=== PATIENT | male | born 1965 | race Caucasian/White ===

== ENCOUNTER 2022-10-02 09:14 | Emergency (ER) | payer OTHER, SELFPAY ==
--- NOTE | ~2022-10-02 | XR_ITS ---
EXAMINATION: XR CHEST CLINICAL INFORMATION: Cough. Covid positive COMPARISON: None TECHNIQUE: Frontal view of the chest was obtained. FINDINGS: Lungs grossly clear. Heart and pulmonary vessels normal. XR/XR chest 1V IMPRESSION: No active disease.
[2022-10-02 09:32] VITALS: BP 144/78; PULSE 69; RESP 18; TEMP 36.6; O2SAT 97; BMI 27.3
--- NOTE | 2022-10-02 10:01 | ED_ITS ---
HPI - General Adult General Chief complaint: General Medical Stated complaint: COVID + Time Seen by Provider: 10/02/22 09:37 Source: patient Mode of arrival: ambulatory Limitations: no limitations History of Present Illness HPI narrative: Patient with a history of diabetes and asthma. Former smoker. Complains of loss of voice and URI symptoms for approximately 2 weeks. Starting yesterday, however, he got significantly worse with fevers chills and a sore throat. He was initially tested for COVID and influenza approximately week and a half ago which was negative. Yesterday, however, he got tested at work with a home COVID test as well as [place] follow-up PCR at the [place] where he is [facility]. Both tests were positive. Positive sputum which is light yellow and white. No nausea vomiting diarrhea or constipation. Eating without difficulty Blood sugars have been approximately 140 in the morning. No shortness of breath Related Data Previous Rx's Medication Instructions Recorded albuterol sulfate 90 mcg/actuation 2 puff inhalation Q6H PRN 10/02/22 aerosol inhaler shortness of breath or wheezing #8.5 grams nirmatrelvir 300 mg (150 mg See Rx Instructions PO .COMPLEX 10/02/22 x2)-ritonavir 100 mg tablet,dose #30 ea pack(EUA) (Paxlovid) Allergies Allergy/AdvReac Type Severity Reaction Status Date / Time Penicillins Allergy Unknown Verified 10/02/22 09:34 Review of Systems Constitutional: Comments: Fevers and chills as described ENT: Comments: Sore throat, mostly with coughing. Able to drink and swallow without difficulty. No difficulty breathing. Cardiovascular: Comments: No chest pain Respiratory: Comments: Cough but no shortness of breath. Gastrointestinal: Comments: No nausea vomiting or abdominal pain Musculoskeletal: Comments: No extremity pain Integumentary/Breasts: Comments: No rash Neurologic: Comments: No weakness Endocrine: Comments: History of diabetes. Blood sugars as described [facility] Social History Social History Advance Directives: Yes Advance Directives Information Provided: Yes Advance Directives on File: No Physical Exam ED Vital Signs: Vital Signs - 24 hr 10/02/22 09:32 Temperature 97.8 F Pulse Rate 69 Respiratory Rate 18 Blood Pressure 144/78 H Pulse Oximetry 97 Oxygen Delivery Method Room Air BMI result Body Mass Index 27.3 Const Other: Awake and alert in no acute distress HENMT Other: Oropharynx normal without erythema or exudate Neck Other: No lymphadenopathy Resp Other: Mildly diminished bilaterally without obvious wheezes rales or rhonchi Cardio Other: Regular rate and rhythm without murmurs rubs or gallops GI Other: Soft nontender nondistended Skin Other: Warm pink and dry without rash Neuro Other: Ambulatory without difficulty. Nonfocal neuro exam Extrem Other: No pedal edema or calf tenderness Course Course Course Narrative: Patient with 2 week URI history. Recent worsening yesterday with positive COVID test yesterday. Likely viral URI now with secondary infection. Probably COVID-19 secondary infection. Will obtain chest x-ray to rule out bronchitis or pneumonia. He has risk factors for to severe disease including diabetes, former smoking, asthma. Will treat with Paxilovid. Will hold off on steroid secondary to diabetes. 10:56. Chest x-ray shows no evidence of infiltrate. Discharge Plan Discharge Clinical Impression: COVID-19 Patient Disposition: Home, Self-Care Instructions: COVID-19 (Coronavirus Disease 2019) (ED) Prescriptions: New Paxlovid (EUA) 300 mg (150 mg x 2)-100 mg tablets,dose pack See Rx Instructions .ROUTE .COMPLEX Qty: 30 0RF Rx Instructions: take TWO 150 mg tablets of nirmatrelvir with ONE 100 mg tablet of ritonavir twice daily for 5 days albuterol sulfate 90 mcg/actuation HFA aerosol inhaler 2 puff inhalation Q6H PRN (Reason: shortness of breath or wheezing) Qty: 8.5 0RF
--- OUTSIDE RECORDS SUMMARY | 2022-10-02 10:13 | XMS_ITS | Continuity of Care Document ---
:1965 Author Organization [facility] Care Team Providers Name Role Phone [facility] Unavailable Unavailable Problems Combined list of problems from Department of Defense and Veterans Affairs facilities. It does not include entries that were removed or entered in error. Problem Status Onset Problem Date of Comments Source Date Type Resolution Chronic kidney Active Condition [facility] disease stage 2 022 [facility] [place] [facility] Asthma Active Condition [facility] [place] Major depression Active Condition [facility] [place] [facility] Obesity Active Condition [facility] [place] [facility] Diabetic retinopathy Active Condition [facility] [place] [facility] Hypospadias Active Condition [facility] [place] [facility] Migraine Active Condition [facility] [place] [facility] Fatty liver Active Condition [facility] [place] [facility] NIDDM Inactive Condition 08/12/2019 Aug 19, ALYSSA- A NEW 000 2000 [facility] By: NORMA ACOSTA Comment: Onset age 34. Asthma sometimes Active Condition Nov 22, EA ST restricts [facility] By: [facility] S [id number]) ARBEN BLOCK Comment: H/O documented from private facility Chronic kidney Active Condition [facility]AST disease stage 2 SHERI [facility] Contusion of knee Active Condition [place] (ICD-9-CM 924.11) [facility] Contusion of wrist Active Condition [place] (ICD-9-CM 923.21) [facility] Diabetic retinopathy Active Condition Oct 29 , [facility] associated with type 2017 Ente [facility] 2 diabetes mellitus By: Mariah VÁZQUEZ Comment: +neuropathy feet Fatty Liver Active Condition Aug 19, [facility] 2000 Entered [facility] By: NORMA ACOSTA Comment: By history. HYPOSPADIES Active Condition Nov [id number] Entered [facility] By: [facility] AR[place] BLOCK Comment: H/O Surgery documented from private facility Migraine, Active Condition Nov 22 unspecified, without 2009 Ente red [facility] mention of By: [facility] S Intractable Migraine BLOCK,CH RIS without mention mell CARPIO Comment: documented from private facility Moderate major Active Condition EAST depression [facility] Obesity Active Condition [facility] Active Condition [facility] HEARING LOSS, [facility] Sprain of Active Condition [place] unspecified site of [facility] knee and leg (ICD-9-CM 844.9) SUBJECTIVE TINNITUS Active Condition [facility] Allergic rhinitis In[facility] Asthma Inactive Condition 08/12/2019 [facility] Chest Pain Inactive Condition 07/31/2017 Nov [id number] Entered [facility] By: 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/31/2017 EAS T intervertebral disc [facility] (ICD-9-CM 722.6) JOHN VILLATORO [facility] Disorders of bursae Inactive Condition 07/31/2017 EAST and tendons in [facility] shoulder region JERS EY [facility] (ICD-9-CM 726.10) Dysthymia (SNOMED CT Inactive Condition 08/12/2019 [facility] [id number]) [facility] Epistaxis Inactive Condition 08/12/2019 [facility] Hypertensive Inactive Condition 08/12/2019 Nov 222008 Entered [facility] By: [facility] AR[place]EN BLOCK Comment: H/O documented from private facility Impacted cerumen, Inactive Condition 08/12/2019 E AST bilateral [facility] Knee pain Inactive Condition 08/12/2019 [facility] MDD, Recur, Moderate Inactive Condition 07/31/2017 [facility] Neck Pain (ICD-9-CM Inactive Condition 07/31/2017 [facility] 723.1) [facility] Other and Inactive Condition 07/31/2017 [facility]AST unspecified [facility]-V A NEW hyperlipidemia [facility] Overweight Inactive Condition 08/12/2019 Sep , [facility] [id number] Entered [facility] By: NORMA ACOSTA Comment: BMI = 31.5 Pain in joint Inactive Condition 07/31/2017 EAST involving shoulder O RANGE-[facility] region (ICD-9-CM JOHN VILLATORO [facility] 719.41) Seen by Inactive Condition 03/16/2021 [facility] occupational therapist Seen by Inactive Condition 01/11/2020 [facility] occupational therapy service Type 2 diabetes Inactive Condition 10/29/2017 LYO NS- [facility] NEW mellitus without JOHN SHAUNA [facility] complication Diagnosis: ICD-10-CM Active Diagnosis [facility]- [place] NEW E11.9 Type 2 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 diabetes mellitus without complicationswith Provider Comments: Type 2 Diabetes Mellitus without Complications Diagnosis: ICD-10-CM Active Diagnosis [facility]- [facility] F33.1 Major [place] [facility] depressive disorder, recurrent, moderatewith Provider Comments: Moderate major depression ([facility] [id number]) Diagnosis: ICD-10-CM Active Diagnosis EAST K29.50 Unspecified O RANGE-VA NEW chronic gastritis JE RSEY [facility] without bleedingwith Provider Comments: Unspecified Chronic Gastritis without Bleeding Diagnosis: ICD-10-CM Active Diagnosis EAST Z12.11 Encounter for [facility] NEW screening for [facility] malignant neoplasm of colonwith Provider Comments: Encounter for Screening for Malignant Neoplasm of Colon Diagnosis: ICD-10-CM Active Diagnosis EAST Z86.010 Personal ORA NGE-VA NEW history of colonic J ARA [facility] polypswith Provider Comments: Personal History of Colonic Polyps Diagnosis: ICD-10-CM Active Diagnosis [facility]- [facility] NEW E11.3391 Type 2 diab [facility] with mod nonp rtnop without macular edema, r eyewith Provider Comments: DM Type 2 w/ Mod NPDR w/o Macula Edema,Right Eye Diagnosis: ICD-10-CM Active Diagnosis [facility]- [facility] NEW R12 Heartburnwith CARL PENDLETON [facility] Provider Comments: Heartburn Diagnosis: ICD-10-CM Active Diagnosis [facility]- [facility] NEW D18.01 Hemangioma of [facility] skin and subcutaneous tissuewith Provider Comments: Angioma Diagnosis: ICD-10-CM Active Diagnosis [facility]- [facility] NEW I10 Essential [facility] (primary) hypertensionwith Provider Comments: Essential (Primary) Hypertension Diagnosis: ICD-10-CM Active Diagnosis [facility]- [facility] NEW E11.8 Type 2 [facility] diabetes mellitus with unspecified complicationswith Provider Comments: Type 2 Diabetes Mellitus with unspecified Complications Diagnosis: ICD-10-CM Active Diagnosis [facility]- [facility] NEW E11.3293 Type 2 diab 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 screening for other viral diseaseswith Provider Comments: Encounter for screening for other viral diseases Diagnosis: ICD-10-CM Active Diagnosis [facility]- [facility] NEW E66.09 Other obesity [facility] due to excess calorieswith Provider Comments: Obesity ([facility] [id number]) Diagnosis: ICD-10-CM Active Diagnosis [facility]- [facility] NEW Z23 Encounter for CARL GARCIA immunizationwith Provider Comments: Encounter for immunization Diagnosis: ICD-10-CM Active Diagnosis EAST Z71.9 Counseling, OR PATRICK-VA NEW unspecifiedwith J[facility] EY HCS Provider Comments: Counseling, unspecified Diagnosis: ICD-10-CM Active Diagnosis [facility]- [facility] E78.5 [facility] Hyperlipidemia, unspecifiedwith Provider Comments: Hyperlipidemia, unspecified Medications Combined list of outpatient medications from Department of Defense and Veterans Affairs facilities. Medications provided include 1) outpatient medications from the last 15 months, and 2) patient-reported medications. Medication Details Route Status Patient Prescription Prescription Last Ordering Order Source Instructions Expires Number Dispense Provider Date Date ALBUTEROL INHALE 2 INHALA ACTIVE 08/06/2023 [id number] AHMED, MOH 08/15/ SC 90MCG/ACTUA PUFFS BY TION 2 AMMED 2021 CNTRL T (CF-F) MOUTH ORAL JAWED WSTRN INHL,ORAL,8 EVERY 6 [place] U .5GM DOSE HOURS SETS COUNTER NEEDED HCS ALBUTEROL INHALE 2 INHALA 03/17/2022 [id number] Dena ARREOLA 03/16/ SHAH- 90MCG/ACTUA PUFFS BY TION 1 AROL M 2020 VA N EW T (CFC-F) MOUTH ORAL [place] INHL,ORAL,8 EVERY 6 HCS .5GM DOSE HOURS COUNTER NEEDED FOR BREATHIN G ALOGLIPTIN TAKE ONE BY ACTIVE 08/17/2023 [id number] Veena GANDARA 09/05/ SHAH- 12.5MG TAB TABLET MOUTH 2 ARO2021 [facility] BY MOUTH [place] DAILY [facility] FOR DIABETES ALOGLIPTIN TAKE ONE BY DISCONT 04/13/2023 [id number] Veena TIM [facility] 12.5MG TAB TABLET MOUTH INUED 2 AROL 2021 [place]- BY MOUTH [facility] FOR [facility] DIABETES ALOGLIPTIN TAKE ONE BY DISCONT 12/22/2022 [id number] ANUP, EAST 12.5MG TAB TABLET MOUTH INUED 2 JUSTIN2021 [place]- BY MOUTH [facility] FOR [facility] DIABETES ALOGLIPTIN TAKE ONE BY DISCONT 2022 [id number] MITCH LINCOL[place], 10/15/ SHAH- 12.5MG TAB TABLET MOUTH INUE 1 2020 [facility] NEW BY MOUTH [place] DAILY HCS FOR DIABETES ALOGLIPTIN TAKE ONE BY DISCONT 09/22/2022 [id number] ANUP, 09/21/ SHAH- 12.5MG TAB TABLET MOUTH INUED 1 2020 [place] NEW BY MOUTH (EDIT) [place] DAILY HCS FOR DIABETES ALOGLIPTIN TAKE ONE BY DISCONT 07/03/2022 [id number] STUART 07/21/ SHAH- 12.5MG TAB TABLET MOUTH INUE 1 YOAN 2020 [place] NEW BY MOUTH [place] DAILY HCS FOR DIABETES ASCORBIC TAKE BY BY ACTIVE ADAROS 06/29/ LYO NS- ACID TAB MOUTH MOUTH BETTYE 2020 [facility] HCS ATORVASTATI TAKE BY ACTIVE 12/08/2022 [id number] JOSH QUIÑONES 12/07/ SHAH- N CA 40MG ONE-HALF MOUTH 2 LOLIS2021 SC NEW TAB TABLET [place] BY MOUTH HCS AT BEDTIME FOR LOWERING CHOLESTE ROL ATORVASTATI TAKE BY DISCONT 12/02/2021 [id number] ISHMAELJOSH 02/06/ SHAH- N CA 40MG ONE-HALF MOUTH INUE 1 LOLIS2020 [place] NEW TAB TABLET [place] BY MOUTH HCS AT BEDTIME FOR LOWERING CHOLESTE ROL BISACODYL TAKE BY 06/19/2022 [id number] Dena RUSSO HR 05/20/ EAST 5MG TAB,EC FOUR MOUTH 2 ISTOPHER 2021 [place] - TABLETS [facility] BY MOUTH [place]ED[place] ONE TIME HCS DIRECTED TAKE THESE TABLETS BY MOUTH ONE TIME DIRECTED FOR BOWEL CLEANSIN G....ANGELITO E ALL PILLS AT ONCE. TAKE THESE TABLETS BY MOUTH ONE TIME DIRECTED FOR BOWEL CLEANSIN G....ANGELITO E ALL PILLS AT ONCE. BISACODYL TAKE BY 03/21/2022 [id number] ANA CASTILLO RI 02/20/ SHAH- 5MG TAB,EC FOUR MOUTH 2 STOPHER 2021 [place] NEW TABLETS [place] BY MOUTH [facility] ONE TIME DIRECTED - TAKE THESE TABLETS BY MOUTH ONE TIME DIRECTED FOR BOWEL CLEANSIN G....ANGELITO E ALL PILLS AT ONCE. - TAKE THESE TABLETS BY MOUTH ONE TIME DIRECTED FOR BOWEL CLEANSIN G....ANGELITO E ALL PILLS AT ONCE. BUPROPION TAKE ONE ORAL ACTIVE 02/02/2023 [id number] FRINO ,MAR 04/24/ EAST HCL 150MG TABLET 2 IE M 2021 [place]- 24HR TAB,SA BY MOUTH [facility] NE W DAILY [place] FOR MOOD HCS BUPROPION TAKE ONE ORAL ACTIVE 08/06/2023 [id number] AHMED,M [place] 08/15/ VA HCL 150MG TABLET 2 AMMED 2021 CNTRL 24HR TAB,SA BY MOUTH JAWED WSTRN ONCE [place] DAILY SETS HCS BUPROPION TAKE ONE ORAL DISCONT 09/29/2022 [id number] F YULIET,MAR 10/19/ EAST HCL 150MG TABLET INUED 2 IE M 2020 [place]- 24HR TAB,SA BY MOUTH [facility] NE W DAILY [facility] FOR MOOD HCS BUPROPION TAKE ONE ORAL DISCONT 01/20/2022 [id number] F YULIET,MAR 01/19/ EAST HCL 150MG TABLET INUE 1 IE M 2020 [place]- 24HR TAB,SA BY MOUTH [facility] NE W DAILY [facility] FOR MOOD HCS CETIRIZINE TAKE ONE BY ACTIVE 05/17/2023 [id number] DUN GO,ROS 05/16/ SHAH- HCL 10MG TABLET MOUTH 2 BETTYE 2021 [place] NEW TAB BY MOUTH [place] DAILY HCS FOR ALLERGY CETIRIZINE TAKE ONE BY DISCONT 02/20/2023 [id number] POSTALLIA 02/19/ SHAH- HCL 10MG TABLET MOUTH INUED 2 N,NEISHA 2021 [place] NEW TAB BY MOUTH A [place] DAILY HCS FOR ALLERGY CETIRIZINE TAKE ONE BY DISCONT 12/26/2022 [id number] POSTALLIA 12/25/ SHAH- HCL 10MG TABLET MOUTH INUED 2 N,NEISHA 2021 [facility] NEW TAB BY MOUTH A [place] DAILY HCS FOR ALLERGY CETIRIZINE TAKE ONE BY DISCONT 10/24/2022 [id number] POSTALLIA 10/23/ SHAH- HCL 10MG TABLET MOUTH INUE 2 N,NEISHA 2020 [facility] NEW TAB BY MOUTH A [place] DAILY HCS FOR ALLERGY CETIRIZINE TAKE ONE BY DISCONT 08/16/2022 [id number] POSTALLIA 08/15/ SHAH- HCL 10MG TABLET MOUTH INUE 1 N,NEISHA 2020 [place] NEW TAB BY MOUTH A [place] DAILY HCS FOR ALLERGY CETIRIZINE TAKE ONE BY DISCONT 06/19/2022 [id number] POSTALLIA 06/18/ SH[facility]- HCL 10MG TABLET MOUTH INUE 1 N,NEISHA 2020 [facility] NEW TAB BY MOUTH A [place] DAILY HCS FOR ALLERGY EMPAGLIFLOZ TAKE ONE BY DISCONT 2022 [id number] HEBERT, 10/04/ SHAH- IN 10MG TAB TABLET MOUTH INUED 2 JUSTIN 2020 [place] NEW BY MOUTH (EDIT) [place] DAILY HCS EMPAGLIFLOZ TAKE ONE BY DISCONT 09/11/2022 [id number] ZIMERING, EAST IN 10MG TAB TABLET MOUTH INUED 1 YOAN 2020 [place]- BY MOUTH (EDIT) [facility] DAILY [place] [facility]CS EMPAGLIFLOZ TAKE ONE BY DISCONT 04/28/2022 [id number] 08/03/20 2 JOSH QUIÑONES 04/27/ SHAH- IN 10MG TAB TABLET MOUTH INUE 1 LOLIS 2020 [place] NEW BY MOUTH [place] DAILY HCS EMPAGLIFLOZ TAKE ONE BY ACTIVE 07/13/2023 [id number] Veena TIM 09/05/ SHAH- IN 25MG TAB TABLET MOUTH 2 AROL 2021 [place] NEW BY MOUTH [place] DAILY HCS EMPAGLIFLOZ TAKE ONE BY DISCONT 04/13/2023 [id number] 06/17/20 2 Veena TIM 06/17/ EAST IN 25MG TAB TABLET MOUTH INUED 2 AROL 2021 [place]- BY MOUTH [facility] DAILY [place] [facility] EMPAGLIFLOZ TAKE ONE BY DISCONT 12/22/2022 [id number] HEBERT, EAST IN 25MG TAB TABLET MOUTH INUED 2 JUSTIN 2021 [place] - BY MOUTH [place] NEW DAILY [place] NEW DOSE HCS ENALAPRIL TAKE ONE ORAL ACTIVE 10/17/2022 [id number] Rodolfo CHARLES 09/17/ VA MALEATE TABLET 2 FAUSTO 2021 CNTRL 2.5MG TAB BY MOUTH WSTRN ONCE [place] DAILY [facility]S FOR HCS BLOOD PRESSURE /HEART ENALAPRIL TAKE ONE BY SUSPEND 03/12/2023 [id number] RICHARD E,JEANNA 03/11/ EAST MALEATE TABLET MOUTH ED 2 TA P 2021 [place]- 2.5MG TAB BY MOUTH [place] NEW DAILY [place] FOR HCS BLOOD PRESSURE /KIDNEY PROTECTI ON ENALAPRIL TAKE ONE BY DISCONT 03/17/2022 [id number] NITA ,JEANNA 04/11/ EAST MALEATE TABLET MOUTH INUED 2 TA P 2020 [place]- 2.5MG TAB BY MOUTH [place] NEW DAILY [place] FOR HCS BLOOD PRESSURE /KIDNEY PROTECTI ON GLIMEPIRIDE TAKE ONE BY ACTIVE 08/17/2023 [id number] Veena FRIEND 09/05/ SHAH- 4MG TAB TABLET MOUTH 2 AROL 2021 [place] NEW BY MOUTH [place] TWICE A [facility] DAY FOR DIABETES GLIMEPIRIDE TAKE ONE BY DISCONT 04/13/2023 [id number] 06/19/20 2 Veena TIM 07/01/ [facility] 4MG TAB TABLET MOUTH INUED 2 AROL 2021 [place]- BY MOUTH [place] NEW TWICE A [place] DAY FOR HCS DIABETES GLIMEPIRIDE TAKE ONE BY DISCONT 12/22/2022 [id number] 04/08/20 2 HEBERT, 01/22/ [facility] 4MG TAB TABLET MOUTH INUED 2 JUSTIN2021 [place]- BY MOUTH [place] NEW TWICE A [place] DAY FOR HCS DIABETES GLIMEPIRIDE TAKE ONE BY DISCONT 09/22/2022 [id number] 11/08/20 2 HEBERT, 11/08/ SHAH- 4MG TAB TABLET MOUTH INUE 1 JUSTIN2020 [place] NEW BY MOUTH [place] TWICE A [facility] DAY FOR DIABETES GLIMEPIRIDE TAKE ONE BY DISCONT 03/17/2022 [id number] 08/31/20 2 STUART 03/31/ SHAH- 4MG TAB TABLET MOUTH INUE 1 YOAN 2020 [place] NEW BY MOUTH [place] TWICE A [facility] DAY FOR DIABETES GLUCOSE 4GM CHEW BY DISCONT 12/22/2022 [id number] ENRIQ UEZ, 12/21/ EAST TAB,CHEW THREE MOUTH INUED 2 JUSTIN2021 [place]- TABLETS [place] NEW BY MOUTH [place] HCS NEEDED FOR LOW BLOOD SUGAR IBUPROFEN TAKE BY BY ACTIVE ANA BLOCK 02/01/ LY ONS- TAB MOUTH MOUTH RISTALA 2008 [facility] DAILY [place] PRN HCS MELATONIN TAKE TWO BY DISCYADIEL 02/02/2023 [id number] FRI NO,MAR 02/01/ EAST 3MG CAP/TAB CAP/TABS MOUTH INUED 2 IE M 2021 ORANG E- BY MOUTH [facility] BEDTIME HCS FOR INSOMNIA METFORMIN TAKE TWO ORAL ACTIVE 10/16/2022 [id number] Rodolfo CHARLES [place] HCL 500MG TABLETS 2 FAUSTO 2021 CNTRL 24HR TAB,SA BY MOUTH [facility] METFORMIN TAKE TWO BY ACTIVE 07/13/2023 [id number] Veena GANDARA 07/12/ SHAH- HCL 500MG TABLETS MOUTH 2 AROL 2021 VA NEW 24HR TAB,SA BY MOUTH [place] Y TWICE A [facility] DAY FOR DIABETES METFORMIN TAKE TWO BY DISCONT 12/22/2022 [id number] ENR IQUEZ, 12/30/ EAST HCL 500MG TABLETS MOUTH INUED 2 JUSTIN2021 [place]- 24HR TAB,SA BY MOUTH [place] NE W TWICE A [place] DAY FOR HCS DIABETES METFORMIN TAKE TWO BY DISCONT 09/22/2022 [id number] ENR IQUEZ, 09/23/ SHAH- HCL 500MG TABLETS MOUTH INUE 2 JUSTIN2020 [facility] NEW 24HR TAB,SA BY MOUTH [place]ER[place] Y TWICE A [facility] DAY FOR DIABETES METFORMIN TAKE TWO BY DISCONT 03/17/2022 [id number] IZABELLA ERING, 03/26/ SHAH- HCL 500MG TABLETS MOUTH INUE 1 YOAN 2020 VA NEW 24HR TAB,SA BY MOUTH [place] Y TWICE A [facility] DAY FOR DIABETES MULTIVITAMI TAKE BY BY ACTIVE ANA BLOCK 02/01/ SHAH- NS TAB MOUTH MOUTH RISTALA 2008 [facility] DAILY [place] [facility]CS OMEPRAZOLE TAKE TWO ORAL ACTIVE 10/16/2022 [id number] Rodolfo ANDRADE 07/18/ [facility] 20MG CAP,EC CAPSULES 2 FAUSTO 2021 CNTRL BY MOUTH WSTRN EVERY [place] MORNING SETS 30 HCS MINUTES BEFORE BREAKFAS T NOTE CAPSULE STRENGTH AND DIRECTIO NS OMEPRAZOLE TAKE ONE BY ACTIVE 05/02/2023 [id number] JONATHON A,CHR 40MG CAP,EC CAPSULE MOUTH 2 ISTOPHER 2021 ORA NGE- BY MOUTH [facility] EVERY [place] DAY HCS BEFORE BREAKFAS T PEG-3350/EL TAKE BY 06/19/2022 [id number] LENZA ,CHR 05/20/ EAST ECTROLYTES 4-LITER MOUTH 2 ISTOPHER 2021 SHERI GE- PWDR BY LENORA PINK [facility] ONE TIME [place] [facility] DIRECTED (DO NOT FOLLOW INSTRUCT IONS ON THE BOTTLE.F OLLOW INSTRUCT IONS ON THE HANDOUT. CALL YOUR PROVIDER OR PHARMACY IF YOU LOSE THE HANDOUT) SERVE CHILLED. MAY TAKE WITH MUCH CLEAR LIQUID (SUCH CAROLYN EMILY) DESIRED. (DO NOT FOLLOW INSTRUCT IONS ON THE BOTTLE.F OLLOW INSTRUCT IONS ON THE HANDOUT. CALL YOUR PROVIDER OR PHARMACY IF YOU LOSE THE HANDOUT) SERVE CHILLED. MAY TAKE WITH MUCH CLEAR LIQUID (SUCH CAROLYN EMILY) DESIRED. PEG-3350/EL TAKE BY 03/21/2022 [id number] ANNA, CHRI 02/20/ SHAH- ECTROLYTES 4-LITER MOUTH 2 STOPHER 2021 [facility] PWDR BY MOUTH [place] ONE TIME [facility] DIRECTED (DO NOT FOLLOW INSTRUCT IONS ON THE BOTTLE.F OLLOW INSTRUCT IONS ON THE HANDOUT. CALL YOUR PROVIDER IF YOU LOSE THE HANDOUT) SERVE CHILLED. MAY TAKE WITH MUCH CLEAR LIQUID (SUCH CAROLYN EMILY) DESIRED. (DO NOT FOLLOW INSTRUCT IONS ON THE BOTTLE.F OLLOW INSTRUCT IONS ON THE HANDOUT. CALL YOUR PROVIDER IF YOU LOSE THE HANDOUT) SERVE CHILLED. MAY TAKE WITH MUCH CLEAR LIQUID (SUCH CAROLYN EMILY) DESIRED. PSYLLIUM TAKE 1 BY 07/06/2022 [id number] POSTAL MARY 07/16/ ALYSSA- SUGAR FREE TEASPOON MOUTH 1 N,NEISHA 2020 [facility],ORAL FUL BY [place] [facility] DAILY (MIX IN A GLASS OF JUICE OR WATER) VITAMIN B TAKE ACTIVE ROXANNE CABALLERO 06/29/ NOEL S- COMPLEX TAB BETTYE 2020 [facility] VITAMIN D TAKE BY BY ACTIVE ROXANNE CABALLERO 06/29/ LY ONS- CAP,ORAL MOUTH MOUTH BETTYE 2020 [facility] WEEK HCS VITAMIN E TAKE BY BY ACTIVE ROXANNE CABALLERO 06/29/ LY ONS- CAP,ORAL MOUTH MOUTH BETTYE 2020 [facility] Allergies, Adverse Reactions, Alerts Combined list of allergies from Department of Defense and Veterans Affairs facilities. It does not include entries that were removed or entered in error. Substance Category Reaction Severity Reaction Status Date Comments S ource type Reported PENICILLIN Propensity Propensity active HOLLY-B to adverse to adverse 2 AR RE reactions reactions [facility] to drug to drug (finding) (finding) PENICILLIN Propensity Urticaria Propensity active [facility] CNTRL to adverse to adverse 2 WS TRN reactions reactions [place] to drug to drug ETS [facility] (finding) (finding) Immunizations Combined list of available immunizations from the Department of Defense and Veterans Affairs facilities. Immunization Series Date Administered Site Reaction Lot CVX Drug St atus Comments Source Given By Number Code Surgeon'S Assistant INFLUENZA, complet VA INJECTABLE, 2021 ed CN TRL QUADRIVALENT, WSTRN PRESERVATIVE M ASSCHU FREE SETS HCS COVID-19 4 complet VA (MODERNA), 2021 ed CNT RL MRNA, LNP-S, W STRN PF, 100 [place] MCG/0.5ML SETS DOSE OR 50 HCS MCG/0.25ML DOSE ZOSTER 2 complet JLV VA RECOMBINANT 2020 ed CN TRL WSTRN [place] SETS HCS COVID-19 3 complet VA (MODERNA), 2020 ed CNT RL MRNA, LNP-S, W STRN PF, 100 [place] MCG/0.5ML SETS DOSE OR 50 HCS MCG/0.25ML DOSE INFLUENZA, complet VA UNSPECIFIED 2020 ed CN TRL FORMULATION WS TRN [place] SETS HCS INFLUENZA, complet SH[facility]- INJECTABLE, 2020 ed VA NEW QUADRIVALENT J ERSEY HCS ZOSTER 1 complet JLV VA RECOMBINANT 2020 ed CN TRL WSTRN [place] SETS HCS COVID-19 2 complet VA (MODERNA), 2020 ed CNT RL MRNA, LNP-S, W STRN PF, 100 [place] MCG/0.5ML SETS DOSE OR 50 HCS MCG/0.25ML DOSE COVID-19 1 complet VA (MODERNA), 2020 ed CNT RL MRNA, LNP-S, W STRN PF, 100 [place] MCG/0.5ML SETS DOSE OR 50 HCS MCG/0.25ML DOSE ZOSTER 2 complet COHEN S- RECOMBINANT 2018 ed [facility] INFLUENZA, complet SH[facility]- [facility], 2019 ed VA N EW INJECTABLE [facility] ZOSTER 1 complet COHEN S- RECOMBINANT 2019 ed [facility] INFLUENZA, complet SHAH- [facility], 2018 ed VA N EW INJECTABLE JOHN VILLATORO [facility] IN[facility], complet EAST SEASONAL, 2017 ed SHERI GE- INJECTABLE [facility], complet EAST SEASONAL, 2016 ed SHERI GE- INJECTABLE [facility], complet EAST SEASONAL, 2015 ed SHERI GE- INJECTABLE [facility], complet SHAH- UNSPECIFIED 2013 ed [facility] NEW FORMULATION JE RSEY [facility], complet EAST UNSPECIFIED 2012 ed OR PATRICK- FORMULATION [facility] TD(ADULT) complet JLV V A UNSPECIFIED 2011 ed CN TRL FORMULATION WS [facility] TETANUS complet EAS T TOXOID, 2011 ed ORANGE - UNSPECIFIED [facility] NEW FORMULATION JE RSEY [facility] INFLUENZA, complet SHAH- UNSPECIFIED 2008 ed [facility] NEW FORMULATION JE RSEY [facility] PNEUMOCOCCAL, complet SHAH- UNSPECIFIED 2008 ed [facility] NEW FORMULATION JE RSEY [facility] INFLUENZA, complet EAST UNSPECIFIED 2007 ed OR PATRICK- FORMULATION [facility] INFLU[facility], complet ZZ UNSPECIFIED 2000 ed LY ONS FORMULATION [facility] PNEUMOCOCCAL, complet ZZ UNSPECIFIED 2000 ed LY ONS FORMULATION [facility] Results Combined list of recent chemistry, hematology and other laboratory results from Department of Defense and Veterans Affairs, ranging from 15 months to all on record, depending upon the facility. Order Results Value Reference Date Interpretation Specimen Commen ts Source Name Range COVID-19 SARS-COV-2 P 10/01 Specimen Typ e: NASOPHARYNX [facility] FLU/RSV (COVID-19) /2021 Comment: Keshia t performed on Cepheid Genexpert at [facility]. NOTIFIED FAUSTO MARTINA 10/01/22 AT 1031 BY [place] EMAILED INFECTION CONTROL 10/01/22 BY [place] FAXED TO [facility] 10/01/22 BY [place] WSTRN DIAGNOST RNA Ordering Provi abhijit: MARTINAFAUSTO D [place] PANEL [PRESENCE] Report Rele ased Date/Time: Oct 01, 2022 09:30 AM [facility] IN Reporting [facility] RESPIRATOR [address] [place] [phone] Y SPECIMEN Performing L ab: [facility] BY SILVIA [address] [place] [phone] WITH PROBE DETECTION COVID-19 FLU A PCR N 10/01 Specimen Type : NASOPHARYNX [facility] CN[facility] FLU/RSV (FLUVID) /2021 Comment: Test performed on Cepheid Genexpert at [facility]. NOTIFIED FAUSTO MARTINA 10/01/22 AT 1031 BY [place] EMAILED INFECTION CONTROL 10/01/22 BY [place] FAXED TO [facility] 10/01/22 BY [place] WSTRN DIAGNOST Ordering Provi abhijit: FAUSTO MACK [place] PANEL Report Release d Date/Time: Oct 01, 2022 09:30 AM [facility] [address] [address] Performing Lab: [address] [address] COVID-19 FLU B PCR N 10/01 Specimen Type : NASOPHARYNX [facility] CNTRL FLU/RSV (FLUVID) /2021 Comment: Test performed on Cepheid Genexpert at [facility]. NOTIFIED FAUSTO MACK 10/01/22 AT 1031 BY TJ EMAILED INFECTION CONTROL 10/01/22 BY TJ FAXED TO [facility] 10/01/22 BY WSTRN DIAGNOST Ordering Provi abhijit: MARTINAFAUSTO D [place] IC PANEL Report Release d Date/Time: Oct 01, 2022 09:30 AM [facility] Reporting Lab: [facility] [address] [facility] [address] Performing Lab: [address] [address] COVID-19 RSV PCR N 10/01 Specimen Type: NASOPHARYNX [facility] FLU/RSV (FLUVID) /2021 Comment: Test performed on Rootless Genexpert at [facility]. NOTIFIED FAUSTO MACK 10/01/22 AT 1031 BY TJ EMAILED INFECTION CONTROL 10/01/22 BY [place] FAXED TO [facility] 10/01/22 BY [place] WSN DIAGNOST Ordering Provi abhijit: FAUSTO MACK [place] PANEL Report Release d Date/Time: Oct 01, 2022 09:30 AM [facility] Reporting Lab: [address] [address] Performing Lab: [address] [address] HEMOGLOB HEMOGLOBIN 7.2 4.8 - 5.6 07/05 H Specimen T ype: BLOOD [facility] IN A1C A1C/HEMOGL /2021 No comment en tered. [facility] OBIN.TOTAL Ordering Pro vider: ZULEMA TIM IN BLOOD Report Release d Date/Time: April 12, 2022 09:59 AM [place] BY HPLC Reporting Lab: [facility] [address] [place] [id number] Performing Lab: [address] [address] CHEM, CREATININE 1.3 .7 - 1.3 07/05 Specimen Typ e: SERUM [facility] Basic [MASS/VOLU /2021 Comment: eGF R calculated using the 2020 CKD-EPI Creatinine equation: eGFR and Chronic Kidney Disease (CKD) Stages: >90 ml/min Stage 1 - None or Slight CKD 60-89 ml/min Stage 2 - Mild CKD 45-59 m [facility] Metaboli ME] IN l/min Stage 3a - Moderate CKD 30-44 ml/min Stage 3B - Moderate CKD 15-29 ml/min Stage 4 - Severe CKD <15 ml/min Stage 5 - End Stage CKD Reference: [email or web address].com/ NEW c Panel SERUM OR Ordering Provi abhijit: ZULEMA TIM PLASMA Report Released Date/Time: April 12, 2022 09:59 AM [facility] Reporting Lab: [facility] [address] [place] [address] Performing Lab: [facility] [address] [place] [address] CHEM, UREA 21 7 - 25 08/12 Specimen Type: S JUAN [facility] Basic NITROGEN /2021 Comment: eGFR calculated using the 2020 CKD-EPI Creatinine equation: eGFR and Chronic Kidney Disease (CKD) Stages: >90 ml/min Stage 1 - None or Slight CKD 60-89 ml/min Stage 2 - Mild CKD 45-59 m [facility] Metaboli [MASS/VOLU l/min Stage 3a - Moderate CKD 30-44 ml/min Stage 3B - Moderate CKD 15-29 ml/min Stage 4 - Severe CKD <15 ml/min Stage 5 - End Stage CKD Reference: https://Industrious Kid.[employer]/ NEW c Panel ME] IN Ordering Provid er: GLENROYZULEMA [place] SERUM OR Report Release d Date/Time: April 12, 2022 09:59 AM [facility] PLASMA Reporting Lab: [facility] [address] [place] [address] Performing Lab: [facility] [address] [place] [address] CHEM, GLUCOSE 138 65 - 99 08/12 H Specimen Type: S JUAN [facility] Basic [MASS/VOLU /2021 Comment: eGF R calculated using the 2020 CKD-EPI Creatinine equation: eGFR and Chronic Kidney Disease (CKD) Stages: >90 ml/min Stage 1 - None or Slight CKD 60-89 ml/min Stage 2 - Mild CKD 45-59 m [facility] Metaboli ME] IN l/min Stage 3a - Moderate CKD 30-44 ml/min Stage 3B - Moderate CKD 15-29 ml/min Stage 4 - Severe CKD <15 ml/min Stage 5 - End Stage CKD Reference: [email or web address]://kidneyInfotop.Applied Predictive Technologies/ NEW c Panel SERUM OR Ordering Provi abhijit: ZULEMA TIM PLASMA Report Released Date/Time: April 12, 2022 09:59 AM [facility] Reporting Lab: [facility] [address] [place] [address] Performing Lab: [facility] [address] [place] [address] CHEM, SODIUM 140 136 - 145 07/05 Specimen Type: SERUM [facility] Basic [MOLES/VOL /2021 Comment: eGF R calculated using the 2020 CKD-EPI Creatinine equation: eGFR and Chronic Kidney Disease (CKD) Stages: >90 ml/min Stage 1 - None or Slight CKD 60-89 ml/min Stage 2 - Mild CKD 45-59 m [facility] Metaboli UME] IN l/min Stage 3a - Moderate CKD 30-44 ml/min Stage 3B - Moderate CKD 15-29 ml/min Stage 4 - Severe CKD <15 ml/min Stage 5 - End Stage CKD Reference: https://kidneyInfotop.Applied Predictive Technologies/ NEW c Panel SERUM OR Ordering Provi abhijit: [facility] PLASMA Report Released Date/Time: April 12, 2022 09:59 AM HCS Reporting Lab: [facility] [address] [place] [address] Performing Lab: [facility] [address] [place] [address] CHEM, POTASSIUM 4.3 3.5 - 5.1 07/05 Specimen Typ e: SERUM [facility]AST Basic [MOLES/VOL /2021 Comment: eGF R calculated using the 2020 CKD-EPI Creatinine equation: eGFR and Chronic Kidney Disease (CKD) Stages: >90 ml/min Stage 1 - None or Slight CKD 60-89 ml/min Stage 2 - Mild CKD 45-59 m [facility] Metaboli UME] IN l/min Stage 3a - Moderate CKD 30-44 ml/min Stage 3B - Moderate CKD 15-29 ml/min Stage 4 - Severe CKD <15 ml/min Stage 5 - End Stage CKD Reference: https://kidneyInfotop.Applied Predictive Technologies/ NEW c Panel SERUM OR Ordering Provi abhijit: [facility]. [facility] PLASMA Report Released Date/Time: April 12, 2022 09:59 AM HCS Reporting Lab: [facility] [address] [place] [address] Performing Lab: [facility] [address] [place] [address] CHEM, CHLORIDE 105 98 - 107 07/05 Specimen Type: SERUM [facility]AST Basic [MOLES/VOL /2021 Comment: eGF R calculated using the 2020 CKD-EPI Creatinine equation: eGFR and Chronic Kidney Disease (CKD) Stages: >90 ml/min Stage 1 - None or Slight CKD 60-89 ml/min Stage 2 - Mild CKD 45-59 m [facility] Metaboli UME] IN l/min Stage 3a - Moderate CKD 30-44 ml/min Stage 3B - Moderate CKD 15-29 ml/min Stage 4 - Severe CKD <15 ml/min Stage 5 - End Stage CKD Reference: [email or web address] Energy Group.Applied Predictive Technologies/ NEW c Panel SERUM OR Ordering Provi abhijit: ZULEMA TIM PLASMA Report Released Date/Time: April 12, 2022 09:59 AM HCS Reporting Lab: [facility] [address] [facility] [facility] [address] Performing Lab: [facility] [address] [place] [address] CHEM, CARBON 25 21 - 31 07/05 Specimen Type: S JUAN [facility] DIOXIDE, /2021 Comment: eGFR calculated using the 2020 CKD-EPI Creatinine equation: eGFR and Chronic Kidney Disease (CKD) Stages: >90 ml/min Stage 1 - None or Slight CKD 60-89 ml/min Stage 2 - Mild CKD 45-59 m [facility] Met[place]oli TOTAL l/min Stage 3a - Moderate CKD 30-44 ml/min Stage 3B - Moderate CKD 15-29 ml/min Stage 4 - Severe CKD <15 ml/min Stage 5 - End Stage CKD Reference: https://kidneyInfotop.Applied Predictive Technologies/ NEW c Panel [MOLES/VOL Ordering Pro vider: ZULEMA TIM UME] IN Report Released Date/Time: April 12, 2022 09:59 AM [facility] SERUM OR Reporting Lab: [facility] PLASMA [address] [facility] [address] Performing Lab: [facility] [address] [facility] [address] [facility] [address] CHEM, CALCIUM 9.8 8.6 - 10.3 07/05 Specimen Type : SERUM [facility] [MASS/VOLU /2021 Comment: eGF R calculated using the 2020 CKD-EPI Creatinine equation: eGFR and Chronic Kidney Disease (CKD) Stages: >90 ml/min Stage 1 - None or Slight CKD 60-89 ml/min Stage 2 - Mild CKD 45-59 m [facility] Metaboli ME] IN l/min Stage 3a - Moderate CKD 30-44 ml/min Stage 3B - Moderate CKD 15-29 ml/min Stage 4 - Severe CKD <15 ml/min Stage 5 - End Stage CKD Reference: https://Nerd Attack/ NEW c Panel SERUM OR Ordering Provi abhijit: ZULEMA TIM PLASMA Report Released Date/Time: April 12, 2022 09:59 AM HCS Reporting Lab: [facility] [address] [place] [address] Performing Lab: [facility] [address] [place] [address] CHEM, ANION GAP 10 5 - 13 07/05 Specimen Type: SERUM [facility] IN SERUM /2021 Comment: eGFR calculated using the 2020 CKD-EPI Creatinine equation: eGFR and Chronic Kidney Disease (CKD) Stages: >90 ml/min Stage 1 - None or Slight CKD 60-89 ml/min Stage 2 - Mild CKD 45-59 m [facility] Metaboli OR PLASMA l/min Stage 3 a - Moderate CKD 30-44 ml/min Stage 3B - Moderate CKD 15-29 ml/min Stage 4 - Severe CKD <15 ml/min Stage 5 - End Stage CKD Reference: https://Nerd Attack/ NEW c Panel Ordering Provid er: ZULEMA TIM Report Released Date/Time: April 12, 2022 09:59 AM [facility]CS Reporting Lab: [facility] [address] [place] [address] Performing Lab: [facility] [address] [facility] [address] CHEM, GLOMERULAR 65 90 07/05 L Specimen Type : SERUM [facility] FILTRATION /2021 Comment: eGF R calculated using the 2020 CKD-EPI Creatinine equation: eGFR and Chronic Kidney Disease (CKD) Stages: >90 ml/min Stage 1 - None or Slight CKD 60-89 ml/min Stage 2 - Mild CKD 45-59 m [facility] Metaboli RATE/1.73 l/min Stage 3 a - Moderate CKD 30-44 ml/min Stage 3B - Moderate CKD 15-29 ml/min Stage 4 - Severe CKD <15 ml/min Stage 5 - End Stage CKD Reference: https://Nerd Attack/ NEW c Panel SQ Ordering Provid er: ZULEMA TIM Report Relea sed Date/Time: April 12, 2022 09:59 AM HCS D [VOLUME Reporting Lab : [facility] HCS RATE/AREA] [address] [facility] [address] IN SERUM Performing Lab : [facility] OR PLASMA [address] [facility] [address] BY CREATININE -BASED FORMULA (MDRD) COVID-19 SARS-COV-2 Not 06/26 Specimen Typ e: OROPHARYNX SHAH- VA MONITOR (COVID-19) Detected /2021 No comment e ntered. JUSTIN PANEL(AL RNA Ordering Provi abhijit: ASHWINI SARMIENTO [facility]) [PRESENCE] Report Relea sed Date/Time: Mar 21, 2022 08:55 AM [facility] IN Reporting Lab: [facility] RESPIRATOR [address] [facility] [address] Y SPECIMEN Performing L ab: [facility] BY SILVIA [address] [facility] [address] WITH PROBE DETECTION COVID-19 SARS-COV-2 Not 06/12 Specimen Typ e: OROPHARYNX SHAH- [place] MONITOR (COVID-19) Detected /2021 No comment e ntered. JUSTIN PANEL(AL RNA Ordering Provi abhijit: ASHWINI SARMIENTO [facility]) [PRESENCE] Report Relea sed Date/Time: Mar 21, 2022 08:55 AM [facility] IN Reporting Lab: [facility]CS RESPIRATOR [address] [facility] [address] Y SPECIMEN Performing L ab: [facility] BY SILVIA [address] [facility] [address] WITH PROBE DETECTION COVID-19 SARS-COV-2 Not 06/04 Specimen Typ e: OROPHARYNX SHAH- [place] MONITOR (COVID-19) Detected /2021 Comment: Te st Performed by NAHUM MEAD(AL RNA Ordering Provi abhijit: ASHWINI SARMIENTO [facility]) [PRESENCE] Report Relea sed Date/Time: Mar 21, 2022 08:55 AM [facility]CS IN Reporting Lab: [facility] HCS RESPIRATOR [address] [facility] [address] Y SPECIMEN Performing L ab: [facility] BY SILVIA [address] [facility] [address] WITH PROBE DETECTION COVID-19 SARS-COV-2 Not 05/14 Specimen Typ e: OROPHARYNX SHAH- [facility] MONITOR (COVID-19) Detected /2021 Comment: Te st Performed by NAHUM MEAD(AL RNA Ordering Provi abhijit: ASHWINI SARMIENTO [facility]) [PRESENCE] Report Relea sed Date/Time: Mar 21, 2022 08:55 AM [facility] IN Reporting Lab: [facility] HCS RESPIRATOR [address] [facility] [address] Y SPECIMEN Performing L ab: [facility] BY SILVIA [address] [facility] [address] WITH PROBE DETECTION COVID-19 SARS-COV-2 Not 05/07 Specimen Typ e: OROPHARYNX SHAH- SC MONITOR (COVID-19) Detected /2021 Comment: Te st Performed by NAHUM MEAD(AL RNA Ordering Provi abhijit: ASHWINI SARMIENTO [facility]) [PRESENCE] Report Relea sed Date/Time: Mar 21, 2022 08:55 AM HCS IN Reporting Lab: [facility] HCS RESPIRATOR [address] [facility] [address] Y SPECIMEN Performing L ab: [facility] H[facility] BY SILVIA [address] [facility] [address] WITH PROBE DETECTION POC GLUCOSE 102 70 - 115 05/01 Specimen Type: BLOOD EAST GLUCOSE [MASS/VOLU /2021 No comment en tered. [facility] ME] IN Ordering Provid er: TODD RUSSO MD NEW BLOOD BY Report Release d Date/Time: May 01, 2022 12:00 PM [place] [facility] Reporting Lab : [facility] HCS TEST STRIP [address] [facility] [address] Performing Lab: [facility] [address] [facility] [address] POC GLUCOSE 137 70 - 115 0608 Specimen Type: BLOOD EAST GLUCOSE [MASS/VOLU /2021 No comment en tered. [facility] ME] IN Ordering Provid er: JC CABALLERO BLOOD BY Report Release d Date/Time: May 01, 2022 09:28 AM [place] [employer] Reporting Lab : [facility] HCS TEST STRIP [address] [facility] [address] Performing Lab: [facility] [address] [place] [address] Vital Signs Combined list of inpatient and outpatient Vital Signs from Department of Defense and Veterans Affairs, ranging from 12 months to all on record, depending upon the facility. Vital Sign Value Date Comments Source SYSTOLIC BLOOD PRESSURE 144 09/17/2022 [facility] 13:38:12 [facility] DIASTOLIC BLOOD PRESSURE 74 09/17/2022 [facility] 13:38:[facility] PULSE OXIMETRY 96% 09/17/2022 [facility] 13:38:12 [facility] WEIGHT 197.7 09/17/2022 [facility] 13:38:[facility] BMI 30kg/m2 09/17/2022 [facility] 13:38:[facility] PAIN 0 09/17/2022 [facility] 13:38:[facility] TEMPERATURE 97.6 09/17/2022 [facility] 13:38:12 [facility] PULSE 74 09/17/2022 [facility] 13:38:12 [facility] RESPIRATION 20 09/17/2022 [facility] 13:38:[facility] SYSTOLIC BLOOD PRESSURE 138 09/03/2022 [facility] C [facility] 11:40:33 [facility] DIASTOLIC BLOOD PRESSURE 71 09/03/2022 [facility] 11:40:33 [facility] PULSE OXIMETRY 98% 09/03/2022 [facility] 11:40:33 [facility] WEIGHT 195.7 09/03/2022 [facility] 11[facility]40:[facility] BMI 30kg/m2 09/03/2022 [facility] 11:40:33 [facility] PAIN 0 09/03/2022 [facility] 11:40:33 [facility] TEMPERATURE 97.2 09/03/2022 [facility] 11:40:33 [facility] PULSE 55 09/03/2022 [facility] 11:40:33 [facility] RESPIRATION 16 09/03/2022 [facility] 11:40:33 [facility] SYSTOLIC BLOOD PRESSURE 142 08/05/2022 [facility] C [facility] 13:58:55 [facility] DIASTOLIC BLOOD PRESSURE 76 08/05/2022 [facility] 13:58:55 [facility] PULSE OXIMETRY 97% 08/05/2022 [facility] 13:58:55 [facility] WEIGHT 195.7 08/05/2022 [facility] 13[facility]58:55 [facility] BMI 30kg/m2 08/05/2022 [facility] 13:58:55 [facility] PAIN 2 08/05/2022 [facility] 13:58:55 [facility] TEMPERATURE 97.6 08/05/2022 [facility] 13:58:55 [facility] PULSE 67 08/05/2022 [facility] 13:58:55 [facility] RESPIRATION 16 08/05/2022 [facility] 13:58:55 [facility] SYSTOLIC BLOOD PRESSURE 155 07/18/2022 [facility] C [facility] 10:35:46 [facility] DIASTOLIC BLOOD PRESSURE 75 07/18/2022 [facility] 10:35:46 [facility] PULSE OXIMETRY 96% 07/18/2022 [facility] 10:35:46 [facility] WEIGHT 191.4 07/18/2022 [facility] 10:35:46 [facility] BMI 29kg/m2 07/18/2022 [facility] 10:35:46 [facility] PAIN 0 07/18/2022 [facility] 10:35:46 [facility] HEIGHT 68 07/18/2022 [facility] 10:35:46 [facility] TEMPERATURE 97.4 07/18/2022 [facility] 10:35:46 [facility] PULSE 53 07/18/2022 [facility] 10:35:46 [facility] RESPIRATION 20 07/18/2022 [facility] 10:35:46 [facility] SYSTOLIC BLOOD PRESSURE 116 05/01/2022 [facility] NEW 09:30:00 [facility] DIASTOLIC BLOOD PRESSURE 70 05/01/2022 EAS T [facility] NEW 09:30:00 [facility] PULSE OXIMETRY 99% 05/01/2022 [facility] NEW 09:30:00 [facility] WEIGHT 192 05/01/2022 [facility] NEW 09:30:00 [facility] BMI 29kg/m2 05/01/2022 [facility] NEW 09:30:00 [facility] PAIN 0 05/01/2022 [facility] NEW 09:30:00 [facility] HEIGHT 68 05/01/2022 [facility] NEW 09:30:00 [facility] TEMPERATURE 98 05/01/2022 [facility] NEW 09:30:00 [facility] PULSE 59 05/01/2022 [facility] NEW 09[facility]30:00 [facility] RESPIRATION 20 05/01/2022 [facility] NEW 09:30:00 [facility] Encounters Combined list of: 1) Encounters from Department of Veterans Affairs facilities going back up to the last 18 months. 2) Encounters from the Department of Defense facilities going back up to 280 months. Location Location Encounter Encounter Reason Attending ADM DC Stat us Disposition Source Details Type Number For Provider Date Date Visit Outpatient [id number] 04/30 [facility] Encounter [id number] [facility] Outpatient [id number] ANSELMO MOYA 05/14 [id number] [facility] [id number] TD JEFFREY 05[facility]30 [id number] [id number] 06/20 NOEL S- Encounter [id number] [facility] [place] [facility] [address] [facility] OFFICE O/P [id number] CHANA Grace 06/29 SHAH- EST MOD [id number] is: ONEIL /2020 [place] NEW 30-39 MIN 59 ICD-10- [place] [facility] E78.5 Hyperli pidemia , unspeci fied
with Provide r Comment s: Hyperli pidemia , unspeci fied Outpatient [id number] 07/02 [facility] Encounter [id number] [facility] [id number] Diagnos BITZER,CAR 07/16 SHAH- IVNTJ [id number] is: OLYNN A [place] NEW INDIV 1ST ICD-10- [place] 30 CM HCS E66.09 Other obesity due to excess calorie s
w ith Provide r Comment s: Obesity ([facility] [id number] ) HC PRO 01155-0.56 Diagnos WALKER,MAY 33 E AST PHONE CALL [id number] is: NEGAR D SHERI GE- 5-10 MIN [facility] Z71.9 HCS [employer] ing, unspeci fied
with Provide r Comment s: Furniture Sales Associate ing, unspeci fied [place] 27271-7.56 Diagnos VIGNESH,EU 07/21 E AST PHONE CALL [phone] is: LALEE H OR PATRICK- 5-10 MIN ICD-10- [facility] Z71.9 HCS [employer] ing, unspeci fied
with Provide r Comment s: Furniture Sales Associate ing, unspeci fied [facility] 47827-7.56 Diagnos BITZER,CAR 07/27 SHAH- IVNTJ [id number] is: OLYNN [place] NEW INDIV EA 54 ICD-10- [place] ADDL CM HCS E66.09 Other obesity due to excess calorie s
w ith Provide r Comment s: Obesity ([facility] [id number] ) [facility] 41719-5.56 Diagnos BITZER,CAR 08/10 SHAH- IVNTJ [id number] is: OLYNN A SC NEW INDIV EA 56 ICD-10- [place] ADDL CM HCS E66.09 Other obesity due to excess calorie s
w ith Provide r Comment s: Obesity ([facility] [id number] ) Outpatient 56728-7.63 08/12 [place] En[place] [id number] /2021 [facility] [facility] O/P 29847-9.56 Diagnos GONZALEZ 08/16 SHAH- EST [id number] is: ,MARCO ANTONIO R [place] NEW MINIMAL 31 ICD-10- [place] PROB CM Z23 HCS Encount er for immuniz ation<b r/>with Provide r Comment s: Encount er for Immuniz ation IIV4 VACC 40887-7.56 Diagnos TERESITA NAIR 08/21 SHAH- NO PRSV [id number] is: S /2020 [facility] NEW 0.5 ML IM 13 ICD-10- [place] CM Z23 HCS Encount er for immuniz ation<b r/>with Provide r Comment s: Encount er for immuniz ation Outpatient 01036-9.63 08/24 [place] En[place] [id number] /2021 [facility] 66003-4.56 Diagnos BITZER,CAR 08/24 SHAH- IVNTJ [id number] is: OLYNN [place] NEW INDIV EA 54 ICD-10- [place] ADDL CM HCS E66.09 Other obesity due to excess calorie s
w ith Provide r Comment s: Obesity ([facility] [id number]) HC PRO 93353-0.56 Diagnos NITIN,FLORDE 08/30 L YONS- PHONE CALL [id number] is: TED [place] NEW 5-10 MIN 84 ICD-10- [place] CM [facility] [facility] Z71.89 Other specifi ed crisis counselor ing<br/ >with Provide r Comment s: Other specifi ed Furniture Sales Associate ing OFFICE O/P 93500-4.56 Diagnos CHANDAN HOWARD 09/20 SHAH- EST [id number] is: EEN [place] NEW MINIMAL 72 ICD-10- [place] PROB CM HCS Z11.59 Encount er for screeni ng for other viral disease s
w ith Provide r Comment s: Encount er for screeni ng for other viral disease s OFFICE O/P 72485-7.56 Diagnos Lourdes HEBERT 09/21 SHAH- EST LOW [id number] is: OANNA [facility] NEW 20-29 MIN 13 ICD-10- [facility]3] E11.8 Type 2 diabete s mellitu s with unspeci fied complic ations< br/>wit h Provide r Comment s: Type 2 Diabete s Mellitu s with unspeci fied Complic ations Outpatient 65487-2.56 09/28 [facility] Encounter [id number] [facility]ANG [facility] Outpatient 04726-1.63 09/28 [facility] Encounter [id number] /2021 [facility] Kwanji [facility] OFFICE O/P 56 Diagnos FRI09/28 SHAH- EST LOW [id number] is: E SC NEW - MIN 07 ICD-10- [facility]3] F33.9 Major depress joey disorde r, recurre nt, unspeci fied
with Provide r Comment s: Major Depress joey Disorde r, Recurre nt, unspeci fied Outpatient [id number] 10/10 COHEN S- Encounter [id number] [facility] NE W 48 [facility] Outpatient 42614-3.63 10/14 [id number] [facility] Kwanji [facility] OFFICE O/P Diagnos FRINO,11/30 SHAH- EST LOW [id number] is: E SC NEW 20- MIN 44 ICD-10- [facility]3] F33.1 Major depress joey disorde r, recurre nt, moderat e
w ith Provide r Comment s: Moderat e major depress ion (SCT [id number]) DETERMINE 56 Diagnos TARDANICO, 12/11 SHAH- REFRACTIVE [id number] is: [facility] 66 ICD-10- [facility]3] E11.329 3 Type 2 diab with mild nonp rtnop without macular edema, bi
with Provide r Comment s: Type 2 diabete s mellitu s with mild nonprol iferati ve diabeti c retinop athy without macular edema, bilater al Outpatient 35577-4.56 Diagnos HEBERT,J 12/21 SHAH- Encounter [id number] is: OANNA [facility] NE W 59 ICD-10- [place] CM HCS E11.8 Type 2 diabete s mellitu s with unspeci fied complic ations< br/>wit h Provide r Comment s: Type 2 Diabete s Mellitu s with unspeci fied Complic ations OFFICE O/P 99045-7.56 Diagnos CHANA CABALLERO 01/18 SHAH- EST MOD [id number] is: ONEIL VA NEW 30-39 MIN 89 ICD-10- [place] CM I10 HCS Essenti al (primar y) hyperte nsion<b r/>with Provide r Comment s: Gordon al (Primar y) Hyperte nsion Outpatient 01001-9.56 01/22 [facility] Encounter [id number] /2022 [facility] OFF[facility] 20570-456 Diagnos LEANN SCHULTZ 01/23 L YONS- CONSULTATI [id number] is: EEP VA N EW ON 75 ICD-10- [place] CM HCS D18.01 Hemangi eliza of skin and subcuta neous tissue< br/>wit h Provide r Comment s: Angioma NUBHVL XM 69918-0.56 Diagnos EISENSTEIN 01/24 SHAH- PHYS/QHP [id number] is: ,ADEEL VA N EW 1ST HR 08 ICD-10- [place] CM HCS F33.1 Major depress joey disorde r, recurre nt, moderat e
w ith Provide r Comment s: Moderat e major depress ion (SCT [id number]) PSYCH 94674-3.56 Diagnos GULSHANSCOT 02/01 LY ONS- DIAGNOSTIC [id number] is: T SARAH V A NEW EVALUATION 14 ICD-10- [place] CM HCS F33.1 Major depress joey disorde r, recurre nt, moderat e
w ith Provide r Comment s: Moderat e major depress ion (SCT [id number]) OFFICE O/P 92247-8.56 Diagnos HAILEY CARRILLO 02/01 SHAH- EST LOW [id number] is: E M VA NEW 20-29 MIN 19 ICD-10- [place] CM HCS F33.1 Major depress joey disorde r, recurre nt, moderat e
w ith Provide r Comment s: Moderat e major depress ion (SCT [id number]) Outpatient 19887-3.56 Diagnos VOARMANIOUGH-T 02/19 SHAH- Encounter [id number] is: ABBEY CHAUDHRYA /2021 SC NEW 53 ICD-10- [place] CM R12 HCS Heartbu rn
with Provide r Comment s: Heartbu rn Outpatient 32150-3.63 02/27 [facility] Encounter 1. CNTRL WSN [place] SET[place] [facility] [place] [address]-7.56 Diagnos GAFFNEY,SCOT 03/01 SHAH- 45 MINUTES [id number] is: T V A NEW 94 ICD-10- [place] CM HCS F33.1 Major depress joey disorde r, recurre nt, moderat e
w ith Provide r Comment s: Moderat e major depress ion (SCT [id number]) Outpatient 05112-2.63 03/10 [facility] Encounter [id number] CNTRL WSTRN [place] [facility] OFFICE O/P 27325-5.56 Diagnos FRIARCHANAHAILEY 04/05 SHAH- EST LOW [id number] is: E M SC NEW 20-29 MIN 77 ICD-10- [place] CM HCS F33.1 Major depress joey disorde r, recurre nt, moderat e
w ith Provide r Comment s: Moderat e major depress ion (SCT [id number]) [place] [address]-0.56 Diagnos GAFFNEY,SCOT 04/10 SHAH- 45 MINUTES [id number] is: T V A NEW 47 ICD-10- [place] CM HCS F33.1 Major depress joey disorde r, recurre nt, moderat e
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, r eye<br/ >with Provide r Comment s: DM Type 2 w/ Mod NPDR w/o Macula Edema,R ight Eye Outpatient 12138-6 Diagnos GLENROY,KA 04/12 SHAH- Encounter [id number] is: ROL VA NE W 74 ICD-[address] [place] [address] E11.9 Type 2 diabete s mellitu s without complic ations< br/>wit h Provide r Comment s: Diabeti c retinop athy associa mike with type 2 diabete s mellitu s (SCT [id number] 02) Outpatient 79170-456 04/19 [facility] Encounter [id number] [facility] PSYTX W PT Diagnos GAFFNEY,SCOT 04/24 SHAH- 45 MINUTES [id number] is: T SARAH /2021 V [place] [address] F33.1 Major depress joey disorde r, recurre nt, moderat e
w ith Provide r Comment s: Moderat e major depress ion (SCT [id number]) Outpatient 05209-056 04/29 [facility] Encounter [id number] /2022 [facility] EGD BIOPSY Diagnos ROSITA RUSSO 05/01 [facility] SINGLE/MUL [id number] is: KINZA PINK /2021 [facility]- TIPLE [facility]-10[facility] Z12.11 [facility] Encount er for screeni ng for maligna nt neoplas m of colon<b r/>with Provide r Comment s: Encount er for Screeni ng for Maligna nt Neoplas m of Colon OFFICE O/P 58386-856 Diagnos JAYLYN CALABRESE 05/01 [facility] EST [id number] is: ORANGE- MINIMAL ICD-[address] [place] [address] Z86.010 [facility] Persona l history of colonic polyps< br/>wit h Provide r Comment s: Persona l History of Colonic Polyps Outpatient 22372-2.56 05/01 [facility] Encounter [id number] [facility] Outpatient 37868-5.56 05/01 [facility] Encounter [id number] [facility] Out[facility] 36657-4.56 05/01 [id number] [facility] 92290-4.56 05/01 [facility] En[facility] [id number] [facility] 17273-2.56 05/01 [id number] [facility] 81257-4.56 Diagnos JAYLYN CALABRESE 05/[address] [facility] GI [id number] is: /2021 ORANGE- NDSC PX ICD-10- [facility] K29.50 [facility] Unspeci fied chronic gastrit is without bleedin g
w [facility] Provide r Comment s: Unspeci fied Chronic Gastrit is without Bleedin g Outpatient 09942-0.56 GAINDH,JAGDEEP 05/06 [facility] Encounter [id number] [facility] KAMAL /2021 O [facility] Outpatient 37701-0.63 05/08 [facility] Encounter [id number] [facility] [facility] [place] [address]-4.56 Diagnos MARICHUY GAFFNEY 05/08 SHAH- 45 MINUTES [id number] is: T SARAH V A NEW 42 ICD-[address] [place] [address] F33.1 Major depress joey disorde r, recurre nt, moderat e
w [facility] Provide r Comment s: Moderat e major depress ion (SCT [id number]) Outpatient 62639-6.56 FIDAN-OZBI 05/10 [facility] Encounter [id number] LGIN[facility]ELIN /[facility] 46296-3.56 05/20 [id number] [facility]patient 14402-5.56 AMAYA OLEA 06/28 SHAH- Encounter [id number] [facility] NE W [address] [place] [address] [place] [address]-8.56 Diagnos MARICHUY GAFFNEY 07/12 SHAH- 45 MINUTES [id number] is: T SARAH V A NEW 19 ICD-10- [place] CM HCS F33.1 Major depress joey disorde r, recurre nt, moderat e
w ith Provide r Comment s: Moderat e major depress ion (SCT [id number]) OFFICE O/P 27343-8.56 Diagnos GLENROY,STANISLAW 07/12 SHAH- EST SF [id number] is: ROL VA NEW 10-19 MIN 33 ICD-10- [place] CM HCS E11.9 Type 2 diabete s mellitu s without complic ations< br/>wit h Provide r Comment s: Type 2 Diabete s Mellitu s without Complic ations Outpatient 54755-2.63 07/17 [facility] Encounter [id number] /2022 [facility] [place] [facility] OFF[facility] O/P Diagnos CHIMARIO,TI 07/18 VA EST [id number] is: MOTHY E /2021 CNTRL MINIMAL ICD-10- WSTRN PROB CM [place] Z71.89 SETS Other HCS specifi ed crisis counselor ing<br/ >with Provide r Comment s: 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
with Provide r Comment s: Type 2 Diabete s Mellitu s with Diabeti c Nephrop athy IMMUNIZATI 28545-3.63 Diagnos CHRISTINE,BRISA 09/03 VA ON ADMIN [id number] is: IENNE I CNTR L ICD-10- WSTRN CM Z23 [place] Encount SETS er for HCS immuniz ation<b r/>with Provide r Comment s: Encount er for Immuniz ation OFFICE O/P 44890-7.63 Diagnos DON,TI 09/17 VA EST [id number] is: MOTHY E CNTRL MINIMAL ICD-10- [facility] PROB CM [place] Z71.9 SETS Furniture Sales Associate HCS ing, unspeci fied
with Provide r Comment s: Furniture Sales Associate ing,Uns pec OFFICE O/P 74721-9.56 Diagnos IZABELLAFRANCOISM 09/27 SHAH- EST LOW [id number] is: ARK SC NEW 20-29 MIN 32 ICD-10- [place] CM HCS E11.9 Type 2 diabete s mellitu s without complic ations< br/>wit h Provide r Comment s: Diabeti c retinop athy associa mike with type 2 diabete s mellitu s (SCT [id number] 02) Outpatient 14177-1.77 LYN WHITMORE 10/02 [facility] Encounter [id number] [facility] [place] [facility] Social History Combined list of available smoking, tobacco, and other social history from Department of Defense andVeterans Affairs facilities. Social History Response Date Comment Source Type Tobacco smoking VA-TOBACCO FORMER 07/18/2022 [facility] status NHIS USER [place] [facility] History of VA-TOBACCO QUIT 15 07/18/2022 [facility] tobacco use YRS OR MORE [place] [facility] History of VA-TOBACCO FORMER 06/28/[address] [facility] tobacco use USER HCS History of VA-TOBACCO QUIT 15 06/29/2021 [facility] tobacco use YRS OR MORE HCS History of VA-TOBACCO NEVER 07/20/2020 [facility] tobacco use USED [facility] History of VA-TOBACCO QUIT 15 08/12/[facility] OR MORE [facility] History of [facility]-TOBACCO FORMER 08/20[facility] use USER [facility] History of LIFETIME NON-USER 10/28/2017 [facility] tobacco use OF TOBACCO [facility] History of LIFETIME NON-USER 11/19/2016 [facility] tobacco use OF TOBACCO [facility] History of QUIT TOBACCO >7 12/13/2015 [facility] tobacco use YEARS AGO HCS History of QUIT TOBACCO >7 12/09/2014 [facility] tobacco use YEARS AGO HCS History of LIFETIME NON-USER 01/29/2014 [facility] tobacco use OF TOBACCO [facility] History of QUIT TOBACCO >7 06/11/2012 [facility] tobacco use YEARS AGO HCS History of LIFETIME NON-USER 02/01/2009 quit 1998 [facility] tobacco use OF TOBACCO [facility] History of HISTORY OF SMOKING 08/19/2001 Quit 2 yrs ago, [facility] tobacco use 18 pack-yr Hx. [facility] Plan of Care List of future care activities from Department of Veterans Affairs facilities. Additional future care activities may be listed in the Assessment and Plan section. Date/Time Care Activity Care Activity Detail Facility 11/15/2022 AMBULATORY - NONE AMBULATORY - NONE [facility]
--- OUTSIDE RECORDS SUMMARY | 2022-10-02 10:17 | XMS_ITS | Encounter Summary ---
:1965 [address] Organization Department [facility] Address [address] [place] [address] Support Name Relationship Address Phone DENISSE LEON Unavailable [address] [place] [place] [address] NONE, GIVEN Unavailable Unavailable Unavailable Insurance Providers: All historical and current Section Date Range: From patient's date of to the date document was created.This section includes the names of all active insurance providers for the patient. Insurance Type of Plan Start of End of Group Member Insurance Policy P atient's Provider Coverage Name Policy Policy Number ID Provider's Chen's Relationship Coverage Coverage Telephone Name to Policy Number Chen AETNA [place] [facility] Feb [id number] [phone] [place]WARD RI PATIENT SERVICE INTER 2011 [id number] [place] AETNA PRESCRIPT [facility] Feb [id number] [phone] EDWARDRI PATIENT PHARMACY ION INTER 2011 [id number] VERO MANAGEMENT NATIO 1 [place] BCBS [place] PREFERRED BASIC Nov 30 [id number] [phone] COBY LEON PATIENT FEP PROVIDER FAMIL 2017 [id number] VERO ORGANIZAT Y ION (PPO) [place]BS [place] DENTAL [place]ENT[place] Nov 30 [id number] [phone] COBY LEON PATIENT FEP INSURANCE L [id number] 2017 62 5 VERO (DENTAL) [place] PREFERRED BASIC Nov 30 [id number] [phone] COBY METZ PATIENT FEP PROVIDER FAMIL 2017 62 5 VERO ORGANIZAT Y ION (PPO) BCBS OF [place] PREFERRED STAND March 26 [id number] [phone] COBY METZ PATIENT (FEDERAL) 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 2014 62 7 VERO ORGANIZAT IND ION (PPO) 104 CAREYOAN PRESCRIPT FEP March 26, [id number] [phone] ROBERTR NADYA,COBY PATIENT ([id number]) ION 2015 0 62 7 VERO CAREMARK-F PRESCRIPT FEP Nov 30, [id number] [phone] CO NROY,SC PATIENT EP BCBS ION CAREM 2018 0 62 1 VERO ARK CAREMARK-F PRESCRIPT FEP Nov 30, [id number] [phone] NROY,RI PATIENT EP BCBS ION 2018 0 [id number] VERO CAREMARK-F PRESCRIPT SHERI Nov 30, [id number] [phone] CO NROY,RI PATIENT EP BCBS ION AL 2018 0 62 1 VERO RX CAREMARK-F PRESCRIPT SHERI Nov 30, [id number] [phone] CO NROY,RI PATIENT EP BCBS ION AL 2018 0 [id number] 1 VERO RX HORIZON PREFERRED BASIC Nov 30 [id number] [phone] EDWARDRI PATIENT BCBS FEP* PROVIDER FAMIL 2017 62 8 VERO ORGANIZAT Y ION (PPO) HORIZON PREFERRED BASIC Nov 30 [id number] [phone] EDWARDRI PATIENT FEDERAL PROVIDER FAMIL 2018 62 8 VERO ORGANIZAT Y ION (PPO) DEPART WORKERS' OWCP Jul 01, NONE [id number] [phone] COBY REYNOLDS PATIENT OF LABOR COMPENSAT MEDIC [id number] VERO MED DFEC ION [place] INSURANCE DFEC DEPT OF WORKERS' WORKE Jul 01, WORKERS [id number] [phone] ROBERT SAABRI PATIENT LABOR COMPENSAT RS 2019 COMP [id number] VERO ION COMP INSURANCE Selected Encounter This section includes the information on record at [place] for the Encounter. Date/Time Encounter Type Encounter Reason Provider Source Description Oct 02, 2022 09:06 Outpatient TELEPHONE TRIAGE LYN WHITMORE AM Encounter IHE Encounter Template Text not used by VA Plan of Treatment: Future Appointments (+ 6 months) and Future Tests (+/- 45 days) The Plan of Treatment section includes future care activities for the patient from all VA treatmentfacilities. This section includes future appointments and future orders which are active, pending orscheduled.Future Appointments This section includes appointments that were scheduled to occur 6 months from the date of the Encounter, up to a maximum of 20 appointments. The data comes from all [place] treatment facilities. Appointment Date/Time Appointment Type Appointment Facili ty Name Nov 15, 2022 08:00 AM AMBULATORY - NONE [facility] Dec 13, 2022 08:00 AM AMBULATORY - MEDICINE [facility] March 28, 2023 08:30 AM AMBULATORY - MEDICINE [facility] Lab Results: +/- 30 days of the encounter This section includes the Chemistry and Hematology Lab Results on record with [place] for the patient. Radiology Reports and Pathology Reports are provided separately, in subsequent sections.Lab Results This section contains the Chemistry/Hematology Results that were resulted 30 days before or 30 daysafter the date of the Encounter. Date/Time Source Result Type Result - Unit Interpretation Reference Range Comment Oct 01, 2022 [facility] COVID-19 FLU/RSV Specimen Type: NASOPHARYNX 09:47 AM [facility] DIAGNOSTIC PANEL Comment: Test performed on [employer] Genexpert at [facility]. NOTIFIED FAUSTO MACK 10/01/22 AT 1031 BY GARDEN[place] EMAILED INFECTION CONTROL 10/01/22 BY [facility] FAXED TO [facility] 10/01/22 BY [facility]EN[facility] Ordering Provid er: FAUSTO MACK Report Released Date/Time: Oct 01, 2022 09:30 AM Reporting Lab: [facility] [address] [facility] [id number] Performing Lab: [address] [id number] COVID-19 PCR (FLUVID) P HH NEGATIVE FLU A PCR (FLUVID) N FLU B PCR (FLUVID) N RSV PCR (FLUVID) N Social History: Smoking Status (Most current) and Tobacco Use (All prior to encounter date) This section includes the most current, and the historical, smoking and tobacco-related health factors from the [place] facility where the Encounter took place.Current Smoking Status This section includes the most current smoking, or tobacco-related health factor, from the [place] facility where the Encounter took place. Date/Time Current Smoking Status Comment Facility Jul 18, 2022 10:30 AM VA-TOBACCO [facility] Tobacco Use History This section includes a history of the smoking, or tobacco- related health factors, that were collected on or before the date of the Encounter. The data comes from the [place] facility where the Encounter took place. Date/Time Smoking Status/Tobacco Use Comment Nova dodson Jul 18, 2022 10:30 AM [place]-TOBACCO QUIT 15 YRS [place] [facility]TR [place] [facility] Encounter Notes: All associated encounter notes This section contains the clinical notes associated to the Encounter. Date/Time Encounter Note(s) Provider Source Oct 02, 2022 09:06 AM RN PROGRESS NOTE: [facility] LOC[facility] TITLE: CCC: CLINICAL TRIAGE [facility] STANDARD TITLE: RN PROGRESS NOTE DATE OF NOTE: OCT 02, 2022@09:06:36 ENTRY DATE: OCT 02, 2022@09:06:36 AUTHOR: LYN WHITMORE EXP COSIGNER: URGENCY: STATUS: COMPLETED Patient Demographics Patient Name: ANGIE LEON Patient Primary Address: [address] [place] [address]
[place] [address] Patient : 1965 SSN: [id number] Patient Age: 57 Caller/Recipient Relation to Patient: Self Call Back Number: [phone] Emergency Contactx: GIVEN NONE Triage Summary Nurse Summary: [place] with cough x 2 weeks. 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 States had + covid test at [facility] yesterday. Triaged to go to ED now. Unclear if will go. Argued he preferred to be seen at walk in [place]. Understands that with CP and covid needs ED. Chief Complaint: Cough System WHEN: Self-care Nurse's Recommendation / WHEN: Now System WHERE: Home Nurse's Recommendation / WHERE: ED Other Summary of Actions Referred patient to emergency services Other course(s) of action Instructed to go to Emergency Department Generated msg to PACT/Provider Clinical Contact Center Codes Clinic/Location: V1 CWM PHONE CCC RN TXCC Triage Complete Triage Note: Phone Triage 02 Oct 2022 13:59:26 +0000 [place] Demographics 57 y/o Male Results CC: Cough Software suggested: Self-care Software suggested follow-up location: Home, co nsider virtual care Values and Measures Duration of CC: 2 Weeks Alerts 1) Higher risk for COVID-19. Document vaccinati on status. Quarantine and isolation guidance at: https://www.cdc.gov/coronavi olga/2019-ncov/your-health/quarantine-isolation.html Positive Responses HPI: chest pain, pleuritic HPI: cough, worsening for more than 1 week HPI: fever, subjective HPI: nasal congestion, duration longer than 2 d ays HPI: weakness, fatigue, more than usual PMH: diabetes VS: pulse not taken VS: respiratory rate not taken VS: temperature not taken Negative Responses Denies: HPI: breathing more rapidly than usual Denies: HPI: chest pain, moderate to severe Denies: HPI: confusion, new or worsening Denies: HPI: cough, duration longer than 2 week s Denies: HPI: cough, purulent sputum Denies: HPI: cough, severe, onset within past 3 hours Denies: HPI: dyspnea, new or worsening Denies: HPI: epigastric abdominal discomfort, p ostprandial Denies: HPI: headache Denies: HPI: myalgias Denies: HPI: pain, maxillary or frontal sinuses Denies: HPI: rhinorrhea, yellow or brown Denies: HPI: sore throat Denies: HPI: vomiting Denies: HPI: wheezing, new or worsening Denies: MEDS: antibiotic Denies: MEDS: chemotherapy Denies: MEDS: home oxygen Denies: MEDS: insulin Denies: MEDS: taking new medication Denies: PMH: CHF Denies: PMH: heart disease Denies: PMH: HIV positive Denies: PMH: sickle cell anemia Denies: PSH: organ transplant Denies: PSH: spleen removed /es/ LYN WHITMORE RN, BSN CALL CENTER REGISTERED NURSE Signed: 10/02/2022 09:06 Receipt Acknowledged By: * AWAITING SIGNATURE * BENNY PATINO
--- OUTSIDE RECORDS SUMMARY | 2022-10-02 10:18 | XMS_ITS | Encounter Summary ---
:1965 Author Organization [facility] Address [address] [place] [address] Support Name Relationship Address Phone DENISSE LEON Unavailable [address] [facility] [place] [address] NONE, GIVEN Unavailable Unavailable Unavailable Insurance Providers: [...] to Policy Number Chen AETNA POINT OF [facility] Feb [id number] [phone] EDWARD OR PATIENT SERVICE INTER 2011 381 2 [place] AET[place] PRESCRIPT [facility] Feb [id number] [phone] COBY LEON PATIENT PHARMACY ION INTER 2011 [id number] VERO MANAGEMENT NATIO 1 [place] BCBS [place] PREFERRED BASIC Nov 30 [id number] [phone] COBY LEON PATIENT FEP PROVIDER FAMIL 2017 62 123 VERO ORGANIZAT Y ION (PPO) [place]BS [place] Nov 30 [id number] [phone] COBY LEON PATIENT FEP INSURANCE L 112 2017 62 5 VERO (DENTAL) [place] PREFERRED BASIC Nov 30 [id number] [phone] COBY METZ PATIENT FEP PROVIDER FAMIL 2017 62 5 VERO ORGANIZAT Y ION (PPO) BCBS OF [place] PREFERRED STAND March 26 [id number] [phone] COBY METZ PATIENT (FEDERAL) 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 2015 62 7 VERO ORGANIZAT IND ION (PPO) 104 CAREMARK PRESCRIPT FEP March 26, [id number] [phone] CONR NADYA,OR PATIENT ([id number]) ION 2015 0 62 7 VERO CAREMARK-F PRESCRIPT FEP Nov 30, [id number] [phone] [place] N[place] PATIENT EP BCBS ION CAREM 2018 0 62 1 VERO ARK CAREMARK-F PRESCRIPT FEP Nov 30, [id number] [phone] NROY,[place] PATIENT EP BCBS ION 2018 0 62 331 VERO CAREMARK-F PRESCRIPT SHERI Nov 30, [id number] [phone] [place] NROY,[place] PATIENT EP BCBS ION AL 2018 0 62 1 VERO RX CAREMARK-F PRESCRIPT SHERI Nov 30, [id number] [phone] CO NROY,OR PATIENT EP BCBS ION AL 2018 0 [id number] 1 VERO RX HORIZON PREFERRED BASIC Nov 30 [id number] [phone] EDWARDOR PATIENT BCBS FEP* PROVIDER FAMIL 2017 62 8 VERO ORGANIZAT Y ION (PPO) HORIZON PREFERRED BASIC Nov 30 [id number] [phone] EDWARDOR PATIENT FEDERAL PROVIDER FAMIL 2018 62 8 VERO ORGANIZAT Y ION (PPO) DEPART WORKERS' OWCP Jul 01, NONE [id number] [phone] INDIGO CruzOR PATIENT OF LABOR COMPENSAT MEDIC 2018 [id number] VERO MED DFEC ION AL INSURANCE DFEC DEPT OF WORKERS' WORKE Jul 01, WORKERS [id number] [phone] ROBERT SAABOR PATIENT LABOR COMPENSAT RS 2019 COMP [id number] 319 VERO ION COMP INSURANCE Selected Encounter This section includes the information on record at [place] for the Encounter. Date/Time Encounter Type Encounter Reason Provider Source Description Sep 03, 2022 IMMUNIZATION PRIMARY ICD-10-CM Z23 AURORA CHRISTINE 11:45 AM ADMIN CARE/MEDICINE Encounter for NE I immunization with Provider Comments: Encounter for Immunization IHE Encounter Template Text not used by [facility] Assessments - Encounter Diagnoses This section includes the primary and secondary diagnoses documented for the Encounter. Date/Time Primary/Secondary Diagnosis Name Provider Source Diagnosis Sep 03, 2022 PRIMARY Encounter for AURORA CHRISTINE [facility] N 11:40 AM immunization NE I [facility] Plan of Treatment: Future Appointments (+ 6 months) and Future Tests (+/- 45 days) The Plan of Treatment section includes future care activities for the patient from all [place] treatmentfacilities. This section includes future appointments and future orders which are active, pending orscheduled.Future Appointments This section includes appointments that were scheduled to occur 6 months from the date of the Encounter, up to a maximum of 20 appointments. The data comes from all [place] treatment facilities. Appointment Date/Time Appointment Type Appointment Facili ty Name Sep 17, 2022 01:30 PM [facility] Sep 27, 2022 10:40 AM AMBULATORY - MEDICINE [facility] Nov 15, 2022 08:00 AM AMBULATORY - [facility] Dec 13, 2022 08:00 AM AMBULATORY - MEDICINE [facility] Active, Pending, and Scheduled Orders This section includes a listing of several types of active, pending, and scheduled orders, including clinic medications orders, diagnostic test orders, procedure orders and consult orders; where the start date of the order is 45 days before the date of the Encounter or 45 days after the date of the Encounter. The data comes from all [facility]. Test Date/Time Test Type Test Details Facility Name Jul 25, 2022 12:00 AM Laboratory - Chemistry CHEM, Basic Metabol ic [facility] Order Panel BLOOD SERUM SP [facility] ONCE Lab Results: +/- 30 days of the encounter This section includes the Chemistry and Hematology Lab Results on record with [place] for the patient. Radiology Reports and Pathology Reports are provided separately, in subsequent sections.Lab Results This section contains the Chemistry/Hematology Results that were resulted 30 days before or 30 daysafter the date of the Encounter. Date/Time Source Result Type Result - Unit Interpretation Reference Range Comment Oct 01, 2022 [facility]/RSV Specimen Type: NASOPHARYNX 09:47 AM [facility] DIAGNOSTIC PANEL Comment: Test performed on [employer] Genexpert at [facility]. NOTIFIED FAUSTO MACK 10/01/22 AT 1031 BY GARDENIA EMAILED INFECTION CONTROL 10/01/22 BY G[facility]ENIA FAXED TO [facility] 10/01/22 BY GARDENIA Ordering Provid er: FAUSTO MACK Report Released Date/Time: Oct 01, 2022 09:30 AM Reporting [facility] [address] [facility] [address] Performing Lab: [facility] [address] [facility] [address] COVID-19 PCR (FLUVID) P HH NEGATIVE FLU A PCR (FLUVID) N FLU B PCR (FLUVID) N RSV PCR (FLUVID) N Vital Signs: All taken on the encounter date This section contains inpatient and outpatient Vital Signs collected on the date of the Encounter. Date/Time Temperature Pulse Blood Respiratory SP02 Pain Height Weight Dong dy Source Pressure Rate Mass Index Sep 03.2 F 55 138/71 16 /min 98 % 0 195.7 30 [place] 2021 11:40 /min mm[Hg] lb CNTRL AM [place]STRN [place] [facility] Immunizations: All administered on the encounter date This section contains immunizations associated to the Encounter. Immunization Series Date Issued Reaction Comments INFLUENZA, INJECTABLE, QUADRIVALENT, Sep 03, 2022 PRESERVATIVE FREE Social History: Smoking Status (Most current) and Tobacco Use (All prior to encounter date) This section includes the most current, and the historical, smoking and tobacco-related health factors from the [place] facility where the Encounter took place.Current Smoking Status This section includes the most current smoking, or tobacco-related health factor, from the [place] facility where the Encounter took place. Date/Time Current Smoking Status Comment Facility Jul 18, 2022 10:30 AM VA-TOBACCO FORMER USER [facility] WSN [facility] Tobacco Use History This section includes a history of the smoking, or tobacco- related health factors, that were collected on or before the date of the Encounter. The data comes from the [place] facility where the Encounter took place. Date/Time Smoking Status/Tobacco Use Comment [facility] Jul 18, 2022 10:30 AM PR-TOBACCO QUIT 15 YRS OR [place] CNTRL [place] [facility] Encounter Notes: All associated encounter notes This section contains the clinical notes associated to the Encounter. Date/Time Encounter Note(s) Provider Source Sep 03, 2022 11:38 PRIMARY CARE NOTE: LING CHRISTINE I PR CNTRL WSTRN AM LOCAL TITLE: WALK-IN NOTE PRIMARY CARE (T) [facility] STANDARD TITLE: PRIMARY CARE NOTE DATE OF NOTE: SEP 03, 2022@11:38 ENTRY DATE: SEP 03, 2022@11:38:12 AUTHOR: LING CHRISTINE I EXP COSIGNER: URGENCY: STATUS: COMPLETED <====Click to Start Nurse Data: 56year old MALE Rupert reports to Primary Care clinic for Walk-In visit. 's PCP is , last visit with PCP was 08/05, next visit scheduled for n/a. Today Vet walks in to clinic with complaint of n eeds flu shot Last recorded Vital Signs are: Temperature:97.6 F [36.4 C] (08/05/2022 13:58) Pulse:67 (08/05/2022 13:58) Blood Pressure:126/66 (08/05/2022 14:50) Respiration:16 (08/05/2022 13:58) Pain:2 (08/05/2022 13:58) Vet reports current allergies are:Remote Allergy Data FACILITY ALLERGY/ADR -------- 561^[facility]^ [address] 693^[facility]^[address] Current Medications from Active Med list include : Active Outpatient Medications (including Supplie s): Active Outpatient Medications Status 1) ALBUTEROL 90MCG (CFC-F) 200D ORAL INHL INHALE 2 PUFFS ACTIVE BY MOUTH EVERY 6 HOURS NEEDED 2) BUPROPION 150MG 24HR XL TAB (ONCE DAILY) TAKE ONE ACTIVE TABLET BY MOUTH ONCE DAILY 3) METFORMIN HCL 500MG 24HR SA TAB TAKE TWO TABL ETS BY ACTIVE MOUTH TWICE DAILY 4) OMEPRAZOLE 20MG CAP,EC TAKE TWO CAPSULES BY M OUTH ACTIVE EVERY MORNING 30 MINUTES BEFORE BREAKFAST N OTE CAPSULE STRENGTH AND DIRECTIONS Action: flu shot given. Reminders BMI>30/>24.99 High Risk DUE NOW Statin Use CVD/DM DUE NOW DM/PVD/ESRD Foot Exam DUE NOW Hemoglobin A1C DUE NOW Hepatitis B Serology/Immunization DUE NOW Hepatitis C Testing DUE NOW HIV Screening DUE NOW Lipid Screening DUE NOW Pneumococcal Conjugate Vaccine (PCV15/PCDUE NOW Influenza Immunization DUE NOW Medication Reconciliation DUE NOW Tdap Immunization DUE NOW COVID-19 Immunization Booster DUE NOW Sexual Orientation DUE NOW Response: tolerated well. Influenza Immunization: The patient was given the influenza VIS which l ists the benefits and side effects of the vaccine and which reviews the ri sks of not receiving the flu vaccine. The VIS was reviewed with the patient and they were given an opportunity to ask questions. The patient was p rovided education on how to decrease the risk of influenza infection inc luding social distancing and use of good hand hygiene. The patient denied an y prior severe reaction to the flu vaccine or its components. The patient gave verbal consent to receive the vaccine. The seasonal influenza vaccine VIS given to the patient: VIS version date Jun. The patient received seasonal influenza vaccine today - Influenza, Quadrivalent preservative free (Afluria) 0.5 ml IM today in Left Deltoid. Chimney Supervisor Brick: Seqirus Lot # and Expiration Date: Lot #: [id number], Expi res: 05/23/2023 Administered by protocol/policy Complications: None /jacki/ LING CHRISTINE RN REGISTERED NURSE Signed: 09/03/2022 11:40
--- OUTSIDE RECORDS SUMMARY | 2022-10-02 10:18 | XMS_ITS | Encounter Summary ---
:1965 Author Organization [facility] Address [address] [place] [address] Support Name Relationship Address Phone DENISSE LEON Unavailable [address] [place] [address] NONE, GIVEN Unavailable Unavailable Unavailable Insurance Providers: [...] to Policy Number Chen AETNA POINT OF [facility] Feb [id number] [phone] [place] PATIENT SERVICE INTER 2011 381 2 V[place] AETNA PRESCRIPT [facility] Feb [id number] [phone] EDWARDSD PATIENT PHARMACY ION INTER 2011 [id number] VERO MANAGEMENT NATIO 1 [place] BCBS [place] PREFERRED BASIC Nov 30 [id number] [phone] COBY LEON PATIENT FEP PROVIDER FAMIL 2017 62 123 VERO ORGANIZAT Y ION (PPO) [place] Nov 30 [id number] [phone] COBY LEON PATIENT FEP INSURANCE L 112 2017 62 5 VERO (DENTAL) [place] PREFERRED BASIC Nov 30 [id number] [phone] COBY METZ PATIENT FEP PROVIDER FAMIL 2017 62 5 VERO ORGANIZAT Y ION (PPO) [place]BS [place] PREFERRED STAND March 26 [id number] [phone] COBY METZ PATIENT (FEDERAL) 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 2014 62 7 VERO ORGANIZAT IND ION (PPO) 104 CAREMARK PRESCRIPT FEP March 26, [id number] LAQUITA COVINGTONCOBY PATIENT ([id number]) ION 2015 0 62 7 VERO CAREMARK-F PRESCRIPT FEP Nov 30, [id number] [phone] CO NR,[place] PATIENT EP BCBS ION CAREM 2018 0 62 1 VERO ARK CAREMARK-F PRESCRIPT FEP Nov 30, [id number] [phone] CO NR,SD PATIENT EP BCBS ION 2018 0 62 331 VERO CAREMARK-F PRESCRIPT SHERI Nov 30, [id number] [phone] [place] NROY,[place] PATIENT EP BCBS ION AL 2018 0 62 1 VERO RX CAREMARK-F PRESCRIPT SHERI Nov 30, [id number] [phone] CO NR,SD PATIENT EP BCBS ION AL 2018 0 [id number] 1 VERO RX HORIZON PREFERRED BASIC Nov 30 [id number] [phone] EDWARDSD PATIENT BCBS FEP* PROVIDER FAMIL 2017 62 8 VERO ORGANIZAT Y ION (PPO) HORIZON PREFERRED BASIC Nov 30 [id number] [phone] EDWARDSD PATIENT FEDERAL PROVIDER FAMIL 2018 62 8 VERO ORGANIZAT Y ION (PPO) DEPART WORKERS' OWCP Jul 01, NONE [id number] [phone] COBY REYNOLDS PATIENT OF LABOR COMPENSAT MEDIC 2019 [id number] VERO MED DFEC ION [place] INSURANCE DFEC US DEPT OF WORKERS' WORKE Jul 01, WORKERS [id number] [phone] COBY METZ PATIENT LABOR COMPENSAT RS 2019 COMP 86 319 VERO ION COMP INSURANCE Selected Encounter This section includes the information on record at [place] for the Encounter. Date/Time Encounter Type Encounter Reason Provider Source Description Sep 17, 2022 OFFICE O/P EST PRIMARY ICD-10-CM Z71.9 ALEXI OCHOA 01:30 PM MINIMAL PROB CARE/MEDICINE Counseling, Y E unspecified with Provider Comments: Counseling,Unspec IHE Encounter Template Text not used by VA Assessments - Encounter Diagnoses This section includes the primary and secondary diagnoses documented for the Encounter. Date/Time Primary/Secondary Diagnosis Name Provider Source Diagnosis Oct 01, 2022 PRIMARY Counseling, [facility] 11:30 AM unspecified P [facility] Plan of Treatment: Future Appointments (+ 6 months) and Future Tests (+/- 45 days) The Plan of Treatment section includes future care activities for the patient from all [place] treatmentfacilities. This section includes future appointments and future orders which are active, pending orscheduled.Future Appointments This section includes appointments that were scheduled to occur 6 months from the date of the Encounter, up to a maximum of 20 appointments. The data comes from all [place] treatment facilities. Appointment Date/Time Appointment Type Appointment Facili ty Name Sep 27, 2022 10:40 AM AMBULATORY - MEDICINE [facility] Nov 15, 2022 08:00 AM AMBULATORY - [facility] Dec 13, 2022 08:00 AM AMBULATORY - MEDICINE [facility] Lab Results: +/- 30 days of the encounter This section includes the Chemistry and Hematology Lab Results on record with [place] for the patient. Radiology Reports and Pathology Reports are provided separately, in subsequent sections.Lab Results This section contains the Chemistry/Hematology Results that were resulted 30 days before or 30 daysafter the date of the Encounter. Date/Time Source Result Type Result - Unit Interpretation Reference Range Comment Oct 01, 2022 [facility] COVID-19 FLU/RSV Specimen Type: NASOPHARYNX 09:47 AM [facility] DIAGNOSTIC PANEL Comment: Test performed on [employer] Genexpert at [facility]. NOTIFIED FAUSTO MACK 10/01/22 AT 1031 BY G[facility]ENIA EMAILED INFECTION CONTROL 10/01/22 BY [facility]ENIA FAXED TO [facility] 10/01/22 BY G[place]ENIA Ordering Provid er: FAUSTO MACK Report Released Date/Time: Oct 01, 2022 09:30 AM Reporting Lab: [facility] [address] [facility] [address] Performing Lab: [facility] [address] [facility] [address] COVID-19 PCR (FLUVID) P HH NEGATIVE FLU A PCR (FLUVID) N FLU B PCR (FLUVID) N RSV PCR (FLUVID) N Vital Signs: All taken on the encounter date This section contains inpatient and outpatient Vital Signs collected on the date of the Encounter. Date/Time Temperature Pulse Blood Respiratory SP02 Pain Height Weight Dong dy Source Pressure Rate Mass Index Sep 17, 97.6 F 74 144/74 20 /min 96 % 0 197.7 30 [place] 2021 01:38 /min mm[Hg] lb CNTRL PM [place]N [place] [facility] Social History: Smoking Status (Most current) and Tobacco Use (All prior to encounter date) This section includes the most current, and the historical, smoking and tobacco-related health factors from the [place] facility where the Encounter took place.Current Smoking Status This section includes the most current smoking, or tobacco-related health factor, from the [place] facility where the Encounter took place. Date/Time Current Smoking Status Comment Facility Jul 18, 2022 10:30 AM [place]-TOBACCO FORMER USER [facility] Tobacco Use History This section includes a history of the smoking, or tobacco- related health factors, that were collected on or before the date of the Encounter. The data comes from the [place] facility where the Encounter took place. Date/Time Smoking Status/Tobacco Use Comment [facility] Jul 18, 2022 10:30 AM [place]-TOBACCO QUIT 15 YRS OR [place] CNTRL [place] [facility] Encounter Notes: All associated encounter notes This section contains the clinical notes associated to the Encounter. Date/Time Encounter Note(s) Provider Source Sep 17, 2022 01:45 PRIMARY CARE OUTPATIENT NOTE: REBEKAH OCHOA [place] CNTR WSTRN LOCAL TITLE: AMBULATORY/OUTPATIENT CARE NOTE [facility] STANDARD TITLE: PRIMARY CARE OUTPATIENT NOTE DATE OF NOTE: SEP 17, 2022@13:45 ENTRY DATE: SEP 17, 2022@13:45:41 AUTHOR: REBEKAH OCHOA EXP COSIGNER: URGENCY: STATUS: COMPLETED F: Medication requested D: Vet requested that the following med be order ed: ENALAPRIL TAB 2.5MG TAKE ONE TABLET BY MOUTH DAILY FOR BLOOD PRESSUR E/KIDNEY PROTECTION Quantity: 90 Refills: 2 Activity: 03/11/2022 09:06 New Order (Renewal) entered by USER,AUDIOCARE PHONE (SERVICE ACCT-AU) Order Text: ENALAPRIL TAB 2.5MG TAKE ONE TABLET BY MOUTH DAILY FOR BLOOD PRESSU RE/KIDNEY PROTECTION Quantity: 90 Refills: 2 Nature of Order: ELECTRONICALLY ENTERED Elec Signature: JC CABALLERO (NURSE PRACTITIO ) on 03/11/2022 11:09 /jacki/ REBEKAH OCHOA MSN Ed., BSN COST CONTROLLER NURSE Signed: 09/17/2022 13:57
--- OUTSIDE RECORDS SUMMARY | 2022-10-02 10:18 | XMS_ITS ---
:1965 Author Organization [facility] rs Address [address] [place] [address] Support Name Relationship Address Phone DENISSE LEON Unavailable [address] [facility] [place] [address] NONE, GIVEN Unavailable Unavailable Unavailable Insurance Providers: [...] to Policy Number Chen AETNA [place] [facility] Feb [id number] [phone] [place] PATIENT SERVICE INTER 2011 [id number] [place] AETNA PRESCRIPT [facility] Feb [id number] [phone] [place] PATIENT PHARMACY ION INTER 2011 [id number] VERO MANAGEMENT NATIO 1 [place] BCBS [place] PREFERRED BASIC Nov 30 [id number] [phone] COBY LEON PATIENT FEP PROVIDER FAMIL 2017 [id number] VERO ORGANIZAT Y ION (PPO) [place] DENTAL [place] Nov 30 [id number] [phone] COBY LEON PATIENT FEP INSURANCE L [id number] 2017 62 5 VERO (DENTAL) [place] PREFERRED BASIC Nov 30 [id number] [phone] COBY METZ PATIENT FEP PROVIDER FAMIL 2017 62 5 VERO ORGANIZAT Y ION (PPO) [place] PREFERRED STAND March 26 [id number] [phone] COBY METZ PATIENT (FEDERAL) 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 2014 62 7 VERO ORGANIZAT IND ION (PPO) 104 CAREMARK PRESCRIPT FEP March 26, [id number] [phone] CONR NADYAKS PATIENT ([id number]) ION 2015 0 62 7 VERO CAREMARK-F PRESCRIPT FEP Nov 30, [id number] [phone] [place] PATIENT EP BCBS ION CAREM 2018 0 62 1 VERO ARK CAREMARK-F PRESCRIPT FEP Nov 30, [id number] [phone] PATIENT EP BCBS ION 2018 0 [id number] VERO CAREMARK-F PRESCRIPT SHERI Nov 30, [id number] [phone] [place] PATIENT EP BCBS ION AL 2018 0 62 1 VERO RX CAREMARK-F PRESCRIPT SHERI Nov 30, [id number] [phone] [place] PATIENT EP BCBS ION AL 2018 [id number] VERO RX H[place]IZ[place] PREFERRED BASIC Nov 30 [id number] [phone] [place] ,[place] PATIENT BCBS FEP* PROVIDER FAMIL 2017 62 8 VERO ORGANIZAT Y ION (PPO) HORIZON PREFERRED BASIC Nov 30 [id number] [phone] EDWARDKS PATIENT FEDERAL PROVIDER FAMIL 2018 62 8 VERO ORGANIZAT Y ION (PPO) DEPART WORKERS' OWCP Jul 01, NONE [id number] [phone] INDIGO CruzKS PATIENT OF LABOR COMPENSAT MEDIC [id number] VERO MED DFEC ION [place] INSURANCE DFEC US DEPT OF WORKERS' WORKE Jul 01, WORKERS [id number] [phone] ROBERT SAABKS PATIENT LABOR COMPENSAT RS 2019 [id number] VREO ION COMP INSURANCE Selected Encounter This section includes the information on record at [place] for the Encounter. Date/Time Encounter Type Encounter Reason Provider Source Description Aug 05, 2022 OFFICE O/P NEW PRIMARY ICD-10-CM F32.9 KAREN ELIZONDO 02:00 PM MOD 45-59 MIN CARE/MEDICINE Major depressive JAWED disorder, single episode, unspecified with Provider Comments: Major depression ([facility] [id number]) E Encounter Template Text not used by [facility] Assessments - Encounter Diagnoses This section includes the primary and secondary diagnoses documented for the Encounter. Date/Time Primary/Secondary Diagnosis Name Provider Source Diagnosis Aug 05, 2022 PRIMARY Major depressive MARIA TERESA ELIZONDO CNTRL W STRN 03:56 PM disorder, single D [facility] episode, unspecified Aug 05, 2022 SECONDARY Chronic kidney MARIA TERESA ELIZONDO CNTRL WST RN 03:56 PM disease, stage 2 D [facility] (mild) Aug 05, 2022 SECONDARY Fatty (change of) MARIA TERESA ELIZONDO [place] CN[facility]L WSTRN 03:56 PM liver, not D [facility] elsewhere classified Aug 05, 2022 SECONDARY Hypospadias, MARIA TERESA ELIZONDO [place] [facility] WSTR[facility] 03:56 PM unspecified [facility] Aug 05, 2022 SECONDARY Migraine, unsp, MARIA TERESA ELIZONDO [place] [facility] WS TRN 03:56 PM not intractable, [facility] without status migrainosus Aug 05, 2022 SECONDARY Obesity, MARIA TERESA ELIZONDO [place] [facility] WSTR[facility] 03:56 PM unspecified [facility] Aug 05, 2022 SECONDARY Type 2 diabetes w MARIA TERESA ELIZONDO [place] [facility] 03:56 PM unsp diabetic [facility] [place] [facility] 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 This section includes future appointments and future orders which are active, pending orscheduled.Future Appointments This section includes appointments that were scheduled to occur 6 months from the date of the Encounter, up to a maximum of 20 appointments. The data comes from all [place] treatment facilities. Appointment Date/Time Appointment Type Appointment Facili ty Name Aug 16, 2022 10:20 AM AMBULATORY - MEDICINE [facility] JUSTIN CARL AMOREY [facility] Sep 03, 2022 11:45 AM AMBULATORY - MEDICINE [place] [facility] [place] [facility] Sep 17, 2022 01:30 PM AMBULATORY - MEDICINE [place] [facility] Mariah ARTISTS [facility] Sep 27, 2022 10:40 AM AMBULATORY - MEDICINE [facility] HELDER [facility] Nov 15, 2022 08:00 AM AMBULATORY - NONE [facility] Dec 13, 2022 08:00 AM AMBULATORY - MEDICINE [facility] Active, Pending, and Scheduled Orders This section includes a listing of several types of active, pending, and scheduled orders, including clinic medications orders, diagnostic test orders, procedure orders and consult orders; where the start date of the order is 45 days before the date of the Encounter or 45 days after the date of the Encounter. The data comes from all [place] treatment facilities. Test Date/Time Test Type Test Details Facility Name Jul 12, 2022 12:00 AM Laboratory - Chemistry HEMOGLOBIN A1C BLOO D [facility] Order SP ONCE [facility] Jul 25, 2022 12:00 AM Laboratory - Chemistry CHEM, Basic Metabol ic [facility] Order Panel BLOOD SERUM SP [facility] ONCE Vital Signs: All taken on the encounter date This section contains inpatient and outpatient Vital Signs collected on the date of the Encounter. Date/Time Temperature Pulse Blood Respiratory SP02 Pain Height Weight Dong dy Source Pressure Rate Mass Index Aug 05, 126/66 [place] 2021 02:50 mm[Hg] CNTRL PM [place] [facility] Aug 05 145/75 [place] 2021 02:01 mm[Hg] CNTRL PM [place] [facility] Aug 05, 97.6 F 67 142/76 16 /min 97 % 2 195.7 30 [place] 2021 01:58 /min mm[Hg] lb CNTRL PM [place] [facility] Social History: Smoking Status (Most current) and Tobacco Use (All prior to encounter date) This section includes the most current, and the historical, smoking and tobacco-related health factors from the [place] facility where the Encounter took place.Current Smoking Status This section includes the most current smoking, or tobacco-related health factor, from the [place] facility where the Encounter took place. Date/Time Current Smoking Status Comment Facility Jul 18, 2022 10:30 AM [place]-TOBACCO FORMER USER [place] CNTRL [facility] [facility] Tobacco Use History This section includes a history of the smoking, or tobacco- related health factors, that were collected on or before the date of the Encounter. The data comes from the [place] facility where the Encounter took place. Date/Time Smoking Status/Tobacco Use Comment Facil ity Jul 18, 2022 10:30 AM [place]-TOBACCO QUIT 15 YRS OR [place] NUPURRL WSTRN W[place] [facility] Encounter Notes: All associated encounter notes This section contains the clinical notes associated to the Encounter. Date/Time Encounter Note(s) Provider Source Aug 05, 2022 03:50 PHYSICIAN NOTE: KAREN ELIZONDO [place] CN[facility] WSTR N PM LOCAL TITLE: MD ALLYSON Anders [facility] STANDARD TITLE: PHYSICIAN NOTE DATE OF NOTE: AUG 05, 2022@15:50 ENTRY DATE: AUG 05, 2022@15:51:02 AUTHOR: KAREN ELIZONDO EXP COSIGNER: URGENCY: STATUS: COMPLETED Patient Name: ANGIE LEON VITALS: Patient temperature: 97.6 F [36.4 C] (08/05/2022 13:58) Blood pressure: 126/66 (08/05/2022 14:50) Patient height: 68 in [172.7 cm] (07/18/2022 10: 35) Patient weight: 195.7 lb [88.77 kg] (08/05/2022 13:58) Patient BMI: BMI: 29.8 Patient pulse: 67 (08/05/2022 13:58) Patient respiration: 16 (08/05/2022 13:58) Pain Ratin (08/05/2022 13:58) Active [facility] Medications: Active Outpatient Medicat ions (including Supplies): Active Outpatient Medications Status 1) METFORMIN HCL 500MG 24HR SA TAB TAKE TWO TABL ETS BY ACTIVE MOUTH TWICE DAILY 2) OMEPRAZOLE 20MG CAP,EC TAKE TWO CAPSULES BY M OUTH ACTIVE EVERY MORNING 30 MINUTES BEFORE BREAKFAST N OTE CAPSULE STRENGTH AND DIRECTIONS Pending Outpatient Medications Status 1) ALBUTEROL 90MCG (CFC-F) 200D ORAL INHL INHALE 2 PUFFS PENDING BY MOUTH EVERY 6 HOURS NEEDED 2) BUPROPION 150MG 24HR XL TAB (ONCE DAILY) TAKE ONE PENDING TABLET BY MOUTH ONCE DAILY 4 Total Medications Remote Medications: Active Medications from [facility] [employer] ENALAPRIL MALEATE 2.5MG TAB Sig: TAKE ONE TABLET BY MOUTH DAILY FOR BLOOD IA ESSURE/KIDNEY PROTECTION Quantity: 90 Days Supply: 90 Original # of Refills: 2 Rx Expiration: 03/12/23 Last filled 05/30/22 at [facility] (Active) ATORVASTATIN CA 40MG TAB Sig: TAKE ONE-HALF TABLET BY MOUTH AT BEDTIME FO R LOWERING CHOLESTEROL Quantity: 45 Days Supply: 90 Original # of Refills: 3 Rx Expiration: 12/08/22 Last filled 05/30/22 at [facility] (Active) EMPAGLIFLOZIN 25MG TAB Sig: TAKE ONE TABLET BY MOUTH DAILY Quantity: 90 Days Supply: 90 Original # of Refills: 3 Rx Expiration: 07/13/23 Last filled 09/05/22 at [facility] (Active/Suspended) CETIRIZINE HCL 10MG TAB Sig: TAKE ONE TABLET BY MOUTH DAILY FOR ALLERGY Quantity: 30 Days Supply: 30 Original # of Refills: 1 Rx Expiration: 05/17/23 Last filled 05/16/22 at [facility] (Active) BUPROPION HCL 150MG 24HR TAB,SA Sig: TAKE ONE TABLET BY MOUTH DAILY FOR MOOD Quantity: 90 Days Supply: 90 Original # of Refills: 3 Rx Expiration: 02/02/23 Last filled 07/17/22 at [facility] (Active) METFORMIN HCL 500MG 24HR TAB,SA Sig: TAKE TWO TABLETS BY MOUTH TWICE A DAY FOR D IABETES Quantity: 120 Days Supply: 30 Original # of Refills: 5 Rx Expiration: 07/13/23 Last filled 07/12/22 at [facility] (Active) OMEPRAZOLE 40MG CAP,EC Sig: TAKE ONE CAPSULE BY MOUTH EVERY DAY BEFORE BREAKFAST Quantity: 90 Days Supply: 90 Original # of Refills: 1 Rx Expiration: 05/02/23 Last filled 05/01/22 at [facility] (Active) HPI: 56-year-old patient who is on deputation fo r his work moved from [place]. He is planning to go back in October. 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 Patient has left shoulder torn labrum patient sa id he used to have pain but orthopedic send him for phys ical therapy and his pain improved but since last 1 week he again started getting the pain he would like to try physical therapy 1. Type 2 diabetes reviewed notes from [facility] patient used to be on four diabetes but he took himself off alogliptin and glimepiride but even with exercise and diet his sugar was going up so he is back on glimepiride but still not taking alogliptin. 2. Diabetes retinopathy patient is being followe d by ophthalmology in [place] 3. Essential hypertension hi s blood pressure initially was elevated I rechecked his blood pressure and it wa s 126/66 he is going to continue monitoring patient also was educated on low-salt diet 4. Mild kidney disease patient said he was not a reina that he has some kidney disease EGFR was 66 patient has been low -dose enalapril patient was reassured. 5. Hearing loss and tinnitus patient said he has mild hearing loss from the left ear 6. Obesity and fatty liver patient has b een actively trying to exercise he has been doing more than normal patient said his rolando ght has 188 pound 7. Bronchial asthma patient said is more of seas onal diet and uses albuterol inhaler 8. Depression patient has be en on bupropion extended release 24 hours on 150 mg once a day and his symptoms have been un abhijit good control patient would like to get a refill of that medication to the [facility]. 9. History of GERD/Handley's esophagus patient has since colonoscopy and EGD in [place] in April 2022 he would continue follow -up Past medical history: As above Past surgical history: Fatty tumor from the left side was surgically removed Social history: Patient is he brody s 2 boys patient is non-smoker he quit smoking 1999 drink alcohol occasional no substan ce use. Family history: Mother and grandmother abram hutchinson have diabetes his home has history of pancreatic cancer in his father and esophagea l cancer Review of system. CVS-Denies any chest pain or discomfort. Respiratory-denies any sob- no changes in his apolinar uriarte respiratory status. GI-no Gi complains-like nausea and vomiting, abd ominal pain or acid reflux, blood in stool, diarrhea. -denies any frequency, urgency, dysuria On examination: patient is a lert and oriented X3 vitals are stable, He is in no apparent distress. CVS: regular rate and rhythm Lungs: clear to auscultation ABD: Benign EXT: no edema. Assessment/plan:1. Type 2 diabetes has been unde r good control patient is on Jardiance, Metformin, and glimepiride 4 mg twice a day his last hemoglobin A1c was 7.2 2. Diabetes retinopathy patient is being followe d by ophthalmology in [place] 3. Essential hypertension hi s blood pressure initially was elevated I rechecked his blood pressure and it wa s 126/66 he is going to continue monitoring patient also was educated on low-salt diet 4. Mild kidney EGFR was 66 patient has been low- dose enalapril patient was reassured. 5. Hearing loss and tinnitus patient said he has mild hearing loss from the left ear 6. Obesity and fatty liver patient has b een actively trying to exercise he has been doing more than normal patient said his rolando ght has 188 pound 7. Bronchial asthma patient said is more of seas onal diet and uses albuterol inhaler 8. Depression patient has be en on bupropion extended release 24 hours on 150 mg once a day and his symptoms have been un abhijit good control patient would like to get a refill of that medication to the [facility]. 9. History of GERD/Handley's esophagus last EGD was April 2022 going to repeat EGD and also colonoscopy. Patient does not want to follow-up he would be b ack October in [place]. Primary Care Provider Search: Ongoing care at this [facility] not anticipated; refe rral not indicated. Avg Risk Colorectal Cancer Screen: AVERAGE RISK colorectal cancer screening is due based on information available to this clinical reminder Prior/outside colonoscopy results: was done in [facility] patient will have fol low-up Date: May 08, 2022 Average risk screening reminder set 1 year from AUG 05, 2022. Medication Reconciliation: Outpatient: Has the patient been taking medications as docu mented in the EMLR? YES: The patient has been taking medications as documented in the EMLR. Essential Medication List for Review used to co mplete this medication reconciliation. INCLUDED IN THIS LIST: Alphabetical list of act joey outpatient prescriptions dispensed from this [facility] (local) an d dispensed from another [place] or [facility] facility (remote) as well as inpatien t orders (local, pending and active), local clinic medications, locally documented non-VA medications, and local prescriptions that have or been discontinued in the past 90 days. - All changes in medications, including all non -VA/Herbal/OTC medications were entered into CPRS. - If there were any medications the patient elyse uld no longer take, they were discontinued. - The patient/caregiver was instructed to updat e this list, discard old lists, and take this list to the next appointme nt, whether with a VA or non-VA provider. /jacki/ KAREN ELIZONDO MD STAFF PHYSICIAN Signed: 08/05/2022 15:56 Aug 05, 2022 02:02 PREVENTIVE MEDICINE NURSING NOTE: GIOVANNA SANCHEZ [place] [facility] WSTRN LOCAL TITLE: CLINICAL REMINDERS/NURSING [place] [facility] STANDARD TITLE: PREVENTIVE MEDICINE NURSING NOTE DATE OF NOTE: AUG 05, 2022@14:02 ENTRY DATE: AUG 05, 2022@14:02:13 AUTHOR: KATHY SANCHEZ EXP COSIGNER: URGENCY: STATUS: COMPLETED Advance Directive Screen: Patient does not have a completed advance direc tive on file at any facility, [facility] or outside. S/he is not interested in completing one at this time. The patient received education about Advance Di rectives and written notification of his/her rights. Diabetic Eye Exam: The patient has had a dilated funduscopic exam of the retina, or has been screened by digital retinal imaging within the past 24 months by an wildland fire operations specialist or financial aid advisor. Results: The results of a recent DM digital retinal or D M dilated funduscopic eye exam indicated that retinopathy was present . Follow-up care is indicated and the exam should be repeated at [facility] annually. Date: February 27, 2022 Location: Outside Healthcare Provider /es/ KATHY SANCHEZ LPN LICENSED PRACTICAL NURSE Signed: 08/05/2022 14:15
--- OUTSIDE RECORDS SUMMARY | 2022-10-02 10:19 | XMS_ITS | Encounter Summary ---
:1965 Author Organization [facility] Address [address] [place] [id number] Support Name Relationship Address Phone DENISSE LEON Unavailable [address] [facility] [place] [address] NONE, GIVEN Unavailable Unavailable Unavailable Insurance Providers: [...] to Policy Number Chen AETNA POINT OF [facility] Feb [id number] [phone] EDWARD PA PATIENT SERVICE INTER 2011 381 2 [place] AET[place] PRESCRIPT [facility] Feb [id number] [phone] COBY LEON PATIENT PHARMACY ION INTER 2011 [id number] VERO MANAGEMENT NATIO 1 [place] BCBS [place] PREFERRED BASIC Nov 30 [id number] [phone] COBY LEON PATIENT FEP PROVIDER FAMIL 2017 [id number] VERO ORGANIZAT Y ION (PPO) [place] DENTAL [place] Nov 30 [id number] [phone] COBY LEON PATIENT FEP INSURANCE L [id number] 2017 62 5 VERO (DENTAL) [place] PREFERRED BAS[place] Nov 30 [id number] [phone] COBY METZ PATIENT FEP PROVIDER FAMIL 2017 62 5 VERO ORGANIZAT Y ION (PPO) [place] OF [place] PREFERRED STAND March 26 [id number] [phone] COBY METZ PATIENT (FEDERAL) 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 2015 62 7 VERO ORGANIZAT IND ION (PPO) 104 CAREMARK PRESCRIPT FEP March 26, [id number] ROBERTR NADYAPA PATIENT ([id number]) ION 2015 0 62 7 VERO CAREMARK-F PRESCRIPT FEP Nov 30, [id number] [phone] CO NR,PA PATIENT EP BCBS ION CAREM 2018 0 62 1 VERO ARK CAREMARK-F PRESCRIPT SHERI Nov 30, [id number] [phone] CO NROY,PA PATIENT EP BCBS ION AL 2018 0 62 1 VERO RX CAREMARK-F PRESCRIPT SHERI Nov 30, [id number] [phone] [place] NROY,[place] PATIENT EP BCBS ION AL 2018 0 [id number] VERO RX CAREMARK-F PRESCRIPT FEP Nov 30, [id number] [phone] NRNADYA,PA PATIENT EP BCBS ION 2018 0 [id number] 331 VERO HORIZON PREFERRED BASIC Nov 30 [id number] [phone] EDWARDPA PATIENT BCBS FEP* PROVIDER FAMIL 2017 62 8 VERO ORGANIZAT Y ION (PPO) HORIZON PREFERRED BASIC Nov 30 [id number] [phone] EDWARDPA PATIENT FEDERAL PROVIDER FAMIL 2018 62 8 VERO ORGANIZAT Y ION (PPO) DEPART WORKERS' OWCP Jul 01, NONE [id number] [phone] COBY REYNOLDS PATIENT OF LABOR COMPENSAT MEDIC [id number] VERO MED DFEC ION AL INSURANCE DFEC US DEPT OF WORKERS' WORKE Jul 01, WORKERS [id number] [phone] ROBERT SAABPA PATIENT LABOR COMPENSAT RS 2019 COMP [id number] VERO ION COMP INSURANCE Selected Encounter This section includes the information on record at [place] for the Encounter. Date/Time Encounter Type Encounter Description Reason Provider Source Jul 17, 2022 04:22 Outpatient Encounter PRIMARY CARE/MEDICINE PM I[facility] Encounter Template Text not used by MI Plan of Treatment: Future Appointments (+ 6 [...] 20 appointments. The data comes from all [place] treatment [facility]. Appointment Date/Time Appointment Type Appointment Facili ty Name Jul 18, 2022 10:30 AM AMBULATORY - MEDICINE [facility] Aug 05, 2022 02:00 [facility] Aug 16, 2022 10:20 AM [facility] - [facility]ICINE [facility] Sep 03, 2022 11:45 [facility] Sep 17, 2022 01:30 [facility] Sep 27, 2022 10:40 AM AMBULATORY - MEDICINE [facility] Nov 15, 2022 08:00 AM AMBULATORY - NONE [facility] Dec 13, 2022 08:00 AM AMBULATORY - MEDICINE [facility] Active, Pending, and Scheduled Orders This section includes a listing of several types of active, pending, and scheduled orders, including clinic medications orders, diagnostic test orders, procedure orders and consult orders; where the start date of the order is 45 days before the date of the Encounter or 45 days after the date of the Encounter. The data comes from all [facility]. Test Date/Time Test Type Test Details Facility Name Jul 12, 2022 12:00 AM Laboratory - Chemistry HEMOGLOBIN A1C BLOO D [facility] Order SP [facility] Jul 25, 2022 12:00 AM Laboratory - Chemistry CHEM, Basic Metabol ic [facility] Order Panel BLOOD SERUM SP [facility] Lab Results: +/- 30 days of the encounter This section includes the Chemistry and Hematology Lab Results on record with MI for the patient. Radiology Reports and Pathology Reports are provided separately, in subsequent sections.Lab Results This section contains the Chemistry/Hematology Results that were resulted 30 days before or 30 daysafter the date of the Encounter. Date/Time Source Result Type Result - Unit Interpretation Reference Range Comment Jul 05, 2022 08:22 [facility] HEMOGLOBIN A1C Specimen Type: BLOOD [facility] No comment enter ed. Ordering Provid er: ZULEMA TIM Report Released Date/Time: April 12, 2022 09:59 AM Reporting Lab: [facility] [address] [facility] [id number] Performing Lab: [facility] [address] [facility] [id number] HEMOGLOBIN A1C 7.2 H 4.8-5.6 Jul 05, 2022 [facility] CHEM, Basic Specimen Type: SERUM 08:22 AM [facility] Metabolic Panel Comment: eGFR c alculated using the 2020 CKD-EPI Creatinine equation: eGFR and Chronic Kidney Disease (CKD) Stages: >90 ml/min Stage 1 - None or Slight CKD 60-89 ml/min Stage 2 - Mild CKD 45-59 ml/mi n Stage 3a - Mod erate CKD 30-44 ml/min Stage 3B - Moderate CKD 15-29 ml/min Stage 4 - Severe CKD <15 ml/min Stage 5 - End Stage CKD Reference: [email or web address] Ordering Provid er: ZULEMA TIM Report Released Date/Time: April 12, 2022 09:59 AM Reporting Lab: [address] [id number] Performing Lab: [facility] [address] [facility] [id number] CREATININE 1.3 .7-1.3 UREA NITROGEN 21 7-25 GLUCOSE 138 H 65-99 SODIUM 140 136-145 POTASSIUM 4.3 3.5-5.1 CHLORIDE 105 98-107 CO2 25 21-31 CALCIUM 9.8 8.6-10.3 ANION GAP 10 5-13 eGFR 65 L >90 Jun 26, 2022 12:00 [facility] COVID-19 MONITOR Specimen Ty pe: OROPHARYNX [facility] PANEL([facility]) No comment enter ed. Ordering Provid er: ASHWINI SARMIENTO Report Released Date/Time: Mar 21, 2022 08:55 AM Reporting Lab: [facility] [address] [facility] [id number] Performing Lab: [facility] [address] [facility] [id number] COVID-19 ([id number]) Not Detected Not De tected Encounter Notes: All associated encounter notes This section contains the clinical notes associated to the Encounter. Date/Time Encounter Note(s) Provider Source Jul 17, 2022 04:22 PM PRIMARY CARE NOTE: KANDIS AL [facility] LOCAL TITLE: WALK-IN NOTE PRIMARY CARE (T) [facility] STANDARD TITLE: PRIMARY CARE NOTE DATE OF NOTE: JUL 17, 2022@16:22 ENTRY DATE: JUL 17, 2022@16:22:29 AUTHOR: KANDIS AL EXP COSIGNER: URGENCY: STATUS: COMPLETED WALK-IN NOTE PRIMARY CARE (T) Has ADDENDA * <====Click to Start Advanced Medical Support presents to the Primary Care clinic with the following request: [ X ]Medication Renewal/Refill Remote METFORMIN HCL 500MG 24HR TAB,SA TAKE TWO TABLETS BY MOUTH TWICE A DAY FOR DIABE SHAAN Last Filled: 07/12/22 (Active at [facility]) Rx Expiration Date: 07/13/23 Days Supply: 30 Remote OMEPRAZOLE 40MG CAP,EC TAKE ONE CAPSULE BY MOUTH EVERY DAY BEFORE LETTY KFAST Last Filled: 05/01/22 (Active at [facility]) Rx Expiration Date: 05/02/23 Days Supply: 90 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 Asked to come back tomorrow for Sick Call. [ ]Consultation with Team RN [ ]Symptoms [ ]Other The [place] states they are: [ ]Waiting [ X ]Not Waiting No Walk in visit scheduled with PACT Nurse [ X ] At this encounter the [place]'s demographi cs were verified. [ X ] At this encounter the [place]'s Insurance information was verified. [ X ] At this encounter the below scheduled visi ts for the were discussed and appointment reminder card wa s offered. Future appointments: No data available /jacki/ KANDIS AL [employer] Signed: 07/17/2022 16:24 Receipt Acknowledged By: * AWAITING SIGNATURE * REBEKAH OCHOA 07/18/2022 08:32 /kirstie RESENDIZ NURSE PRACTITIONER 07/18/2022 ADDENDUM STATUS: COMPLETED I will order the medications, but he will need t o establish with a PCP here since he is going to be here 6 months. /kirstie RESENDIZ NURSE PRACTITIONER Signed: 07/18/2022 08:31 Receipt Acknowledged By: * AWAITING SIGNATURE * REBEKAH OCHOA 07/18/2022 ADDENDUM STATUS: COMPLETED Mr. Leon presented to sick call. See alert basim ed from 07/17/22 /jacki/ EMORY JENNINGS [employer] Signed: 07/18/2022 10:29
--- OUTSIDE RECORDS SUMMARY | 2022-10-02 10:19 | XMS_ITS | Encounter Summary ---
:1965 Author Organization [facility] Address [address] [place] [id number] Support Name Relationship Address Phone DENISSE LEON Unavailable [address] [facility] [place] [address] NONE, GIVEN Unavailable Unavailable Unavailable Insurance Providers: [...] to Policy Number Chen AETNA PO[place] OF [facility] Feb [id number] [phone] PATIENT SERVICE INTER 2011 381 [id number] [place] AETNA PRESCRIPT [facility] Feb [id number] [phone] COBY LEON PATIENT PHARMACY ION INTER 2011 [id number] VERO MANAGEMENT NATIO 1 [place] BCBS [place] PREFERRED BASIC Nov 30 [id number] [phone] COBY LEON PATIENT FEP PROVIDER FAMIL 2017 [id number] VERO ORGANIZAT Y ION (PPO) [place]BS [place] DENTAL DENT[place] Nov 30 [id number] [phone] COBY LEON PATIENT FEP INSURANCE L [id number] 2017 62 5 VERO (DENTAL) [place] PREFERRED BASIC Nov 30 [id number] [phone] COBY METZ PATIENT FEP PROVIDER FAMIL 2017 62 5 VERO ORGANIZAT Y ION (PPO) [place]BS OF [place] PREFERRED STAND March 26 [id number] [phone] COBY METZ PATIENT (FEDERAL) 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 2015 62 7 VERO ORGANIZAT IND ION (PPO) 104 CAREMARK PRESCRIPT FEP March 26, [id number] ROBERTR NADYA,CT PATIENT ([id number]) ION 2015 0 62 7 VERO CAREMARK-F PRESCRIPT FEP Nov 30, [id number] [phone] CO NROY,CT PATIENT EP BCBS ION CAREM 2018 0 62 1 VERO ARK CAREMARK-F PRESCRIPT SHERI Nov 30, [id number] [phone] CO NROY,CT PATIENT EP BCBS ION AL 2018 0 62 1 VERO RX CAREMARK-F PRESCRIPT SHERI Nov 30, [id number] [phone] CO NROY,CT PATIENT EP BCBS ION AL [id number] VERO RX CAREMARK-F PRESCRIPT FEP Nov 30, [id number] [phone] NRNADYA,CT PATIENT EP BCBS ION 2018 0 [id number] VERO HORIZON PREFERRED BASIC Nov 30 [id number] [phone] EDWARDCT PATIENT BCBS FEP* PROVIDER FAMIL 2017 62 8 VERO ORGANIZAT Y ION (PPO) HORIZON PREFERRED BASIC Nov 30 [id number] [phone] EDWARDCT PATIENT FEDERAL PROVIDER FAMIL 2018 62 8 VERO ORGANIZAT Y ION (PPO) DEPART WORKERS' OWCP Jul 01, NONE [id number] [phone] INDIGO CruzCT PATIENT OF LABOR COMPENSAT MEDIC [id number] VERO MED DFEC ION AL INSURANCE DFEC DEPT OF WORKERS' WORKE Jul 01, WORKERS [id number] [phone] ROBERT SAABCT PATIENT LABOR COMPENSAT RS 2019 COMP [id number] VERO ION COMP INSURANCE Selected Encounter This section includes the information on record at [place] for the Encounter. Date/Time Encounter Type Encounter Description Reason Provider Source May 08, 2022 12:00 Outpatient Encounter EVENT (HISTORICAL) AM IHE Encounter Template Text not used by [...] 20 appointments. The data comes from all [place] treatment facilities. Appointment Date/Time Appointment Type Appointment Facili ty Name Jun 27, 2022 09:30 AM AMBULATORY - MEDICINE [facility] Jun 28, 2022 09:00 AM AMBULATORY - PSYCHIATRY [facility] Jul 12, 2022 08:00 AM AMBULATORY - PSYCHIATRY [facility] Jul 12, 2022 09:20 AM AMBULATORY MEDICINE [facility] Jul 18, 2022 10:30 [facility] Aug 05, 2022 02:00 [facility] Aug 16, 2022 10:20 AM AMBUL[facility]ORY [facility] Sep 03, 2022 11:45 AM [facility] Sep 17, 2022 01:30 PM [facility] Sep 27, 2022 10:40 AM AMBULATORY - MEDICINE [facility] Lab Results: +/- 30 days of the encounter This section includes the Chemistry and Hematology Lab Results on record with [place] for the patient. Radiology Reports and Pathology Reports are provided separately, in subsequent sections.Lab Results This section contains the Chemistry/Hematology Results that were resulted 30 days before or 30 daysafter the date of the Encounter. Date/Time Source Result Type Result - Unit Interpretation Reference Range Comment Jun 04, 2022 03:39 [facility] COVID-19 MONITOR Specimen Ty pe: OROPHARYNX [facility] PANEL([facility]) Comment: Test P erformed by NAHUM Lemus Ordering Provid er: ASHWNII SARMIENTO Report Released Date/Time: Mar 21, 2022 08:55 AM Reporting Lab: [facility] [address] [facility] [address] Performing Lab: [facility] [address] [facility] [address] COVID-19 ([id number]) Not Detected Not De tected May 14, 2022 06:04 [facility] COVID-19 MONITOR Specimen Ty pe: OROPHARYNX PM [facility] PANEL([facility]) Comment: Test P erformed by NAHUM Lemus Ordering Provid er: ASHWINI SARMIENTO Report Released Date/Time: Mar 21, 2022 08:55 AM Reporting Lab: [facility] [address] [facility] [address] Performing Lab: [facility] [address] [facility] [address] COVID-19 ([id number]) Not Detected Not De tected May 07, 2022 12:40 [facility] COVID-19 MONITOR Specimen Ty pe: OROPHARYNX PM [facility] PANEL([facility]) Comment: Test P erformed by NAHUM Lemus Ordering Provid er: ASHWINI SARMIENTO Report Released Date/Time: Mar 21, 2022 08:55 AM Reporting Lab: [facility] [address] [facility] [address] Performing Lab: [facility] [address] [facility] [address] COVID-19 ([id number]) Not Detected Not De tected May 01, 2022 11:58 [facility] POC GLUCOSE Specimen Type: BLOOD AM [facility] No comment enter ed. Ordering Provid er: TODD RUSSO MD Report Released Date/Time: May 01, 2022 12:00 PM Reporting Lab: [facility] [address] [facility] [address] Performing Lab: [facility] [address] [facility] [address] POC GLUCOSE 102 70-115 May 01, 2022 09:26 [facility] POC GLUCOSE Specimen Type: BLOOD AM [facility] No comment enter ed. Ordering Provid er: JC CABALLERO Report Released Date/Time: May 01, 2022 09:28 AM Reporting Lab: [facility] [address] [facility] [address] Performing Lab: [facility] [address] [facility] [address] POC GLUCOSE 137 70-115 May 01, 2022 [facility] COVID-19, FLU/RSV Specimen T ype: NASOPHARYNX 08:22 AM [facility] SCREEN. PANEL(FLUVID) Comment: *COVID-19 SCREENING PANEL([facility]) Not Performed: May 01, 2022@08:23 b *EMPLOYEE PLACEMENT SPECIALIST Reason: ORDER CORRECTED, STAT FOR PROCEDURE Added by [id number] on May 01, 2022@08:22 Ordering Provid er: TODD RUSSO MD Report Released Date/Time: May 01, 2022 08:11 AM Reporting Lab: [facility] [address] [facility] [address] Performing Lab: [facility] [address] [facility] [address] COVID-19 PCR (FLUVID) Not Detected Not D etected FLU A PCR (FLUVID) Not Detected Not Dete cted FLU B PCR (FLUVID) Not Detected Not Dete cted RSV PCR (FLUVID) Not Detected Not Detect ed April 23, 2022 12:00 [facility] COVID-19 MONITOR Specimen Ty pe: OROPHARYNX [facility] PANEL([facility]) Comment: Test P erformed by NAHUM Lemus Ordering Provid er: ASHWINI SARMIENTO Report Released Date/Time: Mar 21, 2022 08:55 AM Reporting Lab: [facility] [address] [facility] [address] Performing Lab: [facility] [address] [facility] [address] COVID-19 ([id number]) Not Detected Not De tected April 17, 2022 12:30 [facility] COVID-19 MONITOR Specimen Ty pe: OROPHARYNX [facility] PANEL([facility]) Comment: Test P erformed by NAHUM Lemus Ordering Provid er: ASHWINI SARMIENTO Report Released Date/Time: Mar 21, 2022 08:55 AM Reporting Lab: [facility] [address] [facility] [address] Performing Lab: [facility] [address] [facility] [address] COVID-19 ([id number]) Not Detected Not De tected April 12, 2022 08:02 [facility] HEMOGLOBIN A1C Specimen Type: BLOOD AM [facility] No comment enter ed. Ordering Provid er: JUSTIN HEBERT Report Released Date/Time: Dec 21, 2021 09:49 AM Reporting Lab: [facility] [address] [facility] [address] Performing Lab: [facility] [address] [facility] [address] HEMOGLOBIN A1C 7.0 H 4.8-5.6 April 12, 2022 [facility] CHEM, Comprehensive Specimen Ty pe: SERUM 08:02 AM [facility] Metabolic Panel Comment: eGFR c [...] Stage 5 - End Stage CKD Reference: [email or web address] Ordering Provid er: JUSTIN HEBERT Report Released Date/Time: Dec 21, 2021 09:49 AM Reporting Lab: [facility] [address] [facility] [address] Performing Lab: [facility] [address] [facility] [address] CREATININE 1.3 .7-1.3 UREA NITROGEN 22 7-25 GLUCOSE 264 H 65-99 SODIUM 137 136-145 POTASSIUM 4.2 3.5-5.1 CHLORIDE 100 98-107 CO2 27 21-31 CALCIUM 9.7 8.6-10.3 PROTEIN,TOTAL 7.0 6.4-8.9 ALBUMIN 4.6 3.5-5.7 TOTAL BILIRUBIN 0.6 0.3-1.0 ALKALINE PHOSPHATASE 71 34-104 AST 22 13-39 ALT 23 7-52 ANION GAP 10 5-13 eGFR 65 L >90 April 09, 2022 03:21 [facility] COVID-19 MONITOR Specimen Ty pe: OROPHARYNX [facility] PANEL([facility]) Comment: Test P erformed by NAHUM Lemus Ordering Provid er: ASHWINI SARMIENTO Report Released Date/Time: Mar 21, 2022 08:55 AM Reporting Lab: [facility] [address] [facility] [address] Performing Lab: [facility] [address] [address] COVID-19 ([id number]) Not Detected Not De tected Pathology Reports: +/- 30 days of the encounter Pathology Reports For cases when an order for pathology services may have been completed prior to the date of the Encounter, the report list includes the Pathology Reports that were completed up to 30 days before date of the Encounter. For cases when an order for pathology services may have been completed after the date of the Encounter, the report list also includes the Pathology Reports that were completed up to 30days after date of the Encounter. The data comes from all [place] treatment facilities. Date/Time Pathology Report Provider Source May 10, 2022 11:37 LR SURGICAL PATHOLOGY REPORT: KIRK PAGAN [facility] TITLE: LR SURGICAL PATHOLOGY REPORT [facility] STANDARD TITLE: LABORATORY NOTE DATE OF NOTE: MAY 10, 2022@11:37:05 ENTRY DATE: MAY 10, 2022@11:37:05 AUTHOR: KIRK PAGAN EXP COSIGNER: URGENCY: STATUS: COMPLETED $APHDR - - - - - - - - - - - - - - - - - - - - - - - - - - - - - - - - - - - - - - - - MEDICAL RECORD SURGICAL PATHOLOGY - - - - - - - - - - - - - - - - - - - - - - - - - - - - - - - - - - - - - - - - PATHOLOGY REPORT Accession No. SP [id number] - - - - - - - - - - - - - - - - - - - - - - - - - - - - - - - - - - - - - - - - $TEXT Submitted by: TODD RUSSO Date obtained: [place] 2021 13:23 - - - - - - - - - - - - - - - - - - - - - - - - - - - - - - - - - - - - - - - - Specimen (Received May 01, 2022 13:25): A]BIOPSY ANTRUM BODY B]IRREGULAR Z LINE C]BIOPSY CECAL POLYP D]COLD SNARE DESCENDING POLYP E]BIOPSY RECTAL POLYP *+* SUPPLEMENTARY REPORT HAS BEEN ADDED *+* *+* REFER TO BOTTOM OF REPORT *+* - - - - - - - - - - - - - - - - - - - - - - - - - - - - - - - - - - - - - - - - BRIEF CLINICAL HISTORY: LOPEZ'S ESOPHAGUS SURVELLANCE, COLON POLY LUIS VELLANCE. - - - - - - - - - - - - - - - - - - - - - - - - - - - - - - - - - - - - - - - - PREOPERATIVE DIAGNOSIS: LOPEZ'S ESOPHAGUS SURVELLANCE, COLON POLYP COVARRUBIAS RVELLANCE. - - - - - - - - - - - - - - - - - - - - - - - - - - - - - - - - - - - - - - - - OPERATIVE FINDINGS: IRREGULAR Z-LINE, COLON POLYPS - - - - - - - - - - - - - - - - - - - - - - - - - - - - - - - - - - - - - - - - POSTOPERATIVE DIAGNOSIS: IRREGULAR Z-LINE, COLON POLYPS, GASTRITIS. Surgeon/physician: TODD RUSSO MD, MD =-=-=-=-=-=-=-=-=-=-=-=-=-=- =-=-=-=-=-=-=-=-=-=-=-=-=-=-=-=-=-=-=-=-=-=-=-=-=-= - - - - - - - - - - - - - - - - - - - - - - - - - - - - - - - - - - - - - - - - PATHOLOGY REPORT Accession No. SP [id number] - - - - - - - - - - - - - - - - - - - - - - - - - - - - - - - - - - - - - - - - GROSS DESCRIPTION: A) Received in formalin and consists of 4 contreras s oft tissue fragments ranging in size from 0.2-0.9 cm. Specimen is en tirely submitted in one cassette. B) Received in formalin and consists of 3 contreras s oft tissue fragments ranging in size from 0.3-0.7 cm. Specimen is en tirely submitted in one cassette. C) Received in formalin and consists of 4 contreras s oft tissue fragments ranging in size from 0.2-0.8 cm. Specimen is en tirely submitted in one cassette. D) Received in formalin and consists of 1 contreras s oft tissue fragment measuring 0.8 cm. Specimen is entirely submitte d in one cassette. E) Received in formalin and consists of 1 contreras s oft tissue fragment measuring 0.4 cm. Specimen is entirely submitte d in one cassette. Gross & dictated by PGY-1 Ranjith Fried MICROSCOPIC EXAMINATION and DIAGNOSIS: A: BIOPSY GASTRIC ANTRUM AND BODY: MILD CHRONIC ACTIVE GASTRITIS. Immunohistochemical stain H.pylori: PENDING, AD DENDUM REPORT TO FOLLOW. 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 UNREMARKABLE SQUAMOUS MUCOSA. NEGATIVE FOR DYSPLASIA. C: BIOPSY CECUM: UNREMARKABLE COLON MUCOSA. D: BIOPSY DESCENDING COLON: TUBULAR ADENOMA. E: BIOPSY RECTUM: UNREMARKABLE COLON MUCOSA. SUBMUCOSAL SMOOTH MUSCLE FIBERS PROLIFERATION, BENIGN. Multiple levels examined. IHC DISCLAIMER: Some of these tests were develo ped and their performance characteristics determined by the immunoperoxid ase Laboratory of [facility]. They have not been cl eared or approved by U.S. Food and Drug Administration. The FDA has deter mined that such clearance or approval is not necessary. This test is used for clinical purposes. It should not be regarded as investigational or fo r research. This laboratory is certified under the Clinical Labo ratory Improvement Amendments of 1988 (CLIA-88) as qualified to pe rform high complexity clinical laboratory testing. The appropriate po sitive and negative controls were run and reviewed. CPT:13041u7; 99129 SUPPLEMENTARY REPORT(S): Supplementary Report Date: MAY 10, 2022 *+* SUPPLEMENTARY REPORT HAS BEEN ADDED/MODIFIE D *+* (Added/Last released: May 10, 2022 11:37 Signed by ELIN PAGAN) IMMUNOSTAIN IS PERFORMED ON SPECIMEN A WHICH IS NEGATIVE FOR H.PYLORI ORGANISMS. CPT: 62234 IHC DISCLAIMER Some of these tests were developed and their pe rformance characteristics determined by the immunoperoxidase Laboratory o [facility]. They have not been cleared or approved by U.S. Food and Drug Administration. The FDA has determined that suc h clearance or approval is not necessary. This test is used for clinica l purposes. It should not be regarded as investigational or for research. This laboratory is certified under the Clinical Laboratory Improve ment Amendments of 1988 (CLIA-88) as qualified to perform high complexi ty clinical laboratory testing. The appropriate positive and negative controls were run and reviewed. /kirstie PAGAN FOR JUDY BURNETT STAFF PATHOLOGIST Signed May 10, 2022@11:37 Performing Laboratory: Surgical Pathology Report Performed By: [facility] [CLI A# [id number]] [address] [place] [phone] $FTR - - - - - - - - - - - - - - - - - - - - - - - - - - - - - - - - - - - - - - - - (End of report) JUDY THOMASON ofo Date May 06, 2022 - - - - - - - - - - - - - - - - - - - - - - - - - - - - - - - - - - - - - - - - ANGIE LEON STANDARD FORM 515 ID:[id number] SEX:M :1965 AGE: 56 LOC: [facility] PCP: Jc Caballero, EMPLOYEE PLACEMENT SPECIALIST /kirstie PAGAN STAFF PATHOLOGIST Signed: 05/10/2022 11:37 May 06, 2022 08:23 LR SURGICAL PATHOLOGY REPORT: JUDY THOMASON [facility] TITLE: LR SURGICAL PATHOLOGY REPORT [facility] STANDARD TITLE: LABORATORY NOTE DATE OF NOTE: MAY 06, 2022@08:23:04 ENTRY DATE: MAY 06, 2022@08:23:04 AUTHOR: JUDY THOMASON EXP COSIGNER: URGENCY: STATUS: COMPLETED $APHDR - - - - - - - - - - - - - - - - - - - - - - - - - - - - - - - - - - - - - - - - MEDICAL RECORD SURGICAL PATHOLOGY - - - - - - - - - - - - - - - - - - - - - - - - - - - - - - - - - - - - - - - - PATHOLOGY REPORT Accession No. SP [id number] - - - - - - - - - - - - - - - - - - - - - - - - - - - - - - - - - - - - - - - - $TEXT Submitted by: TODD RUSSO Date obtained: [place] 2021 13:23 - - - - - - - - - - - - - - - - - - - - - - - - - - - - - - - - - - - - - - - - Specimen (Received May 01, 2022 13:25): A]BIOPSY ANTRUM BODY B]IRREGULAR Z LINE C]BIOPSY CECAL POLYP D]COLD SNARE DESCENDING POLYP E]BIOPSY RECTAL POLYP - - - - - - - - - - - - - - - - - - - - - - - - - - - - - - - - - - - - - - - - BRIEF CLINICAL HISTORY: LOPEZ'S ESOPHAGUS SURVELLANCE, COLON POLY LUIS VELLANCE. - - - - - - - - - - - - - - - - - - - - - - - - - - - - - - - - - - - - - - - - PREOPERATIVE DIAGNOSIS: LOPEZ'S ESOPHAGUS SURVELLANCE, COLON POLYP COVARRUBIAS RVELLANCE. - - - - - - - - - - - - - - - - - - - - - - - - - - - - - - - - - - - - - - - - OPERATIVE FINDINGS: IRREGULAR Z-LINE, COLON POLYPS - - - - - - - - - - - - - - - - - - - - - - - - - - - - - - - - - - - - - - - - POSTOPERATIVE DIAGNOSIS: IRREGULAR Z-LINE, COLON POLYPS, GASTRITIS. Surgeon/physician: TODD RUSSO MD, MD =-=-=-=-=-=-=-=-=-=-=-=-=-=- =-=-=-=-=-=-=-=-=-=-=-=-=-=-=-=-=-=-=-=-=-=-=-=-=-= - - - - - - - - - - - - - - - - - - - - - - - - - - - - - - - - - - - - - - - - PATHOLOGY REPORT Accession No. SP [id number] - - - - - - - - - - - - - - - - - - - - - - - - - - - - - - - - - - - - - - - - GROSS DESCRIPTION: A) Received in formalin and consists of 4 contreras s oft tissue fragments ranging in size from 0.2-0.9 cm. Specimen is en tirely submitted in one cassette. B) Received in formalin and consists of 3 contreras s oft tissue fragments ranging in size from 0.3-0.7 cm. Specimen is en tirely submitted in one cassette. C) Received in formalin and consists of 4 contreras s oft tissue fragments ranging in size from 0.2-0.8 cm. Specimen is en tirely submitted in one cassette. D) Received in formalin and consists of 1 contreras s oft tissue fragment measuring 0.8 cm. Specimen is entirely submitte d in one cassette. E) Received in formalin and consists of 1 contreras s oft tissue fragment measuring 0.4 cm. Specimen is entirely submitte d in one cassette. Gross & dictated by PGY-1 Ranjith Fried MICROSCOPIC EXAMINATION and DIAGNOSIS: A: BIOPSY GASTRIC ANTRUM AND BODY: MILD CHRONIC ACTIVE GASTRITIS. Immunohistochemical stain H.pylori: PENDING, AD DENDUM REPORT TO FOLLOW. 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 UNREMARKABLE SQUAMOUS MUCOSA. NEGATIVE FOR DYSPLASIA. C: BIOPSY CECUM: UNREMARKABLE COLON MUCOSA. D: BIOPSY DESCENDING COLON: TUBULAR ADENOMA. E: BIOPSY RECTUM: UNREMARKABLE COLON MUCOSA. SUBMUCOSAL SMOOTH MUSCLE FIBERS PROLIFERATION, BENIGN. Multiple levels examined. IHC DISCLAIMER: Some of these tests were develo ped and their performance characteristics determined by the immunoperoxid ase Laboratory of [facility]. They have not been cl eared or approved by U.S. Food and Drug Administration. The FDA has deter mined that such clearance or approval is not necessary. This test is used for clinical purposes. It should not be regarded as investigational or fo r research. This laboratory is certified under the Clinical Labo ratory Improvement Amendments of 1988 (CLIA-88) as qualified to community hospital high complexity clinical laboratory testing. The appropriate po sitive and negative controls were run and reviewed. CPT:93159c3; 92921 /es/ JUDY LAURA STAFF PATHOLOGIST Signed May 06, 2022@08:23 Performing Laboratory: Surgical Pathology Report Performed By: [facility] [CLI A# [id number]] [address] [place] [phone] $FTR - - - - - - - - - - - - - - - - - - - - - - - - - - - - - - - - - - - - - - - - (End of report) JUDY THOMASON rkg Date May 06, 2022 - - - - - - - - - - - - - - - - - - - - - - - - - - - - - - - - - - - - - - - - ANGIE LEON STANDARD FORM 515 ID:[id number] SEX:M :1965 AGE: 56 LOC: [facility] PCP: Jc Caballero NP /jacki/ JUDY THOMASON STAFF PATHOLOGIST Signed: 05/06/2022 08:23
--- OUTSIDE RECORDS SUMMARY | 2022-10-02 10:19 | XMS_ITS ---
:1965 Author Organization [facility] Address [address] [place] [address] Support Name Relationship Address Phone DENISSE LEON Unavailable [address] [facility] [place] [address] NONE, GIVEN Unavailable Unavailable Unavailable Insurance Providers: [...] to Policy Number Chen AETNA [place] [facility] Feb [id number] [phone] [place] PATIENT SERVICE INTER 2011 381 2 [place] AETNA PRESCRIPT [facility] Feb [id number] [phone] COBY LEON PATIENT PHARMACY ION INTER 2011 [id number] VERO MANAGEMENT NATIO 1 [place] BCBS [place] PREFERRED BASIC Nov 30 [id number] [phone] COBY LEON PATIENT FEP PROVIDER FAMIL 2017 62 123 VERO ORGANIZAT Y ION (PPO) BCBS [place] DENT[place] Nov 30 [id number] [phone] COBY LEON PATIENT FEP INSURANCE L 112 2017 62 5 VERO (DENTAL) [place]BS [place] PREFERRED BASIC Nov 30 [id number] [phone] COBY METZ PATIENT FEP PROVIDER FAMIL 2017 62 5 VERO ORGANIZAT Y ION (PPO) BCBS OF [place] PREFERRED STAND March 26 [id number] [phone] COBY METZ PATIENT (FEDERAL) 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 2015 62 7 VERO ORGANIZAT IND ION (PPO) 104 CAREMARK PRESCRIPT FEP March 26, [id number] ROBERTR [place] PATIENT ([id number]) ION 2015 0 62 7 VERO CAREMARK-F PRESCRIPT FEP Nov 30, [id number] [phone] [place] PATIENT [place] BCBS ION CAREM 2018 0 62 1 VERO ARK CAREMARK-F PRESCRIPT SHERI Nov 30, [id number] [phone] [place] PATIENT EP BC[place] ION AL 2018 0 62 1 VERO RX CAREMARK-F PRESCRIPT SHERI Nov 30, [id number] [phone] [place] PATIENT EP BC[place] ION AL 2018 0 [id number] 1 VERO RX CAREMARK-F PRESCRIPT FEP Nov 30, [id number] [phone] [place] PATIENT EP BCBS ION 2018 0 [id number] 331 VERO HORIZON PREFERRED BASIC Nov 30 [id number] [phone] EDWARDNY PATIENT BCBS FEP* PROVIDER FAMIL 2017 62 8 VERO ORGANIZAT Y ION (PPO) HORIZON PREFERRED BASIC Nov 30 [id number] [phone] EDWARDNY PATIENT FEDERAL PROVIDER FAMIL 2018 62 8 VERO ORGANIZAT Y ION (PPO) DEPART WORKERS' OWCP Jul 01, NONE [id number] [phone] INDIGO CruzNY PATIENT OF LABOR COMPENSAT MEDIC 2018 [id number] VERO MED DFEC ION AL INSURANCE DFEC DEPT OF WORKERS' WORKE Jul 01, WORKERS [id number] [phone] ROBERT SAABNY PATIENT LABOR COMPENSAT RS 2019 COMP [id number] 319 VERO ION COMP INSURANCE Selected Encounter This section includes the information on record at [place] for the Encounter. Date/Time Encounter Type Encounter Description Reason Provider Source Aug 05, 2022 12:00 Outpatient Encounter EVENT (HISTORICAL) AM [...] 20 appointments. The data comes from all [facility]. Appointment Date/Time Appointment Type Appointment Facili ty Name Aug 16, 2022 10:20 AM AMBULATORY - MEDICINE [facility] HELDER [facility] Sep 03, 2022 11:45 AM [facility] Mariah KYLED[facility]EL [facility] Sep 17, 2022 01:30 PM [facility] Sep 27, 2022 10:40 AM AMBULATORY - MEDICINE [facility] Nov 15, 2022 08:00 AM AMBULATORY - NONE [facility] Dec 13, 2022 08:00 AM AMBULATORY - MEDICINE [facility] Active, Pending, and Scheduled Orders This section includes a listing of several types of active, pending, and scheduled orders, including clinic medications orders, diagnostic test orders, procedure orders and consult orders; where the start date of the order is 45 days before the date of the Encounter or 45 days after the date of the Encounter. The data comes from all [facility]. Test Date/Time Test Type Test Details Facility Name Jul 12, 2022 12:00 AM Laboratory - Chemistry HEMOGLOBIN A1C BLOO D [facility] Order SP ONCE [facility] Jul 25, 2022 12:00 AM Laboratory - Chemistry CHEM, Basic Metabol ic [facility] Order Panel BLOOD SERUM SP [facility] ONCE Vital Signs: All taken on the encounter date This section contains inpatient and outpatient Vital Signs collected on the date of the Encounter. Date/Time Temperature Pulse Blood Respiratory SP02 Pain Height Weight Dong dy Source Pressure Rate Mass Index Aug 05 126/66 [place] 2021 02:50 mm[Hg] [facility] PM [place] [facility] Aug 05, 145/75 [place] 2021 02:01 mm[Hg] CNTRL PM [place] [facility] Aug 05, 97.6 F 67 142/76 16 /min 97 % 2 195.7 30 [place] 2021 01:58 /min mm[Hg] lb [facility]TR[facility] PM [place] [facility] Social History: Smoking Status (Most current) and Tobacco Use (All prior to encounter date) This section includes the most current, and the historical, smoking and tobacco-related health factors from the [place] facility where the Encounter took place.Current Smoking Status This section includes the most current smoking, or tobacco-related health factor, from the [place] facility where the Encounter took place. Date/Time Current Smoking Status Comment Facility Jul 18, 2022 10:30 AM [place]-TOBACCO FORMER USER [facility] Tobacco Use History This section includes a history of the smoking, or tobacco- related health factors, that were collected on or before the date of the Encounter. The data comes from the [place] facility where the Encounter took place. Date/Time Smoking Status/Tobacco Use Comment [facility] it Jul 18, 2022 10:30 AM [facility]
--- OUTSIDE RECORDS SUMMARY | 2022-10-02 10:19 | XMS_ITS | Encounter Summary ---
:1965 Author Organization [facility] Address [address] [place] [address] Support Name Relationship Address Phone DENISSE LEON Unavailable [address] [facility] [place] [address] NONE, GIVEN Unavailable Unavailable Unavailable Insurance Providers: [...] to Policy Number Chen AETNA [place] Feb [id number] [phone] [place] PATIENT SERVICE INTER 2011 381 2 [place] AETNA PRESCRIPT [facility] Feb [id number] [phone] COBY LEON PATIENT PHARMACY ION INTER 2011 [id number] VERO MANAGEMENT NATIO 1 [place] BCBS [place] PREFERRED BASIC Nov 30 [id number] [phone] COBY LEON PATIENT FEP PROVIDER FAMIL 2017 62 123 VERO ORGANIZAT Y ION (PPO) BCBS [place] Nov 30 [id number] [phone] COBY LEON PATIENT FEP INSURANCE L 112 2017 62 5 VERO (DENTAL) BCBS [place] PREFERRED BASIC Nov 30 [id number] [phone] COBY METZ PATIENT FEP PROVIDER FAMIL 2017 62 5 VERO ORGANIZAT Y ION (PPO) [place]BS [place] PREFERRED STAND March 26 [id number] [phone] COBY METZ PATIENT (FEDERAL) 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 2015 62 7 VERO ORGANIZAT IND ION (PPO) 104 CAREMARK PRESCRIPT FEP March 26, [id number] ROBERTR [place] PATIENT ([id number]) ION 2015 0 62 7 VERO CAREMARK-F PRESCRIPT FEP Nov 30, [id number] [phone] [place] PATIENT EP BCBS ION CAREM 2018 0 62 1 VERO ARK CAREMARK-F PRESCRIPT SHERI Nov 30, [id number] [phone] [place] PATIENT EP BCBS ION AL 2018 0 62 1 VERO RX CAREMARK-F PRESCRIPT SHERI Nov 30, [id number] [phone] [place] PATIENT EP BCBS ION AL 2018 0 [id number] 1 VERO RX CAREMARK-F PRESCRIPT FEP Nov 30, [id number] [phone] [place] PATIENT EP BCBS ION 2018 0 62 331 VERO HORIZON PREFERRED BASIC Nov 30 [id number] [phone] [place] PATIENT BCBS FEP* PROVIDER FAMIL 2017 62 8 VERO ORGANIZAT Y ION (PPO) HORIZON PREFERRED BASIC Nov 30 [id number] [phone] EDWARD[place] PATIENT FEDERAL PROVIDER FAMIL 2018 62 8 VERO ORGANIZAT Y ION (PPO) DEPART WORKERS' OWCP Jul 01, NONE [id number] [phone] INDIGO Cruz[place] PATIENT OF LABOR COMPENSAT MEDIC 2018 [id number] VERO MED DFEC ION [place] INSURANCE DFEC DEPT OF WORKERS' WORKE Jul 01, WORKERS [id number] [phone] ROBERT SAABOK PATIENT LABOR COMPENSAT RS 2019 COMP 86 319 VERO ION COMP INSURANCE Selected Encounter This section includes the information on record at [place] for the Encounter. Date/Time Encounter Type Encounter Description Reason Provider Source Feb 27, 2022 12:00 Outpatient Encounter EVENT (HISTORICAL) AM [...] Date/Time Appointment Type Appointment Facili ty Name Mar 01, 2022 08:00 AM AMBULATORY - PSYCHIATRY [facility] April 05, 2022 09:00 AM AMBULATORY - PSYCHIATRY [facility] April 10, 2022 10:00 AM AMBULATORY - PSYCHIATRY [facility] April 12, 2022 09:00 AM AMBULATORY - NONE [facility] April 12, 2022 10:00 AM AMBULATORY - MEDICINE [facility] Apr 24, 2022 10:00 AM AMBULATORY - PSYCHIATRY [facility] May 01, 2022 08:00 AM AMBULATORY - MEDICINE [facility] May 08, 2022 10:00 AM AMBULATORY - PSYCHIATRY [facility] Jun 27, 2022 09:30 AM AMBULATORY - MEDICINE [facility] Jun 28, 2022 09:00 AM AMBULATORY - PSYCHIATRY [facility] Jul 12, 2022 08:00 AM AMBULATORY - PSYCHIATRY [facility] Jul 12, 2022 09:20 AM AMBULATORY - MEDICINE [facility] Jul 18, 2022 10:30 AM [facility] Aug 05, 2022 02:00 PM [facility] Aug 16, 2022 10:20 AM AMBULATORY - MEDICINE [facility] Lab Results: +/- 30 days of the [...] Result - Unit Interpretation Reference Range Comment March 28, 2022 11:36 [facility] COVID-19 MONITOR Specimen Ty pe: OROPHARYNX [facility] PANEL([facility]) Comment: Test P erformed by NAHUM Lemus Ordering Provid er: ASHWINI SARMIENTO Report Released Date/Time: Mar 21, 2022 08:55 AM Reporting Lab: [facility] [address] [facility] [address] Performing Lab: [facility] [address] [facility] [address] COVID-19 ([id number]) Not Detected Not De tected Mar 19, 2022 12:00 [facility]-19 MONITOR Specimen Ty pe: OROPHARYNX AM [facility] PANEL([facility]) Comment: Test P erformed by NAHUM Lemus Ordering Provid er: ASHWINI SARMIENTO Report Released Date/Time: Jan 16, 2022 12:20 PM Reporting Lab: [facility] [address] [facility] [address] Performing Lab: [facility] [address] [place] [id number] COVID-19 ([id number]) Not Detected Not De tected Mar 12, 2022 [facility] COVID-19 SCREENING Specimen Typ e: NASOPHARYNX 12:39 PM [facility] PANEL([facility]) Comment: Test P erformed by NAHUM Lemus Ordering Provid er: TODD CASTILLO Report Released Date/Time: Feb 19, 2022 04:41 PM Reporting Lab: [facility] [address] [facility] [address] Performing Lab: [facility] [address] [facility] [address] COVID-19 ([id number]) Not Detected Not De tected Feb 27, 2022 12:24 [facility] NEW COVID-19 MONITOR Specimen Ty pe: OROPHARYNX PM [facility] PANEL([facility]) Comment: Test P erformed by NAHUM Lemus Ordering Provid er: ASHWINI SARMIENTO Report Released Date/Time: Dec 26, 2021 09:07 AM Reporting Lab: [facility] [address] [facility] [address] Performing Lab: [facility] [address] [facility] [address] COVID-19 ([id number]) Not Detected Not De tected Feb 19, 2022 12:00 [facility]-19 MONITOR Specimen Ty pe: OROPHARYNX AM [facility] PANEL([facility]) Comment: Test P erformed by NAHUM Lemus Ordering Provid er: ASHWINI SARMIENTO Report Released Date/Time: Dec 26, 2021 09:07 AM Reporting Lab: [facility] [address] [facility] [address] Performing Lab: [facility] [address] [place] [id number] COVID-19 ([id number]) Not Detected Not De tected Feb 13, 2022 03:14 [facility] COVID-19 MONITOR Specimen Ty pe: OROPHARYNX PM [facility] PANEL([facility]) Comment: Test P erformed by NAHUM Lemus Ordering Provid er: ASHWINI SARMIENTO Report Released Date/Time: Jan 16, 2022 12:20 PM Reporting Lab: [facility] [address] [facility] [address] Performing Lab: [facility] [address] [place] [id number] COVID-19 ([id number]) Not Detected Not De tected Jan 30, 2022 02:50 [facility] NEW COVID-19 MONITOR Specimen Ty pe: OROPHARYNX PM [facility] PANEL([facility]) Comment: Test P erformed by NAHUM Lemus Ordering Provid er: ASHWINI SARMIENTO Report Released Date/Time: Dec 26, 2021 09:07 AM Reporting Lab: [facility] [address] [facility] [address] Performing Lab: [facility] [address] [place] [id number] COVID-19 ([id number]) Not Detected Not De tected
--- OUTSIDE RECORDS SUMMARY | 2022-10-02 10:19 | XMS_ITS | Encounter Summary ---
:1965 Author Organization [facility] rs Address [address] [place] [id number] Support Name Relationship Address Phone DENISSE LEON Unavailable [address] [facility] [place] [place] [address] NONE, GIVEN Unavailable Unavailable Unavailable Insurance Providers: [...] to Policy Number Chen AETNA POINT OF [facility] Feb [id number] [phone] [place] PATIENT SERVICE INTER 2011 381 2 [place] AETNA PRESCRIPT [facility] Feb [id number] [phone] EDWARDNC PATIENT PHARMACY ION INTER 2011 [id number] VERO MANAGEMENT NATIO 1 [place] BCBS [place] PREFERRED BASIC Nov 30 [id number] [phone] COBY LEON PATIENT FEP PROVIDER FAMIL 2017 [id number] VERO ORGANIZAT Y ION (PPO) BCBS OF [place] DENTAL [place]ENT[place] Nov 30 [id number] [phone] COBY LEON PATIENT FEP INSURANCE L 112 2017 62 5 VERO (DENTAL) [place] PREFERRED BASIC Nov 30 [id number] [phone] COBY METZ PATIENT FEP PROVIDER FAMIL 2017 62 5 VERO ORGANIZAT Y ION (PPO) BCBS OF [place] PREFERRED STAND March 26 [id number] [phone] COBY METZ PATIENT (FEDERAL) 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 2014 62 7 VERO ORGANIZAT IND ION (PPO) 104 CAREMARK PRESCRIPT FEP March 26, [id number] [phone] ROBERTR NADYANC PATIENT ([id number]) ION 2015 0 62 7 VERO CAREMARK-F PRESCRIPT FEP Nov 30, [id number] [phone] [place] PATIENT EP BCBS ION CAREM 2018 0 62 1 VERO ARK CAREMARK-F PRESCRIPT SHERI Nov 30, [id number] [phone] [place] PATIENT EP BCBS ION AL 2018 0 62 1 VERO RX CAREMARK-F PRESCRIPT SHERI Nov 30, [id number] [phone] [place] PATIENT EP BCBS ION AL 2018 0 [id number] VERO RX CAREMARK-F PRESCRIPT FEP Nov 30, [id number] [phone] [place] PATIENT EP BCBS ION 2018 0 [id number] 331 VERO HORIZON PREFERRED BASIC Nov 30 [id number] [phone] EDWARDNC PATIENT BCBS FEP* PROVIDER FAMIL 2017 62 8 VERO ORGANIZAT Y ION (PPO) HORIZON PREFERRED BASIC Nov 30 [id number] [phone] EDWARDNC PATIENT FEDERAL PROVIDER FAMIL 2018 62 8 VERO ORGANIZAT Y ION (PPO) DEPART WORKERS' OWCP Jul 01, NONE [id number] [phone] COBY REYNOLDS PATIENT OF LABOR COMPENSAT MEDIC [id number] VERO MED DFEC ION AL INSURANCE DFEC US DEPT OF WORKERS' WORKE Jul 01, WORKERS [id number] [phone] ROBERT SAABNC PATIENT LABOR COMPENSAT RS 2019 COMP [id number] VERO ION COMP INSURANCE Selected Encounter This section includes the information on record at [place] for the Encounter. Date/Time Encounter Type Encounter Reason Provider Source Description Jul 18, 2022 OFFICE O/P EST PRIMARY ICD-10-CM Z71.89 KENDRA OCHOA 10:30 AM MINIMAL PROB CARE/MEDICINE Other specified Y E counseling with Provider Comments: Other specified Counseling IHE Encounter Template Text not used by [facility] Assessments - Encounter Diagnoses This section includes the primary and secondary diagnoses documented for the Encounter. Date/Time Primary/Secondary Diagnosis Name Provider Source Diagnosis Jul 18, 2022 PRIMARY Other specified ALEXI OCHOA [facility] 12:18 PM counseling [facility] Plan of Treatment: Future Appointments (+ 6 [...] Appointment Type Appointment Facili ty Name Aug 05, 2022 02:00 PM [facility] Aug 16, 2022 10:20 AM [facility] Sep 03, 2022 11:45 AM [facility] Sep 17, 2022 01:30 PM [facility] Sep 27, 2022 10:40 AM AMBULATORY - MEDICINE [facility] Nov 15, 2022 08:00 AM AMBULATORY [facility] Dec 13, 2022 08:00 AM [facility] Active, Pending, and Scheduled Orders This [...] The data comes from all [place] treatment [facility]. Test Date/Time Test Type Test Details Facility Name Jul 12, 2022 12:00 AM Laboratory - Chemistry HEMOGLOBIN A1C BLOO D [facility] Order SP ONCE [facility] Jul 25, 2022 12:00 AM Laboratory - Chemistry CHEM, Basic Metabol ic [facility] Order Panel BLOOD SERUM SP [facility] ONCE Lab Results: +/- 30 days of the encounter This section includes the Chemistry and Hematology Lab Results on record with [place] for the patient. Radiology Reports and Pathology Reports are provided separately, in subsequent sections.Lab Results This section contains the Chemistry/Hematology Results that were resulted 30 days before or 30 daysafter the date of the Encounter. Date/Time Source Result Type Result - Unit Interpretation Reference Range Comment Jul 05, 2022 08:22 [facility] HEMOGLOBIN A1C Specimen Type: BLOOD [facility] No comment enter ed. Ordering Provid er: ZULEMA TIM Report Released Date/Time: April 12, 2022 09:59 AM Reporting Lab: [facility] [address] [place] [address] Performing Lab: [facility] [address] [facility] [address] HEMOGLOBIN A1C 7.2 H 4.8-5.6 Jul 05, 2022 [facility] CHEM, Basic Specimen Type: SERUM 08:22 AM [facility] Metabolic Panel Comment: eGFR c alculated using [...] Stage 5 - End Stage CKD Reference: [email or web address] Ordering Provid er: ZULEMA TIM Report Released Date/Time: April 12, 2022 09:59 AM Reporting Lab: [facility] [address] [address] Performing Lab: [facility] [address] [facility] [address] CREATININE 1.3 .7-1.3 UREA NITROGEN 21 7-25 GLUCOSE 138 H 65-99 SODIUM 140 136-145 POTASSIUM 4.3 3.5-5.1 CHLORIDE 105 98-107 CO2 25 21-31 CALCIUM 9.8 8.6-10.3 ANION GAP 10 5-13 eGFR 65 L >90 Jun 26, 2022 12:00 [facility] COVID-19 MONITOR Specimen Ty pe: OROPHARYNX [facility] PANEL([facility]) No comment enter ed. Ordering Provid er: ASHWINI SARMIENTO Report Released Date/Time: Mar 21, 2022 08:55 AM Reporting Lab: [facility] [address] [facility] [address] Performing Lab: [facility] [address] [facility] [address] COVID-19 ([id number]) Not Detected Not De tected Vital Signs: All taken on the encounter date This section contains inpatient and outpatient Vital Signs collected on the date of the Encounter. Date/Time Temperature Pulse Blood Respiratory SP02 Pain Height Weight Dong dy Source Pressure Rate Mass Index Jul 18 97.4 F 53 155/75 20 /min 96 % 0 68 in 191.4 29 [facility] 2021 10:35 /min mm[Hg] lb CNTRL AM [facility] [place] [facility] Social History: Smoking Status (Most current) and [...] 18, 2022 10:30 AM [place]-TOBACCO [facility] Tobacco Use History This section includes a history of the smoking, or tobacco- related health factors, that were collected on or before the date of the Encounter. The data comes from the [place] facility where the Encounter took place. Date/Time Smoking Status/Tobacco Use Comment [facility] Jul 18, 2022 10:30 AM [place]-TOBACCO QUIT 15 YRS OR GA CNTRL [place] [facility] Encounter Notes: All associated encounter notes This section contains the clinical notes associated to the Encounter. Date/Time Encounter Note(s) Provider Source Jul 18, 2022 12:18 PM LETTERS: REBEKAH OCHOA [place] CNTR WSTRN LOCAL TITLE: PATIENT LETTER (B) [facility] STANDARD T[facility]: LETTERS DATE OF NOTE: JUL 18, 2022@12:18 ENTRY DATE: JUL 18, 2022@12:18:57 AUTHOR: REBEKAH OCHOA EXP COSIGNER: URGENCY: STATUS: COMPLETED == [place] [address] [phone] * [phone] * Fax [phone] == Date: 07/18/22 Dear Archana: Glen [facility] Please be a few minutes early to this ap pt- about 15 mins. We would like to update your demographic information. To schedule or if you would like more informatio n regarding VA health care benefits, please call toll free at 1 [phone]), visit the [place] website at [email or web address], or contact your local [place] [facility] Center. Welcome to patient aligned care team (Pact Team 1) with (Dr. Jay). Prior to meeting you at your new patient appointment we are requesting some of your past medical history so that we may provide you with the exceptional care you deserve. Please note that it is very helpful to have thes e documents prior to your appointment date as the more information we have the better we will be able to meet your needs: * Last History & Physical * Immunization records * Medication list * Diagnosis list * Most recent labs * Diagnostic screens (Colonoscopy, Abdominal Aor tic Aneurysm screen, Mammograms, PAPS, etc.) We have scheduled the following appt with you to see your new PCP: Your appt is scheduled for (08/05/22@1400)- This appt will be about an hour long appt which will give you and your Provider a chance to get to know each other. As agreed, you just recently had labs dra arriaza and will bring them to you appt. If you cahnge your mind about gett ing these labs done please let me know and I will put them in for you. We have noticed that you are due to receive the following Immunizations: 1. TD/TDAP immunization 2. Pneumococcal PCR 15, & 20 3. Hep B vaccination- 3 shot series The Following Labs we would like you to get: 1. Hep C antibody 2. CBC 3. Liver Function 4. Lipid panel- Fasting 5. Basic Metabolic Panel Fasting 6. Hemoglobin A1-C 7. Hep B antibody You may either bring your records with you to yo ur scheduled appointment, or drop them off ahead of your appointment or you may have them faxed to ATTN: KINGSLEY/ARCHANA/PACT-1 Pierre If you have any questions, please do not hesitate to contact the [facility] [place] call center at Ext [phone]. Sincerely. [facility] [address] [place] [address] Phone: Ext [phone] Upcoming Appointments: 08/05/22@1400- KINGSLEY/ARCHANA/WPIX-7-IvjjrPierre Ochoa MSN Ed., BSN, RN [facility] [address] [address] [place] [address] - Ext [phone] [facility] [address] [place] [id number] [place] [address] [place] [address] Jul 18, 2022 10:42 AM PRIMARY CARE OUTPATIENT NOTE: SCARLET OCHOA [place] CNTRL WSTRN LOCAL TITLE: AMBULATORY/OUTPATIENT CARE NOTE [facility] STANDARD TITLE: PRIMARY CARE OUTPATIENT NOTE DATE OF NOTE: JUL 18, 2022@10:42 ENTRY DATE: JUL 18, 2022@10:42:49 AUTHOR: REBEKAH OCHOA EXP COSIGNER: URGENCY: STATUS: COMPLETED F: Walk-in D: Vet presented as a walk-in requesting to be s een in sick call. Remote METFORMIN HCL 500MG 24HR TAB,SA TAKE TWO TABLETS BY MOUTH TWICE A DAY FOR DIABE SHAAN Last Filled: 07/12/22 (Active at [facility]) Rx Expiration Date: 07/13/23 Days Supply: 30 Remote OMEPRAZOLE 40MG CAP,EC TAKE ONE CAPSULE BY MOUTH EVERY DAY BEFORE LETTY KFAST Last Filled: 05/01/22 (Active at [facility]) Rx Expiration Date: 05/02/23 Supply: 90 Suicide Screen: C-SSRS Screening [place] Suicide Severity Rating Scale (C-SSRS) screener 1. Over the past month, have you wished you wer e or wished you could go to sleep and not wake up? No 2. Over the past month, have you had any actual thoughts of killing yourself? No 3. Over the past month, have you been thinking about how you might do this? Response not required due to responses to other questions. 4. Over the past month, have you had these thou ghts and had some intention of acting on them? Response not required due to responses to other questions. 5. Over the past month, have you started to wor k out or worked out the details of how to kill yourself? Response not required due to responses to other questions. 6. If yes, at any time in the past month did yo u intend to carry out this plan? Response not required due to responses to other questions. 7. In your lifetime, have you ever done anythin g, started to do anything, or prepared to do anything to end you r life (for example, collected pills, obtained a gun, gave away valu ugo, went to the roof but didn't jump)? No 8. If YES, was this within the past 3 months? Response not required due to responses to other questions. Depression Screening: Perform PHQ-2 A PHQ-2 screen was performed. The score was 0 w hich is a negative screen for depression. Over the past two weeks, how often have you bee n bothered by the following problems? 1. Little interest or pleasure in doing things Not at all 2. Feeling down, depressed, or hopeless Not at all Homelessness/Food Insecurity Screen: In the past 2 months, have you been living in s table housing that you own, rent, or stay in as part of a household? Y es - Living in stable housing. Are you worried or concerned that in the next 2 months you may NOT have stable housing that you own, rent, or stay in a s part of a household? No - Not worried about housing near future The [place] reports the following: Within the past 12 months, you worried whether your food would run out before you got money to buy more. Never true Within the past 12 months, the food you bought just didn't last and you didn't have money to get more. Never true Preferred Language: What is your, or your caregiver's preferred karen guage for healthcare? Preferred Language: Stateless PTSD Screening: PC-PTSD-5 A PTSD screening test (PC-PTSD-5) was negative (score=0). Have you ever had any experience that was so fr ightening, horrible or upsetting that, IN THE PAST MONTH, you: Have you ever experienced this kind of event? NO 1. Had nightmares about the event(s) or thought about the event(s) when you did not want to? Response not required due to responses to other questions. 2. Tried hard not to think about the event(s) o r went out of your way to avoid situations that reminded you of the ev ent(s)? Response not required due to responses to other questions. 3. Been constantly on guard, watchful, or easil y startled? Response not required due to responses to other questions. 4. [place] numb or detached from people, activitie s, or your surroundings? Response not required due to responses to other questions. 5. [place] guilty or unable to stop blaming yourse lf or others for the event(s) or any problems the event(s) may have caused? Response not required due to responses to other questions. Relationship Health & Safety Screen: Environment is safe to proceed INFORMED CONSENT TO SCREEN & DOCUMENT: Individual consents to documentation? Yes Individual consents to proceed with screening? Yes PRIMARY SCREEN: In the past 12 months, how often did a current or former intimate partner (e.g., boyfriend, girlfriend, , , se xual partner): Scream or curse at you: Never Insult or talk down to you: Never Threaten you with harm: Never Physically hurt you: Never In the past 12 months, how often did a current or former intimate partner force or pressure you to have sexual co ntact against your will, or when you were unable to say no? Never PRIMARY SCREEN RESULTS: The individual denied all forms of IPV above (i .e., answered never to all 5 items above). ??The HITS tool is US copyright protected by Kulwinder Mera MD, and the user has full rights to use it throughout the Proficiency system. DISPOSITION: Provided general IPV education. Tobacco Use Screening: The patient is a former tobacco user. The patient quit fifteen or more years ago. Influenza Immunization: The patient has received the seasonal influenza vaccine for the current season at another location. Date: August, Exact date is unknown Location: Outside Healthcare Provider Alcohol Use Screen (AUDIT-C): Alcohol Screen: SCREEN FOR ALCOHOL (AUDIT-C) An alcohol screening test (AUDIT-C) was negativ e (score=1). 1. How often did you have a drink containing al cohol in the past year? Monthly or less 2. How many drinks containing alcohol did you h ave on a typical day when you were drinking in the past year? One or two drinks 3. How often did you have six or more drinks on one occasion in the past year? Never COVID-19 Immunization: Moderna COVID-19 Vaccine given previously Patient received a prior dose of the Moderna CO VID-19 Vaccine. Date: December 06, 2020 Location: Outside Healthcare Provider Patient received a prior dose of the Moderna CO VID-19 Vaccine. Date: January 03, 2021 Location: Outside Healthcare Provider Patient received a prior dose of the Moderna CO VID-19 Vaccine. Date: September 28, 2021 Series: Series 3 Location: Outside Healthcare Provider COVID-19 Immunization: Moderna COVID-19 Vaccine given previously Patient received a prior dose of the Moderna CO VID-19 Vaccine. Date: March 10, 2022 Series: Series 4 Location: Outside Healthcare Provider Herpes Zoster (Shingles) Vaccine: Prior Herpes Zoster vaccination The patient has previously received the recombi nant zoster vaccine dose #1 (Shingrix, RZV). Date: August 12, 2021 Location: Outside Healthcare Provider Written documentation: JLMikayla The patient has previously received the recombi nant zoster vaccine dose #2 (Shingrix, RZV). Date: October 14, 2021 Location: Outside Healthcare Provider Written documentation: JLMikayla Tdap Immunization: Prior Tdap vaccination The patient has previously received the Tetanus , Diphtheria vaccine (Td). Date: May, Exact date is unknown Location: Outside Healthcare Provider Comment: LIMA /jacki/ REBEKAH OCHOA MSN Ed., BSN WAREHOUSE UNLOADER NURSE Signed: 07/18/2022 12:18
--- OUTSIDE RECORDS SUMMARY | 2022-10-02 10:19 | XMS_ITS | Encounter Summary ---
:1965 Author Organization [facility] Address [address] [place] [address] Support Name Relationship Address Phone DENISSE LEON Unavailable [address] [facility] [place] [address] NONE, GIVEN Unavailable Unavailable Unavailable Insurance Providers: [...] to Policy Number Chen AETNA [facility] Feb [id number] [phone] EDWARD OR PATIENT SERVICE INTER 2011 381 2 [place] AET[place] PRESCRIPT [facility] Feb [id number] [phone] COBY LEON PATIENT PHARMACY ION INTER 2011 [id number] VERO MANAGEMENT NATIO 1 [place] BCBS [place] PREFERRED BASIC Nov 30 [id number] [phone] COBY LEON PATIENT FEP PROVIDER FAMIL 2017 62 123 VERO ORGANIZAT Y ION (PPO) BCBS [place] Nov 30 [id number] [phone] COBY LEON PATIENT FEP INSURANCE L 112 2017 62 5 VERO (DENTAL) [place] PREFERRED BAS[place] Nov 30 [id number] [phone] COBY METZ PATIENT FEP PROVIDER FAMIL 2017 62 5 VERO ORGANIZAT Y ION (PPO) BCBS OF [place] PREFERRED STAND March 26 [id number] [phone] COBY METZ PATIENT (FEDERAL) 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 2015 62 7 VERO ORGANIZAT IND ION (PPO) 104 CAREMARK PRESCRIPT FEP March 26, [id number] ROBERTR NADYA,OR PATIENT ([id number]) ION 2015 0 62 7 VERO CAREMARK-F PRESCRIPT FEP Nov 30, [id number] [phone] CO NROY,OR PATIENT EP BCBS ION CAREM 2018 0 62 1 VERO ARK CAREMARK-F PRESCRIPT SHERI Nov 30, [id number] [phone] CO NROY,OR PATIENT EP BCBS ION AL 2018 0 62 1 EVRO RX CAREMARK-F PRESCRIPT SHERI Nov 30, [id number] [phone] CO NROY,OR PATIENT EP BCBS ION AL 2018 0 [id number] 1 VERO RX CAREMARK-F PRESCRIPT FEP Nov 30, [id number] [phone] CO NRNADYA,OR PATIENT EP BCBS ION 2018 0 [id number] 331 VERO HORIZON PREFERRED BASIC Nov 30 [id number] [phone] EDWARDOR PATIENT BCBS FEP* PROVIDER FAMIL 2017 62 8 VERO ORGANIZAT Y ION (PPO) HORIZON PREFERRED BASIC Nov 30 [id number] [phone] EDWARDOR PATIENT FEDERAL PROVIDER FAMIL 2018 62 8 VERO ORGANIZAT Y ION (PPO) DEPART WORKERS' OWCP Jul 01, NONE [id number] [phone] INDIGO CruzOR PATIENT OF LABOR COMPENSAT MEDIC 2018 [id number] VERO MED DFEC ION AL INSURANCE DFEC DEPT OF WORKERS' WORKE Jul 01, WORKERS [id number] [phone] ROBERT SAABOR PATIENT LABOR COMPENSAT RS 2019 COMP 86 319 VERO ION COMP INSURANCE Selected Encounter This section includes the information on record at [place] for the Encounter. Date/Time Encounter Type Encounter Description Reason Provider Source Mar 10, 2022 12:00 Outpatient Encounter EVENT (HISTORICAL) AM [...] 20 appointments. The data comes from all [place] treatment facilities. Appointment Date/Time Appointment Type Appointment Facili ty Name April 05, 2022 09:00 AM AMBULATORY - PSYCHIATRY [facility] April 10, 2022 10:00 AM AMBULATORY - PSYCHIATRY [facility] April 12, 2022 09:00 AM AMBULATORY - NONE [facility] April 12, 2022 10:00 AM AMBULATORY - MEDICINE [facility] Apr 24, 2022 10:00 AM AMBULATORY - PSYCHIATRY [facility] May 01, 2022 08:00 AM AMBULATORY - MEDICINE [facility] May 08, 2022 10:00 AM AMBULATORY - PSYCHIATRY [facility] Jun 27, 2022 09:30 AM AMBULATORY MEDICINE [facility] Jun 28, 2022 09:00 AM AMBULATORY - PSYCHIATRY [facility] Jul 12, 2022 08:00 AM AMBULATORY PSYCHIATRY [facility] Jul 12, 2022 09:20 AM AMBULATORY - MEDICINE [facility] Jul 18, 2022 10:30 [facility] Aug 05, 2022 02:00 PM [facility] Aug 16, 2022 10:20 AM AMBULATORY [facility] Sep 03, 2022 11:45 AM [facility] Lab Results: +/- 30 days of the encounter This section includes the Chemistry and Hematology Lab Results on record with [place] for the patient. Radiology Reports and Pathology Reports are provided separately, in subsequent sections.Lab Results This section contains the Chemistry/Hematology Results that were resulted 30 days before or 30 daysafter the date of the Encounter. Date/Time Source Result Type Result - Unit Interpretation Reference Range Comment April 09, 2022 03:21 [facility] COVID-19 MONITOR Specimen Ty pe: OROPHARYNX PM [facility] PANEL([facility]) Comment: Test P erformed by NAHUM Lemus Ordering Provid er: ASHWINI SARMIENTO Report Released Date/Time: Mar 21, 2022 08:55 AM Reporting Lab: [facility] [address] [facility] [address] Performing Lab: [facility] [address] [facility] [address] COVID-19 ([id number]) Not Detected Not De tected April 02, 2022 12:00 [facility] NEW COVID-19 MONITOR Specimen Ty pe: OROPHARYNX [facility] PANEL([facility]) Comment: Test P erformed by NAHUM Lemus Ordering Provid er: ASHWINI SARMIENTO Report Released Date/Time: Mar 21, 2022 08:55 AM Reporting Lab: [facility] [address] [facility] [address] Performing Lab: [facility] [address] [facility] [address] COVID-19 ([id number]) Not Detected Not De tected March 28, 2022 11:36 [facility] NEW COVID-19 MONITOR Specimen Ty pe: OROPHARYNX [facility] PANEL([facility]) Comment: Test P erformed by NAHUM Lemus Ordering Provid er: ASHWINI SARMIENTO Report Released Date/Time: Mar 21, 2022 08:55 AM Reporting Lab: [facility] [address] [facility] [address] Performing Lab: [facility] [address] [facility] [address] COVID-19 ([id number]) Not Detected Not De tected Mar 19, 2022 12:00 [facility] NEW COVID-19 MONITOR Specimen Ty pe: OROPHARYNX [facility] PANEL([facility]) Comment: Test P erformed by NAHUM Lemus Ordering Provid er: ASHWINI SARMIENTO Report Released Date/Time: Jan 16, 2022 12:20 PM Reporting Lab: [facility] [address] [facility] [address] Performing Lab: [facility] [address] [facility] [address] COVID-19 ([id number]) Not Detected Not De tected Mar 12, 2022 [facility] NEW COVID-19 SCREENING Specimen Typ e: NASOPHARYNX 12:39 PM [facility] PANEL([facility]) Comment: Test P erformed by NAHUM Lemus Ordering Provid er: TODD CASTILLO Report Released Date/Time: Feb 19, 2022 04:41 PM Reporting Lab: [facility] [address] [facility] [address] Performing Lab: [facility] [address] [place] [phone] COVID-19 ([id number]) Not Detected Not De tected Feb 27, 2022 12:24 [facility] NEW COVID-19 MONITOR Specimen Ty pe: OROPHARYNX PM [facility] PANEL([facility]) Comment: Test P erformed by NAHUM Lemus Ordering Provid er: ASHWINI SARMIENTO Report Released Date/Time: Dec 26, 2021 09:07 AM Reporting Lab: [facility] [address] [place] [phone] Performing Lab: [facility] [address] [place] [phone] COVID-19 ([id number]) Not Detected Not De tected Feb 19, 2022 12:00 [facility] NEW COVID-19 MONITOR Specimen Ty pe: OROPHARYNX AM [facility] PANEL([facility]) Comment: Test P erformed by NAHUM Lemus Ordering Provid er: ASHWINI SARMIENTO Report Released Date/Time: Dec 26, 2021 09:07 AM Reporting Lab: [facility] [address] [facility] [address] Performing Lab: [facility] [address] [place] [id number] COVID-19 ([id number]) Not Detected Not De tected Feb 13, 2022 03:14 [facility] NEW COVID-19 MONITOR Specimen Ty pe: OROPHARYNX PM [facility] PANEL([facility]) Comment: Test P erformed by NAHUM Lemus Ordering Provid er: ASHWINI SARMIENTO Report Released Date/Time: Jan 16, 2022 12:20 PM Reporting Lab: [facility] [address] [facility] [address] Performing Lab: [facility] [address] [facility] [address] COVID-19 ([id number]) Not Detected Not De tected Immunizations: All administered on the encounter date This section contains immunizations associated to the Encounter. Immunization Series Date Issued Reaction Comments COVID-19 (MODERNA), LUCÍA DELEONS, PF, 100 Mar 10, 2022 MCG/0.5ML DOSE OR 50 MCG/0.25ML DOSE
--- OUTSIDE RECORDS SUMMARY | 2022-10-02 10:20 | XMS_ITS | Encounter Summary ---
:1965 Author Organization [facility] Address [address] [place] [id number] Support Name Relationship Address Phone DENISSE LEON Unavailable [address] [facility] [place] [address] NONE, GIVEN Unavailable Unavailable Unavailable Insurance Providers: [...] to Policy Number Chen AETNA [facility] Feb [id number] [phone] EDWARD PR PATIENT SERVICE INTER 2011 381 2 [place] AETNA PRESCRIPT [facility] Feb [id number] [phone] COBY LEON PATIENT PHARMACY ION INTER 2011 [id number] VERO MANAGEMENT NATIO 1 [place] BCBS [place] PREFERRED BASIC Nov 30 [id number] [phone] COBY LEON PATIENT FEP PROVIDER FAMIL 2017 62 123 VERO ORGANIZAT Y ION (PPO) [place] Nov 30 [id number] [phone] COBY LEON PATIENT FEP INSURANCE L 112 2017 62 5 VERO (DENTAL) [place] PREFERRED BASIC Nov 30 [id number] [phone] COBY METZ PATIENT FEP PROVIDER FAMIL 2017 62 5 VERO ORGANIZAT Y ION (PPO) [place] PREFERRED STAND March 26 [id number] [phone] COBY METZ PATIENT (FEDERAL) 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 2015 62 7 VERO ORGANIZAT IND ION (PPO) 104 CAREMARK PRESCRIPT FEP March 26, [id number] ROBERTR NADYA,PR PATIENT ([id number]) ION 2015 0 62 7 VERO CAREMARK-F PRESCRIPT FEP Nov 30, [id number] [phone] CO NROY,PR PATIENT EP BCBS ION CAREM 2018 0 62 1 VERO ARK CAREMARK-F PRESCRIPT SHERI Nov 30, [id number] [phone] CO NROY,PR PATIENT EP BCBS ION AL 2018 0 62 1 VERO RX CAREMARK-F PRESCRIPT SHERI Nov 30, [id number] CO NROY,PR PATIENT EP BCBS ION AL 2018 0 [id number] 1 VERO RX CAREMARK-F PRESCRIPT FEP Nov 30, [id number] [phone] CO NRNADYA,PR PATIENT EP BCBS ION 2018 0 62 331 VERO HORIZON PREFERRED BASIC Nov 30 [id number] [phone] EDWARDPR PATIENT BCBS FEP* PROVIDER FAMIL 2017 62 8 VERO ORGANIZAT Y ION (PPO) HORIZON PREFERRED BASIC Nov 30 [id number] [phone] EDWARDPR PATIENT FEDERAL PROVIDER FAMIL 2018 62 8 VERO ORGANIZAT Y ION (PPO) DEPART WORKERS' OWCP Jul 01, NONE [id number] [phone] INDIGO CruzPR PATIENT OF LABOR COMPENSAT MEDIC 2018 86 966 VERO MED DFEC ION AL INSURANCE DFEC DEPT OF WORKERS' WORKE Jul 01, WORKERS [id number] [phone] ROBERT SAABPR PATIENT LABOR COMPENSAT RS 2019 COMP 86 319 VERO ION COMP INSURANCE Selected Encounter This section includes the information on record at [place] for the Encounter. Date/Time Encounter Type Encounter Description Reason Provider Source Oct 14, 2021 12:00 Outpatient Encounter EVENT (HISTORICAL) AM IHE [...] Appointment Type Appointment Facili ty Name Nov 30, 2021 09:00 AM AMBULATORY - PSYCHIATRY [facility] Dec 11, 2021 08:00 AM AMBULATORY - SURGERY [facility] Dec 21, 2021 11:30 AM AMBULATORY - MEDICINE [facility] Jan 18, 2022 09:30 AM AMBULATORY - MEDICINE [facility] Jan 23, 2022 02:00 PM AMBULATORY - MEDICINE [facility] Jan 24, 2022 01:00 PM [facility] Feb 01, 2022 08:00 AM AMBULATORY - PSYCHIATRY [facility] Feb 01, 2022 09:00 AM AMBULATORY - PSYCHIATRY [facility] Feb 19, 2022 03:00 PM AMBULATORY - MEDICINE [facility] Mar 01, 2022 08:00 AM AMBULATORY - PSYCHIATRY [facility] April 05, 2022 09:00 AM AMBULATORY - PSYCHIATRY [facility] April 10, 2022 10:00 AM AMBULATORY - PSYCHIATRY [facility] April 12, 2022 09:00 AM AMBULATORY - NONE [facility] April 12, 2022 10:00 AM AMBULATORY - MEDICINE [facility] Lab Results: +/- 30 days of the encounter This section includes the Chemistry and Hematology Lab Results [place] with [place] for the [place]. Radiology Reports and Pathology Reports are provided separately, in subsequent sections.Lab Results This section contains the Chemistry/Hematology Results that were resulted 30 days before or 30 daysafter the date of the Encounter. Date/Time Source Result Type Result - Unit Interpretation Reference Range Comment Nov 02, 2021 03:15 [facility] COVID-19 MONITOR Specimen Ty pe: OROPHARYNX [facility] PANEL([facility]) Comment: Test P erformed by NAHUM Lemus Ordering Provid er: ASHWINI SARMIENTO Report Released Date/Time: Oct 01, 2021 06:02 PM Reporting Lab: [facility] [address] [facility] [address] Performing Lab: [facility] [address] [facility] [address] COVID-19 ([id number]) Not Detected Not De tected Oct 31, 2021 12:00 [facility] NEW COVID-19 MONITOR Specimen Ty pe: OROPHARYNX AM [facility] PANEL([facility]) Comment: Test P erformed by NAHUM Lemus Ordering Provid er: ASHWINI SARMIENTO Report Released Date/Time: Oct 01, 2021 06:02 PM Reporting Lab: [facility] [address] [facility] [address] Performing Lab: [facility] [address] [facility] [address] COVID-19 ([id number]) Not Detected Not De tected Oct 26, 2021 12:30 [facility] NEW COVID-19 MONITOR Specimen Ty pe: OROPHARYNX PM [facility] PANEL([facility]) Comment: Test P erformed by NAHUM Lemus Ordering Provid er: ASHWINI SARMIENTO Report Released Date/Time: Sep 18, 2021 05:21 PM Reporting Lab: [facility] [address] [facility] [address] Performing Lab: [facility] [address] [facility] [address] COVID-19 ([id number]) Not Detected Not De tected Oct 23, 2021 03:16 [facility] NEW COVID-19 MONITOR Specimen Ty pe: OROPHARYNX [facility] PANEL([facility]) Comment: Test P erformed by NAHUM Lemus Ordering Provid er: ASHWINI SARMIENTO Report Released Date/Time: Oct 01, 2021 06:02 PM Reporting Lab: [facility] [address] [facility] [address] Performing Lab: [facility] [address] [facility] [address] COVID-19 ([id number]) Not Detected Not De tected Oct 11, 2021 12:46 [facility] NEW COVID-19 MONITOR Specimen Ty pe: OROPHARYNX PM [facility] PANEL([facility]) Comment: Test P erformed by NAHUM Lemus Ordering Provid er: ASHWINI SARMIENTO Report Released Date/Time: Oct 01, 2021 06:02 PM Reporting Lab: [facility] [address] [facility] [address] Performing Lab: [facility] [address] [facility] [address] COVID-19 ([id number]) Not Detected Not De tected Oct 09, 2021 12:49 [facility] NEW COVID-19 MONITOR Specimen Ty pe: OROPHARYNX PM [facility] PANEL([facility]) Comment: Test P erformed by NAHUM Lemus Ordering Provid er: ASHWINI SARMIENTO Report Released Date/Time: Oct 01, 2021 06:02 PM Reporting Lab: [facility] [address] [facility] [address] Performing Lab: [facility] [address] [facility] [address] COVID-19 ([id number]) Not Detected Not De tected Oct 02, 2021 12:00 [facility] COVID-19 MONITOR Specimen Ty pe: OROPHARYNX AM [facility] PANEL([facility]) Comment: Test P erformed by NAHUM Lemus Ordering Provid er: ASHWINI SARMIENTO Report Released Date/Time: 2021 07:41 PM Reporting Lab: [facility] [address] [facility] [address] Performing Lab: [facility] [address] [facility] [address] COVID-19 ([id number]) Not Detected Not De tected Sep 27, 2021 08:27 AM [facility] TSH3, SERUM Spec imen Type: SERUM [facility] No comment enter ed. Ordering Provid er: JUSTIN HEBERT Report Released Date/Time: Sep 21, 2021 09:03 AM Reporting Lab: [facility] [address] [facility] [address] Performing Lab: [facility] [address] [facility] [address] TSH3, SERUM 1.42 0.45-5.33 Sep 27, 2021 08:27 [facility] HEMOGLOBIN A1C Specime n Type: BLOOD AM [facility] No comment enter ed. Ordering Provid er: JUSTIN HEBERT Report Released Date/Time: Sep 21, 2021 09:03 AM Reporting Lab: [facility] [address] [facility] [address] Performing Lab: [facility] [address] [facility] [address] HEMOGLOBIN A1C 7.8 H 4.8-5.6 Sep 27, 2021 08:27 [facility] CHEM, Lipid Panel Speci men Type: SERUM AM [facility] No comment enter ed. Ordering Provid er: JUSTIN HEBERT Report Released Date/Time: Sep 21, 2021 09:03 AM Reporting Lab: [facility] [address] [facility] [address] Performing Lab: [facility] [address] [facility] [address] CHOLESTEROL 143 TRIGLYCERIDE 156 LDL CHOLESTEROL 83 HDL-DIRECT Sep 27, 2021 08:27 [facility] URINE PROTEIN Specimen Typ e: URINE AM [facility] PROFILE No comment enter ed. Ordering Provid er: JUSTIN HEBERT Report Released Date/Time: Sep 21, 2021 09:03 AM Reporting Lab: [facility] [address] [facility] [address] Performing Lab: [facility] [address] [facility] [address] URINE COLOR Light-Yellow YELLOW SPECIFIC GRAVITY 1.023 <1.031 UROBILINOGEN Normal < 2 URINE BILIRUBIN Negative < 1+ URINE KETONES Negative <1+ URINE GLUCOSE OVER <70 URINE PROTEIN Negative < 30 URINE PH 5.5 <8.0 URINE WBC/HPF <1 0-5 URINE BACTERIA [none] NEG URINE MUCUS [none] NEG HYALINE CASTS [none] 0-2 GRANULAR CASTS [none] None seen URINE YEAST [none] NEG URINE RBC/HPF 2 0-2 APPEARANCE Clear CLEAR TRICHOMONAS [none] NEG SQUAMOUS EPITHELIAL [none] <5 RENAL EPITHELIAL CELLS [none] <2 URINE BLOOD Negative < 1+ NITRITE, URINE Negative < 1+ LEUKOCYTE ESTERASE, URINE Negative <75 CELLULAR CASTS [none] None seen RBC CLUMPS,UR [none] NEG ALBUMIN/CREATININE RATIO 14.9 0-30 MICROALBUMIN,SPOT URINE 12.9 <30 CREATININE,URINE SPOT 86.7 Sep 27, 2021 [facility] CHEM, Comprehensive Specimen Ty pe: SERUM 08:27 AM [facility] Metabolic Panel No comment enter ed. Ordering Provid er: JUSTIN HEBERT Report Released Date/Time: Sep 21, 2021 09:03 AM Reporting Lab: [facility] [address] [facility] [address] Performing Lab: [facility] [address] [facility] [address] CREATININE 1.3 .7-1.3 UREA NITROGEN 21 7-25 GLUCOSE 157 H 65-99 SODIUM 140 136-145 POTASSIUM 4.6 3.5-5.1 CHLORIDE 103 98-107 CO2 28 21-31 CALCIUM 9.8 8.6-10.3 PROTEIN,TOTAL 7.4 6.4-8.9 ALBUMIN 4.6 3.5-5.7 TOTAL BILIRUBIN 0.6 0.3-1.0 ALKALINE PHOSPHATASE 66 34-104 AST 25 13-39 ALT 27 7-52 ANION GAP 9 5-13 eGFR 58 L >60 Sep 26, 2021 11:31 [facility] COVID-19 MONITOR Specimen Ty pe: OROPHARYNX AM [facility] PANEL([facility]) Comment: Test P erformed by NAHUM Lemus Ordering Provid er: ASHWINI SARMIENTO Report Released Date/Time: 2021 01:59 PM Reporting Lab: [address] [address] Performing Lab: [facility] [address] [facility] [address] COVID-19 ([id number]) Not Detected Not De tected Sep 18, 2021 06:18 [facility] COVID-19 MONITOR Specimen Ty pe: OROPHARYNX PM [facility] PANEL([facility]) Comment: Test P erformed by NAHUM Lemus Ordering Provid er: ASHWINI SARMIENTO Report Released Date/Time: Sep 12, 2021 04:41 PM Reporting Lab: [facility] [address] [facility] [address] Performing Lab: [facility] [address] [facility] [address] COVID-19 ([id number]) Not Detected Not De tected Immunizations: All administered on the encounter date This section contains immunizations associated to the Encounter. Immunization Series Date Issued Reaction Comments ZOSTER RECOMBINANT 2 Oct 14, 2021 [place]
--- OUTSIDE RECORDS SUMMARY | 2022-10-02 10:24 | XMS_ITS | Encounter Summary ---
:1965 Author Organization Department [facility] rs Address [address] [place] [id number] Support Name Relationship Address Phone DENISSE LEON Unavailable [address] [facility] [address] NONE, GIVEN Unavailable Unavailable Unavailable Insurance Providers: [...] to Policy Number Chen AETNA [place] [facility] Feb [id number] [phone] [place] PATIENT SERVICE INTER 2011 381 2 [place] AETNA PRESCRIPT [facility] Feb [id number] [phone] COBY LEON PATIENT PHARMACY ION INTER 2011 [id number] VERO MANAGEMENT NATIO 1 [place] BCBS [place] PREFERRED BASIC Nov 30 [id number] [phone] COBY LEON PATIENT FEP PROVIDER FAMIL 2017 [id number] VERO ORGANIZAT Y ION (PPO) BCBS OF [place] DENTAL [place]ENT[place] Nov 30 [id number] [phone] COBY LEON PATIENT FEP INSURANCE L [id number] 2017 62 5 VERO (DENTAL) [place] PREFERRED BASIC Nov 30 [id number] [phone] COBY METZ PATIENT FEP PROVIDER FAMIL 2017 62 5 VERO ORGANIZAT Y ION (PPO) [place]BS OF [place] PREFERRED STAND March 26 [id number] [phone] COBY METZ PATIENT (FEDERAL) 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 2014 62 7 VERO ORGANIZAT IND ION (PPO) 104 CAREMARK PRESCRIPT FEP March 26, [id number] [phone] CONR NADYA,COBY PATIENT ([id number]) ION 2015 0 62 7 VERO CAREMARK-F PRESCRIPT FEP Nov 30, [id number] [phone] [place] PATIENT EP BCBS ION CAREM 2018 0 62 1 VERO ARK CAREMARK-F PRESCRIPT SHERI Nov 30, [id number] [phone] [place] PATIENT EP BCBS ION AL 2018 0 62 1 VERO RX CAREMARK-F PRESCRIPT SHERI Nov 30, [id number] [phone] [place] PATIENT EP BCBS ION AL 2018 0 [id number] 1 VERO RX CAREMARK-F PRESCRIPT FEP Nov 30, [id number] [phone] PATIENT EP BCBS ION 2018 0 [id number] VERO HORIZON PREFERRED BASIC Nov 30 [id number] [phone] EDWARDIL PATIENT BCBS FEP* PROVIDER FAMIL 2017 62 8 VERO ORGANIZAT Y ION (PPO) HORIZON PREFERRED BASIC Nov 30 [id number] [phone] EDWARDIL PATIENT FEDERAL PROVIDER FAMIL 2017 62 8 VERO ORGANIZAT Y ION (PPO) DEPART WORKERS' OWCP Jul 01, NONE [id number] [phone] COBY REYNOLDS PATIENT OF LABOR COMPENSAT MEDIC 2018 [id number] VERO MED DFEC ION AL INSURANCE DFEC US DEPT OF WORKERS' WORKE Jul 01, WORKERS [id number] [phone] COBY METZ PATIENT LABOR COMPENSAT RS 2019 COMP [id number] VERO ION COMP INSURANCE Selected Encounter This section includes the information on record at [place] for the Encounter. Date/Time Encounter Type Encounter Description Reason Provider Source May 01, 2022 12:23 Outpatient Encounter PATIENT CARE IN [place] PM IHE Encounter Template Text not used [...] 20 appointments. The data comes from all [place] treatment facilities. Appointment Date/Time Appointment Type Appointment Facili ty Name May 08, 2022 10:00 AM AMBULATORY - PSYCHIATRY [facility] Jun 27, 2022 09:30 AM AMBULATORY - MEDICINE [facility] Jun 28, 2022 09:00 AM AMBULATORY - PSYCHIATRY [facility] Jul 12, 2022 08:00 AM AMBULATORY - PSYCHIATRY [facility] Jul 12, 2022 09:20 AM AMBULATORY - MEDICINE [facility] Jul 18, 2022 10:30 AM [facility] Aug 05, 2022 02:00 PM [facility] Aug 16, 2022 10:20 AM AMBULATORY [facility] Sep 03, 2022 11:45 [facility] Sep 17, 2022 01[facility]30 [facility] Sep 27, 2022 10:40 AM AMBULATORY - MEDICINE [facility] Lab Results: +/- 30 days of [...] Result - Unit Interpretation Reference Range Comment May 14, 2022 06:04 [facility] COVID-19 MONITOR Specimen Ty pe: OROPHARYNX [facility] PANEL([facility]) Comment: Test P erformed by NAHUM Lemus Ordering Provid er: ASHWINI SARMIENTO Report Released Date/Time: Mar 21, 2022 08:55 AM Reporting Lab: [facility] [address] [facility] [address] Performing Lab: [facility] [address] [facility] [address] COVID-19 ([id number]) Not Detected Not De tected May 07, 2022 12:40 [facility] COVID-19 MONITOR Specimen Ty pe: OROPHARYNX PM [facility] PANEL([facility]) Comment: Test P erformed by NAHUM Lemus Ordering Provid er: ASHWINI SARMIENTO Report Released Date/Time: Mar 21, 2022 08:55 AM Reporting Lab: [facility] [address] [facility] [address] Performing Lab: [facility] [address] [facility] [address] COVID-19 ([id number]) Not Detected Not De tected May 01, 2022 11:58 [facility] POC GLUCOSE Specimen Type: BLOOD AM [facility] No comment enter ed. Ordering Provid er: TODD RUSSO MD Report Released Date/Time: May 01, 2022 12:00 PM Reporting Lab: [facility] [address] [facility] [address] Performing Lab: [facility] [address] [facility] [address] POC GLUCOSE 102 70-115 May 01, 2022 09:26 [facility] POC GLUCOSE Specimen Type: BLOOD AM [facility] No comment enter ed. Ordering Provid er: JC CABALLERO Report Released Date/Time: May 01, 2022 09:28 AM Reporting Lab: [facility] [address] [facility] [address] Performing Lab: [facility] [address] [facility] [address] POC GLUCOSE 137 70-115 May 01, 2022 [facility] COVID-19, FLU/RSV Specimen T ype: NASOPHARYNX 08:22 AM [facility] SCREEN. PANEL(FLUVID) Comment: *COVID-19 SCREENING PANEL(NJS) Not Performed: May 01, 2022@08:23 b *INTERNAL CORROSION SPECIALIST Reason: ORDER CORRECTED, STAT FOR PROCEDURE Added by [id number] on May 01, 2022@08:22 Ordering Provid er: TODD RUSSO MD Report Released Date/Time: May 01, 2022 08:11 AM Reporting Lab: [facility] [address] [facility] [address] Performing Lab: [facility] [address] [facility] [address] COVID-19 PCR (FLUVID) Not Detected Not D etected FLU A PCR (FLUVID) Not Detected Not Dete cted FLU B PCR (FLUVID) Not Detected Not Dete cted RSV PCR (FLUVID) Not Detected Not Detect ed April 23, 2022 12:00 [facility] NEW COVID-19 MONITOR Specimen Ty pe: OROPHARYNX AM [facility] PANEL([facility]) Comment: Test P erformed by NAHUM Lemus Ordering Provid er: ASHWINI SARMIENTO Report Released Date/Time: Mar 21, 2022 08:55 AM Reporting Lab: [facility] [address] [facility] [address] Performing Lab: [facility] [address] [facility] [address] COVID-19 ([id number]) Not Detected Not De tected April 17, 2022 12:30 [facility] COVID-19 MONITOR Specimen Ty pe: OROPHARYNX [facility] PANEL([facility]) Comment: Test P erformed by NAHUM Lemus Ordering Provid er: ASHWINI SARMIENTO Report Released Date/Time: Mar 21, 2022 08:55 AM Reporting Lab: [facility] [address] [facility] [address] Performing Lab: [facility] [address] [facility] [address] COVID-19 ([id number]) Not Detected Not De tected April 12, 2022 08:02 [facility] HEMOGLOBIN A1C Specimen Type: BLOOD [facility] No comment enter ed. Ordering Provid er: JUSTIN HEBERT Report Released Date/Time: Dec 21, 2021 09:49 AM Reporting Lab: [facility] [address] [facility] [address] Performing Lab: [facility] [address] [facility] [address] HEMOGLOBIN A1C 7.0 H 4.8-5.6 April 12, 2022 [facility] CHEM, Comprehensive Specimen Ty pe: SERUM 08:02 AM [facility] Metabolic Panel Comment: eGFR c [...] Stage 5 - End Stage CKD Reference: [email or web address] Ordering Provid er: JUSTIN HEBERT Report Released Date/Time: Dec 21, 2021 09:49 AM Reporting Lab: [facility] [address] [facility] [address] Performing Lab: [facility] [address] [facility] [address] CREATININE 1.3 .7-1.3 UREA NITROGEN 22 7-25 GLUCOSE 264 H 65-99 SODIUM 137 136-145 POTASSIUM 4.2 3.5-5.1 CHLORIDE 100 98-107 CO2 27 21-31 CALCIUM 9.7 8.6-10.3 PROTEIN,TOTAL 7.0 6.4-8.9 ALBUMIN 4.6 3.5-5.7 TOTAL BILIRUBIN 0.6 0.3-1.0 ALKALINE PHOSPHATASE 71 34-104 AST 22 13-39 ALT 23 7-52 ANION GAP 10 5-13 eGFR 65 L >90 April 09, 2022 03:21 [facility] NEW COVID-19 MONITOR Specimen Ty pe: OROPHARYNX PM [facility] PANEL([facility]) Comment: Test P erformed by NAHUM Lemus Ordering Provid er: ASHWINI SARMIENTO Report Released Date/Time: Mar 21, 2022 08:55 AM Reporting Lab: [facility] [address] [facility] [address] Performing Lab: [facility] [address] [facility] [address] COVID-19 ([id number]) Not Detected Not De tected April 02, 2022 12:00 [facility] COVID-19 MONITOR Specimen Ty pe: OROPHARYNX AM [facility] PANEL([facility]) Comment: Test P erformed by NAHUM Lemus Ordering Provid er: ASHWINI SARMIENTO Report Released Date/Time: Mar 21, 2022 08:55 AM Reporting Lab: [facility] [address] [facility] [address] Performing Lab: [facility] [address] [facility] [address] COVID-19 ([id number]) Not Detected Not De tected Vital Signs: All taken on the encounter date This section contains inpatient and outpatient Vital Signs collected on the date of the Encounter. Date/Time Temperature Pulse Blood Respiratory SP02 Pain Height Weight Dong dy Source Pressure Rate Mass Index May 01 113/72 20 /min 98 % 0 2021 12:45 /min mm[Hg] [facility] May 01 F 59 116/70 20 /min 99 % 0 68 in 192 lb 29 2021 09:30 /min mm[Hg] [facility] AM [facility] Social History: Smoking Status (Most current) and Tobacco Use (All prior to encounter date) This section includes the most current, and the historical, smoking and tobacco-related health factors from the [place] facility where the Encounter took place.Current Smoking Status This section includes the most current smoking, or tobacco-related health factor, from the [place] facility where the Encounter took place. Date/Time Current Smoking Status Comment Facility Oct 28, 2017 08:55 AM LIFETIME NON-USER OF TOBACCO [facility] Pathology Reports: +/- 30 days of the [...] the Encounter. The data comes from all [place] treatment facilities. Date/Time Pathology Report Provider Source May 10, 2022 11:37 LR SURGICAL PATHOLOGY REPORT: KIRK PAGAN [facility] LOCAL TITLE: LR SURGICAL PATHOLOGY REPORT [facility] STANDARD TITLE: LABORATORY NOTE DATE [...] - PATHOLOGY REPORT Accession No. [id number] - - - - - - [...] determined by the immunoperoxid ase Laboratory of [facility]. They have not been cl eared [...] and negative controls were run and reviewed. CPT:91331z1; 37709 SUPPLEMENTARY REPORT(S): Supplementary Report Date: MAY 10, 2022 *+* SUPPLEMENTARY REPORT HAS BEEN ADDED/MODIFIE D *+* (Added/Last released: May 10, 2022 11:37 Signed by ELIN PAGAN) IMMUNOSTAIN IS PERFORMED ON SPECIMEN A WHICH IS NEGATIVE FOR H.PYLORI ORGANISMS. CPT: 85371 IHC DISCLAIMER Some of these tests were developed and their pe rformance characteristics determined by the immunoperoxidase Laboratory [facility]. They have not been cleared or approved by U.S. Food and Drug Administration. The FDA has determined that [facility] h clearance or approval is not necessary. [...] Performing Laboratory: Surgical Pathology Report Performed By: [facility] [CLI A# [id number]] [address] [place] [id number] $FTR - - - - - - [...] - - ANGIE LEON STANDARD FORM 515 ID:[id number] SEX:M :1965 AGE: 56 [facility]: Jc Caballero NP /kirstie PAGAN STAFF PATHOLOGIST Signed: 05/10/2022 11:37 May 06, 2022 08:23 LR SURGICAL PATHOLOGY REPORT: PADDYJUDY ALVAREZ [facility] TITLE: LR SURGICAL PATHOLOGY REPORT [facility] STANDARD TITLE: LABORATORY NOTE DATE [...] determined by the immunoperoxid ase Laboratory of [facility]. They have not been cl eared or approved by U.S. Food and Drug Administration. The FDA has deter mined that such clearance or approval is not necessary. This test is used for clinical purposes. It should not be regarded as investigational or fo r research. This laboratory is certified under the Clinical Labo ratory Improvement Amendments of 1988 (CLIA-88) as qualified to [facility] high complexity clinical laboratory testing. The appropriate po sitive and negative controls were run and reviewed. CPT:96173q2; 25616 /jacki/ JUDY THOMASON STAFF PATHOLOGIST Signed May 06, 2022@08:23 Performing Laboratory: Surgical Pathology Report Performed By: [facility] [CLI A# [id number]] [address] [place] [phone] $FTR - - - - - - - - - - - - - - - - - - - - - - - - - - - - - - - - - - - - - - - - (End of report) JUDY THOMASON rk Date May 06, 2022 - - - - - - - - - - - - - - - - - - - - - - - - - - - - - - - - - - - - - - - - ANGIE LEON STANDARD FORM 515 ID:[id number] SEX:M :1965 AGE: 56 LOC: [facility] PCP: Jc Caballero NP /jacki/ JUDY THOMASON STAFF PATHOLOGIST Signed: 05/06/2022 08:23 Encounter Notes: All associated encounter notes This section contains the clinical notes associated to the Encounter. Date/Time Encounter Note(s) Provider Source May 01, 2022 12:23 PM NURSING NOTE: COSTA BLANCA [facility] TITLE: PACU NURSING NOTE [facility] STANDARD TITLE: NURSING NOTE DATE OF NOTE: MAY 01, 2022@12:23 ENTRY DATE: MAY 01, 2022@12:23:20 AUTHOR: COSTA BLANCA EXP COSIGNER: URGENCY: STATUS: COMPLETED See linked PDF file /es/ USER EVANGELIST Signed: 05/01/2022 12:23
--- OUTSIDE RECORDS SUMMARY | 2022-10-02 10:25 | XMS_ITS | Encounter Summary ---
:1965 Author Organization [facility] Address [address] [place] [id number] Support Name Relationship Address Phone DENISSE LEON Unavailable [address] [facility] [place] [address] NONE, GIVEN Unavailable Unavailable Unavailable Insurance Providers: [...] to Policy Number Chen AETNA POINT OF [facility] Feb [id number] [phone] [place] PATIENT SERVICE INTER 2011 381 2 [place] AET[place] PRESCRIPT [facility] Feb [id number] [phone] COBY LEON PATIENT PHARMACY ION INTER 2011 [id number] VERO MANAGEMENT NATIO 1 [place] BCBS [place] PREFERRED BASIC Nov 30 [id number] [phone] COBY LEON PATIENT FEP PROVIDER FAMIL 2017 [id number] VERO ORGANIZAT Y ION (PPO) [place]BS [place] DENTAL [place] Nov 30 [id number] [phone] COBY LEON PATIENT FEP INSURANCE L [id number] 2017 62 5 VERO (DENTAL) [place] PREFERRED BASIC Nov 30 [id number] [phone] COBY METZ PATIENT FEP PROVIDER FAMIL 2017 62 5 VERO ORGANIZAT Y ION (PPO) [place]BS OF [place] PREFERRED STAND March 26 [id number] [phone] COBY METZ PATIENT (FEDERAL) 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 2015 62 7 VERO ORGANIZAT IND ION (PPO) 104 CAREMARK PRESCRIPT FEP March 26, [id number] [place] PATIENT ([id number]) ION 2015 0 62 7 VERO CAREMARK-F PRESCRIPT FEP Nov 30, [id number] [phone] [place] PATIENT [place] BC[place] ION CAREM 2018 0 62 1 VERO ARK CAREMARK-F PRESCRIPT SHERI Nov 30, [id number] [phone] [place] PATIENT [place] ION AL 2018 0 62 1 VERO RX CAREMARK-F PRESCRIPT SHERI Nov 30, [id number] [phone] [place] PATIENT [place] I[place] 2018 0 [id number] VERO RX CAREMARK-F PRESCRIPT FEP Nov 30, [id number] [phone] [place] PATIENT EP [place] ION 2018 0 [id number] VERO HORIZON PREFERRED BASIC Nov 30 [id number] [phone] [place] ,[place] PATIENT BC[place] FEP* PROVIDER FAMIL 2018 62 8 VERO ORGANIZAT Y ION (PPO) HORIZON PREFERRED BASIC Nov 30 [id number] [phone] [place] PATIENT FEDERAL PROVIDER FAMIL 2018 62 8 VERO ORGANIZAT Y ION (PPO) DEPART WORKERS' OWCP Jul 01, NONE [id number] [phone] INDIGO [place] PATIENT OF LABOR COMPENSAT MEDIC 2018 [id number] VERO MED DFEC ION AL INSURANCE DFEC DEPT OF WORKERS' WORKE Jul 01, WORKERS [id number] [phone] [place] PATIENT LABOR COMPENSAT RS 2019 COMP [id number] VERO ION COMP INSURANCE Selected Encounter This section includes the information on record at [place] for the Encounter. Date/Time Encounter Type Encounter Reason Provider Source Description Sep 27, 2022 OFFICE O/P EST ENDOCRINOLOGY ICD-10-CM E11.9 FARHAT DAVIDSON 10:40 AM LOW 20-29 MIN Type 2 diabetes mellitus without complications with Provider Comments: Diabetic retinopathy associated with type 2 diabetes mellitus (SCT [id number]) IHE Encounter Template Text not used by [facility] Assessments - Encounter Diagnoses This section includes the primary and secondary diagnoses documented for the Encounter. Date/Time Primary/Secondary Diagnosis Name Provider Source Diagnosis Sep 27, 2022 PRIMARY Type 2 [facility] AM mellitus without [place] complications [facility] Sep 27, 2022 SECONDARY Mixed hyperlipidemia [facility]05 AM [facility] Sep 27, 2022 SECONDARY Other obesity due [facility] 11:05 AM excess calories [facility] Plan of Treatment: Future Appointments (+ 6 months) and Future Tests (+/- 45 days) The Plan of Treatment section includes future care activities for the patient from all [place] treatmentfacilities. This section includes future appointments and future orders which are active, pending orscheduled.Future Appointments This section includes appointments that were scheduled to occur 6 months from the date of the Encounter, up to a maximum of 20 appointments. The data comes from all [place] treatment facilities. Appointment Date/Time Appointment Type Appointment Facili ty Name Nov 15, 2022 08:00 AM AMBULATORY - NONE [facility] Dec 13, 2022 08:00 AM AMBULATORY - MEDICINE [facility] Lab Results: +/- 30 days of the encounter This section includes the Chemistry and Hematology Lab Results on record with [place] for the patient. Radiology Reports and Pathology Reports are provided separately, in subsequent sections.Lab Results This section contains the Chemistry/Hematology Results that were resulted 30 days before or 30 daysafter the date of the Encounter. Date/Time Source Result Type Result - Unit Interpretation Reference Range Comment Oct 01, 2022 [facility] COVID-19 FLU/RSV Specimen Type: NASOPHARYNX 09:47 AM [facility] DIAGNOSTIC PANEL Comment: Test performed on [employer] [facility] at [facility]. NOTIFIED FAUSTO MACK 10/01/22 AT 1031 BY [facility] EMAILED INFECTION CONTROL 10/01/22 BY [facility] FAXED TO [facility] 10/01/22 BY [facility] Ordering Provid er: FAUSTO MACK Report Released Date/Time: Oct 01, 2022 09:30 AM Reporting Lab: [address] [id number] Performing Lab: [address] [id number] COVID-19 PCR (FLUVID) P HH NEGATIVE FLU A PCR (FLUVID) N FLU B PCR (FLUVID) N RSV PCR (FLUVID) N Social History: Smoking Status (Most current) and Tobacco Use (All prior to encounter date) This section includes the most current, and the historical, smoking and tobacco-related health factors from the [place] facility where the Encounter took place.Current Smoking Status This section includes the most current smoking, or tobacco-related health factor, from the [place] facility where the Encounter took place. Date/Time Current Smoking Status Comment Facility Jun 28, 2022 09:00 AM VA-TOBACCO FORMER USER [facility] Tobacco Use History This section includes a history of the smoking, or tobacco- related health factors, that were collected on or before the date of the Encounter. The data comes from the [place] facility where the Encounter took place. Date/Time Smoking Status/Tobacco Use Comment [facility] Jun 28, 2022 09:00 AM VA-TOBACCO QUIT 15 YRS OR [facility] Jun 29, 2021 09:00 AM VA-TOBACCO FORMER USER [facility] Jun 29, 2021 09:00 AM VA-TOBACCO QUIT 15 YRS OR [facility] Jul 20, 2020 10:30 AM VA-TOBACCO NEVER USED [facility] Aug 12, 2019 03:12 PM VA-TOBACCO FORMER USER [facility] Aug 12, 2019 03:12 PM VA-TOBACCO QUIT 15 YRS OR [facility] Aug 20, 2018 04:56 PM VA-TOBACCO FORMER USER [facility] Aug 20, 2018 04:56 PM VA-TOBACCO QUIT 15 YRS OR [facility] Nov 19, 2016 09:49 AM LIFETIME NON-USER OF [facility] TOBACCO [facility] Dec 13, 2015 03:30 PM QUIT TOBACCO >7 YEARS AGO [facility] Dec 09, 2014 09:06 AM QUIT TOBACCO >7 YEARS AGO [facility] Jan 29, 2014 08:56 AM LIFETIME NON-USER OF [facility] TOBACCO [facility] Jun 11, 2012 01:32 PM QUIT TOBACCO >7 YEARS AGO [facility] Feb 01, 2009 09:26 AM LIFETIME NON-USER OF [facility] [place] NEW TOBACCO [address] Aug 19, 2001 09:28 AM [facility] Quit 2 yrs ago, 18 pack-yr Hx. [facility] Encounter Notes: All associated encounter notes This section contains the clinical notes associated to the Encounter. Date/Time Encounter Note(s) Provider Source Sep 27, 2022 10:55 AM ENDOCRINOLOGY [facility]PAT[facility]: ENDOCRINE CLINIC [facility] STANDARD TITLE: ENDOCRINOLOGY OUTPATIENT NOTE DATE OF NOTE: SEP 27, 2022@10:55 ENTRY DATE: SEP 27, 2022@10:55:19 AUTHOR: YOAN DAVIDSON EXP COSIGNER: URGENCY: STATUS: COMPLETED Routine f/u for 57 yr old male with type 2 dm x 20 yrs, well controlled on 4 oral agents after trying to stop 2 medications, fsbs went up to 170-180 and - Restart Glimepiride 4mg (1 tab BID) & Aloglipt in 12.5mg (Daily) - Continue Metformin & Empagliflozin. checks fsbs every morning, knows how to recogniz e and treat symptoms of hypoglycemia, no h/o severe hypoglycemia ranging from 120-140, never below 70 Specimen: BLOOD. A1C 0800 1506 Specimen Collection Date: Jul 05, 2022@08:22 Test name Result units Ref. range Site Code HEMOGLOBIN A1C 7.2 H % 4.8 - 5.6 [561] Eval: Increased risk for diabetes: 5.7% to 6.4% Eval: checks feet daily, no h/o foot ulcers [place] 1104 88 Specimen Collection Date: Sep 27, 2021@08:27 Test name Result units Ref. range Site Code LDL CHOLESTEROL 83 mg/dL [561] Eval: Reference Ranges: had eye exam in the summer, no problems fh: mother had chf, father [place]- age 55, at a ge 66 pt is taking lipitor quit smoking in 1998 PMH: negative for TBI O; 5'8 192 lb a:1. Type 2 dm- well controlled 2. hyperlipdemia- at ldl chol on statin P;1. diet, exercise 2. continue present meds 3. rtc in 6 months, vvc /es/ YOAN DAVIDSON MD CHIEF,ENDOCRINOLOGY Signed: 09/27/2022 11:06 Sep 27, 2022 10:52 AM EDUCATION NOTE[facility]: PATIENT HEALTH EDUCATION [facility] STANDARD TITLE: EDUCATION NOTE DATE OF NOTE: SEP 27, 2022@10:52 ENTRY DATE: SEP 27, 2022@10:52:05 AUTHOR: TERESE MADDEN EXP COSIGNER: URGENCY: STATUS: COMPLETED This is a VVC scheduled pedro ointment with Endocrine Clinic. Brutus consented to the VVC visit and was identified by name and basim e of , and Veterans address was verified. Denies hypoglycemic or hyp erglycemic episode. Patient stated that his Blood Glucos e runs 140-150 in am; reports exercising 3-4 times a week. Encouraged diet and exercise within the limits. Brutus scheduled to return to clinic as per order of the anabelle cano. Patient was instructed to remain compliant with medications and f/u appointments. Medication reconciliation done by the provider. TOPIC TAUGHT: Preventive health, health maintena nce and medication reconciliation. person taught: Patient Ready to learn-yes Past knowledge- Yes Barriers/Issues? VVC ended with patient in stable condition and t he provider called in. /jacki/ Terese Madden RN, MSN Staff Nurse Signed: 09/27/2022 10:59 Sep 27, 2022 10:50 AM CARE COORDINATION HOME TELEHEALTH VIDE O VISIT NOTE: TERESE MADDEN [facility] TITLE: CVT TO HOME [facility] STANDARD TITLE: CARE COORDINATION HOME TELEHEALT H VIDEO VISIT NO DATE OF NOTE: SEP 27, 2022@10:50 ENTRY DATE: SEP 27, 2022@10:50:39 AUTHOR: TERESE MADDEN EXP COSIGNER: URGENCY: STATUS: COMPLETED CVT Video to Home consents to [facility] Patient Address for this Encounter: Patient is a t work [address] [place] [address] Patient Phone Number for this encounter: Home: Nearby relatives/Caregivers who can be contacted in the event of an emergency: Name: Velia Leon Relationship: Phone number: [phone] Local police department contact information as l isted on PacketVideo: /es/ Stanislawa Paszuda, RN, MSN Staff Nurse Signed: 09/27/2022 10:51
--- OUTSIDE RECORDS SUMMARY | 2022-10-02 10:25 | XMS_ITS | Encounter Summary ---
:1965 Author Organization [facility] Address [address] [place] [address] Support Name Relationship Address Phone DENISSE COELHO Unavailable [address] [facility] [place] [address] NONE, GIVEN Unavailable Unavailable Unavailable Insurance Providers: [...] Number Chen AETNA PO[place] [facility] Feb [id number] [phone] [place] PATIENT SERVICE INTER 2011 [id number] [place] AETNA PRESCRIPT [facility] Feb [id number] [phone] COBY COELHO PATIENT PHARMACY ION INTER 2011 [id number] VERO MANAGEMENT NATIO 1 [place] BCBS [place] PREFERRED BASIC Nov 30 [id number] [phone] COBY COELHO PATIENT FEP PROVIDER FAMIL 2017 [id number] VERO ORGANIZAT Y ION (PPO) [place]BS [place] DENTAL [place]ENT[place] Nov 30 [id number] [phone] COBY COELHO PATIENT FEP INSURANCE L 112 2017 62 5 VERO (DENTAL) [place] PREFERRED BASIC Nov 30 [id number] [phone] COBY METZ PATIENT FEP PROVIDER FAMIL 2017 62 5 VERO ORGANIZAT Y ION (PPO) [place]BS OF [place] PREFERRED STAND March 26 [id number] [phone] COBY METZ PATIENT (FEDERAL) 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 2015 62 7 VERO ORGANIZAT IND ION (PPO) 104 CAREMARK PRESCRIPT FEP March 26, [id number] [phone] CONR [place] PATIENT ([id number]) ION 2015 0 62 7 VERO CAREMARK-F PRESCRIPT FEP Nov 30, [id number] [phone] [place] PATIENT EP BCBS ION CAREM 2018 0 62 1 VERO ARK CAREMARK-F PRESCRIPT SHERI Nov 30, [id number] [phone] [place] PATIENT EP BCBS ION AL 2018 0 62 1 VERO RX CAREMARK-F PRESCRIPT SHERI Nov 30, [id number] [phone] [place] PATIENT EP BCBS ION AL 2018 [id number] VERO RX CAREMARK-F PRESCRIPT FEP Nov 30, [id number] [phone] [place] PATIENT EP BCBS ION 2018 0 [id number] VERO HORIZON PREFERRED BASIC Nov 30 [id number] [phone] [place] ,[place] PATIENT BCBS FEP* PROVIDER FAMIL 2017 62 8 VERO ORGANIZAT Y ION (PPO) HORIZON PREFERRED BASIC Nov 30 [id number] [phone] [id number] PATIENT FEDERAL PROVIDER FAMIL 2018 62 8 VERO ORGANIZAT Y ION (PPO) DEPART WORKERS' OWCP Jul 01, NONE [id number] [phone] INDIGO CruzAK PATIENT OF LABOR COMPENSAT MEDIC [id number] VERO MED DFEC ION AL INSURANCE DFEC US DEPT OF WORKERS' WORKE Jul 01, WORKERS [id number] [phone] ROBERT SAABAK PATIENT LABOR COMPENSAT RS 2019 COMP [id number] VERO ION COMP INSURANCE Selected Encounter This section includes the information on record at ID for the Encounter. Date/Time Encounter Type Encounter Reason Provider Source Description Aug 16, 2022 OFFICE O/P EST ENDOCRINOLOGY ICD-10-CM E11.21 STANISLAW TIM 10:20 AM MOD 30-39 MIN Type 2 diabetes mellitus with diabetic nephropathy with Provider Comments: Type 2 Diabetes Mellitus with Diabetic Nephropathy IHE Encounter Template Text not used by [facility] Assessments - Encounter Diagnoses This section includes the primary and secondary diagnoses documented for the Encounter. Date/Time Primary/Secondary Diagnosis Name Provider Source Diagnosis Aug 16, 2022 PRIMARY Type 2 diabetes ZULEMA TIM [facility] EW 10:[address] [facility] diabetic nephropathy Aug 16, 2022 SECONDARY Chronic kidney ZULEMA TIM [facility] NE W 10:43 AM disease, stage 2 [facility] (mild) Plan of Treatment: Future Appointments (+ 6 months) and Future Tests (+/- 45 days) The Plan of Treatment section includes future care activities for the patient [facility] This section includes future appointments and future orders which are active, pending orscheduled.Future Appointments This section includes appointments that were scheduled to occur 6 months from the date of the Encounter, up to a maximum of 20 appointments. The data comes from all ID treatment [facility]. Appointment Date/Time Appointment Type Appointment Facili ty Name Sep 03, 2022 11:45 AM [facility] Sep 17, 2022 01:30 PM [facility] Sep 27, 2022 10:40 AM AMBULATORY - MEDICINE [facility] Nov 15, 2022 08:00 AM AMBULATORY - NONE [facility] Dec 13, 2022 08:00 AM AMBULATORY - MEDICINE [facility] Active, Pending, and Scheduled Orders This section includes a listing of several types of active, pending, and scheduled orders, including clinic medications orders, diagnostic test orders, procedure orders and consult orders; where the start date of the order is 45 days before the date of the Encounter or 45 days after the date of the Encounter. The data comes from all ID treatment [facility]. Test Date/Time Test Type Test Details Facility Name Jul 12, 2022 12:00 AM Laboratory - Chemistry HEMOGLOBIN A1C BLOO D [facility] Order SP ONCE [facility] Jul 25, 2022 12:00 AM Laboratory - Chemistry CHEM, Basic Metabol ic [facility] Order Panel BLOOD SERUM SP [facility] ONCE Social History: Smoking Status (Most current) and Tobacco Use (All prior to encounter date) This section includes the most current, and the historical, smoking and tobacco-related health factors from the ID facility where the Encounter took place.Current Smoking Status This section includes the most current smoking, or tobacco-related health factor, from the ID facility where the Encounter took place. Date/Time Current Smoking Status Comment Facility Jun 28, 2022 09:00 AM VA-TOBACCO FORMER USER [facility] Tobacco Use History This section includes a history of the smoking, or tobacco- related health factors, that were collected on or before the date of the Encounter. The data comes from the ID facility where the Encounter took place. Date/Time Smoking Status/Tobacco Use Comment Facil it Jun 28, 2022 09:00 AM VA-TOBACCO QUIT 15 YRS OR [facility] Jun 29, 2021 09:00 AM VA-TOBACCO FORMER USER [facility] Jun 29, 2021 09:00 AM VA-TOBACCO QUIT 15 YRS OR [facility] Jul 20, 2020 10:30 AM VA-TOBACCO NEVER USED [facility] Aug 12, 2019 03:12 PM VA-TOBACCO FORMER USER [facility] Aug 12, 2019 03:12 PM VA-TOBACCO QUIT 15 YRS OR [facility] Aug 20, 2018 04:56 PM VA-TOBACCO FORMER USER [facility] Aug 20, 2018 04:56 PM VA-TOBACCO QUIT 15 YRS OR [facility] Nov 19, 2016 09:49 AM LIFETIME NON-USER OF [facility] TOBACCO [facility] Dec 13, 2015 03:30 PM QUIT TOBACCO >7 YEARS AGO [facility] Dec 09, 2014 09:06 AM QUIT TOBACCO >7 YEARS AGO [facility] Jan 29, 2014 08:56 AM LIFETIME NON-USER OF [facility]BAC[facility] Jun 11, 2012 01:32 PM QUIT TOBACCO >7 YEARS AGO [facility] Feb 01, 2009 09:26 AM LIFETIME NON-USER OF [facility] - ID NEW TOBACCO quit [address] [place] [address] Aug 19, 2001 09:28 AM HISTORY OF SMOKING [facility]- ID NEW Quit 2 yrs ago, 18 pack-yr HxMonse [facility] Encounter Notes: All associated encounter notes This section contains the clinical notes associated to the Encounter. Date/Time Encounter Note(s) Provider Source Aug 16, 2022 10:42 AM DIABETOLOGY NOTE: ZULEMA TIM [place] LOCAL TITLE: DIABETES CLINIC S STANDARD TITLE: DIABETOLOGY NOTE DATE OF NOTE: AUG 16, 2022@10:42 ENTRY DATE: AUG 16, 2022@10:42:25 AUTHOR: ZULEMA TIM EXP COSIGNER: URGENCY: STATUS: COMPLETED CVT TO HOME: DIABETES MANAGEMENT FOLLOW-UP [place] was informed the visit would be performe d remotely. Confidentiality, and the limits thereof, as well as the ID's [facility] record keeping system were discussed and patient verbally indicated un derstanding. [place]'s questions were answered and agrees to th is. 56 y/o male for routine follow-up/diabet es management. PMH significant for (But not limited to), DM type 2 with retinopathy/CKD/Obesity/Asthma. At last visit had a trial a period w/o Alogliptin & Glimepiride. [place] wanted to mini jalyn use of medications and focus on diet & lifestyle modification. reports that after stopping above medications he noted an increase in blood glucose and restarted glimepiride approx. last wee k. Reports that bedtime blood glucose is elevated > 180mg/dl. [place] voiced interest in Ozempic and was advised he was not a candidate for use due to Hx of diabetic retinopathy. reports that he is consistent in his diet and continues to exercise 3x a week. Reports a weight loss (intentional) and is currently weighing 188 lbs. is currently in [place] due to assigned work detail and wi ll be returning on/about Oct 2022. Denies any signs/sx of UTI and/or mycotic rash with use of empagliflozin. denies any signs/symptoms of hypoglycemi a. Last Clinic Visit: 07/12/2022 [facility] - Lab Tests Selected Collection DT Specimen Test Name Result Units Re f Range 07/05/2022 08:22 BLOOD HEMOGLOBIN A1C 7.2 H % 4. 8 - 5.6 04/12/2022 08:02 BLOOD HEMOGLOBIN A1C 7.0 H % 4. 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 06/23/2019 SHOBHA QIU Obesity E66.09 01/15/2018 NEISHA VZÁQUEZ Diabetic retinopathy associated with 11/06/2017 MARIA DEL ANGEL SENSORINEURAL HEARING LOSS, BILATERAL 07/18/2014 JAMES MENENDEZ L 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 07/18/2014 LINNEA MENENDEZ L Migraine, unspecified, without mention 9 BLOCKANA MARIA HYPOSPADIES 799.9 11/22/2009 BLOCKANA MARIA COVINGTON Asthma sometimes restricts exercise ( 03/16/2021 JAMES ROBERTSON Fatty Liver 799.9 08/19/2001 MARIA GUADALUPE ACOSTA ALLERGIES: PENICILLIN Active and Recently Outpatient Medicatio ns (including Supplies): Active Outpatient Medications Status 1) ATORVASTATIN CALCIUM 40MG TAB TAKE ONE-HALF T ABLET BY ACTIVE MOUTH AT BEDTIME FOR LOWERING CHOLESTEROL 2) BUPROPION HCL 150MG 24HR SA TAB TAKE ONE TABL ET BY ACTIVE MOUTH DAILY FOR MOOD 3) CETIRIZINE HCL 10MG TAB TAKE ONE TABLET BY MO UTH ACTIVE DAILY FOR ALLERGY 4) EMPAGLIFLOZIN 25MG TAB TAKE ONE TABLET BY NGUYEN TH DAILY ACTIVE (S) 5) ENALAPRIL MALEATE 2.5MG TAB TAKE ONE TABLET B Y MOUTH ACTIVE DAILY FOR BLOOD PRESSURE/KIDNEY PROTECTION 6) METFORMIN HCL 500MG 24HR SA TAB TAKE TWO TABL ETS BY ACTIVE MOUTH TWICE A DAY FOR DIABETES 7) OMEPRAZOLE 40MG EC CAP TAKE ONE CAPSULE BY MO UTH ACTIVE EVERY DAY BEFORE BREAKFAST Pending Outpatient Medications Status 1) ALOGLIPTIN 12.5MG TAB TAKE ONE TABLET BY MOUT H DAILY PENDING FOR DIABETES 2) GLIMEPIRIDE 4MG TAB TAKE ONE TABLET BY MOUTH TWICE A PENDING DAY FOR DIABETES Inactive Outpatient Medications Status 1) BISACODYL 5MG EC TAB TAKE FOUR TABLETS BY NGUYEN TH ONE TIME DIRECTED TAKE THESE TABLETS BY MOUTH ON E TIME DIRECTED FOR BOWEL CLEANSING....TAKE AL L PILLS AT ONCE. 2) COLON ELECTROLYTE LAVAGE PWD FOR SOLN TAKE 4- LITER BY MOUTH ONE TIME DIRECTED (DO NOT FOLLOW INSTRUCTIONS ON THE BOTTLE.FOLLOW INSTRUCTIONS ON THE HANDOUT. CALL YOUR PROVIDER OR PHARMACY IF YOU LOSE THE HANDOUT) SERVE CHILLED. MAY TAKE WITH MUCH CLEAR LIQUID (SUCH CAROLYN EMILY) ALEXIA ED. 3) PSYLLIUM SF ORAL PWD TAKE 1 TEASPOONFUL BY MO UTH DAILY (MIX IN A GLASS OF JUICE OR WATER) Active Non-VA Medications Status 1) Non-VA ASCORBIC ACID TAB MOUTH ACTIVE 2) Non-VA IBUPROFEN TAB MOUTH DAILY NEEDED AC TIVE 3) Non-VA MULTIVITAMINS TAB MOUTH DAILY ACTIVE 4) Non-VA VITAMIN B COMPLEX TAB ACTIVE 5) Non-VA VITAMIN D CAP,ORAL MOUTH EVERY WEEK AC TIVE 6) Non-VA VITAMIN E CAP,ORAL MOUTH ACTIVE 18 Total Medications I have reviewed all VA medications and non-VA me dications including OTC, herbals, and vitamins REVIEW OF SYSTEMS: CONSTITUTIONAL: (-) fever, (-) malaise, (-) unin tentional weight loss. CARDIOVASULAR: (-) shortness of breath, (-) palp itations, (-)chest pain. RESPIRATORY: (-) coughing,(-) shortness of breat h, (-) dyspnea w/exertion or rest. GENITO-URINARY: (-) urgency, (-) frequency, (-) burning/pain with urination, (-) blood in urine. ENDOCRINE:(-)polydipsia,(-) polyphagia,(-) polyu adela,(-) unexplained weight loss,(-)dizziness,(-) sweating,(-)blurred vision, (-)trembling. 192 lb. [87.09 kg] (05/01/2022 09:30) BODY MASS INDEX - MAY 01, 2022@09:30 29.3 VITALS - NONE FOUND - 1D HEMOGLOBIN A1C 07/05/22 08:22 7.2 H GLUCOSE 07/05/22 08:22 138 H CHEM, Basic Metabolic PGLUCOSE BUN CREAT SODIUM K CHLOR CO2 07/05/22 08:22 138 H 21 1.3 140 4.3 105 25 CHEM, Basic Metabolic PCALCIUM ANION EGFR 07/05/22 08:22 9.8 10 65 L UR PROTEIN 01/23/22 08:00 Negative GENERAL: [place] AAOx3 in no acute distress. [place] dres sed appropriately. ASSESSMENT & PLAN: 56 y/o male with Diabetes Type II/Mild C KD: - Restart Glimepiride 4mg (1 tab BID) & Aloglipt in 12.5mg (Daily) Reviewed dosage & S/E. - Continue Metformin & Empagliflozin. Reviewed d mashpee & S/E. - Continue glucose monitoring. Advised to have g lucose meter available for review of BG readings at next visit. - Advised that if continued BG elevation may nee d to start a basal insulin or GlP1 (Victoza). - Advised to contact this department if BG >200 x 2 days and or <70. - Labs: Hemoglobin A1c/BMP prior to next visit. will try to have labs done at current ID location. - Above reviewed with the who agrees to plan of care. - Return to clinic SEP 27, 2022 ([facility]). EDUCATION: - Reviewed signs of symptoms of hypoglycemia and treatment. - Encouraged a low carb: 50-60 grams at each geronimo l and 15-30 grams at each snack, low fat heart healthy reviewed. - Encouraged physical activity as tolerated. - Reviewed importance of proper foot care and da ricky foot checks. Time spent on video call: 15 minutes /es/ ZULEMA TIM,MSN,FLEECE TIER- DIABETES ADVANCED PRACTICE NURSE/ENDOCRINOLOGY Signed: 08/16/2022 12:26 Aug 16, 2022 10:17 AM CARE COORDINATION HOME TELEHEALTH VIDE O VISIT NOTE: MIRIAM HOAWRD- [facility] LOCAL TITLE: CVT TO HOME NOTE H CS STANDARD TITLE: CARE COORDINATION HOME TELEHEALT H VIDEO VISIT NO DATE OF NOTE: AUG 16, 2022@10:17 ENTRY DATE: AUG 16, 2022@10:17:06 AUTHOR: MIRIAM HOWARD EXP COSIGNER: URGENCY: STATUS: COMPLETED CVT Video to Home consents to completing this visit via One[employer]. Patient Address for this Encounter: [address] [place] [address] Patient Phone Number for this encounter: Home: Nearby relatives/Caregivers who can be contacted in the event of an emergency: Name: Velia Coelho Relationship: Phone number: [phone] Local police department contact information as l isted on saperatec: ANGIE COELOH,[id number] This is a VVC schedu led appointment. consented name ID and addres s verified . VVC for f/u with 's Dm. denied shortness of breath on exertion, cough or fever. He reported not having any problem with his medications, no new meds. Encouraged to continue diet and exercise within the limits. [place] scheduled to return to clinic as per order of the provider. V et was instructed to remain compliant with medications and f/u appointments, TOPIC TAUGHT: Preventive health, health maintena nce and medication reconciliation. person taught: Patient Ready to learn-yes Past knowledge- Yes Barriers/Issues? /jacki/ Miriam Howard MSN,RN- staff nurse Signed: 08/16/2022 12:57
--- OUTSIDE RECORDS SUMMARY | 2022-10-02 10:26 | XMS_ITS | Encounter Summary ---
:1965 Author Organization [facility] Address [address] [place] [id number] Support Name Relationship Address Phone CYNTHIA LEON Unavailable [address] [facility] [place] [address] NONE, GIVEN Unavailable Unavailable Unavailable Insurance Providers: [...] to Policy Number Chen AETNA PO[place] OF [facility] Feb [id number] [phone] EDWARD AL PATIENT SERVICE INTER 2011 381 2 VERO NATIO [place] AETNA PRESCRIPT [facility] Feb [id number] [phone] COBY LEON PATIENT PHARMACY ION INTER 2011 [id number] VERO MANAGEMENT NATIO 1 [place] BCBS [place] PREFERRED BASIC Nov 30 [id number] [phone] COBY LEON PATIENT FEP PROVIDER FAMIL 2017 [id number] VERO ORGANIZAT Y ION (PPO) BCBS OF [place] DENTAL [place]ENT[place] Nov 30 [id number] [phone] COBY LEON PATIENT FEP INSURANCE L [id number] 2017 62 5 VERO (DENTAL) BCBS [place] PREFERRED BASIC Nov 30 [id number] [phone] COBY METZ PATIENT FEP PROVIDER FAMIL 2017 62 5 VERO ORGANIZAT Y ION (PPO) BCBS OF [place] PREFERRED STAND March 26 [id number] [phone] COBY METZ PATIENT (FEDERAL) 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 2015 62 7 VERO ORGANIZAT IND ION (PPO) 104 CAREMARK PRESCRIPT FEP March 26, [id number] [phone] CONR NADYA,AL PATIENT ([id number]) ION 2015 0 62 7 VERO CAREMARK-F PRESCRIPT FEP Nov 30, [id number] [phone] CO NROY,AL PATIENT EP BCBS ION CAREM 2018 0 62 1 VERO ARK CAREMARK-F PRESCRIPT FEP Nov 30, [id number] [phone] NROY,AL PATIENT EP BCBS ION 2018 0 [id number] VERO CAREMARK-F PRESCRIPT SHERI Nov 30, [id number] [phone] CO NROY,AL PATIENT EP BCBS ION AL 2018 0 62 1 VERO RX CAREMARK-F PRESCRIPT SHERI Nov 30, [id number] [phone] CO NROY,AL PATIENT EP BCBS ION AL 2018 0 [id number] 1 VERO RX HORIZON PREFERRED BASIC Nov 30 [id number] [phone] EDWARD ,AL PATIENT BCBS FEP* PROVIDER FAMIL 2018 62 8 VERO ORGANIZAT Y ION (PPO) HORIZON PREFERRED BASIC Nov 30 [id number] [phone] EDWARDAL PATIENT FEDERAL PROVIDER FAMIL 2018 62 8 VERO ORGANIZAT Y ION (PPO) DEPART WORKERS' OWCP Jul 01, NONE [id number] [phone] INDIGO CruzAL PATIENT OF LABOR COMPENSAT MEDIC [id number] VERO MED DFEC ION AL INSURANCE DFEC US DEPT OF WORKERS' WORKE Jul 01, WORKERS [id number] [phone] ROBERT SAABAL PATIENT LABOR COMPENSAT RS 2019 COMP [id number] VERO ION COMP INSURANCE Selected Encounter This section includes the information on record at NH for the Encounter. Date/Time Encounter Type Encounter Reason Provider Source Description Jul 12, 2022 OFFICE O/P EST ENDOCRINOLOGY ICD-10-CM E11.9 [facility] TIM 09:20 AM SF 10-19 MIN Type 2 diabetes mellitus without complications with Provider Comments: Type 2 Diabetes Mellitus without Complications IHE Encounter Template Text not used by [facility] Assessments - Encounter Diagnoses This section includes the primary and secondary diagnoses documented for the Encounter. Date/Time Primary/Secondary Diagnosis Name Provider Source Diagnosis Jul 12, 2022 PRIMARY Type 2 diabetes ZULEMA TIM [facility] 10:24 AM mellitus without [place] complications [facility] Plan of Treatment: Future Appointments (+ 6 months) and Future Tests (+/- 45 days) The Plan of Treatment section includes future care activities for the patient [facility]. This section includes future appointments and future orders which are active, pending orscheduled.Future Appointments This section includes appointments that were scheduled to occur 6 months from the date of the Encounter, up to a maximum of 20 appointments. The data comes from all NH treatment facilities. Appointment Date/Time Appointment Type Appointment Facili ty Name Jul 18, 2022 10:30 AM [facility] Aug 05, 2022 02:00 PM [facility] Aug 16[facility] 2022 10:20 AM [facility] Sep 03, 2022 11:45 AM [facility] Sep 17, 2022 01:30 PM [facility] Sep 27, 2022 10:40 AM AMBULATORY MEDICINE [facility] Nov 15, 2022 08:00 AM AMBULATORY [facility] Dec 13, 2022 08:00 AM AMBULATORY MEDICINE [facility] Active, Pending, and Scheduled Orders This section includes a listing of several types of active, pending, and scheduled orders, including clinic medications orders, diagnostic test orders, procedure orders and consult orders; where the start date of the order is 45 days before the date of the Encounter or 45 days after the date of the Encounter. The data comes from all NH treatment [facility] [place]. Test Date/Time Test Type Test Details Facility Name Jul 12, 2022 12:00 AM Laboratory - Chemistry HEMOGLOBIN A1C BLOO D [facility] Order SP ONCE [facility] Jul 25, 2022 12:00 AM Laboratory - Chemistry CHEM, Basic Metabol ic [facility] Order Panel BLOOD SERUM SP [facility] ONCE Lab Results: +/- 30 days of the encounter This section includes the Chemistry and Hematology Lab Results on record with NH for the patient. Radiology Reports and Pathology Reports are provided separately, in subsequent sections.Lab Results This section contains the Chemistry/Hematology Results that were resulted 30 days before or 30 daysafter the date of the Encounter. Date/Time Source Result Type Result - Unit Interpretation Reference Range Comment Jul 05, 2022 08:22 [facility] HEMOGLOBIN A1C Specimen Type: BLOOD [facility] No comment enter ed. Ordering Provid er: ZULEMA TIM Report Released Date/Time: April 12, 2022 09:59 AM Reporting Lab: [facility] [address] [facility] [address] Performing Lab: [facility] [address] [facility] [address] HEMOGLOBIN A1C 7.2 H 4.8-5.6 Jul 05, 2022 [facility] CHEM, Basic Specimen Type: SERUM 08:22 AM [facility] Metabolic Panel Comment: eGFR c [...] Stage 5 - End Stage CKD Reference: [email or web address] Ordering Provid er: ZULEMA TIM Report Released Date/Time: April 12, 2022 09:59 AM Reporting Lab: [facility] [address] [facility] [address] Performing Lab: [facility] [address] [facility] [address] CREATININE 1.3 .7-1.3 UREA NITROGEN 21 7-25 GLUCOSE 138 H 65-99 SODIUM 140 136-145 POTASSIUM 4.3 3.5-5.1 CHLORIDE 105 98-107 CO2 25 21-31 CALCIUM 9.8 8.6-10.3 ANION GAP 10 5-13 eGFR 65 L >90 Jun 26, 2022 12:00 [facility] COVID-19 MONITOR Specimen Ty pe: OROPHARYNX [facility] PANEL([facility]) No comment enter ed. Ordering Provid er: ASHWINI SARMIENTO Report Released Date/Time: Mar 21, 2022 08:55 AM Reporting Lab: [facility] [address] [facility] [address] Performing Lab: [facility] [address] [facility] [address] COVID-19 ([id number]) Not Detected Not De tected Social History: Smoking Status (Most current) and Tobacco Use (All prior to encounter date) This section includes the most current, and the historical, smoking and tobacco-related health factors from the NH facility where the Encounter took place.Current Smoking Status This section includes the most current smoking, or tobacco-related health factor, from the NH facility where the Encounter took place. Date/Time Current Smoking Status Comment Facility Jun 28, 2022 09:00 AM VA-TOBACCO FORMER USER [facility] Tobacco Use History This section includes a history of the smoking, or tobacco- related health factors, that were collected on or before the date of the Encounter. The data comes from the NH facility where the Encounter took place. Date/Time Smoking Status/Tobacco Use Comment [facility] Jun 28, 2022 09:00 AM VA-TOBACCO QUIT 15 YRS OR [facility] Jun 29, 2021 09:00 AM VA-TOBACCO FORMER [facility]ER [facility] Jun 29, 2021 09:00 AM VA-TOBACCO QUIT 15 YRS OR [facility] Jul 20, 2020 10:30 AM VA-TOBACCO NEVER USED [facility] Aug 12, 2019 03:12 PM VA-TOBACCO FORMER USER [facility] Aug 12, 2019 03:12 PM VA-TOBACCO QUIT 15 YRS OR [facility] Aug 20, 2018 04:56 PM VA-TOBACCO FORMER USER [facility] Aug 20, 2018 04:56 PM VA-TOBACCO QUIT 15 YRS OR [facility] Nov 19, 2016 09:49 AM LIFETIME NON-USER OF [facility] Dec 13, 2015 03:30 PM QUIT TOBACCO >7 YEARS AGO [facility] Dec 09, 2014 09:06 AM QUIT TOBACCO >7 YEARS AGO [facility] Jan 29, 2014 08:56 AM LIFETIME NON-USER OF [facility] Jun 11, 2012 01:32 PM QUIT TOBACCO >7 YEARS AGO [facility] Feb 01, 2009 09:26 AM LIFETIME NON-USER OF [facility] NEW TOBACCO quit [address] [facility] Aug 19, 2001 09:28 AM HISTORY OF SMOKING [facility] NEW Quit 2 yrs ago, 18 pack-yr Hx. J ARA [facility] Encounter Notes: All associated encounter notes This section contains the clinical notes associated to the Encounter. Date/Time Encounter Note(s) Provider Source Jul 12, 2022 09:39 AM DIABETOLOGY NOTE: ZULEMA TIM LOCAL TITLE: DIABETES [facility] STANDARD TITLE: DIABETOLOGY NOTE DATE OF NOTE: JUL 12, 2022@09:39 ENTRY DATE: JUL 12, 2022@09:39:41 AUTHOR: ZULEMA TIM EXP COSIGNER: URGENCY: STATUS: COMPLETED CVT TO HOME: DIABETES MANAGEMENT FOLLOW-UP was informed the visit would be performe d remotely. Confidentiality, and the limits thereof, as well as the NH's Connectivity record keeping system were discussed and patient verbally indicated un derstanding. 's questions were answered and agrees to th is. 56 y/o male for routine follow-up/diabet es management. PMH significant for (But not limited to), DM type 2 with retinopathy/obesity/asthma/CKD. Reviewed latest A1C with . Reports that he attributes increase in A1C due [place], in which his eating habits were affected. States that he is consistent in his dirt since returning and continues to exercise 3x a w [place]. 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 [place] requesting to trial coming of some of my diabetes meds for a while . Reports that he would like to start over and just take metformin & J ardiance. denies episodes of hypoglycemia. denies any s/s x of UTI or Last Clinic Visit:04/12/2022 [facility] - Lab Tests Selected Collection DT Specimen Test Name Result Units Re f Range 07/05/2022 08:22 BLOOD HEMOGLOBIN A1C 7.2 H % 4. 8 - 5.6 04/12/2022 08:02 BLOOD HEMOGLOBIN A1C 7.0 H % 4. 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 07/18/2014 LINNEA MENENDEZ L Migraine, unspecified, without mentio 11/22/2009 BLOCK,ANA MARIA HYPOSPADIES 799.9 11/22/2009 BLOCK,ANA MARIA Asthma sometimes restricts exercise ( 03/16/2021 JAMES ROBERTSON Fatty Liver 799.9 08/19/2001 MARIA GUADALUPE ACOSTA ALLERGIES: PENICILLIN Active and Recently Outpatient Medicatio ns (including Supplies): Active Outpatient Medications Status 1) ALOGLIPTIN 12.5MG TAB TAKE ONE TABLET BY MOUT H DAILY ACTIVE FOR DIABETES 2) ATORVASTATIN CALCIUM 40MG TAB TAKE ONE-HALF T ABLET BY ACTIVE MOUTH AT BEDTIME FOR LOWERING CHOLESTEROL 3) BUPROPION HCL 150MG 24HR SA TAB TAKE ONE TABL ET BY ACTIVE MOUTH DAILY FOR MOOD 4) CETIRIZINE HCL 10MG TAB TAKE ONE TABLET BY MO UTH ACTIVE DAILY FOR ALLERGY 5) EMPAGLIFLOZIN 25MG TAB TAKE ONE TABLET BY NGUYEN TH DAILY ACTIVE 6) ENALAPRIL MALEATE 2.5MG TAB TAKE ONE TABLET B Y MOUTH ACTIVE DAILY FOR BLOOD PRESSURE/KIDNEY PROTECTION 7) GLIMEPIRIDE 4MG TAB TAKE ONE TABLET BY MOUTH TWICE A ACTIVE DAY FOR DIABETES 8) METFORMIN HCL 500MG 24HR SA TAB TAKE TWO TABL ETS BY ACTIVE MOUTH TWICE A DAY FOR DIABETES 9) OMEPRAZOLE 40MG EC CAP TAKE ONE CAPSULE BY MO UTH ACTIVE EVERY DAY BEFORE BREAKFAST Inactive Outpatient Medications Status 1) BISACODYL 5MG [...] (-) malaise, (-) unin tentional weight loss. GENITO-URINARY: (-) urgency, (-) frequency, (-) burning/pain [...] L UR PROTEIN 01/23/22 08:00 Negative GENERAL: AAOx3 in no acute distress. dres sed appropriately. ASSESSMENT & PLAN: 56 y/o male with Diabetes Type II: - will like to trial a period w/o Alogliptin & Glimepiride. [place] will like to minimize use of medi cations and focus on diet & lifestyle modification. - Will discontinue Alogliptin & Glimepiride at t his time. - Reviewed MOA of diabetes m edications and advised that all DM medications lower blood sugar through different ways. - Will continue with metformin & empagliflozin. Reviewed dosage & S/E - Continue glucose monitoring. Advised to keep l og of BG readings for review. Advised if BG >200mg for two more days to contac t this provider for [place] adjustment. 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 - Return to clinic Jul 2022- [facility]. EDUCATION: - Reviewed signs of symptoms of hypoglycemia and treatment. - Encouraged a low carb: 50-60 grams at each geronimo l and 15-30 grams at each snack, low fat heart healthy reviewed. - Encouraged physical activity as tolerated. - Reviewed importance of proper foot care and da ricky foot checks. Time spent on video call: 15 minutes /es/ ZULEMA TIM,MSN,GAS PUMPING STATION OPERATOR- DIABETES ADVANCED PRACTICE NURSE/ENDOCRINOLOGY Signed: 07/12/2022 10:37 Jul 12, 2022 09:15 AM EDUCATION NOTE: XIANG SOLORZANO [facility] TITLE: PATIENT HEALTH EDUCATION [facility] STANDARD TITLE: EDUCATION NOTE DATE OF NOTE: JUL 12, 2022@09:15 ENTRY DATE: JUL 12, 2022@09:15:25 AUTHOR: XIANG SOLORZANO EXP COSIGNER: URGENCY: STATUS: COMPLETED REASON FOR CALL:- [facility] for Endocrine Clinic verbally consented t o video connect appointment. [place] able to provide RN with two identifiers: full name and full . confirms that he is presently @ work. Determined that this video con ference appointment is appropriate. MENTAL STATUS: AAOX3 ALLERGIES: PENICILLIN CC:Initial [facility] visit in Endocrine clinic, 56 y/o male for management of diabetes. Reports non-compliant to diet. Goes for eye check-up. States primary provider checks his feet when he goes for his vi sit. Denies hypoglycemic/hyperglycemic episode. Offered no c omplaints. Endorsed to RANGE CONSERVATIONIST Salima Ascencio. ____ TOPIC TAUGHT:HEALTH PROMOTION,DISEASE PREVENTION Person taught: Patient Ready to learn? Yes Past knowledge? no Learns Best? Visual/Hearing/Doing-(ALL) Barriers/Issues? None Method/Tool Used: Individual and Discuss Instructions given: PREVENTIVE CARE: Instructed on: Importance of promoting and maintaining a health y lifestyle appropriate for age and medical status including: Routine health check-ups Handwashing to prevent infection Diet--- Include healthy foods everyday: vegetables, fruit, whole grains, nuts, dried beans and peas, low-fat dairy and low rome t diet. Avoid sugar-sweetened beverages and fruit juice Hydrate- drink at least 8 glasses of water a day , unless medically contraindicated. Exercise regularly or increase activity as clemente ated Health teachings related to COVID19 Wash your hands often with soap and water for a t least 20 seconds, especially after going to the bathroom; before e ating; and after blowing your nose, coughing, or sneezing. If soap and water are not readily available, us e an alcohol-based hand stone and concrete washer with at least 70% alcohol. Always wash hands with soap and water if hands are visibly dirty. Avoid close contact with people who are sick. Stay home when you are sick. Response to Education:[place] verbalized unders tanding. /jacki/ MICHAEL UptonN, RN, AMB-BC, CCRN Staff Nurse Signed: 07/12/2022 11:19 Jul 12, 2022 09:12 AM CARE COORDINATION HOME TELEHEALTH VIDE O VISIT NOTE: XIANG SOLORZANO [facility] TITLE: CVT TO HOME NOTE J ARA [facility] STANDARD TITLE: CARE COORDINATION HOME TELEHEALT H VIDEO VISIT NO DATE OF NOTE: JUL 12, 2022@09:12 ENTRY DATE: JUL 12, 2022@09:12:07 AUTHOR: XIANG SOLORZANO EXP COSIGNER: URGENCY: STATUS: COMPLETED CVT Video to Home consents to completing this visit via [employer]. Patient Address for this Encounter: [address] Patient Phone Number for this encounter: Cell: [phone] Nearby relatives/Caregivers who can be contacted in the event of an emergency: Name: Cynthia Louis Relationship: Phone number: [phone] [facility] police department contact information as l isted on [employer]: [phone] /es/ Xiang Bass. HAILE Solorzano, RN, AMB-BC, CCRN Staff Nurse Signed: 07/12/2022 09:37
--- OUTSIDE RECORDS SUMMARY | 2022-10-02 10:26 | XMS_ITS | Encounter Summary ---
:1965 Author Organization [facility] rs Address [address] [place] [id number] Support Name Relationship Address Phone DENISSE LEON Unavailable [address] [place] [address] NONE, GIVEN Unavailable Unavailable Unavailable Insurance Providers: [...] to Policy Number Chen AETNA [place] [facility] Feb [id number] [phone] [place] PATIENT SERVICE INTER 2011 381 2 [place] AET[place] PRESCRIPT [facility] Feb [id number] [phone] COBY LEON PATIENT PHARMACY ION INTER 2011 [id number] VERO MANAGEMENT NATIO 1 [place] BCBS [place] PREFERRED BASIC Nov 30 [id number] [phone] COBY LEON PATIENT FEP PROVIDER FAMIL 2017 [id number] VERO ORGANIZAT Y ION (PPO) BCBS OF [place] DENTAL [place] Nov 30 [id number] [phone] COBY LEON PATIENT FEP INSURANCE L [id number] 2017 62 5 VERO (DENTAL) [place] PREFERRED BASIC Nov 30 [id number] [phone] COBY METZ PATIENT FEP PROVIDER FAMIL 2017 62 5 VERO ORGANIZAT Y ION (PPO) [place]BS OF [place] PREFERRED STAND March 26 [id number] [phone] COBY METZ PATIENT (FEDERAL) 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 2014 62 7 VERO ORGANIZAT IND ION (PPO) 104 CAREMARK PRESCRIPT FEP March 26, [id number] [phone] [place] PATIENT ([id number]) ION 2015 0 62 7 VERO CAREMARK-F PRESCRIPT FEP Nov 30, [id number] [phone] [place] PATIENT EP BCBS ION CAREM 2018 0 62 1 VERO ARK CAREMARK-F PRESCRIPT SHERI Nov 30, [id number] [phone] [place] PATIENT EP BCBS ION AL 2018 0 62 1 VERO RX CAREMARK-F PRESCRIPT SHERI Nov 30, [id number] [phone] [place] PATIENT EP BCBS ION [place] [id number] 0 [id number] VERO RX CAREMARK-F PRESCRIPT FEP Nov 30, [id number] [phone] PATIENT EP BCBS ION 2018 0 [id number] VERO HORIZON PREFERRED BASIC Nov 30 [id number] [phone] [place] ,[place] PATIENT BCBS FEP* PROVIDER FAMIL 2017 62 8 VERO ORGANIZAT Y ION (PPO) HORIZON PREFERRED BASIC Nov 30 [id number] [phone] EDWARDOH PATIENT FEDERAL PROVIDER FAMIL 2017 62 8 VERO ORGANIZAT Y ION (PPO) DEPART WORKERS' OWCP Jul 01, NONE [id number] [phone] COBY REYNOLDS PATIENT OF LABOR COMPENSAT MEDIC [id number] VERO MED DFEC ION AL INSURANCE DFEC DEPT OF WORKERS' WORKE Jul 01, WORKERS [id number] [phone] ROBERT SAABOH PATIENT LABOR COMPENSAT RS 2019 COMP [id number] VERO ION COMP INSURANCE Selected Encounter This section includes the information [facility] record at [facility] for the [facility]counter. Date/Time Encounter Type Encounter Reason Provider Source Description Jul 12, 2022 PSYTX W PT 45 MENTAL HEALTH ICD-10-CM F33.1 ANGIE GAFFNEY 08:00 AM [facility] - IND Major depressive SARAH disorder, recurrent, moderate with Provider Comments: Moderate major depression (SCT 771940) IHE Encounter Template Text not used by [facility] Assessments - Encounter Diagnoses This section includes the primary and secondary diagnoses documented for the Encounter. Date/Time Primary/Secondary Diagnosis Name Provider Source Diagnosis Jul 12, 2022 PRIMARY Major depressive ANGIE GAFFNEY [facility] 09:31 AM jhonathan, SARAH [facility] recurrent, moderate Plan of Treatment: Future Appointments (+ 6 months) and Future Tests (+/- 45 days) The Plan of Treatment section includes future care activities for the patient [facility] [place] [facility] This section includes future appointments and future orders which are active, pending orscheduled.Future Appointments This section includes appointments that were scheduled to occur 6 months from the date of the Encounter, up to a maximum of 20 appointments. The data comes from all [place] treatment facilities. Appointment Date/Time Appointment Type Appointment Facili ty Name Jul 18, 2022 10:30 AM [facility] Aug 05, 2022 02:00 PM [facility] Aug 16, 2022 10:20 AM [facility] Sep 03, 2022 11:45 AM [facility] Sep 17, 2022 01:30 PM [facility] Sep 27, 2022 10:40 AM [facility]AT[facility] - [facility]ICINE [facility] Nov 15, 2022 08:00 AM AMBULATORY - [facility] Dec 13, 2022 08:00 AM AMBULATORY MEDICINE [facility] Active, Pending, and [...] The data comes from all [place] treatment [facility]. Test Date/Time Test Type Test Details Facility Name Jul 12, 2022 12:00 AM Laboratory - Chemistry HEMOGLOBIN A1C BLOO D [facility] Order SP ONCE [facility] Jul 25, 2022 12:00 AM Laboratory - Chemistry CHEM, Basic Metabol ic [facility] Order Panel BLOOD SERUM SP [facility] ONCE Lab Results: +/- 30 days [...] Reference Range Comment Jul 05, 2022 08:22 [facility] HEMOGLOBIN A1C Specimen Type: BLOOD [facility] No comment enter ed. Ordering Provid er: ZULEMA TIM Report Released Date/Time: April 12, 2022 09:59 AM Reporting Lab: [facility] [address] [facility] [address] Performing Lab: [facility] [address] [facility] [address] HEMOGLOBIN A1C 7.2 H 4.8-5.6 Jul 05, 2022 [facility] CHEM, Basic Specimen Type: SERUM 08:22 AM [facility] Metabolic Panel Comment: eGFR c alculated [...] Stage 5 - End Stage CKD Reference: [email or web address] Ordering Provid er: ZULEMA TIM Report Released Date/Time: April 12, 2022 09:59 AM Reporting Lab: [facility] [address] [facility] [address] Performing Lab: [facility] [address] [facility] [address] CREATININE 1.3 .7-1.3 UREA NITROGEN 21 7-25 GLUCOSE 138 H 65-99 SODIUM 140 136-145 POTASSIUM 4.3 3.5-5.1 CHLORIDE 105 98-107 CO2 25 21-31 CALCIUM 9.8 8.6-10.3 ANION GAP 10 5-13 eGFR 65 L >90 Jun 26, 2022 12:00 [facility] COVID-19 MONITOR Specimen Ty pe: OROPHARYNX [facility] PANEL([facility]) No comment enter ed. Ordering Provid er: ASHWINI SARMIENTO Report Released Date/Time: Mar 21, 2022 08:55 AM Reporting Lab: [facility] [address] [facility] [address] Performing Lab: [facility] [address] [facility] [address] COVID-19 ([id number]) Not Detected Not De tected Social History: [...] 2022 09:00 AM [facility]AC[facility] Tobacco Use History This section includes a history of the smoking, or tobacco- related health factors, that were collected on or before the date of the Encounter. The data comes from the [place] facility where the Encounter took place. Date/Time Smoking Status/Tobacco Use Comment [facility] Jun 28, 2022 09:00 AM VA-TOBACCO QUIT 15 YRS OR [facility] Jun 29, 2021 09:00 AM [facility] Jun 29, 2021 09:00 AM VA-TOBACCO QUIT 15 YRS OR [facility] Jul 20, 2020 10:30 AM VA-TOBACCO NEVER USED [facility] Aug 12, 2019 03:12 PM [facility]AC[facility] Aug 12, 2019 03:12 PM VA-TOBACCO QUIT 15 YRS OR [facility] Aug 20, 2018 04:56 PM [facility]AC[facility] Aug 20, 2018 04:56 PM VA-TOBACCO QUIT 15 YRS OR [facility]- [facility] Nov 19, 2016 09:49 AM LIFETIME NON-USER OF [facility] Dec 13, 2015 03:30 PM QUIT TOBACCO >7 YEARS AGO [facility] Dec 09, 2014 09:06 AM QUIT TOBACCO >7 YEARS AGO [facility] Jan 29, 2014 08:56 AM LIFETIME NON-USER OF [facility] Jun 11, 2012 01:32 PM QUIT TOBACCO >7 YEARS AGO [facility] Feb 01, 2009 09:26 AM LIFETIME NON-USER OF [facility] NEW TOBACCO quit [address] [facility] Aug 19, 2001 09:28 AM HISTORY OF SMOKING [place]- [place] NEW Quit 2 yrs ago, 18 pack-yr HxMonse [facility] Encounter Notes: All associated encounter notes This section contains the clinical notes associated to the Encounter. Date/Time Encounter Note(s) Provider Source Jul 12, 2022 08:00 AM MENTAL HEALTH NOTE: ANGIE GAFFNEY [facility] TITLE: MH&BS//INDIVIDUAL [facility] STANDARD TITLE: MENTAL HEALTH NOTE DATE OF NOTE: JUL 12, 2022@08:00 ENTRY DATE: JUL 12, 2022@09:11:03 AUTHOR: ANGIE GAFFNEY EXP COSIGNER: URGENCY: STATUS: COMPLETED This is a telemental health session [due to COVI D-19 pandemic]: Patient's location during session: work Provider's location during session: office [place] has verbally consented to telehealth (ri sks and benefits explained); alternatives for obtaining c are through telephone/VVC visit and right of refusal at any time have been explained. agreed to services today. Met with patient for 45 minute vvc session. 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 He wanted to get the supervisory experience. Shantal bess also reported feeling physically well related to ulcer and is managing depression well. He said that he wants to stop counseling at this time and will check back in if he needs to when he returns to [place] in 11/14. Assessment: Mood: Euthymic Affect: Appropriate Speech: Normal volume, fluent, non-pressured, no rmal rate and rhythm Thought Process: Linear and goal-directed Thought Content: No suicidal or homicida l ideation intention or plan reported; no delusions/paranoia elicited Perceptions: No auditory or visual hallucination s reported Insight/Judgment: Good Impulse control: Good Diagnosis: Major depressive disorder, recurrent, moderate Plan: Patient will complete counseling at this time and will check back in if he needs to when he returns to [place] in 11/14. /jacki/ ANGIE GAFFNEY social worker delinquency prevention Signed: 07/12/2022 09:32 Receipt Acknowledged By: * AWAITING SIGNATURE * GEORGIANA CARRILLO
--- OUTSIDE RECORDS SUMMARY | 2022-10-02 10:27 | XMS_ITS | Encounter Summary ---
:1965 Author Organization [facility] rs Address [address] [place] [address] Support Name Relationship Address Phone DENISSE LEON Unavailable [address] [place] [address] NONE, GIVEN Unavailable Unavailable Unavailable Insurance Providers: [...] to Policy Number Chen AETNA POINT OF [facility] Feb [id number] [phone] [place] PATIENT SERVICE INTER 2011 381 2 [place] AETNA PRESCRIPT [facility] Feb [id number] [phone] COBY LEON PATIENT PHARMACY ION INTER 2011 [id number] VERO MANAGEMENT NATIO 1 [place] BCBS [place] PREFERRED BASIC Nov 30 [id number] [phone] COBY LEON PATIENT FEP PROVIDER FAMIL 2017 [id number] VERO ORGANIZAT Y ION (PPO) [place] DENTAL [place] Nov 30 [id number] [phone] COBY LEON PATIENT FEP INSURANCE L [id number] 2017 62 5 VERO (DENTAL) [place] PREFERRED BASIC Nov 30 [id number] [phone] COBY METZ PATIENT FEP PROVIDER FAMIL 2017 62 5 VERO ORGANIZAT Y ION (PPO) [place] PREFERRED STAND March 26 [id number] [phone] COBY METZ PATIENT (FEDERAL) 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 2015 62 7 VERO ORGANIZAT IND ION (PPO) 104 CAREMARK PRESCRIPT FEP March 26, [id number] [phone] CONR NADYA,COBY PATIENT ([id number]) ION 2015 0 62 7 VERO CAREMARK-F PRESCRIPT FEP Nov 30, [id number] [phone] [place] PATIENT EP BCBS ION CAREM 2018 0 62 1 VERO ARK CAREMARK-F PRESCRIPT FEP Nov 30, [id number] [phone] PATIENT EP BCBS ION 2018 0 [id number] VERO CAREMARK-F PRESCRIPT SHERI Nov 30, [id number] [phone] [place] PATIENT EP BCBS ION AL 2018 0 62 1 VERO RX CAREMARK-F PRESCRIPT SHERI Nov 30, [id number] [phone] [place] PATIENT EP BCBS ION AL 2018 0 [id number] 1 VERO RX HORIZON PREFERRED BASIC Nov 30 [id number] [phone] [place] PATIENT BCBS FEP* PROVIDER FAMIL 2017 62 8 VERO ORGANIZAT Y ION (PPO) HORIZON PREFERRED BASIC Nov 30 [id number] [phone] EDWARDIL PATIENT FEDERAL PROVIDER FAMIL 2018 62 8 VERO ORGANIZAT Y ION (PPO) DEPART WORKERS' OWCP Jul 01, NONE [id number] [phone] INDIGO CruzIL PATIENT OF LABOR COMPENSAT MEDIC 2018 [id number] VERO MED DFEC ION AL INSURANCE DFEC US DEPT OF WORKERS' WORKE Jul 01, WORKERS [id number] [phone] ROBERT SAABIL PATIENT LABOR COMPENSAT RS 2019 COMP [id number] VERO ION COMP INSURANCE Selected Encounter This section includes the information on record at [place] for the Encounter. Date/Time Encounter Type Encounter Reason Provider Source Description May 01, 2022 ANES UPR LWR GI ANES SPECIAL PROCS ICD-10-CM K29.50 JAYLYN CALABRESE 01:13 PM NDSC PX IN OR SUITE Unspecified chronic gastritis without bleeding with Provider Comments: Unspecified Chronic Gastritis without Bleeding IHE Encounter Template Text not used by [facility] Assessments - Encounter Diagnoses This section includes the primary and secondary diagnoses documented for the Encounter. 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 This section includes future appointments and future orders which are active, pending orscheduled.Future Appointments This section includes appointments that were scheduled to occur 6 months from the date of the Encounter, up to a maximum of 20 appointments. The data comes from all [place] treatment facilities. Appointment Date/Time Appointment Type Appointment Facili ty Name May 08, 2022 10:00 AM AMBULATORY - PSYCHIATRY [facility] Jun 27, 2022 09:30 AM AMBULATORY MEDICINE [facility] Jun 28, 2022 09:00 AM AMBULATORY PSYCHIATRY [facility] Jul 12, 2022 08:00 AM AMBULATORY PSYCHIATRY [facility] Jul 12, 2022 09:20 AM [facility] Jul 18, 2022 10:30 AM [facility] Aug 05, 2022 02:00 PM [facility] Aug 16, 2022 10:20 AM AMBULATORY [facility] Sep 03, 2022 11:45 AM [facility] [place] [facility] Sep 17, 2022 01:30 PM AMBULATORY [facility] [place] [facility] Sep 27, 2022 10:40 AM AMBULATORY MEDICINE [facility] Lab Results: +/- 30 days of the encounter This section includes the Chemistry and Hematology Lab Results on record with [place] for the patient. Radiology Reports and Pathology Reports are provided separately, in subsequent sections.Lab Results This section contains the Chemistry/Hematology Results that were resulted 30 days before or 30 daysafter the date of the Encounter. Date/Time Source Result Type Result - Unit Interpretation Reference Range Comment May 14, 2022 06:04 [facility] COVID-19 MONITOR Specimen Ty pe: OROPHARYNX PM [facility] PANEL([facility]) Comment: Test P erformed by NAHUM Lemus Ordering Provid er: ASHWINI SARMIENTO Report Released Date/Time: Mar 21, 2022 08:55 AM Reporting Lab: [facility] [address] [facility] [address] Performing Lab: [facility] [address] [address] COVID-19 ([id number]) Not Detected Not De tected May 07, 2022 12:40 [facility]IT[facility] Specimen Ty pe: OROPHARYNX PM [facility] PANEL([facility]) Comment: Test P erformed by NAHUM Lemus Ordering Provid er: ASHWINI SARMIENTO Report Released Date/Time: Mar 21, 2022 08:55 AM Reporting Lab: [facility] [address] [facility] [address] Performing Lab: [facility] [address] [facility] [address] COVID-19 ([id number]) Not Detected Not De tected May 01, 2022 11:58 [facility] POC GLUCOSE Specimen Type: BLOOD AM [facility] No comment enter ed. Ordering Provid er: TODD RUSSO MD Report Released Date/Time: May 01, 2022 12:00 PM Reporting Lab: [facility] [address] [facility] [address] Performing Lab: [facility] [address] [facility] [address] POC GLUCOSE 102 70-115 May 01, 2022 09:26 [facility] POC GLUCOSE Specimen Type: BLOOD AM [facility] No comment enter ed. Ordering Provid er: JC CABALLERO Report Released Date/Time: May 01, 2022 09:28 AM Reporting Lab: [facility] [address] [facility] [facility] [address] Performing Lab: [facility] [address] [facility] [address] POC GLUCOSE 137 70-115 May 01, 2022 [facility] COVID-19, FLU/RSV Specimen T ype: NASOPHARYNX 08:22 AM [facility] SCREEN. PANEL([facility]) Comment: *COVID-19 SCREENING PANEL([facility]) Not Performed: May 01, 2022@08:23 b *ASSEMBLER PIANO Reason: ORDER CORRECTED, STAT FOR PROCEDURE Added by [id number] on May 01, 2022@08:22 Ordering Provid er: TODD RUSSO MD Report Released Date/Time: May 01, 2022 08:11 AM Reporting Lab: [facility] [address] [facility] [address] Performing Lab: [facility] [address] [facility] [address] COVID-19 PCR (FLUV[facility]) Not Detected Not D etected FLU A PCR ([facility]) Not Detected Not Dete cted FLU B PCR ([facility]) Not Detected Not Dete cted RSV PCR ([facility]UV[facility]) Not Detected Not Detect ed April 23, 2022 12:00 [facility] COVID-19 MONITOR Specimen Ty pe: OROPHARYNX [facility] PANEL([facility]) Comment: Test P erformed by NAHUM Lemus Ordering Provid er: ASHWINI SARMIENTO Report Released Date/Time: Mar 21, 2022 08:55 AM Reporting Lab: [facility] [address] [facility] [facility] [address] Performing Lab: [facility] [address] [facility] [address] COVID-19 ([id number]) Not Detected Not De tected April 17, 2022 12:30 [facility] COVID-19 MONITOR Specimen Ty pe: OROPHARYNX [facility] PANEL([facility]) Comment: Test P erformed by NAHUM Lemus Ordering Provid er: ASHWINI SARMIENTO Report Released Date/Time: Mar 21, 2022 08:55 AM Reporting Lab: [facility] [address] [facility] [address] Performing Lab: [facility] [address] [facility] [address] COVID-19 ([id number]) Not Detected Not De tected April 12, 2022 08:02 [facility] HEMOGLOBIN A1C Specimen Type: BLOOD [facility] No comment enter ed. Ordering Provid er: JUSTIN HEBERT Report Released Date/Time: Dec 21, 2021 09:49 AM Reporting Lab: [facility] [address] [facility] [address] Performing Lab: [facility] [address] [facility] [address] HEMOGLOBIN A1C 7.0 H 4.8-5.6 April 12, 2022 [facility] CHEM, Comprehensive Specimen Ty pe: SERUM 08:02 AM [facility] Metabolic Panel Comment: eGFR c [...] Stage 5 - End Stage CKD Reference: [email or web address] Ordering Provid er: JUSTIN HEBERT Report Released Date/Time: Dec 21, 2021 09:49 AM Reporting Lab: [facility] [address] [facility] [address] Performing Lab: [facility] [address] [facility] [address] CREATININE 1.3 .7-1.3 UREA NITROGEN 22 7-25 GLUCOSE 264 H 65-99 SODIUM 137 136-145 POTASSIUM 4.2 3.5-5.1 CHLORIDE 100 98-107 CO2 27 21-31 CALCIUM 9.7 8.6-10.3 PROTEIN,TOTAL 7.0 6.4-8.9 ALBUMIN 4.6 3.5-5.7 TOTAL BILIRUBIN 0.6 0.3-1.0 ALKALINE PHOSPHATASE 71 34-104 AST 22 13-39 ALT 23 7-52 ANION GAP 10 5-13 eGFR 65 L >90 April 09, 2022 03:21 [facility] NEW COVID-19 MONITOR Specimen Ty pe: OROPHARYNX [facility] PANEL([facility]) Comment: Test P erformed by NAHUM Lemus Ordering Provid er: ASHWINI SARMIENTO Report Released Date/Time: Mar 21, 2022 08:55 AM Reporting Lab: [facility] [address] [facility] [address] Performing Lab: [facility] [address] [facility] [address] COVID-19 ([id number]) Not Detected Not De tected April 02, 2022 12:00 [facility] Specimen Ty pe: OROPHARYNX [facility] PANEL([facility]) Comment: Test P erformed by NAHUM Lemus Ordering Provid er: ASHWINI SARMIENTO Report Released Date/Time: Mar 21, 2022 08:55 AM Reporting Lab: [facility] [address] [facility] [address] Performing Lab: [facility] [address] [facility] [address] COVID-19 ([id number]) Not Detected Not De tected Vital Signs: All taken on the encounter date This section contains inpatient and outpatient Vital Signs collected on the date of the Encounter. Date/Time Temperature Pulse Blood Respiratory SP02 Pain Height Weight Dong dy Source Pressure Rate Mass Index May 01 113/72 20 /min 98 % 0 2021 12:45 /min mm[Hg] [facility] May 01 F 59 116/70 20 /min 99 % 0 68 in 192 lb 29 2021 09:30 /min mm[Hg] [facility] AM [facility] Social History: Smoking Status (Most current) and Tobacco Use (All prior to encounter date) This section includes the most current, and the historical, smoking and tobacco-related health factors from the [place] facility where the Encounter took place.Current Smoking Status This section includes the most current smoking, or tobacco-related health factor, from the [place] facility where the Encounter took place. Date/Time Current Smoking Status Comment Facility Oct 28, 2017 08:55 AM LIFETIME NON-USER OF TOBACCO [facility] Pathology Reports: +/- 30 days of the [...] the Encounter. The data comes from all [facility] facilities. Date/Time Pathology Report Provider Source May 10, 2022 11:37 LR SURGICAL PATHOLOGY REPORT: KIRK PAGAN [facility] LOCAL TITLE: LR SURGICAL PATHOLOGY REPORT [facility] STANDARD TITLE: LABORATORY NOTE DATE OF NOTE: [...] determined by the immunoperoxid ase Laboratory of [facility]. They have not been cl [...] and negative controls were run and reviewed. CPT:49745i2; 84839 SUPPLEMENTARY REPORT(S): Supplementary Report Date: MAY 10, 2022 *+* SUPPLEMENTARY REPORT HAS BEEN ADDED/MODIFIE D *+* (Added/Last released: May 10, 2022 11:37 Signed by ELIN PAGAN) IMMUNOSTAIN IS PERFORMED ON SPECIMEN A WHICH IS NEGATIVE FOR H.PYLORI ORGANISMS. CPT: 96508 IHC DISCLAIMER Some of these tests were developed and their pe rformance characteristics determined by the immunoperoxidase Laboratory o [facility]. They have not been cleared or [...] and negative controls were run and reviewed. /jacki/ ELIN PAGAN FOR JUDY BURNETT STAFF PATHOLOGIST Signed May 10, 2022@11:37 Performing Laboratory: Surgical Pathology Report Performed By: [facility] [CLI A# [id number]] [address] [place] [address] $FTR - - - - - - [...] - - - - - - ANGIE LEONLAS STANDARD FORM 515 ID:[id number] SEX:M :1965 AGE: 56 LOC: [facility] PCP: Jc Caballero, CHEYANNE /jacki/ ELIN PAGAN STAFF PATHOLOGIST Signed: 05/10/2022 11:37 May 06, 2022 08:23 LR SURGICAL PATHOLOGY REPORT: JUDY THOMASON [facility] TITLE: LR SURGICAL PATHOLOGY REPORT [facility] STANDARD TITLE: LABORATORY NOTE DATE [...] determined by the immunoperoxid ase Laboratory of [facility]. They have not been cl [...] Amendments of 1988 (CLIA-88) as qualified to [facility] high complexity clinical laboratory testing. The appropriate po sitive and negative controls were run and reviewed. CPT:36984t2; 05112 /es/ JUDY THOMASON STAFF PATHOLOGIST Signed May 06, 2022@08:23 Performing Laboratory: Surgical Pathology Report Performed By: [facility] [CLI A# [id number]] [address] [place] [id number] $FTR - - - - - - [...] - - ANGIE LEON STANDARD FORM 515 ID:[id number] SEX:M :1965 AGE: 56 LOC: [facility] PCP: Jc Caballero NP /jacki/ JUDY KUMAR [facility] STAFF PATHOLOGIST Signed: 05/06/2022 08:23
--- OUTSIDE RECORDS SUMMARY | 2022-10-02 10:27 | XMS_ITS | Encounter Summary ---
:1965 Author Organization [facility] rs Address [address] [place] [id number] Support Name Relationship Address Phone DENISSE LEON Unavailable [address] [address] NONE, GIVEN Unavailable Unavailable Unavailable Insurance Providers: [...] to Policy Number Chen AETNA PO[place] OF [facility] Feb [id number] [phone] [place] PATIENT SERVICE INTER 2011 [id number] 2 [place] AETNA PRESCRIPT [facility] Feb [id number] [phone] COBY LEON PATIENT PHARMACY ION INTER 2011 [id number] VERO MANAGEMENT NATIO 1 [place] BCBS [place] PREFERRED BASIC Nov 30 [id number] [phone] COBY LEON PATIENT FEP PROVIDER FAMIL 2017 [id number] VERO ORGANIZAT Y ION (PPO) BCBS OF [place] DENTAL [place]ENT[place] Nov 30 [id number] [phone] COBY LEON PATIENT FEP INSURANCE L [id number] 2017 62 5 VERO (DENTAL) [place] PREFERRED BASIC Nov 30 [id number] [phone] COBY METZ PATIENT FEP PROVIDER FAMIL 2017 62 5 VERO ORGANIZAT Y ION (PPO) [place]BS OF [place] PREFERRED STAND March 26 [id number] [phone] COBY METZ PATIENT (FEDERAL) 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 2014 62 7 VERO ORGANIZAT IND ION (PPO) 104 CAREMARK PRESCRIPT FEP March 26, [id number] [phone] CONR NADYA,COBY PATIENT ([id number]) ION 2014 0 62 7 VERO CAREMARK-F PRESCRIPT FEP Nov 30, [id number] [phone] [place] PATIENT EP BCBS ION CAREM 2018 0 62 1 VERO ARK CAREMARK-F PRESCRIPT SHERI Nov 30, [id number] [phone] [place] PATIENT EP BCBS ION AL 2018 0 62 1 VERO RX CAREMARK-F PRESCRIPT SHERI Nov 30, [id number] [phone] [place] PATIENT EP BCBS ION AL 2018 0 [id number] VERO RX CAREMARK-F PRESCRIPT FEP Nov 30, [id number] [phone] PATIENT EP BCBS ION 2018 0 [id number] VERO HORIZON PREFERRED BASIC Nov 30 [id number] [phone] [place] PATIENT BCBS FEP* PROVIDER FAMIL 2017 62 8 VERO ORGANIZAT Y ION (PPO) HORIZON PREFERRED BASIC Nov 30 [id number] [phone] EDWARDTN PATIENT FEDERAL PROVIDER FAMIL 2017 62 8 VERO ORGANIZAT Y ION (PPO) DEPART WORKERS' OWCP Jul 01, NONE [id number] [phone] COBY REYNOLDS PATIENT OF LABOR COMPENSAT MEDIC [id number] VERO MED DFEC ION AL INSURANCE DFEC DEPT OF WORKERS' WORKE Jul 01, WORKERS [id number] [phone] ROBERT SAABTN PATIENT LABOR COMPENSAT RS 2019 COMP [id number] VERO ION COMP INSURANCE Selected Encounter This section includes the information on record at [place] for the Encounter. Date/Time Encounter Type Encounter Reason Provider Source Description May 06, 2022 08:23 Outpatient EVENT (HISTORICAL) RA PADDY MESH AM Encounter KAMJUAN LUIS IHE Encounter Template Text not used by [...] 20 appointments. The data comes from all [place] treatment facilities. Appointment Date/Time Appointment Type Appointment Facili ty Name May 08, 2022 10:00 AM AMBULATORY - PSYCHIATRY [facility] Jun 27, 2022 09:30 AM AMBULATORY - MEDICINE [facility] Jun 28, 2022 09:00 AM AMBULATORY - PSYCHIATRY [facility] Jul 12, 2022 08:00 AM AMBULATORY PSYCHIATRY [facility] Jul 12, 2022 09:20 AM AMBULATORY [facility]ICINE [facility] Jul 18, 2022 10:30 [facility] Aug 05, 2022 02:00 [facility] Aug 16[facility] 2022 10:20 AM AM[facility]ULATORY [facility] Sep 03, 2022 11:45 [facility] Sep 17, 2022 01:30 PM [facility] Sep 27, 2022 10:40 AM AMBULATORY - MEDICINE [facility] Lab Results: +/- 30 days of the encounter This section includes the Chemistry and Hematology Lab Results on record with [place] for the patient. Radiology Reports and Pathology Reports are provided separately, in subsequent sections.Lab Results This section contains the Chemistry/Hematology Results that were resulted 30 days before or 30 daysafter the date of the Encounter. Date/Time Source Result Type Result - Unit Interpretation Reference Range Comment Jun 04, 2022 03:39 [facility]3] COVID-19 MONITOR Specimen Ty pe: OROPHARYNX PM [facility] ([place], [place]) PANEL([facility]) Comment: Test P erformed by NAHUM Lemus Ordering Provid er: ASHWINI SARMIENTO Report Released Date/Time: Mar 21, 2022 08:55 AM Reporting Lab: [facility] [address] [facility] [address] Performing Lab: [facility] [address] [facility] [address] COVID-19 ([id number]) Not Detected Not De tected May 14, 2022 06:04 [facility] NEW COVID-19 MONITOR Specimen Ty pe: OROPHARYNX PM [facility] ([place] [place]) PANEL([facility]) Comment: Test P erformed by NAHUM Lemus Ordering Provid er: ASHWINI SARMIENTO Report Released Date/Time: Mar 21, 2022 08:55 AM Reporting Lab: [facility] [address] [facility] [address] Performing Lab: [facility] [address] [facility] [facility] [address] [facility] [address] COVID-19 ([id number]) Not Detected Not De tected May 07, 2022 12:40 [facility]3] COVID-19 MONITOR Specimen Ty pe: OROPHARYNX PM [facility] ([place] [place]) PANEL([facility]) Comment: Test P erformed by NAHUM Lemus Ordering Provid er: ASHWINI SARMIENTO Report Released Date/Time: Mar 21, 2022 08:55 AM Reporting Lab: [facility] [address] [facility] [address] Performing Lab: [facility] [address] [facility] [address] COVID-19 ([id number]) Not Detected Not De tected May 01, 2022 11:58 [facility] POC GLUCOSE Specimen Type: BLOOD AM [facility] ([place] [place]) No comment enter ed. Ordering Provid er: TODD RUSSO MD Report Released Date/Time: May 01, 2022 12:00 PM Reporting Lab: [facility] [address] [facility] [address] Performing Lab: [facility] [address] [facility] [address] POC GLUCOSE 102 70-115 May 01, 2022 09:26 [facility] POC GLUCOSE Specimen Type: BLOOD AM [facility] ([place]) No comment enter ed. Ordering Provid er: JC CABALLERO Report Released Date/Time: May 01, 2022 09:28 AM Reporting Lab: [facility] [address] [facility] [address] [facility] [address] Performing Lab: [facility] [address] [facility] [address] POC GLUCOSE 137 70-115 May 01, 2022 [facility] COVID-19, FLU/RSV Specimen T ype: NASOPHARYNX 08:[address] [facility] ([place], [place]) SCREEN. PANEL(FLUVID) Comment: *COVID-19 SCREENING PANEL([facility]) Not Performed: May 01, 2022@08:23 b *FOREST MANAGER Reason: ORDER CORRECTED, STAT FOR PROCEDURE Added by [id number] on May 01, 2022@08:22 Ordering Provid er: TODD RUSSO MD Report Released Date/Time: May 01, 2022 08:11 AM Reporting Lab: [facility] [address] [facility] [address] Performing Lab: [facility] [address] [facility] [address] COVID-19 PCR (FLUVID) Not Detected Not D etected FLU A PCR (FLUVID) Not Detected Not Dete cted FLU B PCR (FLUVID) Not Detected Not Dete cted RSV PCR (FLUVID) Not Detected Not Detect ed April 23, 2022 12:00 [facility]3] COVID-19 MONITOR Specimen Ty pe: OROPHARYNX [facility] PANEL([facility]) Comment: Test P erformed by NAHUM Lemus Ordering Provid er: ASHWINI SARMIENTO Report Released Date/Time: Mar 21, 2022 08:55 AM Reporting Lab: [facility] [address] [facility] [address] Performing Lab: [facility] [address] [facility] [address] COVID-19 ([id number]) Not Detected Not De tected April 17, 2022 12:30 [facility]3] COVID-19 MONITOR Specimen Ty pe: OROPHARYNX PM [facility] ([place] [place]) PANEL([facility]) Comment: Test P erformed by NAHUM Lemus Ordering Provid er: ASHWINI SARMIENTO Report Released Date/Time: Mar 21, 2022 08:55 AM Reporting Lab: [facility] [address] [facility] [address] Performing Lab: [facility] [address] [facility] [address] COVID-19 ([id number]) Not Detected Not De tected April 12, 2022 08:02 [facility] HEMOGLOBIN A1C Specimen Type: BLOOD AM [facility] ([place] [place]) No comment enter ed. Ordering Provid er: JUSTIN HEBERT Report Released Date/Time: Dec 21, 2021 09:49 AM Reporting Lab: [facility] [address] [facility] [address] Performing Lab: [facility] [address] [facility] [address] HEMOGLOBIN A1C 7.0 H 4.8-5.6 April 12, 2022 [facility] CHEM, Comprehensive Specimen Ty pe: SERUM 08:02 AM [facility] Metabolic Panel Comment: eGFR c alculated [...] Stage 5 - End Stage CKD Reference: [email or web address] Ordering Provid er: JUSTIN HEBERT Report Released Date/Time: Dec 21, 2021 09:49 AM Reporting Lab: [facility] [address] [facility] [address] Performing Lab: [facility] [address] [facility] [address] CREATININE 1.3 .7-1.3 UREA NITROGEN 22 7-25 GLUCOSE 264 H 65-99 SODIUM 137 136-145 POTASSIUM 4.2 3.5-5.1 CHLORIDE 100 98-107 CO2 27 21-31 CALCIUM 9.7 8.6-10.3 PROTEIN,TOTAL 7.0 6.4-8.9 ALBUMIN 4.6 3.5-5.7 TOTAL BILIRUBIN 0.6 0.3-1.0 ALKALINE PHOSPHATASE 71 34-104 AST 22 13-39 ALT 23 7-52 ANION GAP 10 5-13 eGFR 65 L >90 April 09, 2022 03:21 [facility]3] COVID-19 MONITOR Specimen Ty pe: OROPHARYNX [facility] PANEL([facility]) Comment: Test P erformed by NAHUM Lemsu Ordering Provid er: ASHWINI SARMIENTO Report Released Date/Time: Mar 21, 2022 08:55 AM Reporting Lab: [facility] [address] [facility] [address] Performing Lab: [facility] [address] [facility] [address] COVID-19 ([id number]) Not Detected Not De tected Social History: Smoking Status (Most current) and Tobacco Use (All prior to encounter date) This section includes the most current, and the historical, smoking and tobacco-related health factors from the [place] facility where the Encounter took place.Current Smoking Status This section includes the most current smoking, or tobacco-related health factor, from the [place] facility where the Encounter took place. Date/Time Current Smoking Status Comment Facility Oct 28, 2017 08:55 AM LIFETIME NON-USER OF TOBACCO [facility] Pathology Reports: +/- 30 days of the [...] the Encounter. The data comes from all [place] treatment facilities. Date/Time Pathology Report Provider Source May 10, 2022 11:37 LR SURGICAL PATHOLOGY REPORT: KIRK PAGAN [facility] LOCAL TITLE: LR SURGICAL PATHOLOGY REPORT [facility] STANDARD TITLE: LABORATORY NOTE DATE OF [...] DIAGNOSIS: LOPEZ'S ESOPHAGUS SURVELLANCE, COLON POLYP COVARRUBIAS RVE[place]. - - - - - - - [...] determined by the immunoperoxid ase Laboratory of [facility]. They have not been cl eared or approved by U.S. Food and Drug Administration. The FDA has deter mined that such clearance or approval is not necessary. This test is used for clinical purposes. It should not be regarded as investigational or fo r research. This laboratory is certified under the Clinical Labo ratory Improvement Amendments of 1988 (CLIA-88) as qualified to [facility] high complexity clinical laboratory testing. The appropriate po sitive and negative controls were run and reviewed. CPT:14685c1; 57388 SUPPLEMENTARY REPORT(S): Supplementary Report Date: MAY 10, 2022 *+* SUPPLEMENTARY REPORT HAS BEEN ADDED/MODIFIE D *+* (Added/Last released: May 10, 2022 11:37 Signed by ELIN PAGAN) IMMUNOSTAIN IS PERFORMED ON SPECIMEN A WHICH IS NEGATIVE FOR H.PYLORI ORGANISMS. CPT: 94744 IHC DISCLAIMER Some of these tests were developed and their pe rformance characteristics determined by the immunoperoxidase Laboratory [facility]. They have not been cleared or [...] Performing Laboratory: Surgical Pathology Report Performed By: [facility] [CLI A# [id number]] [address] [place] [phone] $FTR - - - - - - - - - - - - - - - - - - - - - - - - - - - - - - - - - - - - - - - - (End of report) JUDY THOMASON of Date May 06, 2022 - - - - - - - - - - - - - - - - - - - - - - - - - - - - - - - - - - - - - - - - ANGIE LEON STANDARD FORM 515 ID:[id number] SEX:M :1965 AGE: 56 LOC: [facility] PCP: Jc Caballero NP /kirstie PAGAN STAFF PATHOLOGIST Signed: 05/10/2022 11:37 May 06, 2022 08:23 LR SURGICAL PATHOLOGY REPORT: JUDY THOMASON [facility] TITLE: LR SURGICAL PATHOLOGY REPORT [facility] STANDARD TITLE: LABORATORY NOTE DATE OF [...] $TEXT Submitted by: TODD RUSSO Date obtained: J 2021 13:23 - - - - - [...] PREOPERATIVE DIAGNOSIS: LOPEZ'S ESOPHAGUS SURVELLANCE, COLON POLYP [place]. - - - - - - - [...] determined by the immunoperoxid ase Laboratory of [facility]. They have not been cl eared or [...] and negative controls were run and reviewed. CPT:62270t6; 55999 /jacki/ JUDY THOMASON STAFF PATHOLOGIST Signed May 06, 2022@08:23 Performing Laboratory: Surgical Pathology Report Performed By: [facility] [CLI A# [id number]] [address] [place] [phone] $FTR - - - - - - [...] - - ANGIE LEON STANDARD FORM 515 ID:[id number] SEX:M :1965 AGE: 56 LOC: [facility] PCP: Jc Caballero, CHEYANNE /jacki/ JUDY THOMASON STAFF PATHOLOGIST Signed: 05/06/2022 08:23 Encounter Notes: All associated encounter notes This section contains the clinical notes associated to the Encounter. Date/Time Encounter Note(s) Provider Source May 06, 2022 08:23 LABORATORY NOTE: JUDY THOMASON [facility] TITLE: LR SURGICAL PATHOLOGY REPORT [facility] STANDARD TITLE: LABORATORY NOTE DATE OF [...] determined by the immunoperoxid ase Laboratory of [facility]. They have not been cl eared or approved by U.S. Food and Drug Administration. The FDA has deter mined that such clearance or approval is not necessary. This test is used for clinical purposes. It should not be regarded as investigational or fo r research. This laboratory is certified under the Clinical Labo ratory Improvement Amendments of 1988 (CLIA-88) as qualified to [facility] high complexity clinical laboratory testing. The appropriate po sitive and negative controls were run and reviewed. CPT:64751x9; 48488 /es/ JUDY KUMAR [facility] STAFF PATHOLOGIST Signed May 06, 2022@08:23 Performing Laboratory: Surgical Pathology Report Performed By: [facility] [CLI A# [id number]] [facility] [place] [address] $FTR - - - - - - [...] - - ANGIE LEON STANDARD FORM 515 ID:[id number] SEX:M :1965 AGE: 56 LOC: [facility] PCP: Jc Caballero NP /jacki/ JUDY THOMASON STAFF PATHOLOGIST Signed: 05/06/2022 08:23
--- OUTSIDE RECORDS SUMMARY | 2022-10-02 10:27 | XMS_ITS | Encounter Summary ---
:1965 Author Organization [facility] rs Address [address] [place] [id number] Support Name Relationship Address Phone DENISSE LEON Unavailable [address] [facility] [place] [place] [address] NONE, GIVEN Unavailable Unavailable Unavailable Insurance Providers: [...] to Policy Number Chen AETNA POINT OF PSYCHIATRIC Feb [id number] [phone] EDWARD ME PATIENT SERVICE INTER 2011 381 2 [place] AETNA PRESCRIPT PSYCHIATRIC Feb [id number] [phone] COBY LEON PATIENT PHARMACY ION INTER 2011 [id number] VERO MANAGEMENT NATIO 1 [place] BCBS [place] PREFERRED BASIC Nov 30 [id number] [phone] COBY LEON PATIENT FEP PROVIDER FAMIL 2017 [id number] VERO ORGANIZAT Y ION (PPO) BCBS OF [place] DENTAL DENTA Nov 30 [id number] [phone] COBY LEON PATIENT FEP INSURANCE L 112 2017 62 5 VERO (DENTAL) [place]BS [place] PREFERRED BASIC Nov 30 [id number] [phone] COBY METZ PATIENT FEP PROVIDER FAMIL 2017 62 5 VERO ORGANIZAT Y ION (PPO) BCBS OF [place] PREFERRED STAND March 26 [id number] [phone] COBY METZ PATIENT (FEDERAL) 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 2014 62 7 VERO ORGANIZAT IND ION (PPO) 104 CAREMARK PRESCRIPT FEP March 26, [id number] [phone] CONR COBY [place] PATIENT ([id number]) ION 2015 0 62 7 VERO CAREMARK-F PRESCRIPT FEP Nov 30, [id number] [phone] [place] PATIENT EP BCBS ION CAREM 2018 0 62 1 VERO ARK CAREMARK-F PRESCRIPT SHERI Nov 30, [id number] [phone] [place] PATIENT EP BCBS ION AL 2018 0 62 1 VERO RX CAREMARK-F PRESCRIPT SHERI Nov 30, [id number] [phone] [place] PATIENT EP BCBS ION AL 2018 0 [id number] VERO RX CAREMARK-F PRESCRIPT FEP Nov 30, [id number] [phone] [place] PATIENT EP BCBS ION 2018 0 [id number] VERO HORIZON PREFERRED BASIC Nov 30 [id number] [phone] EDWARDME PATIENT BCBS FEP* PROVIDER FAMIL 2017 62 8 VERO ORGANIZAT Y ION (PPO) HORIZON PREFERRED BASIC Nov 30 [id number] [phone] EDWARDME PATIENT FEDERAL PROVIDER FAMIL 2017 62 8 VERO ORGANIZAT Y ION (PPO) DEPART WORKERS' OWCP Jul 01, NONE [id number] [phone] COBY REYNOLDS PATIENT OF LABOR COMPENSAT MEDIC 2018 [id number] VERO MED DFEC ION AL INSURANCE DFEC DEPT OF WORKERS' WORKE Jul 01, WORKERS [id number] [phone] ROBERT SAABME PATIENT LABOR COMPENSAT RS 2019 COMP [id number] VERO ION COMP INSURANCE Selected Encounter This section includes the information on record at [place] for the Encounter. Date/Time Encounter Type Encounter Reason Provider Source Description Jun 28, 2022 09:00 [facility] CHALINO OLEA AM Encounter - IND IHE Encounter Template Text not used by [...] 20 appointments. [facility]. Appointment Date/Time Appointment Type Appointment Facili ty Name Jul 12, 2022 08:00 AM AMBULATORY - PSYCHIATRY [facility] Jul 12, 2022 09:20 AM [facility] Jul 18, 2022 10:30 AM [place] [facility] Aug 05, 2022 02:00 PM [place] [facility] Aug 16, 2022 10:20 AM AMBULATORY MEDICINE [facility] Sep 03, 2022 11:45 AM [place] [facility] Sep 17, 2022 01:30 PM [facility] Sep 27, 2022 10:40 AM AMBULATORY - MEDICINE [facility] Nov 15, 2022 08:00 AM AMBULATORY - NONE [facility] E[facility] Dec 13, 2022 08:00 AM AMBULATORY - MEDICINE [facility] Active, Pending, and Scheduled Orders This section includes a listing of several types of active, pending, and scheduled orders, including clinic medications orders, diagnostic test orders, procedure orders and consult orders; where the start date of the order is 45 days before the date of the Encounter or 45 days after the date of the Encounter. The data comes from all [facility]. Test Date/Time Test Type Test Details Facility Name Jul 12, 2022 12:00 AM Laboratory - Chemistry HEMOGLOBIN A1C BLOO D [facility] Order SP ONCE [facility] Jul 25, 2022 12:00 AM Laboratory - Chemistry CHEM, Basic Metabol ic [facility] Order Panel BLOOD SERUM SP [facility] ONCE Lab Results: +/- 30 [...] Reference Range Comment Jul 05, 2022 08:22 [facility] HEMOGLOBIN A1C Specimen Type: BLOOD [facility] No comment enter ed. Ordering Provid er: ZULEMA TIM Report Released Date/Time: April 12, 2022 09:59 AM Reporting Lab: [facility] [address] [facility] [address] Performing Lab: [facility] [address] [facility] [address] HEMOGLOBIN A1C 7.2 H 4.8-5.6 Jul 05, 2022 [facility] CHEM, Basic Specimen Type: SERUM 08:22 AM [facility] Metabolic Panel Comment: eGFR [...] Stage 5 - End Stage CKD Reference: [email or web address] Ordering Provid er: ZULEMA TIM Report Released Date/Time: April 12, 2022 09:59 AM Reporting Lab: [facility] [address] [facility] [address] Performing Lab: [facility] [address] [facility] [address] CREATININE 1.3 .7-1.3 UREA NITROGEN 21 7-25 GLUCOSE 138 H 65-99 SODIUM 140 136-145 POTASSIUM 4.3 3.5-5.1 CHLORIDE 105 98-107 CO2 25 21-31 CALCIUM 9.8 8.6-10.3 ANION GAP 10 5-13 eGFR 65 L >90 Jun 26, 2022 12:00 [facility] NEW COVID-19 MONITOR Specimen Ty pe: OROPHARYNX [facility] PANEL([facility]) No comment enter ed. Ordering Provid er: ASHWINI SARMIENTO Report Released Date/Time: Mar 21, 2022 08:55 AM Reporting Lab: [facility] [address] [facility] [address] Performing Lab: [facility] [address] [facility] [address] COVID-19 ([id number]) Not Detected Not De tected Jun 12, 2022 12:36 [facility] COVID-19 MONITOR Specimen Ty pe: OROPHARYNX PM [facility] PANEL([facility]) No comment enter ed. Ordering Provid er: ASHWINI SARMIENTO Report Released Date/Time: Mar 21, 2022 08:55 AM Reporting Lab: [facility] [address] [facility] [address] Performing Lab: [facility] [address] [facility] [address] COVID-19 ([id number]) Not Detected Not De tected Jun 04, 2022 03:39 [facility] COVID-19 MONITOR Specimen Ty pe: OROPHARYNX PM [facility] PANEL([facility]) Comment: Test P erformed by NAHUM Lemus Ordering Provid er: ASHWINI SARMIENTO Report Released Date/Time: Mar 21, 2022 08:55 AM Reporting Lab: [facility] [address] [facility] [address] Performing Lab: [facility] [address] [facility] [address] COVID-19 ([id number]) Not Detected Not De tected Social History: Smoking Status (Most current) and Tobacco Use (All prior to encounter date) This section includes the most current, and the historical, smoking and tobacco-related health factors from the [place] facility where the Encounter took place.Current Smoking Status This section includes the most current smoking, or tobacco-related health factor, from the [place] facility where the Encounter took place. Date/Time Current Smoking Status Comment Facility Jun 28, 2022 09:00 AM VA-TOBACCO QUIT 15 YRS OR MORE [facility] Tobacco Use History This section includes a history of the smoking, or tobacco- related health factors, that were collected on or before the date of the Encounter. The data comes from the [place] facility where the Encounter took place. Date/Time Smoking Status/Tobacco Use Comment [facility] Jun 28, 2022 09:00 AM VA-TOBACCO QUIT 15 YRS [facility] Jun 29, 2021 09:00 AM VA-TOBACCO FORMER USER [facility] Jun 29, 2021 09:00 AM VA-TOBACCO QUIT 15 YRS OR [facility] Jul 20, 2020 10:30 AM VA-TOBACCO NEVER USED [facility] Aug 12, 2019 03:12 PM VA-TOBACCO FORMER USER [facility] Aug 12, 2019 03:12 PM VA-TOBACCO QUIT 15 YRS OR [facility] Aug 20, 2018 04:56 PM VA-TOBACCO [facility] Aug 20, 2018 04:56 PM VA-TOBACCO QUIT 15 YRS OR [facility] Nov 19, 2016 09:49 AM LIFETIME NON-USER OF [facility] - [place] NEW TOBACCO [facility] Dec 13, 2015 03:30 PM QUIT TOBACCO >7 YEARS AGO [facility] Dec 09, 2014 09:06 AM QUIT TOBACCO >7 YEARS AGO [facility] Jan 29, 2014 08:56 AM LIFETIME NON-USER OF [facility] - [facility] TOBACCO [facility] Jun 11, 2012 01:32 PM QUIT TOBACCO >7 YEARS AGO [facility] Feb 01, 2009 09:26 AM LIFETIME NON-[place] OF [facility] [place] NEW TOBACCO quit [address] [place] [address] Aug 19, 2001 09:28 AM HISTORY OF SMOKING [facility]- [place] NEW Quit 2 yrs ago, 18 pack-yr Hx. J ARA [facility] Encounter Notes: All associated encounter notes This section contains the clinical notes associated to the Encounter. Date/Time Encounter Note(s) Provider Source Jun 28, 2022 07:33 PM NO SHOW [facility]: MH&BS//NO SHOW [facility] STANDARD TITLE: NO SHOW NOTE DATE OF NOTE: JUN 28, 2022@19:33 ENTRY DATE: JUN 28, 2022@19:33:56 AUTHOR: GEORGIANA CARRILLO EXP COSIGNER: URGENCY: STATUS: COMPLETED MH&BS//NO SHOW Has ADDENDA EDWARD did not show for a scheduled appointment on: Jun@09:00 Date last seen in the clinic: 04/05/2022 Medical record reviewed for the assessment of cl inical high risk: NO Patient is high risk if the answer is Yes to a ny of the items below: 1) Patient discharged from the acute psychiatry unit in less than 30 days: NO 2) Suicide attempt in the past year: NO 3) Lifetime history of homicide: NO First call made on Jun@09:00 Patient reached: NO Outcome: [phone] X2 messages left to call clinic for appointment letter to be mailed 06/28/2022 /jacki/ GEORGIANA CARRILLO MD STAFF PSYCHIATRIST Signed: 06/28/2022 19:38 Receipt Acknowledged By: 07/01/2022 12:23 /jacki/ WANDER OLEA Staff Nurse 07/02/2022 ADDENDUM STATUS: COMPLETED 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 This music writer spoke with . expressed they are safe and denies any acute MH symptoms at this time. [employer] will call to reschedule. This music writer con firmed has clinic contact numbers. [employer] advised to call the 's Cr artem Line at , call 911, and/or go to the nearest ED for suicidal/homicid al ideation or worsening of symptoms. [facility] Alcohol screen: AUDIT-C administered today: An alcohol screening test (AUDIT-C) was negativ e (score=2) 1. How often did you have a drink containing al cohol in the past year? Two to four times a month 2. How many drinks containing alcohol did you h ave on a typical day when you were drinking in the past year? One or two drinks 3. How often did you have six or more drinks on one occasion in the past year? Never Tobacco Use Screening: The patient is a former tobacco user. The patient quit fifteen or more years ago. /jacki/ WANDER OLEA Staff Nurse Signed: 07/02/2022 10:35
--- OUTSIDE RECORDS SUMMARY | 2022-10-02 10:27 | XMS_ITS | Encounter Summary ---
:1965 Author Organization [facility] rs Address [address] [place] [id number] Support Name Relationship Address Phone DENISSE LEON Unavailable [address] [place] [address] NONE, GIVEN Unavailable Unavailable Unavailable Insurance Providers: [...] to Policy Number Chen AETNA [place] Feb [id number] [phone] [place] PATIENT SERVICE INTER 2011 381 2 [place]ERO [place] AETNA PRESCRIPT [facility] Feb [id number] [phone] COBY LEON PATIENT PHARMACY ION INTER 2011 [id number] VERO MANAGEMENT NATIO 1 [place] BCBS [place] PREFERRED BASIC Nov 30 [id number] [phone] COBY LEON PATIENT FEP PROVIDER FAMIL 2017 [id number] VERO ORGANIZAT Y ION (PPO) [place]BS [place] DENTAL [place] Nov 30 [id number] [phone] COBY LEON PATIENT FEP INSURANCE L [id number] 2017 62 5 VERO (DENTAL) [place] PREFERRED BASIC Nov 30 [id number] [phone] COBY METZ PATIENT FEP PROVIDER FAMIL 2017 62 5 VERO ORGANIZAT Y ION (PPO) [place] OF [place] PREFERRED STAND March 26 [id number] [phone] COBY METZ PATIENT (FEDERAL) 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 2014 62 7 VERO ORGANIZAT IND ION (PPO) 104 CAREMARK PRESCRIPT FEP March 26, [id number] [phone] CONR NADYA,UT PATIENT ([id number]) ION 2015 0 62 7 VERO CAREMARK-F PRESCRIPT FEP Nov 30, [id number] [phone] [place] PATIENT EP BCBS ION CAREM 2018 0 62 1 VERO ARK CAREMARK-F PRESCRIPT FEP Nov 30, [id number] [phone] PATIENT EP BCBS ION 2018 0 [id number] VERO CAREMARK-F PRESCRIPT SHERI Nov 30, [id number] [phone] [place] PATIENT EP BCBS ION AL 2018 0 62 1 VERO RX CAREMARK-F PRESCRIPT SHERI Nov 30, [id number] [phone] [place] PATIENT EP BCBS ION AL [id number] 0 [id number] VERO RX HORIZON PREFERRED BASIC Nov 30 [id number] [phone] EDWARDUT PATIENT BCBS FEP* PROVIDER FAMIL 2017 62 8 VERO ORGANIZAT Y ION (PPO) HORIZON PREFERRED BASIC Nov 30 [id number] [phone] EDWARDUT PATIENT FEDERAL PROVIDER FAMIL 2018 62 8 VERO ORGANIZAT Y ION (PPO) DEPART WORKERS' OWCP Jul 01, NONE [id number] [phone] INDIGO CruzUT PATIENT OF LABOR COMPENSAT MEDIC 2018 [id number] VERO MED DFEC ION AL INSURANCE DFEC DEPT OF WORKERS' WORKE Jul 01, WORKERS [id number] [phone] ROBERT SAABUT PATIENT LABOR COMPENSAT RS 2019 COMP [id number] VERO ION COMP INSURANCE Selected Encounter This section includes the information on record at [facility] for the Encounter. Date/Time Encounter Type Encounter Reason Provider Source Description May 08, 2022 PSYTX W PT 45 MENTAL HEALTH ICD-10-CM F33.1 ANGIE GAFFNEY 10:00 AM [facility] - IND Major depressive SARAH disorder, recurrent, moderate with Provider Comments: Moderate major depression (SCT 205942) IHE Encounter Template Text not used by [facility] Assessments - Encounter Diagnoses This section includes the primary and secondary diagnoses documented for the Encounter. Date/Time Primary/Secondary Diagnosis Name Provider Source Diagnosis May 08, 2022 PRIMARY Major depressive ANGIE GAFFNEY [facility] N EW 04:29 PM disorder, SARAH [facility] recurrent, moderate Plan of Treatment: Future Appointments (+ 6 months) and Future Tests (+/- 45 days) The Plan of Treatment section includes future care activities for the patient from all [place] treatmentfacilities. This section includes future appointments and future orders which are active, pending orscheduled.Future Appointments This section includes appointments that were scheduled to occur 6 months from the date of the Encounter, up to a maximum of 20 appointments. The data comes from all AR treatment facilities. Appointment Date/Time Appointment Type Appointment Facili ty Name Jun 27, 2022 09:30 AM AMBULATORY MEDICINE [facility] Jun 28, 2022 09:00 AM AMBULATORY PSYCHIATRY [facility] Jul 12, 2022 08:00 AM AMBULATORY PSYCHIATRY [facility] Jul 12, 2022 09:20 AM [facility] Jul 18, 2022 10:30 [facility] Aug 05[facility] 2022 02:00 PM [facility] Aug 16, 2022 10:20 AM [facility] Sep 03, 2022 11:45 AM [facility] Sep 17, 2022 01:30 PM [facility] Sep 27, 2022 10:40 AM [facility] Lab Results: +/- 30 days of the encounter This section includes the Chemistry and Hematology Lab Results on record with AR for the patient. Radiology Reports and Pathology Reports are provided separately, in subsequent sections.Lab Results This section contains the Chemistry/Hematology Results that were resulted 30 days before or 30 daysafter the date of the Encounter. Date/Time Source Result Type Result - Unit Interpretation Reference Range Comment Jun 04, 2022 03:39 [facility] COVID-19 MONITOR Specimen Ty pe: OROPHARYNX PM [facility] PANEL([facility]) Comment: Test P erformed by NAHUM Lemus Ordering Provid er: ASHWINI SARMIENTO Report Released Date/Time: Mar 21, 2022 08:55 AM Reporting Lab: [facility] [address] [facility] [address] Performing Lab: [facility] [address] [facility] [address] COVID-19 ([id number]) Not Detected Not De tected May 14, 2022 06:04 [facility]-19 MONITOR Specimen Ty pe: OROPHARYNX PM [facility] PANEL([facility]) Comment: Test P erformed by NAHUM Lemus Ordering Provid er: ASHWINI SARMIENTO Report Released Date/Time: Mar 21, 2022 08:55 AM Reporting Lab: [facility] [address] [facility] [address] Performing Lab: [facility] [address] [facility] [address] COVID-19 ([id number]) Not Detected Not De tected May 07, 2022 12:40 [facility] COVID-19 MONITOR Specimen Ty pe: OROPHARYNX PM [facility] PANEL([facility]) Comment: Test P erformed by NAHUM Lemus Ordering Provid er: ASHWINI SARMIENTO Report Released Date/Time: Mar 21, 2022 08:55 AM Reporting Lab: [facility] [address] [facility] [address] Performing Lab: [facility] [address] [facility] [address] COVID-19 ([id number]) Not Detected Not De tected May 01, 2022 11:58 [facility] POC GLUCOSE Specimen Type: BLOOD AM [facility] No comment enter ed. Ordering Provid er: TODD RUSSO MD Report Released Date/Time: May 01, 2022 12:00 PM Reporting Lab: [facility] [address] [facility] [address] Performing Lab: [facility] [address] [facility] [address] POC GLUCOSE 102 70-115 May 01, 2022 09:26 [facility] POC GLUCOSE Specimen Type: BLOOD AM [facility] No comment enter ed. Ordering Provid er: JC CABALLERO Report Released Date/Time: May 01, 2022 09:28 AM Reporting Lab: [facility] [address] [facility] [address] Performing Lab: [facility] [address] [facility] [place] [place] [address] POC GLUCOSE 137 70-115 May 01, 2022 [facility] COVID-19, FLU/RSV Specimen T ype: NASOPHARYNX 08:22 AM [facility] SCREEN. 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 Reason: ORDER CORRECTED, STAT FOR PROCEDURE Added by [id number] on May 01, 2022@08:22 Ordering Provid er: TODD RUSSO MD Report Released Date/Time: May 01, 2022 08:11 AM Reporting Lab: [facility] [address] [facility] [address] Performing Lab: [facility] [address] [facility] [address] COVID-19 PCR (FLUVID) Not Detected Not D etected FLU A PCR (FLUVID) Not Detected Not Dete cted FLU B PCR (FLUVID) Not Detected Not Dete cted RSV PCR (FLUVID) Not Detected Not Detect ed April 23, 2022 12:00 [facility] COVID-19 MONITOR Specimen Ty pe: OROPHARYNX AM [facility] PANEL([facility]) Comment: Test P erformed by NAHUM Lemus Ordering Provid er: ASHWINI SARMIENTO Report Released Date/Time: Mar 21, 2022 08:55 AM Reporting Lab: [facility] [address] [facility] [address] Performing Lab: [facility] [address] [facility] [address] COVID-19 ([id number]) Not Detected Not De tected April 17, 2022 12:30 [facility] NEW COVID-19 MONITOR Specimen Ty pe: OROPHARYNX PM [facility] PANEL([facility]) Comment: Test P erformed by NAHUM Lemus Ordering Provid er: ASHWINI SARMIENTO Report Released Date/Time: Mar 21, 2022 08:55 AM Reporting Lab: [facility] [address] [facility] [facility] [place] [place] [address] Performing Lab: [facility] [address] [facility] [address] COVID-19 ([id number]) Not Detected Not De tected April 12, 2022 08:02 [facility] HEMOGLOBIN A1C Specimen Type: BLOOD [facility] No comment enter ed. Ordering Provid er: JUSTIN HEBERT Report Released Date/Time: Dec 21, 2021 09:49 AM Reporting Lab: [facility] [address] [facility] [address] Performing Lab: [facility] [address] [facility] [address] HEMOGLOBIN A1C 7.0 H 4.8-5.6 April 12, 2022 [facility] CHEM, Comprehensive Specimen Ty pe: SERUM 08:02 AM [facility] Metabolic Panel Comment: eGFR c alculated [...] Stage 5 - End Stage CKD Reference: [email or web address] Ordering Provid er: JUSTIN HEBERT Report Released Date/Time: Dec 21, 2021 09:49 AM Reporting Lab: [facility] [address] [facility] [address] Performing Lab: [facility] [address] [facility] [address] CREATININE 1.3 .7-1.3 UREA NITROGEN 22 7-25 GLUCOSE 264 H 65-99 SODIUM 137 136-145 POTASSIUM 4.2 3.5-5.1 CHLORIDE 100 98-107 CO2 27 21-31 CALCIUM 9.7 8.6-10.3 PROTEIN,TOTAL 7.0 6.4-8.9 ALBUMIN 4.6 3.5-5.7 TOTAL BILIRUBIN 0.6 0.3-1.0 ALKALINE PHOSPHATASE 71 34-104 AST 22 13-39 ALT 23 7-52 ANION GAP 10 5-13 eGFR 65 L >90 April 09, 2022 03:21 [facility] NEW COVID-19 MONITOR Specimen Ty pe: OROPHARYNX PM [facility] PANEL([facility]) Comment: Test P erformed by NAHUM Lemus Ordering Provid er: ASHWINI SARMIENTO Report Released Date/Time: Mar 21, 2022 08:55 AM Reporting Lab: [facility] [address] [facility] [address] Performing Lab: [facility] [address] [facility] [address] COVID-19 ([id number]) Not Detected Not De tected Social History: Smoking Status (Most current) and Tobacco Use (All prior to encounter date) This section includes the most current, and the historical, smoking and tobacco-related health factors from the AR facility where the Encounter took place.Current Smoking Status This section includes the most current smoking, or tobacco-related health factor, from the AR facility where the Encounter took place. Date/Time Current Smoking Status Comment Facility Jun 29, 2021 09:00 AM VA-TOBACCO FORMER USER [facility] Tobacco Use History This section includes a history of the smoking, or tobacco- related health factors, that were collected on or before the date of the Encounter. The data comes from the AR facility where the Encounter took place. Date/Time Smoking Status/Tobacco Use Comment [facility] Jun 29, 2021 09:00 AM VA-TOBACCO QUIT 15 YRS OR [facility] Jul 20, 2020 10:30 AM [facility]-TOBACCO [facility]ED [facility] Aug 12, 2019 03:12 PM [facility]AC[facility] Aug 12, 2019 03:12 PM VA-TOBACCO QUIT 15 YRS OR [facility] Aug 20, 2018 04:56 PM [facility]AC[facility] Aug 20, 2018 04:56 PM VA-TOBACCO QUIT 15 YRS OR [facility] Nov 19, 2016 09:49 AM LIFETIME NON-USER OF [facility] Dec 13, 2015 03:30 PM QUIT TOBACCO >[facility]ARS AGO [facility] Dec 09, 2014 09:06 AM QUIT TOBACCO >7 [facility]ARS AGO [facility] Jan 29, 2014 08:56 AM LIFETIME NON-USER OF [facility] Jun 11, 2012 01:32 PM QUIT TOBACCO >7 YEARS AGO [facility] Feb 01, 2009 09:26 AM LIFETIME NON-USER OF [facility] NEW TOBACCO quit [address] [place] [address] Aug 19, 2001 09:28 AM HISTORY OF SMOKING [facility] NEW Quit 2 yrs ago, 18 pack-yr Hx. [facility] Pathology Reports: +/- 30 days of the [...] the Encounter. The data comes from all AR treatment facilities. Date/Time Pathology Report Provider Source May 10, 2022 11:37 LR SURGICAL PATHOLOGY REPORT: KIRK PAGAN [facility] LOCAL TITLE: LR SURGICAL PATHOLOGY REPORT [facility] STANDARD TITLE: LABORATORY NOTE DATE OF [...] determined by the immunoperoxid ase Laboratory of [facility]. They have not been cl eared [...] and negative controls were run and reviewed. CPT:84617d8; 88233 SUPPLEMENTARY REPORT(S): Supplementary Report Date: MAY 10, 2022 *+* SUPPLEMENTARY REPORT HAS BEEN ADDED/MODIFIE D *+* (Added/Last released: May 10, 2022 11:37 Signed by ELIN PAGAN) IMMUNOSTAIN IS PERFORMED ON SPECIMEN A WHICH IS NEGATIVE FOR H.PYLORI ORGANISMS. CPT: 25528 IHC DISCLAIMER Some of these tests were developed and their pe rformance characteristics determined by the immunoperoxidase Laboratory o [facility]. They have not been cleared or [...] Performing Laboratory: Surgical Pathology Report Performed By: [facility] [CLI A# [id number]] [address] [place] [id number] $FTR - - - - - - [...] - - ANGIE LEON STANDARD FORM 515 ID:[id number] SEX:M :1965 AGE: 56 LOC: [facility] PCP: Jc Caballero, CHEYANNE /kirstie PAGAN STAFF PATHOLOGIST Signed: 05/10/2022 11:37 May 06, 2022 08:23 LR SURGICAL PATHOLOGY REPORT: JUDY THOMASON [facility] TITLE: LR SURGICAL PATHOLOGY REPORT [facility] STANDARD TITLE: LABORATORY NOTE DATE OF [...] determined by the immunoperoxid ase Laboratory of [facility]. They have not been cl eared or approved by U.S. Food and Drug Administration. The FDA has deter mined that such clearance or approval is not necessary. This test is used for clinical purposes. It should not be regarded as investigational or fo r research. This laboratory is certified under the Clinical Labo ratory Improvement Amendments of 1988 (CLIA-88) as qualified to [facility] high complexity clinical laboratory testing. The appropriate po sitive and negative controls were run and reviewed. CPT:89203o3; 43727 /es/ JUDY KUMAR [facility] STAFF PATHOLOGIST Signed May 06, 2022@08:23 Performing Laboratory: Surgical Pathology Report Performed By: [facility] [CLI A# [id number]] [address] [place] [address] $FTR - - - - - - [...] - - ANGIE LEON STANDARD FORM 515 ID:[id number] SEX:M :1965 AGE: 56 LOC: [facility] PCP: Jc Caballero NP /jacki/ JUDY THOMASON STAFF PATHOLOGIST Signed: 05/06/2022 08:23 Encounter Notes: All associated encounter notes This section contains the clinical notes associated to the Encounter. Date/Time Encounter Note(s) Provider Source May 08, 2022 10:00 AM MENTAL HEALTH NOTE: ANGIE GAFFNEY [facility] TITLE: &BS//[facility] STANDARD TITLE: MENTAL HEALTH NOTE DATE OF NOTE: MAY 08, 2022@10:00 ENTRY DATE: MAY 08, 2022@12:37:11 AUTHOR: ANGIE GAFFNEY EXP COSIGNER: URGENCY: STATUS: COMPLETED Met with patient for 45 steve te individual session. Patient reported that he had recent colonoscopy and endoscopy and several daphnie yps were found as well as him being informed that he had an ulcer. He was prescribed medication to treat the ulcer. Discussed with patient managing s tress as it relates to contributing to medical issues such as ulcers. 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 He a lso said that he has been managing depressive symptoms well. Assessment: Mood: Euthymic Affect: Appropriate Speech: Normal volume, fluent, non-pressured, no rmal rate and rhythm Thought Process: Linear and goal-directed Thought Content: No suicidal or homicida l ideation intention or plan reported; no delusions/paranoia elicited Perceptions: No auditory or visual hallucination s reported Insight/Judgment: Good Impulse control: Good Diagnosis: Major depressive disorder, recurrent, moderate Plan: Continue with individual counseling RTC: Next session scheduled for 06/12/22 at 10 am . /jacki/ ANGIE GAFFNEY social science analyst Signed: 05/08/2022 16:29
--- OUTSIDE RECORDS SUMMARY | 2022-10-02 10:27 | XMS_ITS | Encounter Summary ---
:1965 Author Organization [facility] rs Address [address] [place] [id number] Support Name Relationship Address Phone DENISSE LEON Unavailable [address] [facility] [place] [address] NONE, GIVEN Unavailable Unavailable Unavailable Insurance Providers: [...] Policy Number Chen AETNA [place] [facility] Feb [id number] [phone] [place] PATIENT SERVICE INTER 2011 381 2 VERO [place] AETNA PRESCRIPT [facility] Feb [id number] [phone] COBY LEON PATIENT PHARMACY ION INTER 2011 [id number] VERO MANAGEMENT NATIO 1 [place] BCBS [place] PREFERRED BASIC Nov 30 [id number] [phone] COBY LEON PATIENT FEP PROVIDER FAMIL 2017 62 [id number] VERO ORGANIZAT Y ION (PPO) BCBS OF [place] DENTAL [place] Nov 30 [id number] [phone] COBY LEON PATIENT FEP INSURANCE L 112 2017 62 5 VERO (DENTAL) [place] PREFERRED BASIC Nov 30 [id number] [phone] COBY METZ PATIENT FEP PROVIDER FAMIL 2017 62 5 VERO ORGANIZAT Y ION (PPO) [place] OF [place] PREFERRED STAND March 26 [id number] [phone] COBY METZ PATIENT (FEDERAL) 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 2014 62 7 VERO ORGANIZAT IND ION (PPO) 104 CAREMARK PRESCRIPT FEP March 26, [id number] [phone] CONR NADYA,COBY PATIENT ([id number]) ION 2014 0 62 7 VERO CAREMARK-F PRESCRIPT FEP Nov 30, [id number] [phone] [place] PATIENT EP BCBS ION CAREM 2018 0 62 1 VERO ARK CAREMARK-F PRESCRIPT FEP Nov 30, [id number] [phone] PATIENT EP BCBS ION 2018 0 [id number] VERO CAREMARK-F PRESCRIPT SHERI Nov 30, [id number] [phone] [place] PATIENT EP BCBS ION AL 2018 0 62 1 VERO RX CAREMARK-F PRESCRIPT SHERI Nov 30, [id number] [phone] [place] PATIENT EP BCBS ION AL 2018 0 [id number] 1 VERO RX HORIZON PREFERRED BASIC Nov 30 [id number] [phone] EDWARDAZ PATIENT BCBS FEP* PROVIDER FAMIL 2017 62 8 VERO ORGANIZAT Y ION (PPO) HORIZON PREFERRED BASIC Nov 30 [id number] [phone] EDWARDAZ PATIENT FEDERAL PROVIDER FAMIL 2017 62 8 VERO ORGANIZAT Y ION (PPO) DEPART WORKERS' OWCP Jul 01, NONE [id number] [phone] COBY REYNOLDS PATIENT OF LABOR COMPENSAT MEDIC 2018 [id number] VERO MED DFEC ION AL INSURANCE DFEC DEPT OF WORKERS' WORKE Jul 01, WORKERS [id number] [phone] ROBERT SAABAZ PATIENT LABOR COMPENSAT RS 2019 COMP [id number] VERO ION COMP INSURANCE Selected Encounter This section includes the information on record at [place] for the Encounter. Date/Time Encounter Type Encounter Reason Provider Source Description May 10, 2022 11:37 Outpatient EVENT (HISTORICAL) FIDAN-OZB ILGIN,O AM Encounter ZLEM IHE Encounter Template Text not used by [...] 20 appointments. The data comes from all [place] treatment facilities. Appointment Date/Time Appointment Type Appointment Facili ty Name Jun 27, 2022 09:30 AM AMBULATORY - MEDICINE [facility] Jun 28, 2022 09:00 AM AMBULATORY - PSYCHIATRY [facility] Jul 12, 2022 08:00 AM AMBULATORY - PSYCHIATRY [facility] Jul 12, 2022 09:20 AM AMBULATORY MEDICINE [facility] Jul 18, 2022 10:30 [facility] Aug 05, 2022 02:00 [facility] Aug 16, 2022 10:20 AM AMBULATORY [facility] Sep 03, 2022 11:45 AM [facility] Sep 17, 2022 01:30 PM [facility] Sep 27, 2022 10:40 AM AMBULATORY - MEDICINE [facility] Lab Results: +/- 30 days [...] Jun 04, 2022 03:39 [facility] COVID-19 MONITOR Specimen Ty pe: OROPHARYNX [facility] PANEL([facility]) Comment: Test P erformed by NAHUM Lemus Ordering Provid er: ASHWINI SARMIENTO Report Released Date/Time: Mar 21, 2022 08:55 AM Reporting Lab: [facility] [address] [address] Performing Lab: [facility] [address] [address] COVID-19 ([id number]) Not Detected Not De tected May 14, 2022 06:04 [facility] COVID-19 MONITOR Specimen Ty pe: OROPHARYNX PM [facility] PANEL([facility]) Comment: Test P erformed by NAHUM Lemus Ordering Provid er: ASHWINI SARMIENTO Report Released Date/Time: Mar 21, 2022 08:55 AM Reporting Lab: [facility] [address] [address] Performing Lab: [facility] [address] [address] COVID-19 ([id number]) Not Detected Not De tected May 07, 2022 12:40 [facility] COVID-19 MONITOR Specimen Ty pe: OROPHARYNX PM [facility] PANEL([facility]) Comment: Test P erformed by NAHUM Lemus Ordering Provid er: ASHWINI SARMIENTO Report Released Date/Time: Mar 21, 2022 08:55 AM Reporting Lab: [facility] [address] [address] Performing Lab: [facility] [address] [address] COVID-19 ([id number]) Not Detected Not De tected May 01, 2022 11:58 [facility] POC GLUCOSE Specimen Type: BLOOD AM [facility] No comment enter ed. Ordering Provid er: TODD RUSSO MD Report Released Date/Time: May 01, 2022 12:00 PM Reporting Lab: [facility] [address] [address] Performing Lab: [facility] [address] [address] POC GLUCOSE 102 70-115 May 01, 2022 09:26 [facility] POC GLUCOSE Specimen Type: BLOOD AM [facility] No comment enter ed. Ordering Provid er: JC CABALLERO Report Released Date/Time: May 01, 2022 09:28 AM Reporting Lab: [facility] [address] [facility] [address] Performing Lab: [facility] [address] [facility] [address] POC GLUCOSE 137 70-115 May 01, 2022 [facility] COVID-19, FLU/RSV Specimen T ype: NASOPHARYNX 08:22 AM [facility] SCREEN. PANEL(FLUVID) Comment: *COVID-19 SCREENING PANEL([facility]) Not Performed: May 01, 2022@08:23 b *INVOICING MACHINE OPERATOR Reason: ORDER CORRECTED, STAT FOR PROCEDURE Added by [id number] on May 01, 2022@08:22 Ordering Provid er: TODD RUSSO MD Report Released Date/Time: May 01, 2022 08:11 AM Reporting Lab: [facility] [address] [facility] [address] Performing Lab: [facility] [address] [facility] [address] COVID-19 PCR (FLUVID) Not Detected Not D etected FLU A PCR (FLUVID) Not Detected Not Dete cted FLU B PCR (FLUVID) Not Detected Not Dete cted RSV PCR (FLUVID) Not Detected Not Detect ed April 23, 2022 12:00 [facility] COVID-19 MONITOR Specimen Ty pe: OROPHARYNX AM [facility] PANEL([facility]) Comment: Test P erformed by NAHUM Lemus Ordering Provid er: ASHWINI SARMIENTO Report Released Date/Time: Mar 21, 2022 08:55 AM Reporting Lab: [facility] [address] [facility] [address] Performing Lab: [facility] [address] [facility] [address] COVID-19 ([id number]) Not Detected Not De tected April 17, 2022 12:30 [facility] COVID-19 MONITOR Specimen Ty pe: OROPHARYNX PM [facility] PANEL([facility]) Comment: Test P erformed by NAHUM Lemus Ordering Provid er: ASHWINI SARMIENTO Report Released Date/Time: Mar 21, 2022 08:55 AM Reporting Lab: [facility] [address] [facility] [address] Performing Lab: [facility] [address] [facility] [address] COVID-19 ([id number]) Not Detected Not De tected April 12, 2022 08:02 [facility] HEMOGLOBIN A1C Specimen Type: BLOOD AM [facility] No comment enter ed. Ordering Provid er: JUSTIN HEBERT Report Released Date/Time: Dec 21, 2021 09:49 AM Reporting Lab: [facility] [address] [address] Performing Lab: [address] [address] HEMOGLOBIN A1C 7.0 H 4.8-5.6 April 12, 2022 [facility] CHEM, Comprehensive Specimen Ty pe: SERUM 08:02 AM [facility] Metabolic Panel Comment: eGFR c [...] Stage 5 - End Stage CKD Reference: [email or web address] on the Run/ Ordering Provid er: JUSTIN HEBERT Report Released Date/Time: Dec 21, 2021 09:49 AM Reporting Lab: [address] [address] Performing Lab: [address] [address] CREATININE 1.3 .7-1.3 UREA NITROGEN 22 7-25 GLUCOSE 264 H 65-99 SODIUM 137 136-145 POTASSIUM 4.2 3.5-5.1 CHLORIDE 100 98-107 CO2 27 21-31 CALCIUM 9.7 8.6-10.3 PROTEIN,TOTAL 7.0 6.4-8.9 ALBUMIN 4.6 3.5-5.7 TOTAL BILIRUBIN 0.6 0.3-1.0 ALKALINE PHOSPHATASE 71 34-104 AST 22 13-39 ALT 23 7-52 ANION GAP 10 5-13 eGFR 65 L >90 Social History: Smoking Status (Most current) and Tobacco Use (All prior to encounter date) This section includes the most current, and the historical, smoking and tobacco-related health factors from the [place] facility where the Encounter took place.Current Smoking Status This section includes the most current smoking, or tobacco-related health factor, from the [place] facility where the Encounter took place. Date/Time Current Smoking Status Comment Facility Oct 28, 2017 08:55 AM LIFETIME NON-USER OF TOBACCO [facility] Pathology Reports: +/- 30 days of the [...] comes from all [facility] facilities. Date/Time Pathology Report Provider Source May 10, 2022 11:37 LR SURGICAL PATHOLOGY REPORT: [facility] LOCAL TITLE: LR SURGICAL PATHOLOGY [...] determined by the immunoperoxid ase Laboratory of [facility]. They have not been cl [...] and negative controls were run and reviewed. CPT:21773j4; 87276 SUPPLEMENTARY REPORT(S): Supplementary Report Date: MAY 10, 2022 *+* SUPPLEMENTARY REPORT HAS BEEN ADDED/MODIFIE D *+* (Added/Last released: May 10, 2022 11:37 Signed by ELIN PAGAN) IMMUNOSTAIN IS PERFORMED ON SPECIMEN A WHICH IS NEGATIVE FOR H.PYLORI ORGANISMS. CPT: 52865 IHC DISCLAIMER Some of these tests were developed and their pe rformance characteristics determined by the immunoperoxidase Laboratory o [facility]. They have not been cleared or approved [...] run and reviewed. /kirstie PAGAN FOR JUDY Moncada STAFF PATHOLOGIST Signed May 10, 2022@11:37 Performing Laboratory: Surgical Pathology Report Performed By: [facility] [CLI A# [id number]] [address] [place] [address] $FTR - - - - - - [...] - - ANGIE LEON STANDARD FORM 515 ID:[id number] SEX:M :1965 AGE: 56 LOC: [facility] PCP: Jc Caballero, CHEYANNE /kirstie PAGAN STAFF PATHOLOGIST Signed: 05/10/2022 11:37 May 06, 2022 08:23 LR SURGICAL PATHOLOGY REPORT: JUDY THOMASON [facility] TITLE: LR SURGICAL PATHOLOGY REPORT [facility] STANDARD TITLE: LABORATORY NOTE DATE [...] Submitted by: TODD RUSSO Date obtained: [place] 2021 13:23 - - - - - [...] DIAGNOSIS: LOPEZ'S ESOPHAGUS SURVELLANCE, COLON POLYP COVARRUBIAS HUNTERELLACINDY. - - - - - - - [...] determined by the immunoperoxid ase Laboratory of [facility]. They have not been cl [...] Amendments of 1988 (CLIA-88) as qualified to [facility] high complexity clinical laboratory testing. The appropriate po sitive and negative controls were run and reviewed. CPT:23695i4; 11920 /es/ JUDY THOMASON STAFF PATHOLOGIST Signed May 06, 2022@08:23 Performing Laboratory: Surgical Pathology Report Performed By: [facility] [CLI A# [id number]] [address] [place] [address] $FTR - - - - - - - - - - - - - - - - - - - - - - - - - - - - - - - - - - - - - - - - (End of report) JUDY LAURA rkg Date May 06, 2022 - - - - - - - - - - - - - - - - - - - - - - - - - - - - - - - - - - - - - - - - EDWARDANGIE LEMA STANDARD FORM 515 ID:[id number] SEX:M :1965 AGE: 56 LOC: [facility] PCP: Jc Caballero, INVOICING MACHINE OPERATOR /es/ JUDY [facility] STAFF PATHOLOGIST Signed: 05/06/2022 08:23 Encounter Notes: All associated encounter notes This section contains the clinical notes associated to the Encounter. Date/Time Encounter Note(s) Provider Source May 10, 2022 11:37 LABORATORY NOTE: KIRK [facility]AG[facility] TITLE: LR SURGICAL PATHOLOGY REPORT [facility] [...] Submitted by: TODD RUSSO Date obtained: [place] 2021 13:23 - - - - - [...] determined by the immunoperoxid ase Laboratory of [facility]. They have not been cl [...] and negative controls were run and reviewed. CPT:10591f1; 99794 SUPPLEMENTARY REPORT(S): Supplementary Report Date: MAY 10, 2022 *+* SUPPLEMENTARY REPORT HAS BEEN ADDED/MODIFIE D *+* (Added/Last released: May 10, 2022 11:37 Signed by ELIN PAGAN) IMMUNOSTAIN IS PERFORMED ON SPECIMEN A WHICH IS NEGATIVE FOR H.PYLORI ORGANISMS. CPT: 49860 IHC DISCLAIMER Some of these tests were developed and their pe rformance characteristics determined by the immunoperoxidase Laboratory o [facility]. They have not been cleared or approved [...] run and reviewed. /kirstie PAGAN FOR JUDY HESSJUAN LUIS BURNETT STAFF PATHOLOGIST Signed May 10, 2022@11:37 Performing Laboratory: Surgical Pathology Report Performed By: [facility] [CLI A# [id number]] [address] [place] [address] $FTR - - - - - - - - - - - - - - - - - - - - - - - - - - - - - - - - - - - - - - - - (End of report) JUDY HESSJUAN LUIS THOMASON [facility] Date May 06, 2022 - - - - - - - - - - - - - - - - - - - - - - - - - - - - - - - - - - - - - - - - ANGIE LEON STANDARD FORM 515 ID:[id number] SEX:M :1965 AGE: 56 LOC: [facility] PCP: Jc Caballero NP /kirstie PAGAN STAFF PATHOLOGIST Signed: 05/10/2022 11:37
--- OUTSIDE RECORDS SUMMARY | 2022-10-02 10:27 | XMS_ITS | Encounter Summary ---
:1965 Author Organization [facility] rs Address [address] [place] [address] Support Name Relationship Address Phone DENISSE LEON Unavailable [address] [place] [address] NONE, GIVEN Unavailable Unavailable Unavailable Insurance Providers: [...] to Policy Number Chen AETNA [place] [facility] Feb [id number] [phone] [place] PATIENT SERVICE INTER 2011 381 2 [place] AETNA PRESCRIPT [facility] Feb [id number] [phone] COBY LEON PATIENT PHARMACY ION INTER 2011 [id number] VERO MANAGEMENT NATIO 1 [place] BCBS [place] PREFERRED BASIC Nov 30 [id number] [phone] COBY LEON PATIENT FEP PROVIDER FAMIL 2017 [id number] VERO ORGANIZAT Y ION (PPO) BCBS OF [place] DENTAL [place] Nov 30 [id number] [phone] COBY LEON PATIENT FEP INSURANCE L [id number] 2017 62 5 VERO (DENTAL) [place] PREFERRED BASIC Nov 30 [id number] [phone] COBY METZ PATIENT FEP PROVIDER FAMIL 2017 62 5 VERO ORGANIZAT Y ION (PPO) [place]BS OF [place] PREFERRED STAND March 26 [id number] [phone] COBY METZ PATIENT (FEDERAL) 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 2014 62 7 VERO ORGANIZAT IND ION (PPO) 104 CAREMARK PRESCRIPT FEP March 26, [id number] [phone] CONR NADYA,COBY PATIENT ([id number]) ION 2014 0 62 7 VERO CAREMARK-F PRESCRIPT FEP Nov 30, [id number] [phone] [place] PATIENT EP BCBS ION CAREM 2018 0 62 1 VERO ARK CAREMARK-F PRESCRIPT FEP Nov 30, [id number] [phone] PATIENT EP BCBS ION 2018 0 [id number] VERO CAREMARK-F PRESCRIPT SHERI Nov 30, [id number] [phone] [place] PATIENT EP BCBS ION AL 2018 0 62 1 VERO RX CAREMARK-F PRESCRIPT SHERI Nov 30, [id number] [phone] [place] PATIENT EP BCBS ION AL 2018 0 [id number] 1 VERO RX HORIZON PREFERRED BASIC Nov 30 [id number] [phone] EDWARDIL PATIENT BCBS FEP* PROVIDER FAMIL 2017 62 8 VERO ORGANIZAT Y ION (PPO) HORIZON PREFERRED BASIC Nov 30 [id number] [phone] EDWARDIL PATIENT FEDERAL PROVIDER FAMIL 2017 62 8 VERO ORGANIZAT Y ION (PPO) DEPART WORKERS' OWCP Jul 01, NONE [id number] [phone] COBY REYNOLDS PATIENT OF LABOR COMPENSAT MEDIC [id number] VERO MED DFEC ION AL INSURANCE DFEC US DEPT OF WORKERS' WORKE Jul 01, WORKERS [id number] [phone] COBY METZ PATIENT LABOR COMPENSAT RS 2019 COMP [id number] VERO ION COMP INSURANCE Selected Encounter This section includes the information on record at [place] for the Encounter. Date/Time Encounter Type Encounter Description Reason Provider Source May 20, 2022 12:00 Outpatient Encounter EVENT (HISTORICAL) AM [...] 20 appointments. The data comes from all [place] treatment facilities. Appointment Date/Time Appointment Type Appointment Facili ty Name Jun 27, 2022 09:30 AM AMBULATORY - MEDICINE [facility] Jun 28, 2022 09:00 AM AMBULATORY - PSYCHIATRY [facility] Jul 12, 2022 08:00 AM AMBULATORY - PSYCHIATRY [facility] Jul 12, 2022 09:20 AM AMBULATORY - MEDICINE [facility] Jul 18, 2022 10:30 AM [facility] Aug 05, 2022 02:00 [facility] Aug 16, 2022 10:20 AM AMBULATORY - MEDICINE [facility] Sep 03, 2022 11:45 AM [facility] Sep 17, 2022 01:30 PM [facility] Sep 27, 2022 10:40 AM AMBULATORY - MEDICINE [facility] Nov 15, 2022 08:00 AM AMBULATORY - NONE [facility] Lab Results: +/- 30 days of [...] - Unit Interpretation Reference Range Comment Jun 12, 2022 12:36 [facility] COVID-19 MONITOR Specimen Ty pe: OROPHARYNX [facility] PANEL(NJS) No comment enter ed. Ordering Provid er: ASHWINI SARMIENTO Report Released Date/Time: Mar 21, 2022 08:55 AM Reporting Lab: [facility] [address] [facility] [address] Performing Lab: [facility] [address] [facility] [facility] [address] COVID-19 ([id number]) Not Detected Not De tected Jun 04, 2022 03:39 [facility] NEW COVID-19 MONITOR Specimen Ty pe: OROPHARYNX PM [facility] PANEL([facility]) Comment: Test P erformed by NAHUM Lemus Ordering Provid er: ASHWINI SARMIENTO Report Released Date/Time: Mar 21, 2022 08:55 AM Reporting Lab: [facility] [address] [facility] [address] Performing Lab: [facility] [address] [facility] [address] COVID-19 ([id number]) Not Detected Not De tected May 14, 2022 06:04 [facility] NEW COVID-19 MONITOR Specimen Ty pe: OROPHARYNX PM [facility] PANEL([facility]) Comment: Test P erformed by NAHUM Lemus Ordering Provid er: ASHWINI SARMIENTO Report Released Date/Time: Mar 21, 2022 08:55 AM Reporting Lab: [facility] [address] [facility] [address] Performing Lab: [facility] [address] [facility] [address] COVID-19 ([id number]) Not Detected Not De tected May 07, 2022 12:40 [facility] NEW COVID-19 MONITOR Specimen Ty pe: OROPHARYNX PM [facility] PANEL([facility]) Comment: Test P erformed by NAHUM Lemus Ordering Provid er: ASHWINI SARMIENTO Report Released Date/Time: Mar 21, 2022 08:55 AM Reporting Lab: [facility] [address] [facility] [address] Performing Lab: [facility] [address] [facility] [address] COVID-19 ([id number]) Not Detected Not De tected May 01, 2022 11:58 [facility] POC GLUCOSE Specimen Type: BLOOD [facility] No comment enter ed. Ordering Provid er: TODD RUSSO MD Report Released Date/Time: May 01, 2022 12:00 PM Reporting Lab: [facility] [address] [facility] [address] Performing Lab: [facility] [address] [facility] [address] POC GLUCOSE 102 70-115 May 01, 2022 09:26 [facility] POC GLUCOSE Specimen Type: BLOOD AM [facility] No comment enter ed. Ordering Provid er: JC CABALLERO Report Released Date/Time: May 01, 2022 09:28 AM Reporting Lab: [facility] [address] [facility] [address] Performing Lab: [address] [address] POC GLUCOSE 137 70-115 May 01, 2022 [facility] COVID-19, FLU/RSV Specimen T ype: NASOPHARYNX 08:22 AM [facility] SCREEN. PANEL([facility]UV[facility]) Comment: *COVID-19 SCREENING PANEL([facility]) Not Performed: May 01, 2022@08:23 b *[employer]ALE TRA[employer]ER Reason: ORDER CORRECTED, STAT FOR PROCEDURE Added by [id number] on May 01, 2022@08:22 Ordering Provid er: TODD RUSSO MD Report Released Date/Time: May 01, 2022 08:11 AM Reporting Lab: [address] [address] Performing Lab: [address] [address] COVID-19 PCR (FLUVID) Not Detected Not D etected FLU A PCR ([facility]) Not Detected Not Dete cted FLU B PCR ([facility]UV[facility]) Not Detected Not Dete cted RSV PCR (FLUVID) Not Detected Not Detect ed April 23, 2022 12:00 [facility] COVID-19 MONITOR Specimen Ty pe: OROPHARYNX AM [facility] PANEL(NJS) Comment: Test P erformed by NAHUM Lemus Ordering Provid er: ASHWINI SARMIENTO Report Released Date/Time: Mar 21, 2022 08:55 AM Reporting Lab: [address] [address] Performing Lab: [address] [address] COVID-19 ([id number]) Not Detected Not De tected Social History: Smoking Status (Most current) and Tobacco Use (All prior to encounter date) This section includes the most current, and the historical, smoking and tobacco-related health factors from the [place] facility where the Encounter took place.Current Smoking Status This section includes the most current smoking, or tobacco-related health factor, from the [facility] where the Encounter took place. Date/Time Current Smoking Status Comment Facility Oct 28, 2017 08:55 AM LIFETIME NON-USER OF TOBACCO [facility] Pathology Reports: +/- 30 days of the [...] the Encounter. The data comes from all [place] treatment facilities. Date/Time Pathology Report Provider Source May 10, 2022 11:37 LR SURGICAL PATHOLOGY REPORT: KIRK PAGAN [facility] LOCAL TITLE: LR SURGICAL PATHOLOGY REPORT [facility] STANDARD TITLE: LABORATORY NOTE DATE [...] determined by the immunoperoxid ase [facility]. They have not been cl eared or [...] and negative controls were run and reviewed. CPT:32717g1; 33060 SUPPLEMENTARY REPORT(S): Supplementary Report Date: MAY 10, 2022 *+* SUPPLEMENTARY REPORT HAS BEEN ADDED/MODIFIE D *+* (Added/Last released: May 10, 2022 11:37 Signed by ELIN PAGAN) IMMUNOSTAIN IS PERFORMED ON SPECIMEN A WHICH IS NEGATIVE FOR H.PYLORI ORGANISMS. CPT: 61951 IHC DISCLAIMER Some of these tests were developed and their pe rformance characteristics determined by the immunoperoxidase Laboratory [facility]. They have not been cleared or [...] Performing Laboratory: Surgical Pathology Report Performed By: [facility] [CLI A# [id number]] [address] [place] [address] $FTR - - - - - - [...] - - ANGIE LEON STANDARD FORM 515 ID:[id number] SEX:M :1965 AGE: 56 LOC: [facility] PCP: Jc Caballero NP /kirstie PAGAN STAFF PATHOLOGIST Signed: 05/10/2022 11:37 May 06, 2022 08:23 LR SURGICAL PATHOLOGY REPORT: JUDY THOMASON [facility] TITLE: LR SURGICAL PATHOLOGY REPORT [facility] STANDARD TITLE: LABORATORY NOTE DATE [...] DENDUM REPORT TO FOLLOW. 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 UNREMARKABLE SQUAMOUS MUCOSA. NEGATIVE FOR DYSPLASIA. C: BIOPSY CECUM: UNREMARKABLE COLON MUCOSA. D: BIOPSY DESCENDING COLON: TUBULAR ADENOMA. E: BIOPSY RECTUM: UNREMARKABLE COLON MUCOSA. SUBMUCOSAL SMOOTH MUSCLE FIBERS PROLIFERATION, BENIGN. Multiple levels examined. IHC DISCLAIMER: Some of these tests were develo ped and their performance characteristics determined by the immunoperoxid ase [facility]. They have not been cl eared or approved by U.S. Food and Drug Administration. The FDA has deter mined that such clearance or approval is not necessary. This test is used for clinical purposes. It should not be regarded as investigational or fo r research. This laboratory is certified under the Clinical Labo ratory Improvement Amendments of 1988 (CLIA-88) as qualified to [facility] high complexity clinical laboratory testing. The appropriate po sitive and negative controls were run and reviewed. CPT:89972v3; 71260 /es/ JUDY [facility] STAFF PATHOLOGIST Signed May 06, 2022@08:23 Performing Laboratory: Surgical Pathology Report Performed By: [facility] [CLI A# [id number]] [address] [place] [address] $FTR - - - - - - - - - - - - - - - - - - - - - - - - - - - - - - - - - - - - - - - - (End of report) JUDY THOMASON [facility] Date May 06, 2022 - - - - - - - - - - - - - - - - - - - - - - - - - - - - - - - - - - - - - - - - ANGIE LEON STANDARD FORM 515 ID:[id number] SEX:M :1965 AGE: 56 LOC: [facility] PCP: Jc Caballero NP /jacki/ JUDY THOMASON STAFF PATHOLOGIST Signed: 05/06/2022 08:23
--- OUTSIDE RECORDS SUMMARY | 2022-10-02 10:28 | XMS_ITS | Encounter Summary ---
:1965 Author Organization [facility] Address [address] [place] [address] 14[address] Support Name Relationship Address Phone DENISSE COELHO Unavailable [address] [place] [address] NONE, GIVEN Unavailable Unavailable Unavailable Insurance Providers: [...] to Policy Number Chen AETNA PO[facility] Feb [id number] [phone] [place] PATIENT SERVICE INTER 2011 381 2 [place] AETNA PRESCRIPT [facility] Feb [id number] [phone] [facility] PATIENT PHARMACY ION INTER 2011 [id number] VERO MANAGEMENT NATIO 1 [place] BCBS [place] PREFERRED BASIC Nov 30 [id number] [phone] COBY COELHO PATIENT FEP PROVIDER FAMIL 2017 62 [id number] VERO ORGANIZAT Y ION (PPO) BCBS OF [place] DENTAL DENTA Nov 30 [id number] [phone] COBY COELHO PATIENT FEP INSURANCE L [id number] 2017 62 5 VERO (DENTAL) [place]BS [place] PREFERRED BASIC Nov 30 [id number] [phone] COBY METZ PATIENT FEP PROVIDER FAMIL 2017 62 5 VERO ORGANIZAT Y ION (PPO) [place]BS OF [place] PREFERRED STAND March 26 [id number] [phone] COBY METZ PATIENT (FEDERAL) 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 2015 62 7 VERO ORGANIZAT IND ION (PPO) 104 CAREMARK PRESCRIPT FEP March 26, [id number] [phone] CONR OY,SC PATIENT ([id number]) ION 2014 0 62 7 VERO CAREMARK-F PRESCRIPT FEP Nov 30, [id number] [phone] CO NROY,[place] PATIENT EP BCBS ION CAREM 2018 0 62 1 VERO ARK CAREMARK-F PRESCRIPT SHERI Nov 30, [id number] [phone] [place] PATIENT EP BCBS ION AL 2018 0 62 1 VERO RX CAREMARK-F PRESCRIPT SHERI Nov 30, [id number] [phone] [place] PATIENT EP BCBS ION AL 2018 0 [id number] 1 VERO RX CAREMARK-F PRESCRIPT FEP Nov 30, [id number] [phone] N[place]Y,[place] PATIENT EP BCBS ION 2018 0 [id number] VERO HORIZON PREFERRED BASIC Nov 30 [id number] [phone] EDWARD ,[place] PATIENT BCBS FEP* PROVIDER FAMIL 2017 62 8 VERO ORGANIZAT Y ION (PPO) HORIZON PREFERRED BASIC Nov 30 [id number] [phone] EDWARD ,[place] PATIENT FEDERAL PROVIDER FAMIL 2018 62 8 VERO ORGANIZAT Y ION (PPO) [facility] WORKERS' OWCP Jul 01, NONE [id number] [phone] INDIGO YCOBY PATIENT OF LABOR COMPENSAT MEDIC 2019 [id number] VERO MED DFEC ION AL INSURANCE DFEC US DEPT OF WORKERS' WORKE Jul 01, WORKERS [id number] [phone] CON [place],DE PATIENT LABOR COMPENSAT RS 2019 COMP [id number] VERO ION COMP INSURANCE Selected Encounter This section includes the information on record at [place] for the Encounter. Date/Time Encounter Type Encounter Reason Provider Source Description May 01, 2022 EGD BIOPSY GI ENDOSCOPY ICD-10-CM LANDRY RUSSO 08:00 AM SINGLE/MULTIPLE Z12.11 HER MD Encounter for screening for malignant neoplasm of colon with Provider Comments: Encounter for Screening for Malignant Neoplasm of Colon IHE Encounter Template Text not used by [facility] Assessments - Encounter Diagnoses This section includes the primary and secondary diagnoses documented for the Encounter. 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 dysplasia [facility] May 01, 2022 SECONDARY Benign neoplasm of SRI RUSSO 11:53 AM [facility] May 01, 2022 SECONDARY Esophagitis, SRI RUSSO 11:53 AM unspecified ER MD LIMAALBER without bleeding [facility] May 01, 2022 SECONDARY Personal history SRI RUSSO 11:53 AM of colonic polyps ER MD LIMAALBER [facility] May 01, 2022 SECONDARY Unspecified SRI RUSSO 11:53 AM chronic gastritis [facility] without bleeding [facility] Plan of Treatment: Future Appointments (+ 6 months) and Future Tests (+/- 45 days) The Plan of Treatment section includes future care activities for the patient from all [place] treatmentfacilities. This section includes future appointments and future orders which are active, pending orscheduled.Future Appointments This section includes appointments that were scheduled to occur 6 months from the date of the Encounter, up to a maximum of 20 appointments. The data comes from all [place] treatment facilities. Appointment Date/Time Appointment Type Appointment Facili ty Name May 08, 2022 10:00 AM AMBULATORY - PSYCHIATRY [facility] Jun 27, 2022 09:30 AM AMBULATORY - MEDICINE [facility] Jun 28, 2022 09:00 AM AMBULATORY - PSYCHIATRY [facility] Jul 12, 2022 08:00 AM AMBULATORY - PSYCHIATRY [facility] Jul 12, 2022 09:20 AM AMBULATORY - MEDICINE [facility] Jul 18, 2022 10:30 AM AM[facility] [place] [facility] [place] [facility] Aug 05, 2022 02:00 PM AMBULAT[facility]IC[facility] [place] [facility] Aug 16, 2022 10:20 AM AMBULATORY - MEDICINE [facility] Sep 03, 2022 11:45 AM AMBULATORY - [facility]ICINE [facility] [place] [facility] Sep 17, 2022 01:30 PM AMBULATORY - [place]INE [facility] [place] [facility] Sep 27, 2022 10:40 AM AMBULATORY - MEDICINE [facility] Lab Results: +/- 30 days [...] Reference Range Comment May 14, 2022 06:04 [facility] COVID-19 MONITOR Specimen Ty pe: OROPHARYNX PM [facility] PANEL([facility]) Comment: Test P erformed by NAHUM Lemus Ordering Provid er: ASHWINI SRAMIENTO Report Released Date/Time: Mar 21, 2022 08:55 AM Reporting Lab: [facility] [address] [facility] [facility] [address] Performing Lab: [facility] [address] [facility] [address] COVID-19 ([id number]) Not Detected Not De tected May 07, 2022 12:40 [facility] COVID-19 MONITOR Specimen Ty pe: OROPHARYNX PM [facility] PANEL([facility]) Comment: Test P erformed by NAHUM Lemus Ordering Provid er: ASHWINI SARMIENTO Report Released Date/Time: Mar 21, 2022 08:55 AM Reporting Lab: [facility] [address] [facility] [address] Performing Lab: [facility] [address] [facility] [address] COVID-19 ([id number]) Not Detected Not De tected May 01, 2022 11:58 [facility] POC GLUCOSE Specimen Type: BLOOD AM [facility] No comment enter ed. Ordering Provid er: TODD RUSSO MD Report Released Date/Time: May 01, 2022 12:00 PM Reporting Lab: [facility] [address] [facility] [address] Performing Lab: [facility] [address] [facility] [address] POC GLUCOSE 102 70-115 May 01, 2022 09:26 [facility] POC GLUCOSE Specimen Type: BLOOD AM [facility] No comment enter ed. Ordering Provid er: JC CABALLERO Report Released Date/Time: May 01, 2022 09:28 AM Reporting Lab: [facility] [address] [facility] [address] Performing Lab: [facility] [address] [facility] [address] POC GLUCOSE 137 70-115 May 01, 2022 [facility] COVID-19, FLU/RSV Specimen T ype: NASOPHARYNX 08:22 AM [facility] SCREEN. PANEL(FLUVID) Comment: *COVID-19 SCREENING PANEL([facility]) Not Performed: May 01, 2022@08:23 b *KINDERGARTEN INSTRUCTIONAL ASSISTANT Reason: ORDER CORRECTED, STAT FOR PROCEDURE Added by [id number] on May 01, 2022@08:22 Ordering Provid er: TODD RUSSO MD Report Released Date/Time: May 01, 2022 08:11 AM Reporting Lab: [facility] [address] [facility] [address] Performing Lab: [facility] [address] [facility] [address] COVID-19 PCR (FLUVID) Not Detected Not D etected FLU A PCR (FLUVID) Not Detected Not Dete cted FLU B PCR (FLUVID) Not Detected Not Dete cted RSV PCR (FLUVID) Not Detected Not Detect ed April 23, 2022 12:00 [facility] NEW COVID-19 MONITOR Specimen Ty pe: OROPHARYNX AM [facility] PANEL([facility]) Comment: Test P erformed by NAHUM Lemus Ordering Provid er: ASHWINI SARMIENTO Report Released Date/Time: Mar 21, 2022 08:55 AM Reporting Lab: [facility] [address] [facility] [address] Performing Lab: [facility] [address] [address] COVID-19 ([id number]) Not Detected Not De tected April 17, 2022 12:30 [facility] NEW COVID-19 MONITOR Specimen Ty pe: OROPHARYNX PM [facility] PANEL([facility]) Comment: Test P erformed by NAHUM Lemus Ordering Provid er: WELLS,ASHWINI L Report Released Date/Time: Mar 21, 2022 08:55 AM Reporting Lab: [facility] [address] [facility] [address] Performing Lab: [facility] [address] [facility] [address] COVID-19 ([id number]) Not Detected Not De tected April 12, 2022 08:02 [facility] HEMOGLOBIN A1C Specimen Type: BLOOD [facility] No comment enter ed. Ordering Provid er: JUSTIN HEBERT Report Released Date/Time: Dec 21, 2021 09:49 AM Reporting Lab: [facility] [address] [facility] [address] Performing Lab: [facility] [address] [facility] [address] HEMOGLOBIN A1C 7.0 H 4.8-5.6 April 12, 2022 [facility] CHEM, Comprehensive Specimen Ty pe: SERUM 08:02 AM [facility] Metabolic Panel Comment: eGFR c alculated [...] Stage 5 - End Stage CKD Reference: [email or web address] Ordering Provid er: JUSTIN HEBERT Report Released Date/Time: Dec 21, 2021 09:49 AM Reporting Lab: [facility] [address] [facility] [address] Performing Lab: [facility] [address] [facility] [address] CREATININE 1.3 .7-1.3 UREA NITROGEN 22 7-25 GLUCOSE 264 H 65-99 SODIUM 137 136-145 POTASSIUM 4.2 3.5-5.1 CHLORIDE 100 98-107 CO2 27 21-31 CALCIUM 9.7 8.6-10.3 PROTEIN,TOTAL 7.0 6.4-8.9 ALBUMIN 4.6 3.5-5.7 TOTAL BILIRUBIN 0.6 0.3-1.0 ALKALINE PHOSPHATASE 71 34-104 AST 22 13-39 ALT 23 7-52 ANION GAP 10 5-13 eGFR 65 L >90 April 09, 2022 03:21 [facility] COVID-19 MONITOR Specimen Ty pe: OROPHARYNX [facility] PANEL([facility]) Comment: Test P erformed by NAHUM Lemus Ordering Provid er: ASHWINI SARMIENTO Report Released Date/Time: Mar 21, 2022 08:55 AM Reporting Lab: [facility] [address] [facility] [address] Performing Lab: [facility] [address] [facility] [address] COVID-19 ([id number]) Not Detected Not De tected April 02, 2022 12:00 [facility] COVID-19 MONITOR Specimen Ty pe: OROPHARYNX [facility] PANEL([facility]) Comment: Test P erformed by NAHUM Lemus Ordering Provid er: ASHWINI SARMIENTO Report Released Date/Time: Mar 21, 2022 08:55 AM Reporting Lab: [facility] [address] [facility] [address] Performing Lab: [facility] [address] [facility] [address] COVID-19 ([id number]) Not Detected Not De tected Vital Signs: All taken on the encounter date This section contains inpatient and outpatient Vital Signs collected on the date of the Encounter. Date/Time Temperature Pulse Blood Respiratory SP02 Pain Height Weight Dong dy Source Pressure Rate Mass Index May 01 113/72 20 /min 98 % 0 2021 12:45 /min mm[Hg] [facility] May 01 F 59 116/70 20 /min 99 % 0 68 in 192 lb 29 2021 09:30 /min mm[Hg] [facility] Social History: Smoking Status (Most current) and Tobacco Use (All prior to encounter date) This section includes the most current, and the historical, smoking and tobacco-related health factors from the [facility] where the Encounter took place.Current Smoking Status This section includes the most current smoking, or tobacco-related health factor, from the [facility] where the Encounter took place. Date/Time Current Smoking Status Comment Facility Oct 28, 2017 08:55 AM LIFETIME NON-USER OF TOBACCO [facility] Pathology Reports: +/- 30 days of [...] 11:37 LR SURGICAL PATHOLOGY REPORT: KIRK PAGAN [facility] LOCAL TITLE: LR SURGICAL PATHOLOGY REPORT [facility] STANDARD TITLE: LABORATORY NOTE DATE OF [...] - - - - BRIEF CLINICAL HISTORY: HANDLEY'S ESOPHAGUS SURVELLANCE, COLON POLY ARIANA VELLANCE. - - - - - - - - - - - - - - - - - - - - - - - - - - - - - - - - - - - - - - - - PREOPERATIVE DIAGNOSIS: HANDLEY'S ESOPHAGUS SURVELLANCE, COLON POLYP COVARRUBIAS RVELLANCE. - [...] DENDUM REPORT TO FOLLOW. 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 UNREMARKABLE SQUAMOUS MUCOSA. NEGATIVE FOR DYSPLASIA. C: BIOPSY CECUM: UNREMARKABLE COLON MUCOSA. D: BIOPSY DESCENDING COLON: TUBULAR ADENOMA. E: BIOPSY RECTUM: UNREMARKABLE COLON MUCOSA. SUBMUCOSAL SMOOTH MUSCLE FIBERS PROLIFERATION, BENIGN. Multiple levels examined. IHC DISCLAIMER: Some of these tests were develo ped and their performance characteristics determined by the immunoperoxid ase Laboratory of [facility]. They have not been cl eared [...] and negative controls were run and reviewed. CPT:91307d7; 65922 SUPPLEMENTARY REPORT(S): Supplementary Report Date: MAY 10, 2022 *+* SUPPLEMENTARY REPORT HAS BEEN ADDED/MODIFIE D *+* (Added/Last released: May 10, 2022 11:37 Signed by ELIN PAGAN) IMMUNOSTAIN IS PERFORMED ON SPECIMEN A WHICH IS NEGATIVE FOR H.PYLORI ORGANISMS. CPT: 30757 IHC DISCLAIMER Some of these tests were developed and their pe rformance characteristics determined by the immunoperoxidase Laboratory o [facility]. They have not been cleared [...] Performing Laboratory: Surgical Pathology Report Performed By: [facility] [CLI A# [id number]] [address] [place] [address] $FTR - - - - - - [...] - - - - - - - GLEN COELHO STANDARD FORM 515 ID:[id number] SEX:M :1965 AGE: 56 LOC: [facility] PCP: Jc Caballero, CHEYANNE /kirstie PAGAN STAFF PATHOLOGIST Signed: 05/10/2022 11:37 May 06, 2022 08:23 LR SURGICAL PATHOLOGY REPORT: JUDY THOMASON [facility] TITLE: LR SURGICAL PATHOLOGY REPORT [facility] STANDARD TITLE: LABORATORY NOTE DATE OF [...] - - - - BRIEF CLINICAL HISTORY: HANDLEY'S ESOPHAGUS SURVELLANCE, COLON POLY ARIANA VELLANCE. - - - - - - - - - - - - - - - - - - - - - - - - - - - - - - - - - - - - - - - - PREOPERATIVE DIAGNOSIS: HANDLEY'S ESOPHAGUS SURVELLANCE, COLON POLYP COVARRUBIAS RVELLAPAWANE. - [...] DENDUM REPORT TO FOLLOW. 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 UNREMARKABLE SQUAMOUS MUCOSA. NEGATIVE FOR DYSPLASIA. C: BIOPSY CECUM: UNREMARKABLE COLON MUCOSA. D: BIOPSY DESCENDING COLON: TUBULAR ADENOMA. E: BIOPSY RECTUM: UNREMARKABLE COLON MUCOSA. SUBMUCOSAL SMOOTH MUSCLE FIBERS PROLIFERATION, BENIGN. Multiple levels examined. IHC DISCLAIMER: Some of these tests were develo ped and their performance characteristics determined by the immunoperoxid ase Laboratory of [facility]. They have not been cl eared or approved by U.S. Food and Drug Administration. The FDA has deter mined that such clearance or approval is not necessary. This test is used for clinical purposes. It should not be regarded as investigational or fo r research. This laboratory is certified under the Clinical Labo ratory Improvement Amendments of 1988 (CLIA-88) as qualified to [facility] high complexity clinical laboratory testing. The appropriate po sitive and negative controls were run and reviewed. CPT:73339c0; 47638 /es/ JUDY THOMASON STAFF PATHOLOGIST Signed May 06, 2022@08:23 Performing Laboratory: Surgical Pathology Report Performed By: [facility] [CLI A# [id number]] [address] [place] [id number] $FTR - - - - - - [...] - - - - - - - EDWARD,GLEN LEMA STANDARD FORM 515 ID:[id number] SEX:M :1965 AGE: 56 LOC: [facility] PCP: Jc Caballero, KINDERGARTEN INSTRUCTIONAL ASSISTANT /jacki/ [facility] STAFF PATHOLOGIST Signed: 05/06/2022 08:23 Encounter Notes: All associated encounter notes This section contains the clinical notes associated to the Encounter. Date/Time Encounter Note(s) Provider Source May 20, 2022 12:40 PM GASTROENTEROLOGY TELEPHONE ENCOUNTER N OTE: TODD RUSSO [facility] LOCAL TITLE: GI TELEPHONE CONTACT [facility] STANDARD TITLE: GASTROENTEROLOGY TELEPHONE ENCOU NTER NOTE DATE OF NOTE: MAY 20, 2022@12:40 ENTRY DATE: MAY 20, 2022@12:40:44 AUTHOR: TODD RUSSO EXP COSIGNER: URGENCY: STATUS: COMPLETED Called pt to discuss recent EGD/Colonosc opy results. Colonoscopy revealed fair preparation and adenoma, and I advised follow up within a year, which he is agreeable to. Also disussed Handley's esophagus, and continued PPI use, along with recommendation for EGD in three years for survei llance. PREVENTIVE HEALTH Colonoscopy GAP Reminder: Recommendations are needed in the clinical rachel nder system following the patient's most recent colorectal cancer screeni ng/surveillance test (Colonoscopy, Sigmoidoscopy or CT Colonography) Colonoscopy reminder set 6 months from MAY 20, 2022. /jacki/ TODD RUSSO DO Physician, Gastroenterology Signed: 05/20/2022 12:42 May 20, 2022 08:52 AM GASTROENTEROLOGY PROCEDURE NOTE: RAFITA RUSSO [facility] LOCAL TITLE: CP COLONOSCOPY [facility] STANDARD TITLE: GASTROENTEROLOGY PROCEDURE NOTE DATE OF NOTE: MAY 20, 2022@08:52:49 ENTRY DATE: MAY 20, 2022@08:52:49 AUTHOR: TODD RUSSO EXP COSIGNER: URGENCY: STATUS: COMPLETED PROCEDURE SUMMARY CODE: Abnormal DATE/TIME PERFORMED: MAY 01, 2022@11:45 Procedure Findings:Minimally irregular z-line wi th nodularity biopsied, antritis with superficial ulceration biopsied, d uodenitis; fair preparation (1/2/2), small cecal, rectal polyps giorgio brandon, small descending polyp removed cs /es/ TODD RUSSO DO Physician, Gastroenterology Signed: 05/20/2022 08:55 May 20, 2022 08:50 AM GASTROENTEROLOGY PROCEDURE NOTE: RAFITA RUSSO [facility] LOCAL TITLE: CP EGD [facility] STANDARD TITLE: GASTROENTEROLOGY PROCEDURE NOTE DATE OF NOTE: MAY 20, 2022@08:50:18 ENTRY DATE: MAY 20, 2022@08:50:18 AUTHOR: TODD RUSSO EXP COSIGNER: URGENCY: STATUS: COMPLETED PROCEDURE SUMMARY CODE: Abnormal DATE/TIME PERFORMED: MAY 01, 2022@11:21 Procedure Findings:Minimally irregular z-line wi th nodularity biopsied, antritis with superficial ulceration biopsied, d uodenitis; fair preparation (1/2/2), small cecal, rectal polyps giorgio brandon, small descending polyp removed /es/ TODD RUSSO DO Physician, Gastroenterology Signed: 05/20/2022 08:55 May 02, 2022 09:45 AM SURGERY TELEPHONE ENCOUNTER NOTE: GLADYS VITALE [facility] LOCAL TITLE: SAME DAY SURGERY POST-OP TEL F/U ( T) [facility] STANDARD TITLE: SURGERY TELEPHONE ENCOUNTER NOTE DATE OF NOTE: MAY 02, 2022@09:45 ENTRY DATE: MAY 02, 2022@09:45:21 AUTHOR: GLADYS VITALE EXP COSIGNER: URGENCY: STATUS: COMPLETED NAME: Glen Coelho PHONE:[phone] SURGERY DATE:05/01/22 PROCEDURE:EGD/Colonoscopy ANESTHESIA: GENERAL CONDITION STATED BY PATIENT: ( )EXCELLENT (x)GOOD ( )FAIR ( )POOR AFTER YOUR SURGERY/ RETURN HOME, DID YOU EXPERIE NCE ANY OF THE FOLLOWING: PAIN ( )YES (x) NO BLEEDING ( )YES (x) NO DIZZINESS ( )YES (x) NO NAUSEA ( )YES (x) NO VOMITING ( )YES (x) NO FEVER ( )YES (x) NO RED STREAKS ( )YES (x) NO DRAINAGE ( )YES (x) NO ODOR AT SURGICAL SITE( )YES (x) NO DISCOMFORTS: COMMENTS: patient stated all is well; no complai nts UNSUCCESSFUL CONTACT/WHY? COMPLETED/CONTACTED BY: /jacki/ Gladys Vitale RN Staff Nurse Signed: 05/02/2022 09:46 May 01, 2022 04:26 PM NURSING DISCHARGE NOTE: JEAN CARLOS CEDILLO [facility] LOCAL TITLE: SDS DISCHARGE ASSESSMENT [facility] STANDARD TITLE: NURSING DISCHARGE NOTE DATE OF NOTE: MAY 01, 2022@16:26 ENTRY DATE: MAY 01, 2022@16:26:32 AUTHOR: JEAN CARLOS CEDILLO EXP COSIGNER: URGENCY: STATUS: COMPLETED SDS DISCHARGE ASSESSMENT Has ADDENDA SAME DAY SURGERY: DISCHARGE CRITERIA ASSESSMENT SUMMARY Patient recieved from PACU via Wheelchair at Apr@12:45 accompanied by Armond bennett. Patient is being discharged Home as ordered by MD Mainor DISCHARGE CRITERIA ASSESSMENT: Patient's Vitals measurement: Temperature: 98 F [36.7 C] (05/01/2022 09:30) Pulse: 57 (05/01/2022 12:45) Respiration: 20 (05/01/2022 12:45) Blood Pressure: 113/72 (05/01/2022 12:45) Pain: 0 (05/01/2022 12:45) 05/01/22 @ 1245 PULSE OXIMETRY: 98 Nursing Comprehensive Pain Assessment Verbal Pain Assessment Pain Assessment: Patient reported pain/discomfort in the last 30 days? NO Patient received Moderate Sedation - REACT Scori ng Respiration: Discharge: 2 - Spontaneous Respira tory Rate = / > 10, Breaths Deeply and Coughs Energy: Discharge: 2 - Sustained head lift Alertness: Discharge: 2 - Awake, seldom dozes, at pre-procedural level Circulation: Discharge: 2 - Stable Blood Pressu re and pulse; BP is +/- 20% of pre-procedure level (Minimum 90mmHg Systolic) Temperature: Discharge: 2 - Temperature is high er than 96?? F (35.5?? C) Temperature Route: Oral Total Score: 10 Patient has positive gag reflex: Yes Patient is taking and retaining p.o. intake as o rdered by the provider: Yes Patient indicates any significant discomfort cau sed by the procedure: Denied Patient is able to freely stand, dress, or move around with minimal assistance at pre-procedure level: Yes Patient is able to ambulate freely, or with mini mal assistance at pre- procedure level: Yes Urinary Method: Patient reports voiding freely General Comments: The criteria for discharge are met: Yes Patient was discharged to a responsible adult. Saline Lock was discontinued and removed as appr opriate; unless otherwise indicated per MD's order. Patient was provided with the following discharg e instructions: med rec done post op and also able to teach back all instructions side effects tx taught from the procedures done today . Follow up is thr drs giving you the bx report either by phone or a letter in the mail. Pt discharged to his so n in the waiting room at 1:10pm /jacki/ JEAN CARLOS CEDILLO R.N. STAFF NURSE Signed: 05/01/2022 16:32 05/01/2022 ADDENDUM STATUS: COMPLETED Pt teaching side effects act ion frequency of omperazole . Dr is getting it sent in the mail /kirstie CEDILLO R.N. STAFF NURSE Signed: 05/01/2022 16:47 May 01, 2022 11:54 AM PROCEDURE NOTE: TODD RUSSO [facility] LOCAL TITLE: BRIEF PROCEDURE NOTE MD JUSTIN COLMENARES [facility] STANDARD TITLE: PROCEDURE NOTE DATE OF NOTE: MAY 01, 2022@11:54 ENTRY DATE: MAY 01, 2022@11:54:19 AUTHOR: TODD RUSSO EXP COSIGNER: URGENCY: STATUS: COMPLETED Brief Procedure Note Pre-procedure Diagnosis:Ty ett's esophagus screening, Colon polyp surveillance Post-procedure Diagnosis:Esophagitis, antritis, colon polyps Description of Procedure per formed:EGD with biopsy/Colonoscopy with polypectomy Procedure performed by: Attending physician:Mainor Sedation or Anesthesia Type: IV fluid(s) infused during procedure:re:NS Procedure Findings:Minimally irregular z-line wi th nodularity biopsied, antritis with superficial ulceration biopsied, d uodenitis; fair preparation (), small cecal, rectal polyps giorgio brandon, small descending polyp removed cs Specimens were submitted Patient status at end procedure: Satisfactoryxxx Complications: No The patient is being transported via stretcher b y the registered nurse to the Recovery room. /jacki/ TODD RUSSO DO Physician, Gastroenterology Signed: 05/01/2022 12:04 May 01, 2022 11:51 AM EDUCATION DISCHARGE NOTE: [facility] TITLE: DISCHARGE INSTRUCTIONS MD [facility] STANDARD TITLE: EDUCATION DISCHARGE NOTE DATE OF NOTE: MAY 01, 2022@11:51 ENTRY DATE: MAY 01, 2022@11:51:19 AUTHOR: TODD RUSSO EXP COSIGNER: URGENCY: STATUS: COMPLETED PATIENT DISCHARGE INSTRUCTIONS DEPARTMENT [address] [address] (16/06) [place] NURSE HELP LINE (16/06) FACILITY TREATING SPECIALTY: Gastroenterology Your DOCTOR during your outpatient visit was: Jayla rodriguez PROCEDURE/DISCHARGE DIAGNOSIS: Esophagitis, carlene ritis, colon polyps SUMMARY OF PROCEDURE: EGD with biopsy/Colonoscop y with polypectomy TYPE OF DISCHARGE: Regular DISCHARGE TO: Home Place of residence None POST PROCEDURES INSTRUCTIONS Gastrointestinal: Procedure Done: Upper Gastrointestinal Endoscop y, Colonoscopy, Removal of polyps, Biopsy SUGGESTED PLAN FOR FOLLOW UP: Refrain from use of Aspirin, NSAIDS, (Non-stero idal Anti-inflammatory Drugs), and similar drugs lik e Advil, Ibuprofen for 0 days. May use Tylenol/Acetaminophen for pain for 3 da ys. EXPECTED DISCOMFORTS: Some mild cramping, gas distention, mild rectal bleeding after a colonoscopy. A mild sore throat may be experien sneha after an EGD. Gargle with warm salt water 2 times a day. The following medications have been changed: Start omeprazole 40mg 1/2 hour prior breakfast Call 911 or go to the nearest Emergency Room if you have painful abdominal distention, increased bright red rectal bleedin g, nausea, vomiting and/or fever over 101 degrees. Please call the Physician with any questions an d/or concerns during the hours of 7:30am to 4:00pm (Friday-Friday) at [phone] extension [phone] in [place], and extensions [phone] or [phone] in [place]. After office hours or if unable to contact your [facility] physican call . This is the number for a [facility] Hospital[facility] Nurse who will be able to address your concerns or problems related to this procedure. ADDITIONAL TREATMENTS AND INSTRUCTIONS: Driving Restrictions: 24 hours PHYSCIAL/ACTIVITY RESTRICTIONS: Activity Restrictions: Light Activity (take frequent rest breaks when bathing, dressing, grooming, limit otolaryngology physician) DIET:Regular OPIOID USE INSTRUCTIONS: Is the actively using illicit opioids/h istory of illicit opioid use/or prescribed high dose of opioids? No Is the being discharged with a prescrip tion for an opioid analgesic (ex. Percocet,Tramadol)? No FOLLOW-UP: Please keep all of your current appointments: FUTURE APPOINTMENTS (NEXT 180 DAYS) DATE/TIME CLINIC ( LOCATION ) Apr@10:00 [facility] SOCIAL WORK [facility]IL[facility] (BL DG 4 RM 143) Apr@10:00 [facility] (BL DG 4 RM 143) May@10:00 [facility] WORK [facility] (BL DG 4 RM 143) Jun@10:00 [facility] (BLD G 4 RM 143) Jun@09:00 [facility] MHC PSYTRY BLUE (BLDG 4 1ST [place]) Jun@09:00 [facility] ENDOCRINOLOGY/METABOL (BL D 3-1ST FL-SPECIALTY) CALL 911 FOR: Chest pain, Loss of consciousness, Sudden shortness of breath. If you need to change your appointment, please c all Centralized Scheduling at . PATIENT AND/OR CAREGIVER HAS RECEIVED, UNDERSTAN DS AND AGREES WITH THE DISCHARGE PLAN AND CONTINUING CARE INSTRUCTIONS. /jacki/ TODD RUSSO DO Physician, Gastroenterology Signed: 05/01/2022 11:53 May 01, 2022 10:37 AM GASTROENTEROLOGY PROCEDURE NOTE: RAFITA RUSSO [facility] LOCAL TITLE: MEDICINE/GASTROENTEROLOGY/GI PROCE LE [facility] STANDARD TITLE: GASTROENTEROLOGY PROCEDURE NOTE DATE OF NOTE: MAY 01, 2022@10:37 ENTRY DATE: MAY 01, 2022@10:38:03 AUTHOR: TODD RUSSO EXP COSIGNER: URGENCY: STATUS: COMPLETED Patient presents for EGD/Colonoscopy. There are no changes noted since last office visit in medical history or medications. O: Vitals stable Awake, comfortable, NAD S1/S2 regular no murmur CTA B/L no RRW Soft, NT, ND Active Inpatient, Outpatient and Clinic Medicati ons (including Supplies): Outpatient Medications Status 1) ALOGLIPTIN 12.5MG TAB TAKE ONE TABLET BY MOUT H DAILY ACTIVE (S) FOR DIABETES 2) ATORVASTATIN CALCIUM 40MG TAB [...] TABLET BY NGUYEN TH DAILY ACTIVE (S) 6) ENALAPRIL MALEATE 2.5MG TAB TAKE ONE TABLET B Y MOUTH ACTIVE DAILY FOR BLOOD PRESSURE/KIDNEY PROTECTION 7) GLIMEPIRIDE 4MG TAB TAKE ONE TABLET BY MOUTH TWICE A ACTIVE (S) DAY FOR DIABETES 8) METFORMIN HCL 500MG 24HR SA TAB TAKE TWO TABL ETS BY ACTIVE MOUTH TWICE A DAY FOR DIABETES 9) PSYLLIUM SF ORAL PWD TAKE 1 TEASPOONFUL BY MO UTH ACTIVE DAILY (MIX IN A GLASS OF JUICE OR WATER) Non-VA Medications Status 1) Non-VA ASCORBIC ACID TAB MOUTH ACTIVE 2) Non-VA IBUPROFEN TAB MOUTH DAILY NEEDED AC TIVE 3) Non-VA MULTIVITAMINS TAB MOUTH DAILY ACTIVE 4) Non-VA VITAMIN B COMPLEX TAB ACTIVE 5) Non-VA VITAMIN D CAP,ORAL MOUTH EVERY WEEK AC TIVE 6) Non-VA VITAMIN E CAP,ORAL MOUTH ACTIVE 15 Total Medications Complete review of systems obtained today. The p atient denies: Chest pain, palpitations, dizziness, PND, syncop e, edema, claudication Shortness of breath, cough, LEE , wheezing, hemo ptysis Nausea, vomiting, diarrhea, dysphagia, dyspepsia , abdominal pain, heartburn, change in bowel habits, jaundice Muscle pain, weakness, extremity numbness Headache, seizures, LOC A/P 56 year old male with a history of colon polyps, for colonoscopy surveillance, and arranged for EGD for Handley's esophagus ariana yamila. /jacki/ TODD RUSSO DO Physician, Gastroenterology Signed: 05/01/2022 10:39 May 01, 2022 09:52 AM EDUCATION NOTE: JEAN CARLOS CEDILLO [facility] TITLE: PATIENT HEALTH EDUCATION [facility] STANDARD TITLE: EDUCATION NOTE DATE OF NOTE: MAY 01, 2022@09:52 ENTRY DATE: MAY 01, 2022@09:52:11 AUTHOR: JEAN CARLOS CEDILLO COSIGNER: URGENCY: STATUS: COMPLETED TOPIC TAUGHT:pre post op teaching Person taught: Patient Ready to learn? Yes Past knowledge? No Learns Best? Hearing Preferred Healthcare Language? Bahamian Barriers/Issues? None Method/Tool Used: Individual Instructions given: CARE MANAGEMENT: Instructed on Coordination of care services across inpatient/o utpatient settings. Team patient-centered care plan including goals/ anticipated outcomes. [facility]/community resources-appr opriate level of care. Continuity of care issues-appointments/contacts/ access/provider name. Compliance with medical care regimen. CLINICAL PROCEDURE: Instructed on: Name of the procedure to take place.EGD Colonosc opy Purpose of the procedure. Description of procedure. Body area involved in procedure. Anticipated effect of the procedure. Signs/symptoms of complications that need to be reported immediately. Pre-procedure patient instruction. FALLS PREVENTION EDUCATION: The following items were reviewed: Call staff for assistance with ADLs such as (ge tting out of bed, toileting, and transfers) Wear non-skid slippers or gripper socks Purpose of using the call yee Use handrails in bathroom and hallway Lock wheelchair when transferring Educated on yellow fall signage Importance of maintaining bed in lowest positio n ICU PREOPERATIVE TEACHING: Please do not hesitate at any point to ask quest hossein. Your recovery is a shared responsibility and we expect you to trent e your concerns and questions with us. Response to Education: Understands Teach-back performed General Comments: /jacki/ JEAN CARLOS CEDILLO R.N. STAFF NURSE Signed: 05/01/2022 09:53 May 01, 2022 09:47 AM NURSING ADMISSION EVALUATION NOTE: Mariah CEDILLO [facility] LOCAL TITLE: SDS ADMISSION ASSESSMENT [facility] STANDARD TITLE: NURSING ADMISSION EVALUATION NOT E DATE OF NOTE: MAY 01, 2022@09:47 ENTRY DATE: MAY 01, 2022@09:47:49 AUTHOR: JEAN CARLOS CEDILLO EXP COSIGNER: URGENCY: STATUS: COMPLETED SAME DAY SURGERY: ADMISSION ASSESSMENT Mode of Arrival: Ambulatory Accompanied by: Name: Randall Relationship to patient: - Comments: here in waiting room call [phone]. Allergies Information: PENICILLIN Patient is scheduled for procedure: EGD colonsco py Was Chlorhexidine wipe applied at home last nigh t? N/A Was Chlorhexidine wipe applied in Same Day Surge ry by staff? N/A Was Chlorhexidine wipe applied in Same Day Surge ry by patient? N/A Preoperative Vital Signs: Temperature: 98 F [36.7 C] (05/01/2022 09:30) Pulse: 59 (05/01/2022 09:30) Respiration: 20 (05/01/2022 09:30) Blood Pressure: 116/70 (05/01/2022 09:30) Pain: 0 (05/01/2022 09:30) 05/01/22 @ 0930 PULSE OXIMETRY: 99 Nursing Comprehensive Pain Assessment Verbal Pain Assessment Pain Assessment: Patient reported pain/discomfort in the last 30 days? NO Patient Pertinent Medical Information: Diabetes Pulmonary Asthma Comments: CKD Neurological assessment reveals that patient is: Awake, alert oriented to: Person, place and jono e Physical Findings: (Objective Findings) Normal Risk Factor Screening: Fall risk/functional screening: No risk factors noted for fall Skin Integrity Screening: Check all that apply: Intact: no open areas reported Suspected victim of abuse, neglect, or exploitation based on [facility] criteria. No Had patient taken aspirin, NSAIDS or any anticoa gulant medications during the last 7 days prior to the surgery? Denied NPO Status Patient reported being NPO except for medicatio n taken this morning around 7am. Name of medication: fininshed the p rep at this time cl liq all day Friday took tylenol at 2 am 1000 mg for a h eadache. IV Access Scheduled procedure requires an IV access: Yes Access location and size: 20 g right forearm x 1 attempt Genito - Urinary Status: Patient reported voiding freely /es/ JEAN CARLOS CEDILLO R.N. STAFF NURSE Signed: 05/01/2022 09:52
--- OUTSIDE RECORDS SUMMARY | 2022-10-02 10:28 | XMS_ITS | Encounter Summary ---
:1965 Author Organization [facility] rs Address [address] [place] [id number] Support Name Relationship Address Phone DENISSE LEON Unavailable [address] [facility] [place] [address] NONE, GIVEN Unavailable Unavailable Unavailable Insurance Providers: [...] to Policy Number Chen AETNA POINT OF [facility] Feb [id number] [phone] [place] PATIENT SERVICE INTER 2011 [id number] 2 [place] AETNA PRESCRIPT [facility] Feb [id number] [phone] COBY LEON PATIENT PHARMACY ION INTER 2011 [id number] VERO MANAGEMENT NATIO 1 [place] BCBS [place] PREFERRED BASIC Nov 30 [id number] [phone] COBY LEON PATIENT FEP PROVIDER FAMIL 2017 [id number] VERO ORGANIZAT Y ION (PPO) BCBS OF [place] DENTAL [place] Nov 30 [id number] [phone] COBY LEON PATIENT FEP INSURANCE L [id number] 2017 62 5 VERO (DENTAL) [place] PREFERRED BASIC Nov 30 [id number] [phone] COBY METZ PATIENT FEP PROVIDER FAMIL 2017 62 5 VERO ORGANIZAT Y ION (PPO) [place]BS [place] PREFERRED STAND March 26 [id number] [phone] COBY METZ PATIENT (FEDERAL) 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 2014 62 7 VERO ORGANIZAT IND ION (PPO) 104 CAREMARK PRESCRIPT FEP March 26, [id number] [phone] CONR NADYA,COBY PATIENT ([id number]) ION 2015 0 62 7 VERO CAREMARK-F PRESCRIPT FEP Nov 30, [id number] [phone] [place] PATIENT EP BCBS ION CAREM 2018 0 62 1 VERO ARK CAREMARK-F PRESCRIPT FEP Nov 30, [id number] [phone] PATIENT EP BCBS ION 2018 0 [id number] VERO CAREMARK-F PRESCRIPT SHERI Nov 30, [id number] [phone] [place] PATIENT EP BCBS ION AL 2018 0 62 1 VERO RX CAREMARK-F PRESCRIPT SHERI Nov 30, [id number] [phone] [place] PATIENT EP BCBS ION AL 2018 0 [id number] 1 VERO RX HORIZON PREFERRED BASIC Nov 30 [id number] [phone] [place] PATIENT BCBS FEP* PROVIDER FAMIL 2017 62 8 VERO ORGANIZAT Y ION (PPO) HORIZON PREFERRED BASIC Nov 30 [id number] [phone] EDWARDOK PATIENT FEDERAL PROVIDER FAMIL 2017 62 8 VERO ORGANIZAT Y ION (PPO) DEPART WORKERS' OWCP Jul 01, NONE [id number] [phone] COBY REYNOLDS PATIENT OF LABOR COMPENSAT MEDIC 2018 [id number] VERO MED DFEC ION AL INSURANCE DFEC US DEPT OF WORKERS' WORKE Jul 01, WORKERS [id number] [phone] COBY METZ PATIENT LABOR COMPENSAT RS 2019 COMP [id number] VERO ION COMP INSURANCE Selected Encounter This section includes the information on record at [place] for the Encounter. Date/Time Encounter Type Encounter Description Reason Provider Source May 01, 2022 12:47 Outpatient Encounter EVENT (HISTORICAL) PM IHE Encounter Template Text not used [...] 20 appointments. The data comes from all [place] treatment facilities. Appointment Date/Time Appointment Type Appointment Facili ty Name May 08, 2022 10:00 AM AMBULATORY - PSYCHIATRY [facility] Jun 27, 2022 09:30 AM AMBULATORY - MEDICINE [facility] Jun 28, 2022 09:00 AM AMBULATORY - PSYCHIATRY [facility] Jul 12, 2022 08:00 AM AMBULATORY - PSYCHIATRY [facility] Jul 12, 2022 09:20 AM AMBULATORY - MEDICINE [facility] Jul 18, 2022 10:30 AM [facility] Aug 05, 2022 02:00 PM [facility] Aug 16, 2022 10:[address] [facility] Sep 03, 2022 11:45 [facility] Sep 17, 2022 01:30 PM [facility] Sep 27, 2022 10:40 AM AMBULATORY - MEDICINE [facility] Lab Results: +/- 30 days [...] Reference Range Comment May 14, 2022 06:04 [facility] COVID-19 MONITOR Specimen Ty pe: OROPHARYNX [facility] PAN[facility] Comment: Test P erformed by NAHUM Lemus Ordering Provid er: ASHWINI SARMIENTO Report Released Date/Time: Mar 21, 2022 08:55 AM Reporting Lab: [facility] [address] [facility] [address] Performing Lab: [facility] [address] [facility] [address] COVID-19 ([id number]) Not Detected Not De tected May 07, 2022 12:40 [facility] COVID-19 MONITOR Specimen Ty pe: OROPHARYNX PM [facility] PANEL([facility]) Comment: Test P erformed by NAHUM Lemus Ordering Provid er: ASHWINI SARMIENTO Report Released Date/Time: Mar 21, 2022 08:55 AM Reporting Lab: [facility] [address] [facility] [address] Performing Lab: [facility] [address] [facility] [address] COVID-19 ([id number]) Not Detected Not De tected May 01, 2022 11:58 [facility] POC GLUCOSE Specimen Type: BLOOD AM [facility] No comment enter ed. Ordering Provid er: TODD RUSSO MD Report Released Date/Time: May 01, 2022 12:00 PM Reporting Lab: [facility] [address] [facility] [address] Performing Lab: [facility] [address] [facility] [address] POC GLUCOSE 102 70-115 May 01, 2022 09:26 [facility] POC GLUCOSE Specimen Type: BLOOD AM [facility] No comment enter ed. Ordering Provid er: JC CABALLERO Report Released Date/Time: May 01, 2022 09:28 AM Reporting Lab: [facility] [address] [facility] [address] Performing Lab: [facility] [address] [facility] [address] POC GLUCOSE 137 70-115 May 01, 2022 [facility] COVID-19, FLU/RSV Specimen T ype: NASOPHARYNX 08:22 AM [facility] SCREEN. PANEL(FLUVID) Comment: *COVID-19 SCREENING PANEL(NJS) Not Performed: May 01, 2022@08:23 b *FIG WASHER Reason: ORDER CORRECTED, STAT FOR PROCEDURE Added by [id number] on May 01, 2022@08:22 Ordering Provid er: TODD RUSSO MD Report Released Date/Time: May 01, 2022 08:11 AM Reporting Lab: [facility] [address] [facility] [address] Performing Lab: [facility] [address] [facility] [address] COVID-19 PCR (FLUVID) Not Detected Not D etected FLU A PCR (FLUVID) Not Detected Not Dete cted FLU B PCR (FLUVID) Not Detected Not Dete cted RSV PCR (FLUVID) Not Detected Not Detect ed April 23, 2022 12:00 [facility] NEW COVID-19 MONITOR Specimen Ty pe: OROPHARYNX AM [facility] PANEL([facility]) Comment: Test P erformed by NAHUM Lemus Ordering Provid er: ASHWINI SARMIENTO Report Released Date/Time: Mar 21, 2022 08:55 AM Reporting Lab: [facility] [address] [facility] [address] Performing Lab: [facility] [address] [facility] [address] COVID-19 ([id number]) Not Detected Not De tected April 17, 2022 12:30 [facility] COVID-19 MONITOR Specimen Ty pe: OROPHARYNX [facility] PANEL([facility]) Comment: Test P erformed by NAHUM Lemus Ordering Provid er: ASHWINI SARMIENTO Report Released Date/Time: Mar 21, 2022 08:55 AM Reporting Lab: [facility] [address] [facility] [address] Performing Lab: [facility] [address] [facility] [address] COVID-19 ([id number]) Not Detected Not De tected April 12, 2022 08:02 [facility] HEMOGLOBIN A1C Specimen Type: BLOOD [facility] No comment enter ed. Ordering Provid er: JUSTIN HEBERT Report Released Date/Time: Dec 21, 2021 09:49 AM Reporting Lab: [facility] [address] [facility] [address] Performing Lab: [facility] [address] [facility] [address] HEMOGLOBIN A1C 7.0 H 4.8-5.6 April 12, 2022 [facility] CHEM, Comprehensive Specimen Ty pe: SERUM 08:02 AM [facility] Metabolic Panel Comment: eGFR c alculated [...] Stage 5 - End Stage CKD Reference: [email or web address] Ordering Provid er: JUSTIN HEBERT Report Released Date/Time: Dec 21, 2021 09:49 AM Reporting Lab: [facility] [address] [facility] [address] Performing Lab: [facility] [address] [facility] [address] CREATININE 1.3 .7-1.3 UREA NITROGEN 22 7-25 GLUCOSE 264 H 65-99 SODIUM 137 136-145 POTASSIUM 4.2 3.5-5.1 CHLORIDE 100 98-107 CO2 27 21-31 CALCIUM 9.7 8.6-10.3 PROTEIN,TOTAL 7.0 6.4-8.9 ALBUMIN 4.6 3.5-5.7 TOTAL BILIRUBIN 0.6 0.3-1.0 ALKALINE PHOSPHATASE 71 34-104 AST 22 13-39 ALT 23 7-52 ANION GAP 10 5-13 eGFR 65 L >90 April 09, 2022 03:21 [facility] NEW COVID-19 MONITOR Specimen Ty pe: OROPHARYNX PM [facility] PANEL([facility]) Comment: Test P erformed by NAHUM Lemus Ordering Provid er: ASHWINI SARMIENTO Report Released Date/Time: Mar 21, 2022 08:55 AM Reporting Lab: [facility] [address] [facility] [address] Performing Lab: [facility] [address] [facility] [address] COVID-19 ([id number]) Not Detected Not De tected April 02, 2022 12:00 [facility] COVID-19 MONITOR Specimen Ty pe: OROPHARYNX AM [facility] PANEL([facility]) Comment: Test P erformed by NAHUM Lemus Ordering Provid er: ASHWINI SARMIENTO Report Released Date/Time: Mar 21, 2022 08:55 AM Reporting Lab: [facility] [address] [facility] [address] Performing Lab: [facility] [address] [facility] [address] COVID-19 ([id number]) Not Detected Not De tected Vital Signs: All taken on the encounter date This section contains inpatient and outpatient Vital Signs collected on the date of the Encounter. Date/Time Temperature Pulse Blood Respiratory SP02 Pain Height Weight Dong dy Source Pressure Rate Mass Index May 01 113/72 20 /min 98 % 0 2021 12:45 /min mm[Hg] [facility] May 01 F 59 116/70 20 /min 99 % 0 68 in 192 lb 29 2021 09:30 /min mm[Hg] [facility] AM [facility] Social History: Smoking Status (Most current) and Tobacco Use (All prior to encounter date) This section includes the most current, and the historical, smoking and tobacco-related health factors from the [place] facility where the Encounter took place.Current Smoking Status This section includes the most current smoking, or tobacco-related health factor, from the [place] facility where the Encounter took place. Date/Time Current Smoking Status Comment Facility Oct 28, 2017 08:55 AM LIFETIME NON-USER OF TOBACCO [facility] Pathology Reports: +/- 30 days of the [...] the Encounter. The data comes from all [place] treatment facilities. Date/Time Pathology Report Provider Source May 10, 2022 11:37 LR SURGICAL PATHOLOGY REPORT: KIRK PAGAN [facility] LOCAL TITLE: LR SURGICAL PATHOLOGY REPORT [facility] STANDARD TITLE: LABORATORY NOTE DATE OF NOTE: [...] determined by the immunoperoxid ase Laboratory of [facility]. They have not been cl [...] and negative controls were run and reviewed. CPT:87500e8; 30373 SUPPLEMENTARY REPORT(S): Supplementary Report Date: MAY 10, 2022 *+* SUPPLEMENTARY REPORT HAS BEEN ADDED/MODIFIE D *+* (Added/Last released: May 10, 2022 11:37 Signed by ELIN PAGAN) IMMUNOSTAIN IS PERFORMED ON SPECIMEN A WHICH IS NEGATIVE FOR H.PYLORI ORGANISMS. CPT: 01126 IHC DISCLAIMER Some of these tests were developed and their pe rformance characteristics determined by the immunoperoxidase Laboratory [facility]. They have not been cleared or approved by U.S. Food and Drug Administration. The FDA has determined that [facility] clearance or approval is [...] Performing Laboratory: Surgical Pathology Report Performed By: [facility] [CLI A# [id number]] [address] [place] [phone] $FTR - - - - - - [...] - - ANGIE LEON STANDARD FORM 515 ID:[id number] SEX:M :1965 AGE: 56 [facility] Jc Caballero NP /kirstie PAGAN STAFF PATHOLOGIST Signed: 05/10/2022 11:37 May 06, 2022 08:23 LR SURGICAL PATHOLOGY REPORT: PADDYJUDY ALVAREZ [facility] TITLE: LR SURGICAL PATHOLOGY REPORT [facility] STANDARD TITLE: LABORATORY NOTE DATE OF [...] determined by the immunoperoxid ase Laboratory of [facility]. They have not been cl [...] Amendments of 1988 (CLIA-88) as qualified to [facility] high complexity clinical laboratory testing. The appropriate po sitive and negative controls were run and reviewed. CPT:92707o8; 33426 /jacki/ JUDY THOMASON STAFF PATHOLOGIST Signed May 06, 2022@08:23 Performing Laboratory: Surgical Pathology Report Performed By: [facility] [CLI A# [id number]] [address] [place] [phone] $FTR - - - - - - [...] - - ANGIE LEON STANDARD FORM 515 ID:[id number] SEX:M :1965 AGE: 56 LOC: [facility] PCP: Jc Caballero NP /jacki/ JUDY THOMASON STAFF PATHOLOGIST Signed: 05/06/2022 08:23
--- OUTSIDE RECORDS SUMMARY | 2022-10-02 10:28 | XMS_ITS | Encounter Summary ---
:1965 Author Organization [facility] rs Address [address] [place] [id number] Support Name Relationship Address Phone DENISSE LEON Unavailable [address] [place] [address] NONE, GIVEN Unavailable Unavailable Unavailable Insurance Providers: [...] to Policy Number Chen AETNA POINT OF [facility] Feb [id number] [phone] EDWARD OR PATIENT SERVICE INTER 2011 381 2 [place] NATIO [place] AETNA PRESCRIPT [facility] Feb [id number] [phone] COBY LEON PATIENT PHARMACY ION INTER 2011 [id number] VERO MANAGEMENT NATIO 1 [place] BCBS [place] PREFERRED BASIC Nov 30 [id number] [phone] COBY LEON PATIENT FEP PROVIDER FAMIL 2017 [id number] VERO ORGANIZAT Y ION (PPO) BCBS [place] DENTAL [place] Nov 30 [id number] [phone] COBY LEON PATIENT FEP INSURANCE L [id number] 2017 62 5 VERO (DENTAL) [place] PREFERRED BASIC Nov 30 [id number] [phone] COBY METZ PATIENT FEP PROVIDER FAMIL 2017 62 5 VERO ORGANIZAT Y ION (PPO) [place]BS OF [place] PREFERRED STAND March 26 [id number] [phone] COBY METZ PATIENT (FEDERAL) 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 2014 62 7 VERO ORGANIZAT IND ION (PPO) 104 CAREMARK PRESCRIPT FEP March 26, [id number] [phone] CONR NADYA,COBY PATIENT ([id number]) ION 2015 0 62 7 VERO CAREMARK-F PRESCRIPT FEP Nov 30, [id number] [phone] [place] N[place] PATIENT EP BCBS ION CAREM 2018 0 62 1 VERO ARK CAREMARK-F PRESCRIPT SHERI Nov 30, [id number] [phone] [place] PATIENT EP BCBS ION AL 2018 0 62 1 VERO RX CAREMARK-F PRESCRIPT SHERI Nov 30, [id number] [phone] [place] PATIENT EP BCBS ION AL 2018 0 [id number] VERO RX CAREMARK-F PRESCRIPT FEP Nov 30, [id number] [phone] [place] PATIENT EP BCBS ION 2018 0 [id number] VERO HORIZON PREFERRED BASIC Nov 30 [id number] [phone] EDWARDOR PATIENT BCBS FEP* PROVIDER FAMIL 2017 62 8 VERO ORGANIZAT Y ION (PPO) HORIZON PREFERRED BASIC Nov 30 [id number] [phone] EDWARDOR PATIENT FEDERAL PROVIDER FAMIL 2017 62 8 VERO ORGANIZAT Y ION (PPO) DEPART WORKERS' OWCP Jul 01, NONE [id number] [phone] COBY REYNOLDS PATIENT OF LABOR COMPENSAT MEDIC 2018 [id number] VERO MED DFEC ION [place] INSURANCE DFEC US DEPT OF WORKERS' WORKE Jul 01, WORKERS [id number] [phone] COBY METZ PATIENT LABOR COMPENSAT RS 2019 COMP [id number] VERO ION COMP INSURANCE Selected Encounter This section includes the information on record at MS for the Encounter. Date/Time Encounter Type Encounter Description Reason Provider Source May 01, 2022 10:37 Outpatient Encounter EVENT (HISTORICAL) AM IHE Encounter [...] 20 appointments. The data comes from all [place] treatment facilities. Appointment Date/Time Appointment Type Appointment Facili ty Name May 08, 2022 10:00 AM AMBULATORY - PSYCHIATRY [facility] Jun 27, 2022 09:30 AM AMBULATORY - MEDICINE [facility] Jun 28, 2022 09:00 AM AMBULATORY - PSYCHIATRY [facility] Jul 12, 2022 08:00 AM AMBULATORY - PSYCHIATRY [facility] Jul 12, 2022 09:20 AM AMBULATORY - MEDICINE [facility] Jul 18, 2022 10:30 [facility] Aug 05, 2022 02:00 [facility] Aug 16, 2022 10:20 AM AMBULATORY [facility] Sep 03, 2022 11:45 [facility] Sep 17, 2022 01:30 PM [facility] Sep 27, 2022 10:40 AM AMBULATORY - MEDICINE [facility] Lab Results: +/- 30 days of the [...] Reference Range Comment May 14, 2022 06:04 [facility] COVID-19 MONITOR Specimen Ty pe: OROPHARYNX [facility] PANEL([facility]) Comment: Test P erformed by NAHUM Lemus Ordering Provid er: ASHWINI SARMIENTO Report Released Date/Time: Mar 21, 2022 08:55 AM Reporting Lab: [facility] [address] [facility] [place] [address] Performing Lab: [facility] [address] [facility] [place] [place] [address] COVID-19 ([id number]) Not Detected Not De tected May 07, 2022 12:40 [facility] COVID-19 MONITOR Specimen Ty pe: OROPHARYNX PM [facility] PANEL([facility]) Comment: Test P erformed by NAHUM Lemus Ordering Provid er: ASHWINI SARMIENTO Report Released Date/Time: Mar 21, 2022 08:55 AM Reporting Lab: [facility] [address] [facility] [address] Performing Lab: [facility] [address] [facility] [address] COVID-19 ([id number]) Not Detected Not De tected May 01, 2022 11:58 [facility] POC GLUCOSE Specimen Type: BLOOD AM [facility] No comment enter ed. Ordering Provid er: TODD RUSSO MD Report Released Date/Time: May 01, 2022 12:00 PM Reporting Lab: [facility] [address] [address] Performing Lab: [facility] [address] [facility] [address] POC GLUCOSE 102 70-115 May 01, 2022 09:26 [facility] POC GLUCOSE Specimen Type: BLOOD AM [facility] No comment enter ed. Ordering Provid er: JC CABALLERO Report Released Date/Time: May 01, 2022 09:28 AM Reporting Lab: [facility] [address] [facility] [address] Performing Lab: [facility] [address] [facility] [address] POC GLUCOSE 137 70-115 May 01, 2022 [facility] COVID-19, FLU/RSV Specimen T ype: NASOPHARYNX 08:22 AM [facility] SCREEN. 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 Reason: ORDER CORRECTED, STAT FOR PROCEDURE Added by [id number] on May 01, 2022@08:22 Ordering Provid er: TODD RUSSO MD Report Released Date/Time: May 01, 2022 08:11 AM Reporting Lab: [facility] [address] [facility] [address] Performing Lab: [facility] [address] [facility] [address] COVID-19 PCR (FLUVID) Not Detected Not D etected FLU A PCR (FLUVID) Not Detected Not Dete cted FLU B PCR (FLUVID) Not Detected Not Dete cted RSV PCR (FLUVID) Not Detected Not Detect ed April 23, 2022 12:00 [facility] NEW COVID-19 MONITOR Specimen Ty pe: OROPHARYNX AM [facility] PANEL([facility]) Comment: Test P erformed by NAHUM Lemus Ordering Provid er: ASHWINI SARMIENTO Report Released Date/Time: Mar 21, 2022 08:55 AM Reporting Lab: [facility] [address] [facility] [address] Performing Lab: [facility] [address] [facility] [address] COVID-19 ([id number]) Not Detected Not De tected April 17, 2022 12:30 [facility] COVID-19 MONITOR Specimen Ty pe: OROPHARYNX [facility] PANEL([facility]) Comment: Test P erformed by NAHUM Lemus Ordering Provid er: ASHWINI SARMIENTO Report Released Date/Time: Mar 21, 2022 08:55 AM Reporting Lab: [facility] [address] [facility] [address] Performing Lab: [facility] [address] [facility] [address] COVID-19 ([id number]) Not Detected Not De tected April 12, 2022 08:02 [facility] HEMOGLOBIN A1C Specimen Type: BLOOD [facility] No comment enter ed. Ordering Provid er: JUSTIN HEBERT Report Released Date/Time: Dec 21, 2021 09:49 AM Reporting Lab: [facility] [address] [facility] [address] Performing Lab: [facility] [address] [facility] [address] HEMOGLOBIN A1C 7.0 H 4.8-5.6 April 12, 2022 [facility] CHEM, Comprehensive Specimen Ty pe: SERUM 08:02 AM [facility] Metabolic Panel Comment: eGFR [...] Stage 5 - End Stage CKD Reference: [email or web address] Ordering Provid er: JUSTIN HEBERT Report Released Date/Time: Dec 21, 2021 09:49 AM Reporting Lab: [facility] [address] [facility] [place] [place] [address] Performing Lab: [facility] [address] [facility] [place] [address] CREATININE 1.3 .7-1.3 UREA NITROGEN 22 7-25 GLUCOSE 264 H 65-99 SODIUM 137 136-145 POTASSIUM 4.2 3.5-5.1 CHLORIDE 100 98-107 CO2 27 21-31 CALCIUM 9.7 8.6-10.3 PROTEIN,TOTAL 7.0 6.4-8.9 ALBUMIN 4.6 3.5-5.7 TOTAL BILIRUBIN 0.6 0.3-1.0 ALKALINE PHOSPHATASE 71 34-104 AST 22 13-39 ALT 23 7-52 ANION GAP 10 5-13 eGFR 65 L >90 April 09, 2022 03:21 [facility] NEW COVID-19 MONITOR Specimen Ty pe: OROPHARYNX PM [facility] PANEL([facility]) Comment: Test P erformed by NAHUM Lemus Ordering Provid er: ASHWINI SARMIENTO Report Released Date/Time: Mar 21, 2022 08:55 AM Reporting Lab: [facility] [address] [facility] [place] [place] [address] Performing Lab: [facility] [address] [facility] [place] [address] COVID-19 ([id number]) Not Detected Not De tected April 02, 2022 12:00 [facility] COVID-19 MONITOR Specimen Ty pe: OROPHARYNX AM [facility] PANEL([facility]) Comment: Test P erformed by NAHUM Lemus Ordering Provid er: ASHWINI SARMIENTO Report Released Date/Time: Mar 21, 2022 08:55 AM Reporting Lab: [facility] [address] [facility] [address] Performing Lab: [facility] [address] [facility] [address] COVID-19 ([id number]) Not Detected Not De tected Vital Signs: All taken on the encounter date This section contains inpatient and outpatient Vital Signs collected on the date of the Encounter. Date/Time Temperature Pulse Blood Respiratory SP02 Pain Height Weight Dong dy Source Pressure Rate Mass Index May 01 113/72 20 /min 98 % 0 2021 12:45 /min mm[Hg] [facility] May 01 F 59 116/70 20 /min 99 % 0 68 in 192 lb 29 2021 09:30 /min mm[Hg] [facility] AM [facility] Social History: Smoking Status (Most current) and Tobacco Use (All prior to encounter date) This section includes the most current, and the historical, smoking and tobacco-related health factors from the [facility] facility where the Encounter took place.Current Smoking Status This section includes the most current smoking, or tobacco-related health factor, from the [facility] facility where the Encounter took place. Date/Time Current Smoking Status Comment Facility Oct 28, 2017 08:55 AM LIFETIME NON-USER OF TOBACCO [facility] Pathology Reports: +/- 30 days of the [...] the Encounter. The data comes from all [place] treatment facilities. Date/Time Pathology Report Provider Source May 10, 2022 11:37 LR SURGICAL PATHOLOGY REPORT: KIRK PAGAN [facility] LOCAL TITLE: LR SURGICAL PATHOLOGY REPORT [facility] STANDARD TITLE: LABORATORY NOTE DATE OF [...] determined by the immunoperoxid ase Laboratory of [facility]. They have not been cl [...] and negative controls were run and reviewed. CPT:31407n1; 34361 SUPPLEMENTARY REPORT(S): Supplementary Report Date: MAY 10, 2022 *+* SUPPLEMENTARY REPORT HAS BEEN ADDED/MODIFIE D *+* (Added/Last released: May 10, 2022 11:37 Signed by ELIN PAGAN) IMMUNOSTAIN IS PERFORMED ON SPECIMEN A WHICH IS NEGATIVE FOR H.PYLORI ORGANISMS. CPT: 18208 IHC DISCLAIMER Some of these tests were developed and their pe rformance characteristics determined by the immunoperoxidase Laboratory [facility]. They have not been cleared or approved by U.S. Food and Drug Administration. The FDA has determined that [facility] h clearance or approval is [...] Performing Laboratory: Surgical Pathology Report Performed By: [facility] [CLI A# [id number]] [address] [place] [phone] $FTR - - - - - - [...] - - ANGIE LEON STANDARD FORM 515 ID:[id number] SEX:M :1965 AGE: 56 [facility]: Jc Caballero NP /kirstie PAGAN STAFF PATHOLOGIST Signed: 05/10/2022 11:37 May 06, 2022 08:23 LR SURGICAL PATHOLOGY REPORT: PADDYJUDY ALVAREZ [facility] TITLE: LR SURGICAL PATHOLOGY REPORT [facility] STANDARD TITLE: LABORATORY NOTE [...] determined by the immunoperoxid ase Laboratory of [facility]. They have not been cl [...] Amendments of 1988 (CLIA-88) as qualified to [facility] high complexity clinical laboratory testing. The appropriate po sitive and negative controls were run and reviewed. CPT:42476w0; 83890 /jacki/ JUDY THOMASON STAFF PATHOLOGIST Signed May 06, 2022@08:23 Performing Laboratory: Surgical Pathology Report Performed By: [facility] [CLI A# [id number]] [address] [place] [id number] $FTR - - - - - - [...] - - ANGIE LEON STANDARD FORM 515 ID:[id number] SEX:M :1965 AGE: 56 LOC: [facility] PCP: Jc Caballero NP /jacki/ JUDY THOMASON STAFF PATHOLOGIST Signed: 05/06/2022 08:23
--- OUTSIDE RECORDS SUMMARY | 2022-10-02 10:28 | XMS_ITS | Encounter Summary ---
:1965 Author Organization [facility] rs Address [address] [place] [id number] Support Name Relationship Address Phone DENISSE LEON Unavailable [address] [place] [address] NONE, GIVEN Unavailable Unavailable Unavailable Insurance Providers: [...] to Policy Number Chen AETNA POINT OF [facility] Feb [id number] [phone] EDWARD MS PATIENT SERVICE INTER 2011 381 2 [place] AETNA PRESCRIPT [facility] Feb [id number] [phone] COBY LEON PATIENT PHARMACY ION INTER 2011 [id number] VERO MANAGEMENT NATIO 1 [place] BCBS [place] PREFERRED BASIC Nov 30 [id number] [phone] COBY LEON PATIENT FEP PROVIDER FAMIL 2017 [id number] VERO ORGANIZAT Y ION (PPO) [place]BS [place] DENTAL [place] Nov 30 [id number] [phone] COBY LEON PATIENT FEP INSURANCE L [id number] 2017 62 5 VERO (DENTAL) [place] PREFERRED BASIC Nov 30 [id number] [phone] COBY METZ PATIENT FEP PROVIDER FAMIL 2017 62 5 VERO ORGANIZAT Y ION (PPO) [place]BS OF [place] PREFERRED STAND March 26 [id number] [phone] COBY METZ PATIENT (FEDERAL) 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 2014 62 7 VERO ORGANIZAT IND ION (PPO) 104 CAREMARK PRESCRIPT FEP March 26, [id number] [phone] CONR NADYA,COBY PATIENT ([id number]) ION 2014 0 62 7 VERO CAREMARK-F PRESCRIPT FEP Nov 30, [id number] [phone] NROY,SC PATIENT EP BCBS ION 2018 0 [id number] VERO CAREMARK-F PRESCRIPT FEP Nov 30, [id number] [phone] CO NROY,MS PATIENT EP BCBS ION CAREM 2018 0 62 1 VERO ARK CAREMARK-F PRESCRIPT SHERI Nov 30, [id number] [phone] CO NROY,MS PATIENT EP BCBS ION AL 2018 0 62 1 VERO RX CAREMARK-F PRESCRIPT SHERI Nov 30, [id number] [phone] CO NROY,MS PATIENT EP BCBS ION AL 2018 0 [id number] 1 VERO RX HORIZON PREFERRED BASIC Nov 30 [id number] [phone] EDWARDMS PATIENT BCBS FEP* PROVIDER FAMIL 2017 62 8 VERO ORGANIZAT Y ION (PPO) HORIZON PREFERRED BASIC Nov 30 [id number] [phone] EDWARDMS PATIENT FEDERAL PROVIDER FAMIL 2017 62 8 VERO ORGANIZAT Y ION (PPO) DEPART WORKERS' OWCP Jul 01, NONE [id number] [phone] COBY REYNOLDS PATIENT OF LABOR COMPENSAT MEDIC 2018 [id number] VERO MED DFEC ION AL INSURANCE DFEC US DEPT OF WORKERS' WORKE Jul 01, WORKERS [id number] [phone] COBY METZ PATIENT LABOR COMPENSAT RS 2019 COMP [id number] VERO ION COMP INSURANCE Selected Encounter This section includes the information on record at [place] for the Encounter. Date/Time Encounter Type Encounter Description Reason Provider Source May 01, 2022 09:51 Outpatient Encounter EVENT (HISTORICAL) AM IHE Encounter [...] 20 appointments. The data comes from all [place] treatment facilities. Appointment Date/Time Appointment Type Appointment Facili ty Name May 08, 2022 10:00 AM AMBULATORY - PSYCHIATRY [facility] Jun 27, 2022 09:30 AM AMBULATORY - MEDICINE [facility] Jun 28, 2022 09:00 AM AMBULATORY - PSYCHIATRY [facility] Jul 12, 2022 08:00 AM AMBULATORY - PSYCHIATRY [facility] Jul 12, 2022 09:20 AM AMBULATORY - MEDICINE [facility] Jul 18, 2022 10:30 AM [facility] Aug 05[facility] 2022 02:00 [facility] Aug 16, 2022 10:20 AM AMBULATORY [facility] Sep 03, 2022 11:45 AM [facility] Sep 17, 2022 01:30 PM [facility] Sep 27, 2022 10:40 AM AMBULATORY - MEDICINE [facility] Lab Results: +/- 30 days of [...] Reference Range Comment May 14, 2022 06:04 [facility] COVID-19 MONITOR Specimen Ty pe: OROPHARYNX [facility] PANEL([facility]) Comment: Test P erformed by NAHUM Lemus Ordering Provid er: ASHWINI SARMIENTO Report Released Date/Time: Mar 21, 2022 08:55 AM Reporting Lab: [facility] [address] [facility] [address] Performing Lab: [facility] [address] [facility] [address] COVID-19 ([id number]) Not Detected Not De tected May 07, 2022 12:40 [facility] COVID-19 MONITOR Specimen Ty pe: OROPHARYNX PM [facility] PANEL([facility]) Comment: Test P erformed by NAHUM Lemus Ordering Provid er: ASHWINI SARMIENTO Report Released Date/Time: Mar 21, 2022 08:55 AM Reporting Lab: [facility] [address] [facility] [address] [facility] [address] [facility] [address] Performing Lab: [facility] [address] [facility] [address] COVID-19 ([id number]) Not Detected Not De tected May 01, 2022 11:58 [facility] POC GLUCOSE Specimen Type: BLOOD AM [facility] No comment enter ed. Ordering Provid er: TODD RUSSO MD Report Released Date/Time: May 01, 2022 12:00 PM Reporting Lab: [facility] [address] [facility] [address] Performing Lab: [facility] [address] [facility] [address] POC GLUCOSE 102 70-115 May 01, 2022 09:26 [facility] POC GLUCOSE Specimen Type: BLOOD AM [facility] No comment enter ed. Ordering Provid er: JC CABALLERO Report Released Date/Time: May 01, 2022 09:28 AM Reporting Lab: [facility] [address] [facility] [address] Performing Lab: [facility] [address] [facility] [address] POC GLUCOSE 137 70-115 May 01, 2022 [facility] COVID-19, FLU/RSV Specimen T ype: NASOPHARYNX 08:22 AM [facility] SCREEN. PANEL(FLUVID) Comment: *COVID-19 SCREENING PANEL(NJS) Not Performed: May 01, 2022@08:23 b *RESIDENTIAL PROGRAM MANAGER Reason: ORDER CORRECTED, STAT FOR PROCEDURE Added by [id number] on May 01, 2022@08:22 Ordering Provid er: TODD RUSSO MD Report Released Date/Time: May 01, 2022 08:11 AM Reporting Lab: [facility] [address] [facility] [address] Performing Lab: [facility] [address] [facility] [address] COVID-19 PCR (FLUVID) Not Detected Not D etected FLU A PCR (FLUVID) Not Detected Not Dete cted FLU B PCR (FLUVID) Not Detected Not Dete cted RSV PCR (FLUVID) Not Detected Not Detect ed April 23, 2022 12:00 [facility] NEW COVID-19 MONITOR Specimen Ty pe: OROPHARYNX AM [facility] PANEL([facility]) Comment: Test P erformed by NAHUM Lemus Ordering Provid er: ASHWINI SARMIENTO Report Released Date/Time: Mar 21, 2022 08:55 AM Reporting Lab: [facility] [address] [facility] [address] Performing Lab: [facility] [address] [facility] [address] COVID-19 ([id number]) Not Detected Not De tected April 17, 2022 12:30 [facility] COVID-19 MONITOR Specimen Ty pe: OROPHARYNX [facility] PANEL([facility]) Comment: Test P erformed by NAHUM Lemus Ordering Provid er: ASHWINI SARMIENTO Report Released Date/Time: Mar 21, 2022 08:55 AM Reporting Lab: [facility] [address] [facility] [address] Performing Lab: [facility] [address] [facility] [address] COVID-19 ([id number]) Not Detected Not De tected April 12, 2022 08:02 [facility] HEMOGLOBIN A1C Specimen Type: BLOOD [facility] No comment enter ed. Ordering Provid er: JUSTIN HEBERT Report Released Date/Time: Dec 21, 2021 09:49 AM Reporting Lab: [facility] [address] [facility] [address] Performing Lab: [facility] [address] [facility] [address] HEMOGLOBIN A1C 7.0 H 4.8-5.6 April 12, 2022 [facility] CHEM, Comprehensive Specimen Ty pe: SERUM 08:02 AM [facility] Metabolic Panel Comment: eGFR c alculated [...] Stage 5 - End Stage CKD Reference: [email or web address] Ordering Provid er: JUSTIN HEBERT Report Released Date/Time: Dec 21, 2021 09:49 AM Reporting Lab: [facility] [address] [facility] [address] Performing Lab: [facility] [address] [facility] [address] CREATININE 1.3 .7-1.3 UREA NITROGEN 22 7-25 GLUCOSE 264 H 65-99 SODIUM 137 136-145 POTASSIUM 4.2 3.5-5.1 CHLORIDE 100 98-107 CO2 27 21-31 CALCIUM 9.7 8.6-10.3 PROTEIN,TOTAL 7.0 6.4-8.9 ALBUMIN 4.6 3.5-5.7 TOTAL BILIRUBIN 0.6 0.3-1.0 ALKALINE PHOSPHATASE 71 34-104 AST 22 13-39 ALT 23 7-52 ANION GAP 10 5-13 eGFR 65 L >90 April 09, 2022 03:21 [facility] NEW COVID-19 MONITOR Specimen Ty pe: OROPHARYNX PM [facility] PANEL([facility]) Comment: Test P erformed by NAHUM Lemus Ordering Provid er: ASHWINI SARMIENTO Report Released Date/Time: Mar 21, 2022 08:55 AM Reporting Lab: [facility] [address] [facility] [address] Performing Lab: [facility] [address] [facility] [address] COVID-19 ([id number]) Not Detected Not De tected April 02, 2022 12:00 [facility] COVID-19 MONITOR Specimen Ty pe: OROPHARYNX AM [facility] PANEL([facility]) Comment: Test P erformed by NAHUM Lemus Ordering Provid er: ASHWINI SARMIENTO Report Released Date/Time: Mar 21, 2022 08:55 AM Reporting Lab: [facility] [address] [facility] [address] Performing Lab: [facility] [address] [facility] [address] COVID-19 ([id number]) Not Detected Not De tected Vital Signs: All taken on the encounter date This section contains inpatient and outpatient Vital Signs collected on the date of the Encounter. Date/Time Temperature Pulse Blood Respiratory SP02 Pain Height Weight Dong dy Source Pressure Rate Mass Index May 01 113/72 20 /min 98 % 0 2021 12:45 /min mm[Hg] [facility] May 01 F 59 116/70 20 /min 99 % 0 68 in 192 lb 29 2021 09:30 /min mm[Hg] [facility] AM [facility] Social History: Smoking Status (Most [...] 2017 08:55 AM LIFETIME NON-USER OF TOBACCO [facility] Pathology Reports: +/- 30 days of the [...] the Encounter. The data comes from all [place] treatment facilities. Date/Time Pathology Report Provider Source May 10, 2022 11:37 LR SURGICAL PATHOLOGY REPORT: KIRK PAGAN [facility] LOCAL TITLE: LR SURGICAL PATHOLOGY REPORT [facility] STANDARD TITLE: LABORATORY NOTE DATE OF NOTE: [...] determined by the immunoperoxid ase Laboratory [facility]. They have not been cl eared or [...] and negative controls were run and reviewed. CPT:84714v1; 02317 SUPPLEMENTARY REPORT(S): Supplementary Report Date: MAY 10, 2022 *+* SUPPLEMENTARY REPORT HAS BEEN ADDED/MODIFIE D *+* (Added/Last released: May 10, 2022 11:37 Signed by ELIN PAGAN) IMMUNOSTAIN IS PERFORMED ON SPECIMEN A WHICH IS NEGATIVE FOR H.PYLORI ORGANISMS. CPT: 99307 IHC DISCLAIMER Some of these tests were developed and their pe rformance characteristics determined by the immunoperoxidase Laboratory [facility]. They have not been cleared or approved by U.S. Food and Drug Administration. The FDA has determined that [facility] h clearance or approval is not necessary. [...] By: [facility] [CLI A# [id number]] [address] [place] [id number] $FTR - - - - - - [...] - - ANGIE LEON STANDARD FORM 515 ID:[id number] SEX:M :1965 AGE: 56 [facility]: Jc Caballero NP /kirstie PAGAN STAFF PATHOLOGIST Signed: 05/10/2022 11:37 May 06, 2022 08:23 LR SURGICAL PATHOLOGY REPORT: [facility] TITLE: LR SURGICAL PATHOLOGY REPORT [facility] STANDARD TITLE: LABORATORY NOTE DATE OF [...] determined by the immunoperoxid ase Laboratory [facility]. They have not been cl eared or approved by U.S. Food and Drug Administration. The FDA has deter mined that such clearance or approval is not necessary. This test is used for clinical purposes. It should not be regarded as investigational or fo r research. This laboratory is certified under the Clinical Labo ratory Improvement Amendments of 1988 (CLIA-88) as qualified to [facility] high complexity clinical laboratory testing. The appropriate po sitive and negative controls were run and reviewed. CPT:11198a4; 62128 /jacki/ JUDY THOMASON STAFF PATHOLOGIST Signed May 06, 2022@08:23 Performing Laboratory: Surgical Pathology Report Performed By: [facility] [CLI A# [id number]] [address] [place] [id number] $FTR - - - - - - [...] - - ANGIE LEON STANDARD FORM 515 ID:[id number] SEX:M :1965 AGE: 56 LOC: [facility] PCP: Jc Caballero NP /jacki/ JUDY THOMASON STAFF PATHOLOGIST Signed: 05/06/2022 08:23
--- OUTSIDE RECORDS SUMMARY | 2022-10-02 10:29 | XMS_ITS | Encounter Summary ---
:1965 Author Organization [facility] Address [address] [place] [id number] Support Name Relationship Address Phone DENISSE LEON Unavailable [address] [facility] [place] [address] NONE, GIVEN Unavailable Unavailable Unavailable Insurance Providers: [...] to Policy Number Chen AETNA [place] [facility] Feb [id number] [phone] [place] PATIENT SERVICE INTER 2011 381 2 [place] AETNA PRESCRIPT [facility] Feb [id number] [phone] [place] [facility] ION INTER 2011 [id number] VERO MANAGEMENT NATIO 1 [place] BCBS [place] PREFERRED BASIC Nov 30 [id number] [phone] COBY LEON PATIENT FEP PROVIDER FAMIL 2017 [id number] VERO ORGANIZAT Y ION (PPO) [place]BS [place] DENTAL [place]ENT[place] Nov 30 [id number] [phone] COBY LEON PATIENT FEP INSURANCE L [id number] 2017 62 5 VERO (DENTAL) [place] PREFERRED BASIC Nov 30 [id number] [phone] COBY METZ PATIENT FEP PROVIDER FAMIL 2017 62 5 VERO ORGANIZAT Y ION (PPO) [place]BS OF [place] PREFERRED STAND March 26 [id number] [phone] COBY METZ PATIENT (FEDERAL) 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 2015 62 7 VERO ORGANIZAT IND ION (PPO) 104 CAREMARK PRESCRIPT FEP March 26, [id number] [phone] CONR NADYA,COBY PATIENT ([id number]) ION 2015 0 62 7 VERO CAREMARK-F PRESCRIPT FEP Nov 30, [id number] [phone] [place] PATIENT EP BCBS ION CAREM 2018 0 62 1 VERO ARK CAREMARK-F PRESCRIPT FEP Nov 30, [id number] [phone] PATIENT EP BC[place] ION 2018 0 [id number] VERO CAREMARK-F PRESCRIPT SHERI Nov 30, [id number] [phone] [place] PATIENT EP [place] ION AL 2018 0 62 1 VERO RX CAREMARK-F PRESCRIPT SHERI Nov 30, [id number] [phone] [place] PATIENT [place] ION AL 2018 0 [id number] 1 VERO RX HORIZON PREFERRED BASIC Nov 30 [id number] [phone] [place] PATIENT BCBS FEP* PROVIDER FAMIL 2017 62 8 VERO ORGANIZAT Y ION (PPO) HORIZON PREFERRED BASIC Nov 30 [id number] [phone] [place] PATIENT FEDERAL PROVIDER FAMIL 2017 62 8 VERO ORGANIZAT Y ION (PPO) [facility] WORKERS' OWCP Jul 01, NONE [id number] [phone] COBY REYNOLDS PATIENT OF LABOR COMPENSAT MEDIC 2018 [id number] VERO MED DFEC ION AL INSURANCE DFEC [place] DEPT OF WORKERS' WORKE Jul 01, WORKERS [id number] [phone] COBY METZ PATIENT LABOR COMPENSAT RS 2019 COMP [id number] VERO ION COMP INSURANCE Selected Encounter This section includes the information on record at [place] for the Encounter. Date/Time Encounter Type Encounter Description Reason Provider Source Apr 29, 2022 07:53 Outpatient Encounter GI ENDOSCOPY AM [facility] Encounter Template Text not used by [place] Plan of Treatment: Future Appointments (+ 6 [...] 20 appointments. The data comes from all [place] treatment facilities. Appointment Date/Time Appointment Type Appointment Facili ty Name May 01, 2022 08:00 AM AMBULATORY - MEDICINE [facility] May 08, 2022 10:00 AM AMBULATORY - PSYCHIATRY [facility] Jun 27, 2022 09:30 AM AMBULATORY MEDICINE [facility] Jun 28, 2022 09:00 AM AMBULATORY - PSYCHIATRY [facility] Jul 12, 2022 08:00 AM AMBULATORY PSYCHIATRY [facility] Jul 12, 2022 09:20 AM AMBULATORY MEDICINE [facility] Jul 18, 2022 10:[address] [facility] WSTRN M [facility] Aug 05, 2022 02:00 PM [facility] CN[facility]L WSTRN M [facility] Aug 16, 2022 10:20 AM AMBULATORY [facility] Sep 03, 2022 11:[address] [facility] Sep 17, 2022 01:30 PM [facility] Sep 27, 2022 10:40 AM AMBULATORY - MEDICINE [facility] Lab Results: +/- 30 days [...] Reference Range Comment May 14, 2022 06:04 [facility] COVID-19 MONITOR Specimen Ty pe: OROPHARYNX [facility] PANEL([facility]) Comment: Test P erformed by NAHUM Lemus Ordering Provid er: ASHWINI SARMIENTO Report Released Date/Time: Mar 21, 2022 08:55 AM Reporting Lab: [facility] [address] [facility] [address] Performing Lab: [facility] [address] [facility] [address] COVID-19 ([id number]) Not Detected Not De tected May 07, 2022 12:40 [facility] COVID-19 MONITOR Specimen Ty pe: OROPHARYNX PM [facility] PANEL([facility]) Comment: Test P erformed by NAHUM Lemus Ordering Provid er: ASHWINI SARMIENTO Report Released Date/Time: Mar 21, 2022 08:55 AM Reporting Lab: [facility] [address] [facility] [address] Performing Lab: [facility] [address] [facility] [address] COVID-19 ([id number]) Not Detected Not De tected May 01, 2022 11:58 [facility] POC GLUCOSE Specimen Type: BLOOD AM [facility] No comment enter ed. Ordering Provid er: TODD RUSSO MD Report Released Date/Time: May 01, 2022 12:00 PM Reporting Lab: [facility] [address] [facility] [address] Performing Lab: [facility] [address] [facility] [address] POC GLUCOSE 102 70-115 May 01, 2022 09:26 [facility] POC GLUCOSE Specimen Type: BLOOD AM [facility] No comment enter ed. Ordering Provid er: JC CABALLERO Report Released Date/Time: May 01, 2022 09:28 AM Reporting Lab: [facility] [address] [facility] [address] Performing Lab: [facility] [address] [facility] [address] POC GLUCOSE 137 70-115 May 01, 2022 [facility] COVID-19, FLU/RSV Specimen T ype: NASOPHARYNX 08:22 AM [facility] SCREEN. PANEL(FLUVID) Comment: *COVID-19 SCREENING PANEL([facility]) Not Performed: May 01, 2022@08:23 b *COLLAR BASTER JUMPBASTING Reason: ORDER CORRECTED, STAT FOR PROCEDURE Added by [id number] on May 01, 2022@08:22 Ordering Provid er: TODD RUSSO MD Report Released Date/Time: May 01, 2022 08:11 AM Reporting Lab: [facility] [address] [facility] [address] Performing Lab: [facility] [address] [facility] [address] COVID-19 PCR (FLUVID) Not Detected Not D etected FLU A PCR (FLUVID) Not Detected Not Dete cted FLU B PCR (FLUVID) Not Detected Not Dete cted RSV PCR (FLUVID) Not Detected Not Detect ed April 23, 2022 12:00 [facility] COVID-19 MONITOR Specimen Ty pe: OROPHARYNX [facility] PANEL([facility]) Comment: Test P erformed by NAHUM Lemus Ordering Provid er: ASHWINI SARMIENTO Report Released Date/Time: Mar 21, 2022 08:55 AM Reporting Lab: [facility] [address] [facility] [address] Performing Lab: [facility] [address] [facility] [facility] [address] COVID-19 ([id number]) Not Detected Not De tected April 17, 2022 12:30 [facility] COVID-19 MONITOR Specimen Ty pe: OROPHARYNX [facility] PANEL([facility]) Comment: Test P erformed by NAHUM Lemus Ordering Provid er: ASHWINI SARMIENTO Report Released Date/Time: Mar 21, 2022 08:55 AM Reporting Lab: [facility] [address] [facility] [facility] [address] Performing Lab: [facility] [address] [facility] [address] COVID-19 ([id number]) Not Detected Not De tected April 12, 2022 08:02 [facility] HEMOGLOBIN A1C Specimen Type: BLOOD [facility] No comment enter ed. Ordering Provid er: JUSTIN HEBERT Report Released Date/Time: Dec 21, 2021 09:49 AM Reporting Lab: [facility] [address] [facility] [address] Performing Lab: [facility] [address] [facility] [address] HEMOGLOBIN A1C 7.0 H 4.8-5.6 April 12, 2022 [facility] CHEM, Comprehensive Specimen Ty pe: SERUM 08:02 AM [facility] Metabolic Panel Comment: eGFR c alculated using [...] Stage 5 - End Stage CKD Reference: [email or web address] Ordering Provid er: JUSTIN HEBERT Report Released Date/Time: Dec 21, 2021 09:49 AM Reporting Lab: [facility] [address] [facility] [address] Performing Lab: [facility] [address] [facility] [facility] [address] CREATININE 1.3 .7-1.3 UREA NITROGEN 22 7-25 GLUCOSE 264 H 65-99 SODIUM 137 136-145 POTASSIUM 4.2 3.5-5.1 CHLORIDE 100 98-107 CO2 27 21-31 CALCIUM 9.7 8.6-10.3 PROTEIN,TOTAL 7.0 6.4-8.9 ALBUMIN 4.6 3.5-5.7 TOTAL BILIRUBIN 0.6 0.3-1.0 ALKALINE PHOSPHATASE 71 34-104 AST 22 13-39 ALT 23 7-52 ANION GAP 10 5-13 eGFR 65 L >90 April 09, 2022 03:21 [facility] NEW COVID-19 MONITOR Specimen Ty pe: OROPHARYNX PM [facility] PANEL([facility]) Comment: Test P erformed by NAHUM Lemus Ordering Provid er: ASHWINI SARMIENTO Report Released Date/Time: Mar 21, 2022 08:55 AM Reporting Lab: [facility] [address] [facility] [facility] [address] Performing Lab: [facility] [address] [facility] [address] COVID-19 ([id number]) Not Detected Not De tected April 02, 2022 12:00 [facility] COVID-19 MONITOR Specimen Ty pe: OROPHARYNX AM [facility] PANEL([facility]) Comment: Test P erformed by NAHUM Lemus Ordering Provid er: ASHWINI SARMIENTO Report Released Date/Time: Mar 21, 2022 08:55 AM Reporting Lab: [facility] [address] [facility] [address] Performing Lab: [facility] [address] [facility] [facility] [address] COVID-19 ([id number]) Not Detected Not De tected Social History: Smoking Status (Most current) and Tobacco Use (All prior to encounter date) This section includes the most current, and the historical, smoking and tobacco-related health factors from the [place] facility where the Encounter took place.Current Smoking Status This section includes the most current smoking, or tobacco-related health factor, from the [place] facility where the Encounter took place. Date/Time Current Smoking Status Comment Facility Oct 28, 2017 08:55 AM LIFETIME NON-USER OF TOBACCO [facility] Pathology Reports: +/- 30 days of the [...] the Encounter. The data comes from all [place] treatment facilities. Date/Time Pathology Report Provider Source May 10, 2022 11:37 LR SURGICAL PATHOLOGY REPORT: KIRK PAGAN [facility] LOCAL TITLE: LR SURGICAL PATHOLOGY REPORT [facility] STANDARD TITLE: LABORATORY NOTE DATE [...] determined by the immunoperoxid ase Laboratory of [facility]. They have not been cl [...] Amendments of 1988 (CLIA-88) as qualified to select specialty hospital high complexity clinical laboratory testing. The appropriate po sitive and negative controls were run and reviewed. CPT:27863l3; 01028 SUPPLEMENTARY REPORT(S): Supplementary Report Date: MAY 10, 2022 *+* SUPPLEMENTARY REPORT HAS BEEN ADDED/MODIFIE D *+* (Added/Last released: May 10, 2022 11:37 Signed by ELIN PAGAN) IMMUNOSTAIN IS PERFORMED ON SPECIMEN A WHICH IS NEGATIVE FOR H.PYLORI ORGANISMS. CPT: 97817 IHC DISCLAIMER Some of these tests were developed and their pe rformance characteristics determined by the immunoperoxidase Laboratory [facility]. They have not been cleared or approved by U.S. Food and Drug Administration. The FDA has determined that [facility] clearance or approval is not necessary. This [...] By: [facility] [CLI A# [id number]] [address] [place] [id number] $FTR - - - - - - [...] - - ANGIE LEON STANDARD FORM 515 ID:[id number] SEX:M :1965 AGE: 56 LOC: [facility] PCP: Jc Caballero NP /kirstie PAGAN STAFF PATHOLOGIST Signed: 05/10/2022 11:37 May 06, 2022 08:23 LR SURGICAL PATHOLOGY REPORT: JUDY THOMASON [facility] TITLE: LR SURGICAL PATHOLOGY REPORT [facility] STANDARD TITLE: LABORATORY NOTE DATE OF NOTE: [...] determined by the immunoperoxid ase Laboratory of [facility]. They have not been cl [...] and negative controls were run and reviewed. CPT:08263k6; 65547 /jacki/ JUDY THOMASON STAFF PATHOLOGIST Signed May 06, 2022@08:23 Performing Laboratory: Surgical Pathology Report Performed By: [facility] [CLI A# [id number]] [address] [place] [id number] $FTR - - - - - - [...] - - ANGIE LEON STANDARD FORM 515 ID:[id number] SEX:M :1965 AGE: 56 LOC: [facility] PCP: Jc Caballero NP /jacki/ JUDY THOMASON STAFF PATHOLOGIST Signed: 05/06/2022 08:23 Encounter Notes: All associated encounter notes This section contains the clinical notes associated to the Encounter. Date/Time Encounter Note(s) Provider Source Apr 29, 2022 07:53 AM ADMINISTRATIVE NOTE: NATANAEL BACA [facility] TITLE: MEDICAL ADMINISTRATION//SCHEDULING NOTE [facility] STANDARD TITLE: ADMINISTRATIVE NOTE DATE OF NOTE: APR 29, 2022@07:53 ENTRY DATE: APR 29, 2022@07:53:33 AUTHOR: NATANAEL BACA EXP COSIGNER: URGENCY: STATUS: COMPLETED LEFT VOICEMAIL WITH APPT DATE AND TIME REMINDER FOR COVID AND A RIDE CALL EXT [id number] FOR ANY QUESTIONS /jacki/ NATANAEL BACA MSA Signed: 04/29/2022 07:53
--- OUTSIDE RECORDS SUMMARY | 2022-10-02 10:29 | XMS_ITS ---
:1965 Author Organization [facility] Address [address] [place] [id number] Support Name Relationship Address Phone DENISSE LEON Unavailable [address] [place] [address] NONE, GIVEN Unavailable Unavailable Unavailable Insurance Providers: [...] Chen AETNA POINT OF [facility] Feb [id number] [phone] [place] PATIENT SERVICE INTER 2011 [id number] [place] AETNA PRESCRIPT [facility] Feb [id number] [phone] [place] PATIENT PHARMACY ION INTER 2011 [id number] VERO MANAGEMENT NATIO 1 [place] BCBS [place] PREFERRED BASIC Nov 30 [id number] [phone] COBY LEON PATIENT FEP PROVIDER FAMIL 2017 [id number] VERO ORGANIZAT Y ION (PPO) [place]BS [place] DENTAL [place] Nov 30 [id number] [phone] COBY LEON PATIENT FEP INSURANCE L 112 2017 62 5 VERO (DENTAL) [place] PREFERRED BASIC Nov 30 [id number] [phone] COBY METZ PATIENT FEP PROVIDER FAMIL 2017 62 5 VERO ORGANIZAT Y ION (PPO) [place]BS OF [place] PREFERRED STAND March 26 [id number] [phone] COBY METZ PATIENT (FEDERAL) 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 2014 62 7 VERO ORGANIZAT IND ION (PPO) 104 CAREMARK PRESCRIPT FEP March 26, [id number] [phone] CONR NAD[place] PATIENT ([id number]) ION 2015 0 62 7 VERO CAREMARK-F PRESCRIPT FEP Nov 30, [id number] [phone] [place] PATIENT EP BCBS ION CAREM 2018 0 62 1 VERO ARK CAREMARK-F PRESCRIPT SHERI Nov 30, [id number] [phone] [place] PATIENT EP BCBS ION AL 2018 0 62 1 VERO RX CAREMARK-F PRESCRIPT SHERI Nov 30, [id number] [phone] [place] PATIENT EP BCBS ION AL 2018 0 [id number] VERO RX CAREMARK-F PRESCRIPT FEP Nov 30, [id number] [phone] PATIENT EP BCBS ION 2018 0 [id number] VERO HORIZON PREFERRED BASIC Nov 30 [id number] [phone] EDWARD ,[place] PATIENT BCBS FEP* PROVIDER FAMIL 2017 62 8 VERO ORGANIZAT Y ION (PPO) HORIZON PREFERRED BASIC Nov 30 [id number] [phone] EDWARD[place] PATIENT FEDERAL PROVIDER FAMIL 2018 62 8 VERO ORGANIZAT Y ION (PPO) DEPART WORKERS' OWCP Jul 01, NONE [id number] [phone] COBY REYNOLDS PATIENT OF LABOR COMPENSAT MEDIC 2018 [id number] VERO MED DFEC ION AL INSURANCE DFEC DEPT OF WORKERS' WORKE Jul 01, WORKERS [id number] [phone] ROBERT [place] PATIENT LABOR COMPENSAT RS 2019 COMP [id number] VERO ION COMP INSURANCE Selected Encounter This section includes the information on record at [place] for the Encounter. Date/Time Encounter Type Encounter Reason Provider Source Description May 01, 2022 OFFICE O/P EST ANESTHESIA ICD-10-CM CALABRESE,JAYLYN 08:00 AM MINIMAL PROB PRE/POST-OP CONSULT Z86.010 Personal history of colonic polyps with Provider Comments: Personal History of Colonic Polyps IHE Encounter Template Text not used by [facility] Assessments - Encounter Diagnoses This section includes the primary and secondary diagnoses documented for the Encounter. Date/Time Primary/Secondary Diagnosis Name Provider Source Diagnosis May 01, 2022 09:55 PRIMARY Personal history JAYLYN CALABRESE [facility] AM of colonic polyps [facility] Plan of Treatment: Future Appointments (+ 6 months) and Future Tests (+/- 45 days) The Plan of Treatment section includes future care activities for the patient from [facility]. This section includes future appointments and future orders which are active, pending orscheduled.Future Appointments This section includes appointments that were scheduled to occur 6 months from the date of the Encounter, up to a maximum of 20 appointments. The data comes from all [place] treatment facilities. Appointment Date/Time Appointment Type Appointment Facili ty Name May 08, 2022 10:00 AM [facility] PSYCHIATRY [facility] Jun 27, 2022 09:30 AM [facility] MEDICINE [facility] Jun 28, 2022 09:00 AM [facility] Jul 12, 2022 08:00 AM [facility] Jul 12, 2022 09:20 AM [facility] MED[facility] Jul 18, 2022 10:30 AM [facility] Aug 05, 2022 02:00 [facility] Aug 16, 2022 10:20 AM [facility] Sep 03, 2022 11:45 [facility] Sep 17, 2022 01:30 PM [facility] Sep 27, 2022 10:40 AM [facility] MEDIC[facility] Lab Results: +/- 30 days of the encounter This section includes the Chemistry and Hematology Lab Results on record with [place] for the patient. Radiology Reports and Pathology Reports are provided separately, in subsequent sections.Lab Results This section contains the Chemistry/Hematology Results that were resulted 30 days before or 30 daysafter the date of the Encounter. Date/Time Source Result Type Result - Unit Interpretation Reference Range Comment May 14, 2022 06:04 [facility] COVID-19 MONITOR Specimen Ty pe: OROPHARYNX [facility] PANEL([facility]) Comment: Test P erformed by NAHUM Lemus Ordering Provid er: ASHWINI SARMIENTO Report Released Date/Time: Mar 21, 2022 08:55 AM Reporting Lab: [facility] [address] [facility] [address] Performing Lab: [facility] [address] [facility] [address] COVID-19 ([id number]) Not Detected Not De tected May 07, 2022 12:40 [facility] COVID-19 MONITOR Specimen Ty pe: OROPHARYNX [facility]) Comment: Test P erformed by NAHUM Lemus Ordering Provid er: ASHWINI SARMIENTO Report Released Date/Time: Mar 21, 2022 08:55 AM Reporting Lab: [facility] [address] [facility] [address] Performing Lab: [facility] [address] [facility] [address] COVID-19 ([id number]) Not Detected Not De tected May 01, 2022 11:58 [facility] POC GLUCOSE Specimen Type: BLOOD [facility] No comment enter ed. Ordering Provid er: TODD RUSSO MD Report Released Date/Time: May 01, 2022 12:00 PM Reporting Lab: [facility] [address] [facility] [address] Performing Lab: [facility] [address] [facility] [address] POC GLUCOSE 102 70-115 May 01, 2022 09:26 [facility] POC GLUCOSE Specimen Type: BLOOD [facility] No comment enter ed. Ordering Provid er: JC CABALLERO Report Released Date/Time: May 01, 2022 09:28 AM Reporting Lab: [facility] [address] [facility] [address] Performing Lab: [facility] [address] [facility] [address] POC GLUCOSE 137 70-115 May 01, 2022 [facility] COVID-19, FLU/RSV Specimen T ype: NASOPHARYNX 08:22 [facility] SCREEN. PANEL(FLUVID) Comment: *COVID-19 SCREENING PANEL([facility]) Not Performed: May 01, 2022@08:23 b *TELECOM ASSISTANT Reason: ORDER CORRECTED, STAT FOR PROCEDURE Added by [id number] on May 01, 2022@08:22 Ordering Provid er: TODD RUSSO MD Report Released Date/Time: May 01, 2022 08:11 AM Reporting Lab: [facility] [address] [facility] [address] Performing Lab: [facility] [address] [facility] [address] COVID-19 PCR (FLUVID) Not Detected Not D etected FLU A PCR (FLUVID) Not Detected Not Dete cted FLU B PCR (FLUVID) Not Detected Not Dete cted RSV PCR (FLUVID) Not Detected Not Detect ed April 23, 2022 12:00 [facility] COVID-19 MONITOR Specimen Ty pe: OROPHARYNX [facility] PANEL([facility]) Comment: Test P erformed by NAHUM Lemus Ordering Provid er: ASHWINI SARMIENTO Report Released Date/Time: Mar 21, 2022 08:55 AM Reporting Lab: [facility] [address] [facility] [address] Performing Lab: [facility] [address] [facility] [address] COVID-19 ([id number]) Not Detected Not De tected April 17, 2022 12:30 [facility] NEW COVID-19 MONITOR Specimen Ty pe: OROPHARYNX [facility] PANEL([facility]) Comment: Test P erformed by NAHUM Lemus Ordering Provid er: ASHWINI SARMIENTO Report Released Date/Time: Mar 21, 2022 08:55 AM Reporting Lab: [facility] [address] [facility] [address] Performing Lab: [facility] [address] [facility] [address] COVID-19 ([id number]) Not Detected Not De tected April 12, 2022 08:02 [facility] HEMOGLOBIN A1C Specimen Type: BLOOD [facility] No comment enter ed. Ordering Provid er: JUSTIN HEBERT Report Released Date/Time: Dec 21, 2021 09:49 AM Reporting Lab: [facility] [address] [facility] [address] Performing Lab: [facility] [address] [facility] [address] HEMOGLOBIN A1C 7.0 H 4.8-5.6 April 12, 2022 [facility] CHEM, Comprehensive Specimen Ty pe: SERUM 08:02 AM [facility] Metabolic Panel Comment: eGFR c alculated using [...] Stage 5 - End Stage CKD Reference: [email or web address] Ordering Provid er: JUSTIN HEBERT Report Released Date/Time: Dec 21, 2021 09:49 AM Reporting Lab: [address] [address] Performing Lab: [address] [address] CREATININE 1.3 .7-1.3 UREA NITROGEN 22 7-25 GLUCOSE 264 H 65-99 SODIUM 137 136-145 POTASSIUM 4.2 3.5-5.1 CHLORIDE 100 98-107 CO2 27 21-31 CALCIUM 9.7 8.6-10.3 PROTEIN,TOTAL 7.0 6.4-8.9 ALBUMIN 4.6 3.5-5.7 TOTAL BILIRUBIN 0.6 0.3-1.0 ALKALINE PHOSPHATASE 71 34-104 AST 22 13-39 ALT 23 7-52 ANION GAP 10 5-13 eGFR 65 L >90 April 09, 2022 03:21 [facility] NEW COVID-19 MONITOR Specimen Ty pe: OROPHARYNX [facility] PANEL([facility]) Comment: Test P erformed by NAHUM Lemus Ordering Provid er: ASHWINI SARMIENTO Report Released Date/Time: Mar 21, 2022 08:55 AM Reporting Lab: [address] [address] Performing Lab: [address] [address] COVID-19 ([id number]) Not Detected Not De tected April 02, 2022 12:00 [facility] COVID-19 MONITOR Specimen Ty pe: OROPHARYNX [facility] PANEL([facility]) Comment: Test P erformed by NAHUM Lemus Ordering Provid er: ASHWINI SARMIENTO Report Released Date/Time: Mar 21, 2022 08:55 AM Reporting Lab: [facility] [address] [facility] [address] Performing Lab: [facility] [address] [facility] [address] COVID-19 ([id number]) Not Detected Not De tected Vital Signs: All taken on the encounter date This section contains inpatient and outpatient Vital Signs collected on the date of the Encounter. Date/Time Temperature Pulse Blood Respiratory SP02 Pain Height Weight Dong dy Source Pressure Rate Mass Index May 01 113/72 20 /min 98 % 0 2021 12:45 /min mm[Hg] [facility] May 01 F 59 116/70 20 /min 99 % 0 68 in 192 lb 29 2021 09:30 /min mm[Hg] [facility] Social History: Smoking Status (Most current) and Tobacco Use (All prior to encounter date) This section includes the most current, and the historical, smoking and tobacco-related health factors from the [place] facility where the Encounter took place.Current Smoking Status This section includes the most current smoking, or tobacco-related health factor, from the [place] facility where the Encounter took place. Date/Time Current Smoking Status Comment Facility Oct 28, 2017 08:55 AM LIFETIME NON-USER OF TOBACCO [facility] Pathology Reports: +/- 30 days of the [...] the Encounter. The data comes from all [place] treatment facilities. Date/Time Pathology Report Provider Source May 10, 2022 11:37 LR SURGICAL PATHOLOGY REPORT: KIRK PAGAN [facility] LOCAL TITLE: LR SURGICAL PATHOLOGY REPORT [facility] STANDARD TITLE: LABORATORY NOTE DATE OF NOTE: MAY 10, 2022@11:37:05 ENTRY DATE: MAY 10, 2022@11:37:05 AUTHOR: KIRK PAGAN: URGENCY: STATUS: COMPLETED $APHDR - - - [...] determined by the immunoperoxid ase Laboratory of [facility]. They have not been cl eared [...] and negative controls were run and reviewed. CPT:93147c3; 76072 SUPPLEMENTARY REPORT(S): Supplementary Report Date: MAY 10, 2022 *+* SUPPLEMENTARY REPORT HAS BEEN ADDED/MODIFIE D *+* (Added/Last released: May 10, 2022 11:37 Signed by ELIN PAGAN) IMMUNOSTAIN IS PERFORMED ON SPECIMEN A WHICH IS NEGATIVE FOR H.PYLORI ORGANISMS. CPT: 91231 IHC DISCLAIMER Some of these tests were developed and their pe rformance characteristics determined by the immunoperoxidase Laboratory o [facility]. They have not been cleared or [...] reviewed. /jacki/ ELIN PAGAN FOR JUDY BURNETT H STAFF PATHOLOGIST Signed May 10, 2022@11:37 Performing Laboratory: Surgical Pathology Report Performed By: [facility] [CLI A# [id number]] [address] [place] [phone] $FTR - - - - - - [...] - - - - - - - EDWARDANIGE SAAB STANDARD FORM 515 ID:[id number] SEX:M :1965 AGE: 56 LOC: [facility] PCP: Jc Caballero NP /jacki/ ELIN PAGAN STAFF PATHOLOGIST Signed: 05/10/2022 11:37 May 06, 2022 08:23 LR SURGICAL PATHOLOGY REPORT: JUDY THOMASON [facility] TITLE: LR SURGICAL PATHOLOGY REPORT [facility] STANDARD TITLE: LABORATORY NOTE DATE OF NOTE: [...] determined by the immunoperoxid ase Laboratory of [facility]. They have not been cl eared [...] of 1988 (CLIA-88) as qualified to pe [facility] high complexity clinical laboratory testing. The appropriate po sitive and negative controls were run and reviewed. CPT:[id number]; 43868 /jacki/ JUDY THOMASON STAFF PATHOLOGIST Signed May 06, 2022@08:23 Performing Laboratory: Surgical Pathology Report Performed By: [facility] [CLI A# [id number]] [address] [place] [id number] $FTR - - - - - - - - - - - - - - - - - - - - - - - - - - - - - - - - - - - - - - - - (End of report) JUDY THOMASON [facility] Date May 06, 2022 - - - - - - - - - - - - - - - - - - - - - - - - - - - - - - - - - - - - - - - - ANGIE LEON STANDARD FORM 515 ID:[id number] SEX:M :1965 AGE: 56 LOC: [facility] PCP: Jc Caballero NP /jacki/ JUDY THOMASON STAFF PATHOLOGIST Signed: 05/06/2022 08:23 Encounter Notes: All associated encounter notes This section contains the clinical notes associated to the Encounter. Date/Time Encounter Note(s) Provider Source May 01, 2022 09:29 AM ANESTHESIOLOGY PRE OPERATIVE E & M NOTE: JAYLYN CASTANO [facility] TITLE: PRE-ANESTHESIA EVALUATION [facility] TITLE: ANESTHESIOLOGY PRE OPERATIVE E & M NOTE DATE OF NOTE: MAY 01, 2022@09:29 ENTRY DATE: MAY 01, 2022@09:29:10 AUTHOR: JAYLYN CALABRESE COSIGNER: URGENCY: STATUS: COMPLETED PRE-ANESTHESIA EVALUATION AGE: 56 PRE-OP DIAGNOSIS:f/o GI CA PROPOSED OPERATION:EGD Colonoscopy PMH/ROS: ACTIVE PROBLEMS: Code Description N18.2 Chronic kidney disease stage 2 ([facility] 450680 006) F33.1 Moderate major depression ([facility] 421672) E66.09 Obesity ([facility] 355358482) E11.9 Diabetic retinopathy associated with type 2 diabetes mellitus ([facility] 551244392) 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, BILATERAL (IC D-9-CM 389.18) 388.31 SUBJECTIVE TINNITUS (ICD-9-CM 388.31) 346.90 Migraine, unspecified, without mention of Intractable Migraine without mention o (ICD-9-CM 346.90) 799.9 HYPOSPADIES (ICD-9-CM 799.9) J45.909 Asthma sometimes restricts exercise ([facility] 586634738) 799.9 Fatty Liver (ICD-9-CM 799.9) ANES HX COMPLICATIONS Denies MEDICATIONS: Active Outpatient Medications (excluding Supplie s): Active Outpatient Medications Status 1) ALOGLIPTIN 12.5MG [...] E CAP,ORAL MOUTH ACTIVE 15 Total Medications SOCIAL HX: Tobacco--Denies Pk-yrs-- EtOH--Social Subst Abuse--denies Last administ-- Allergies: PENICILLIN Reaction-- Fam Hx-- Anes Complication- OTHER: PHYSICAL EXAM: General:NAD 68 in [172.7 cm] (06/29/2021 09:28) 200 lb [90.72 kg] (09/21/2021 08:44) Airway: Mallampati Class: []I, []II, []III, []IV , Tongue: Mental-Thyroid Distance [ ]mm's. Masses: Range of Motion:[ ] []Head, []Neck, []Jaw, []Tr achea Teeth: []Good, []Poor, []Raysa Up, []Raysa Lo, Lo ose [] Heart:S1S2 RRR Lung:CTA no wheezes Neuro:AAOx3 Other: Memo's Test: [] LAB:POC GLUCOSE: 137 FLU A PCR (FLUVID): Not Detected FLU B PCR (FLUVID): Not Detected RSV PCR (FLUVID): Not Detected COVID-19 PCR(FLUVID): Not Detected COVID-19 ([id number]): Not Detected COVID-19 ([id number]): Not Detected GLUCOSE: 264 H UREA NITROGEN: 22 CREATININE: 1.3 SODIUM: 137 POTASSIUM: 4.2 CHLORIDE: 100 CO2: 27 CALCIUM: 9.7 PROTEIN,TOTAL: 7.0 ALBUMIN: 4.6 BILIRUBIN,TOTAL: 0.6 ALKALINE PHOSPHATASE: 71 SGOT: 22 SGPT: 23 ANION GAP: 10 EGFR: 65 L HEMOGLOBIN A1C: 7.0 H COVID-19 ([id number]): Not Detected COVID-19 ([id number]): Not Detected X-RAY: CHEST 2 VIEWS PA & LAT ([place] ONLY) - NONE FOUND - 2Y EKG:NSR OTHER:56yo w h/o DM>25yrs,FS 137 in preop Chol, seasonal asthma, last use of inhaler 8months ago, family hx of GI CA, p/f EGD and colonocopy. pt seen and examined. anes plan explained. R&B discussed. pl an MAC. vet verbalized understanding and agreed to proceed. ASA CLASS: []I, [x]II, []III, []IV, []V, [], [ ]E, ANESTHESIA PLAN: [x]General, []Regional, [x]MAC, [] Anesthesia plan including complications, risk/b enefits, blood transfusion, post-operative ventilation and inva sive monitoring have been discussed with the [x]Patient, []Guardian, []Oth er , who understands and consents. All questions answered. [x]Pre-Ops omegai eber. /jacki/ JAYLYN CALABRESE Attending Anesthesiologist Signed: 05/01/2022 09:55
--- OUTSIDE RECORDS SUMMARY | 2022-10-02 10:29 | XMS_ITS | Encounter Summary ---
:1965 Author Organization [facility] rs Address [address] [place] [id number] Support Name Relationship Address Phone DENISSE LEON Unavailable [address] [place] [address] NONE, GIVEN Unavailable Unavailable Unavailable Insurance Providers: [...] Chen AETNA POINT OF PSYCHIATRIC Feb [id number] [phone] PATIENT SERVICE INTER 2011 [id number] [place]ERO [place]IO [place] AETNA PRESCRIPT PSYCHIATRIC Feb [id number] [phone] COBY LEON PATIENT PHARMACY ION INTER 2011 [id number] VERO MANAGEMENT NATIO 1 [place] BCBS [place] PREFERRED BASIC Nov 30 [id number] [phone] COBY LEON PATIENT FEP PROVIDER FAMIL 2017 [id number] VERO ORGANIZAT Y ION (PPO) [place]BS [place] DENTAL [place] Nov 30 [id number] [phone] COBY LEON PATIENT FEP INSURANCE L 112 2017 62 5 VERO (DENTAL) [place] PREFERRED BASIC Nov 30 [id number] [phone] COBY METZ PATIENT FEP PROVIDER FAMIL 2017 62 5 VERO ORGANIZAT Y ION (PPO) [place] PREFERRED STAND March 26 [id number] [phone] COBY METZ PATIENT (FEDERAL) 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 2014 62 7 VERO ORGANIZAT IND ION (PPO) 104 CAREMARK PRESCRIPT FEP March 26, [id number] [phone] CONR NADYA,COBY PATIENT ([id number]) ION 2014 0 62 7 VERO CAREMARK-F PRESCRIPT FEP Nov 30, [id number] [phone] PATIENT EP BCBS ION 2018 0 [id number] VERO CAREMARK-F PRESCRIPT FEP Nov 30, [id number] [phone] [place] PATIENT EP BCBS ION CAREM 2018 0 62 1 VERO ARK CAREMARK-F PRESCRIPT SHERI Nov 30, [id number] [phone] [place] PATIENT EP BCBS ION AL 2018 0 62 1 VERO RX CAREMARK-F PRESCRIPT SHERI Nov 30, [id number] [phone] [place] PATIENT EP BCBS ION AL 2018 0 [id number] 1 VEOR RX HORIZON PREFERRED BASIC Nov 30 [id number] [phone] EDWARDCT PATIENT BCBS FEP* PROVIDER FAMIL 2017 62 8 VERO ORGANIZAT Y ION (PPO) HORIZON PREFERRED BASIC Nov 30 [id number] [phone] EDWARDCT PATIENT FEDERAL PROVIDER FAMIL 2017 62 8 VERO ORGANIZAT Y ION (PPO) DEPART WORKERS' OWCP Jul 01, NONE [id number] [phone] COBY REYNOLDS PATIENT OF LABOR COMPENSAT MEDIC 2018 [id number] VERO MED DFEC ION AL INSURANCE DFEC US DEPT OF WORKERS' WORKE Jul 01, WORKERS [id number] [phone] COBY METZ PATIENT LABOR COMPENSAT RS 2019 COMP [id number] VERO ION COMP INSURANCE Selected Encounter This section includes the information on record at [place] for the Encounter. Date/Time Encounter Type Encounter Description Reason Provider Source May 01, 2022 12:52 Outpatient Encounter EVENT (HISTORICAL) PM IHE Encounter [...] 2022 10:00 AM AMBULATORY - PSYCHIATRY [facility] Jun 27, 2022 09:30 AM AMBULATORY - MEDICINE [facility] Jun 28, 2022 09:00 AM AMBULATORY - PSYCHIATRY [facility] Jul 12, 2022 08:00 AM AMBULATORY - PSYCHIATRY [facility] Jul 12, 2022 09:20 AM AMBULATORY - MEDICINE [facility] Jul 18, 2022 10:30 AM [facility] Aug 05, 2022 02:00 PM [facility] Aug 16, 2022 10:20 AM AMBULATORY [facility] Sep 03, 2022 11:45 AM [facility] Sep 17, 2022 01:30 PM [facility] Sep 27, 2022 10:40 AM AMBULATORY - MEDICINE [facility] Lab Results: +/- 30 days of the [...] May 14, 2022 06:04 [facility] COVID-19 MONITOR Specimen Ty pe: OROPHARYNX [facility] PANEL([facility]) Comment: Test P erformed by NAHUM Lemus Ordering Provid er: ASHWINI SARMIENTO Report Released Date/Time: Mar 21, 2022 08:55 AM Reporting Lab: [facility] [address] [facility] [address] Performing Lab: [facility] [address] [facility] [address] COVID-19 ([id number]) Not Detected Not De tected May 07, 2022 12:40 [facility] COVID-19 MONITOR Specimen Ty pe: OROPHARYNX PM [facility] PANEL([facility]) Comment: Test P erformed by NAHUM Lemus Ordering Provid er: ASHWINI SARMIENTO Report Released Date/Time: Mar 21, 2022 08:55 AM Reporting Lab: [facility] [address] [facility] [address] Performing Lab: [facility] [address] [facility] [address] COVID-19 ([id number]) Not Detected Not De tected May 01, 2022 11:58 [facility] POC GLUCOSE Specimen Type: BLOOD AM [facility] No comment enter ed. Ordering Provid er: TODD RUSSO MD Report Released Date/Time: May 01, 2022 12:00 PM Reporting Lab: [facility] [address] [address] Performing Lab: [facility] [address] [facility] [address] POC GLUCOSE 102 70-115 May 01, 2022 09:26 [facility] POC GLUCOSE Specimen Type: BLOOD AM [facility] No comment enter ed. Ordering Provid er: JC CABALLERO Report Released Date/Time: May 01, 2022 09:28 AM Reporting Lab: [facility] [address] [facility] [address] Performing Lab: [facility] [address] [facility] [address] POC GLUCOSE 137 70-115 May 01, 2022 [facility] COVID-19, FLU/RSV Specimen T ype: NASOPHARYNX 08:22 AM [facility] SCREEN. PANEL(FLUVID) Comment: *COVID-19 SCREENING PANEL(NJS) Not Performed: May 01, 2022@08:23 b *SIMULATION SPECIALIST Reason: ORDER CORRECTED, STAT FOR PROCEDURE Added by [id number] on May 01, 2022@08:22 Ordering Provid er: TODD RUSSO MD Report Released Date/Time: May 01, 2022 08:11 AM Reporting Lab: [facility] [address] [facility] [address] Performing Lab: [facility] [address] [facility] [address] COVID-19 PCR (FLUVID) Not Detected Not D etected FLU A PCR (FLUVID) Not Detected Not Dete cted FLU B PCR (FLUVID) Not Detected Not Dete cted RSV PCR (FLUVID) Not Detected Not Detect ed April 23, 2022 12:00 [facility] NEW COVID-19 MONITOR Specimen Ty pe: OROPHARYNX AM [facility] PANEL([facility]) Comment: Test P erformed by NAHUM Lemus Ordering Provid er: ASHWINI SARMIENTO Report Released Date/Time: Mar 21, 2022 08:55 AM Reporting Lab: [facility] [address] [facility] [address] Performing Lab: [facility] [address] [facility] [address] COVID-19 ([id number]) Not Detected Not De tected April 17, 2022 12:30 [facility] COVID-19 MONITOR Specimen Ty pe: OROPHARYNX [facility] PANEL([facility]) Comment: Test P erformed by NAHUM Lemus Ordering Provid er: ASHWINI SARMIENTO Report Released Date/Time: Mar 21, 2022 08:55 AM Reporting Lab: [facility] [address] [facility] [address] Performing Lab: [facility] [address] [facility] [address] COVID-19 ([id number]) Not Detected Not De tected April 12, 2022 08:02 [facility] HEMOGLOBIN A1C Specimen Type: BLOOD [facility] No comment enter ed. Ordering Provid er: JUSTIN HEBERT Report Released Date/Time: Dec 21, 2021 09:49 AM Reporting Lab: [facility] [address] [facility] [address] Performing Lab: [facility] [address] [facility] [address] HEMOGLOBIN A1C 7.0 H 4.8-5.6 April 12, 2022 [facility] CHEM, Comprehensive Specimen Ty pe: SERUM 08:02 AM [facility] Metabolic Panel Comment: eGFR c alculated [...] Stage 5 - End Stage CKD Reference: [email or web address] Ordering Provid er: JUSTIN HEBERT Report Released Date/Time: Dec 21, 2021 09:49 AM Reporting Lab: [facility] [address] [facility] [address] Performing Lab: [facility] [address] [facility] [address] CREATININE 1.3 .7-1.3 UREA NITROGEN 22 7-25 GLUCOSE 264 H 65-99 SODIUM 137 136-145 POTASSIUM 4.2 3.5-5.1 CHLORIDE 100 98-107 CO2 27 21-31 CALCIUM 9.7 8.6-10.3 PROTEIN,TOTAL 7.0 6.4-8.9 ALBUMIN 4.6 3.5-5.7 TOTAL BILIRUBIN 0.6 0.3-1.0 ALKALINE PHOSPHATASE 71 34-104 AST 22 13-39 ALT 23 7-52 ANION GAP 10 5-13 eGFR 65 L >90 April 09, 2022 03:21 [facility] NEW COVID-19 MONITOR Specimen Ty pe: OROPHARYNX PM [facility] PANEL([facility]) Comment: Test P erformed by NAHUM Lemus Ordering Provid er: ASHWINI SARMIENTO Report Released Date/Time: Mar 21, 2022 08:55 AM Reporting Lab: [facility] [address] [facility] [address] Performing Lab: [facility] [address] [facility] [address] COVID-19 ([id number]) Not Detected Not De tected April 02, 2022 12:00 [facility] COVID-19 MONITOR Specimen Ty pe: OROPHARYNX AM [facility] PANEL([facility]) Comment: Test P erformed by NAHUM Lemus Ordering Provid er: ASHWINI SARMIENTO Report Released Date/Time: Mar 21, 2022 08:55 AM Reporting Lab: [facility] [address] [facility] [address] Performing Lab: [facility] [address] [facility] [address] COVID-19 ([id number]) Not Detected Not De tected Vital Signs: All taken on the encounter date This section contains inpatient and outpatient Vital Signs collected on the date of the Encounter. Date/Time Temperature Pulse Blood Respiratory SP02 Pain Height Weight Dong dy Source Pressure Rate Mass Index May 01 113/72 20 /min 98 % 0 2021 12:45 /min mm[Hg] [facility] May 01 F 59 116/70 20 /min 99 % 0 68 in 192 lb 29 2021 09:30 /min mm[Hg] [facility] AM [facility] Social History: Smoking Status (Most current) [...] 08:55 AM LIFETIME NON-USER OF TOBACCO [facility] Pathology Reports: +/- 30 days [...] 11:37 LR SURGICAL PATHOLOGY REPORT: KIRK PAGAN [facility] LOCAL TITLE: LR SURGICAL PATHOLOGY REPORT [facility] STANDARD TITLE: LABORATORY NOTE DATE OF NOTE: [...] determined by the immunoperoxid ase Laboratory of [facility]. They have not been cl [...] and negative controls were run and reviewed. CPT:56669g8; 24063 SUPPLEMENTARY REPORT(S): Supplementary Report Date: MAY 10, 2022 *+* SUPPLEMENTARY REPORT HAS BEEN ADDED/MODIFIE D *+* (Added/Last released: May 10, 2022 11:37 Signed by ELIN PAGAN) IMMUNOSTAIN IS PERFORMED ON SPECIMEN A WHICH IS NEGATIVE FOR H.PYLORI ORGANISMS. CPT: 12261 IHC DISCLAIMER Some of these tests were developed and their pe rformance characteristics determined by the immunoperoxidase Laboratory [facility]. They have not been cleared or approved by U.S. Food and Drug Administration. The FDA has determined that [facility] h clearance or approval is not necessary. [...] Performing Laboratory: Surgical Pathology Report Performed By: [facility] [CLI A# [id number]] [address] [place] [address] $FTR - - - - - - [...] - - ANGIE LEON STANDARD FORM 515 ID:[id number] SEX:M :1965 AGE: 56 [facility]: Jc Caballero NP /kirstie PAGAN STAFF PATHOLOGIST Signed: 05/10/2022 11:37 May 06, 2022 08:23 LR SURGICAL PATHOLOGY REPORT: PADDYJUDY ALVAREZ [facility] TITLE: LR SURGICAL PATHOLOGY REPORT [facility] STANDARD TITLE: LABORATORY NOTE DATE [...] determined by the immunoperoxid ase Laboratory of [facility]. They have not been cl [...] Amendments of 1988 (CLIA-88) as qualified to [facility] high complexity clinical laboratory testing. The appropriate po sitive and negative controls were run and reviewed. CPT:49465f5; 82662 /jacki/ JUDY THOMASON STAFF PATHOLOGIST Signed May 06, 2022@08:23 Performing Laboratory: Surgical Pathology Report Performed By: [facility] [CLI A# [id number]] [address] [place] [id number] $FTR - - - - - - [...] - - ANGIE LEON STANDARD FORM 515 ID:[id number] SEX:M :1965 AGE: 56 LOC: [facility] PCP: Jc Caballero NP /jacki/ JUDY THOMASON STAFF PATHOLOGIST Signed: 05/06/2022 08:23
--- OUTSIDE RECORDS SUMMARY | 2022-10-02 10:30 | XMS_ITS | Encounter Summary ---
:1965 Author Organization [facility] Address [address] [place] [id number] Support Name Relationship Address Phone DENISSE LEON Unavailable [address] [facility] [place] [address] NONE, GIVEN Unavailable Unavailable Unavailable Insurance Providers: [...] to Policy Number Chen AETNA PO[place] OF [facility] Feb [id number] [phone] [place] PATIENT SERVICE INTER 2011 381 2 [place] AETNA PRESCRIPT [facility] Feb [id number] [phone] [place] PATIENT PHARMACY ION INTER 2011 [id number] VERO MANAGEMENT NATIO 1 [place] BCBS [place] PREFERRED BASIC Nov 30 [id number] [phone] COBY LEON PATIENT FEP PROVIDER FAMIL 2017 [id number] VERO ORGANIZAT Y ION (PPO) [place] DENTAL [place] Nov 30 [id number] [phone] COBY LEON PATIENT FEP INSURANCE L [id number] 2017 62 5 VERO (DENTAL) [place] PREFERRED BASIC Nov 30 [id number] [phone] COBY METZ PATIENT FEP PROVIDER FAMIL 2017 62 5 VERO ORGANIZAT Y ION (PPO) [place] PREFERRED STAND March 26 [id number] [phone] COBY METZ PATIENT (FEDERAL) 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 2015 62 7 VERO ORGANIZAT IND ION (PPO) 104 CAREMARK PRESCRIPT FEP March 26, [id number] [phone] CONR NADYA,COBY PATIENT ([id number]) ION 2015 0 62 7 VERO CAREMARK-F PRESCRIPT FEP Nov 30, [id number] [phone] [place] PATIENT EP BCBS ION CAREM 2018 0 62 1 VERO ARK CAREMARK-F PRESCRIPT FEP Nov 30, [id number] [phone] PATIENT EP BC[place] ION 2018 0 [id number] VERO CAREMARK-F PRESCRIPT SHERI Nov 30, [id number] [phone] [place] PATIENT EP [place] ION AL 2018 0 62 1 VERO RX CAREMARK-F PRESCRIPT SHERI Nov 30, [id number] [phone] [place] PATIENT EP [place] ION AL 2018 0 [id number] VERO RX HORIZON PREFERRED BASIC Nov 30 [id number] [phone] [place] PATIENT BCBS FEP* PROVIDER FAMIL 2017 62 8 VERO ORGANIZAT Y ION (PPO) HORIZON PREFERRED BASIC Nov 30 [id number] [phone] [place] PATIENT FEDERAL PROVIDER FAMIL 2017 62 8 VERO ORGANIZAT Y ION (PPO) [place] DEPART WORKERS' OWCP Jul 01, NONE [id number] [phone] COBY REYNLODS PATIENT OF LABOR COMPENSAT MEDIC 2018 [id number] VERO MED DFEC ION AL INSURANCE DFEC [place] DEPT OF WORKERS' WORKE Jul 01, WORKERS [id number] [phone] ROBERT SAABKY PATIENT LABOR COMPENSAT RS 2019 COMP [id number] VERO ION COMP INSURANCE Selected Encounter This section includes the information on record at [place] for the Encounter. Date/Time Encounter Type Encounter Description Reason Provider Source April 19, 2022 11:28 Outpatient Encounter GI ENDOSCOPY AM [facility] Encounter Template Text not used by [place] Plan of Treatment: Future Appointments (+ 6 [...] Date/Time Appointment Type Appointment Facili ty Name Apr 24, 2022 10:00 AM AMBULATORY - PSYCHIATRY [facility] May 01, 2022 08:00 AM AMBULATORY - MEDICINE [facility] May 08, 2022 10:00 AM AMBULATORY - PSYCHIATRY [facility] Jun 27, 2022 09:30 AM AMBULATORY - MEDICINE [facility] Jun 28, 2022 09:00 AM AMBULATORY - PSYCHIATRY [facility] Jul 12, 2022 08:00 AM AMBULATORY PSYCHIATRY [facility] Jul 12, 2022 09:20 AM AMBULATORY MEDICINE [facility] Jul 18, 2022 10:30 AM AM[place] [facility] Aug 05, 2022 02:00 PM [place]UL[place] [facility] Aug 16, 2022 10:20 AM AMBULATORY - MEDICINE [facility] Sep 03, 2022 11:45 AM AM[place]UL[place] [facility] Sep 17, 2022 01:30 PM [facility] - [facility] Sep 27, 2022 10:40 AM AMBULATORY - MEDICINE [facility] Lab Results: +/- 30 [...] Reference Range Comment May 14, 2022 06:04 [facility] NEW COVID-19 MONITOR Specimen Ty pe: OROPHARYNX [facility] PANEL([facility]) Comment: Test P erformed by NAHUM Lemus Ordering Provid er: ASHWINI SARMIENTO Report Released Date/Time: Mar 21, 2022 08:55 AM Reporting Lab: [facility] [address] [address] Performing Lab: [facility] [address] [address] COVID-19 ([id number]) Not Detected Not De tected May 07, 2022 12:40 [facility] COVID-19 MONITOR Specimen Ty pe: OROPHARYNX PM [facility] PANEL([facility]) Comment: Test P erformed by NAHUM Lemus Ordering Provid er: ASHWINI SARMIENTO Report Released Date/Time: Mar 21, 2022 08:55 AM Reporting Lab: [facility] [address] [address] Performing Lab: [facility] [address] [address] COVID-19 ([id number]) Not Detected Not De tected May 01, 2022 11:58 [facility] POC GLUCOSE Specimen Type: BLOOD AM [facility] No comment enter ed. Ordering Provid er: TODD RUSSO MD Report Released Date/Time: May 01, 2022 12:00 PM Reporting Lab: [facility] [address] [address] Performing Lab: [facility] [address] [address] POC GLUCOSE 102 70-115 May 01, 2022 09:26 [facility] POC GLUCOSE Specimen Type: BLOOD AM [facility] No comment enter ed. Ordering Provid er: JC CABALLERO Report Released Date/Time: May 01, 2022 09:28 AM Reporting Lab: [facility] [address] [address] Performing Lab: [facility] [address] [address] POC GLUCOSE 137 70-115 May 01, 2022 [facility] COVID-19, FLU/RSV Specimen T ype: NASOPHARYNX 08:[address] [facility] SCREEN. PANEL(FLUVID) Comment: *COVID-19 SCREENING PANEL([facility]) Not Performed: May 01, 2022@08:23 b *NAIL GALVANIZER Reason: ORDER CORRECTED, STAT FOR PROCEDURE Added by [id number] on May 01, 2022@08:22 Ordering Provid er: TODD RUSSO MD Report Released Date/Time: May 01, 2022 08:11 AM Reporting Lab: [facility] [address] [facility] [address] Performing Lab: [facility] [address] [facility] [address] COVID-19 PCR (FLUVID) Not Detected Not D etected FLU A PCR (FLUVID) Not Detected Not Dete cted FLU B PCR (FLUVID) Not Detected Not Dete cted RSV PCR (FLUVID) Not Detected Not Detect ed April 23, 2022 12:00 [facility] COVID-19 MONITOR Specimen Ty pe: OROPHARYNX [facility] PANEL([facility]) Comment: Test P erformed by NAHUM Lemus Ordering Provid er: ASHWINI SARMIENTO Report Released Date/Time: Mar 21, 2022 08:55 AM Reporting Lab: [facility] [address] [facility] [address] Performing Lab: [facility] [address] [facility] [address] COVID-19 ([id number]) Not Detected Not De tected April 17, 2022 12:30 [facility] COVID-19 MONITOR Specimen Ty pe: OROPHARYNX [facility] PANEL([facility]) Comment: Test P erformed by NAHUM Lemus Ordering Provid er: ASHWINI SARMIENTO Report Released Date/Time: Mar 21, 2022 08:55 AM Reporting Lab: [facility] [address] [facility] [address] Performing Lab: [facility] [address] [facility] [address] COVID-19 ([id number]) Not Detected Not De tected April 12, 2022 08:02 [facility] HEMOGLOBIN A1C Specimen Type: BLOOD [facility] No comment enter ed. Ordering Provid er: JUSTIN HEBERT Report Released Date/Time: Dec 21, 2021 09:49 AM Reporting Lab: [facility] [address] [facility] [address] Performing Lab: [facility] [address] [facility] [address] HEMOGLOBIN A1C 7.0 H 4.8-5.6 April 12, 2022 [facility] CHEM, Comprehensive Specimen Ty pe: SERUM 08:02 AM [facility] Metabolic Panel Comment: eGFR c alculated [...] 5 - End Stage CKD Reference: [email or web address] Ordering Provid er: JUSTIN HEBERT Report Released Date/Time: Dec 21, 2021 09:49 AM Reporting Lab: [facility] [address] [address] Performing Lab: [facility] [address] [address] CREATININE 1.3 .7-1.3 UREA NITROGEN 22 7-25 GLUCOSE 264 H 65-99 SODIUM 137 136-145 POTASSIUM 4.2 3.5-5.1 CHLORIDE 100 98-107 CO2 27 21-31 CALCIUM 9.7 8.6-10.3 PROTEIN,TOTAL 7.0 6.4-8.9 ALBUMIN 4.6 3.5-5.7 TOTAL BILIRUBIN 0.6 0.3-1.0 ALKALINE PHOSPHATASE 71 34-104 AST 22 13-39 ALT 23 7-52 ANION GAP 10 5-13 eGFR 65 L >90 April 09, 2022 03:21 [facility] NEW COVID-19 MONITOR Specimen Ty pe: OROPHARYNX PM [facility] PANEL([facility]) Comment: Test P erformed by NAHUM Lemus Ordering Provid er: ASHWINI SARMIENTO Report Released Date/Time: Mar 21, 2022 08:55 AM Reporting Lab: [facility] [address] [address] Performing Lab: [facility] [address] [address] COVID-19 ([id number]) Not Detected Not De tected April 02, 2022 12:00 [facility] COVID-19 MONITOR Specimen Ty pe: OROPHARYNX AM [facility] PANEL([facility]) Comment: Test P erformed by NAHUM Lemus Ordering Provid er: ASHWINI SARMIENTO Report Released Date/Time: Mar 21, 2022 08:55 AM Reporting Lab: [facility] [address] [address] Performing Lab: [facility] [address] [address] COVID-19 ([id number]) Not Detected Not De tected March 28, 2022 11:36 [facility] COVID-19 MONITOR Specimen Ty pe: OROPHARYNX [facility] PANEL([facility]) Comment: Test P erformed by NAHUM Lemus Ordering Provid er: ASHWINI SARMIENTO Report Released Date/Time: Mar 21, 2022 08:55 AM Reporting Lab: [facility] [address] [address] Performing Lab: [facility] [address] [address] COVID-19 ([id number]) Not Detected Not De tected Social History: [...] 2017 08:55 AM LIFETIME NON-USER OF TOBACCO [facility] Pathology Reports: +/- 30 days [...] the Encounter. The data comes from all [place] treatment facilities. Date/Time Pathology Report Provider Source May 10, 2022 11:37 LR SURGICAL PATHOLOGY REPORT: KIRK PAGAN [facility] LOCAL TITLE: LR SURGICAL PATHOLOGY REPORT M [facility] STANDARD TITLE: LABORATORY NOTE DATE OF [...] determined by the immunoperoxid ase Laboratory of [facility]. They have not been cl eared [...] and negative controls were run and reviewed. CPT:10816d8; [id number] SUPPLEMENTARY REPORT(S): Supplementary Report Date: MAY 10, 2022 *+* SUPPLEMENTARY REPORT HAS BEEN ADDED/MODIFIE D *+* (Added/Last released: May 10, 2022 11:37 Signed by ELIN PAGAN) IMMUNOSTAIN IS PERFORMED ON SPECIMEN A WHICH IS NEGATIVE FOR H.PYLORI ORGANISMS. CPT: 33898 IHC DISCLAIMER Some of these tests were developed and their pe rformance characteristics determined by the immunoperoxidase Laboratory [facility]. They have not been cleared or [...] Performing Laboratory: Surgical Pathology Report Performed By: [facility] [CLI A# [id number]] [address] [place] [phone] $FTR - - - - - - [...] - - ANGIE LEON STANDARD FORM 515 ID:[id number] SEX:M :1965 AGE: 56 LOC: [facility] PCP: Jc Caballero NP /jacki/ ELIN PAGAN STAFF PATHOLOGIST Signed: 05/10/2022 11:37 May 06, 2022 08:23 LR SURGICAL PATHOLOGY REPORT: PADDYJUDY ALVAREZ [facility] TITLE: LR SURGICAL PATHOLOGY REPORT [facility] STANDARD TITLE: LABORATORY NOTE DATE OF [...] determined by the immunoperoxid ase Laboratory of [facility]. They have not been cl eared [...] of 1988 (CLIA-88) as qualified to pe [facility] high complexity clinical laboratory testing. The appropriate po sitive and negative controls were run and reviewed. CPT:20866g3; [id number] /jacki/ JUDY THOMASON STAFF PATHOLOGIST Signed May 06, 2022@08:23 Performing Laboratory: Surgical Pathology Report Performed By: [facility] [CLI A# [id number]] [address] [place] [phone] $FTR - - - - - - [...] - - ANGIE LEON STANDARD FORM 515 ID:[id number] SEX:M :1965 AGE: 56 LOC: [facility] PCP: Jc Caballero NP /jacki/ JUDY THOMASON STAFF PATHOLOGIST Signed: 05/06/2022 08:23 Encounter Notes: All associated encounter notes This section contains the clinical notes associated to the Encounter. Date/Time Encounter Note(s) Provider Source April 19, 2022 11:28 AM ADMINISTRATIVE NOTE: KRYSTAL GUZMAN-[facility] TITLE: MEDICAL ADMINISTRATION//SCHEDULING NOTE [facility] STANDARD TITLE: ADMINISTRATIVE NOTE DATE OF NOTE: APRIL 19, 2022@11:28 ENTRY DATE: APRIL 19, 2022@11:28:40 AUTHOR: KRYSTAL GUZMAN EXP COSIGNER: URGENCY: STATUS: COMPLETED Appt confirmed for May 01 Confirmed covid test and hour early arrival /es/ KRYSTAL GUZMAN insurance verification clerk Signed: 04/19/2022 11:29
--- OUTSIDE RECORDS SUMMARY | 2022-10-02 10:30 | XMS_ITS | Encounter Summary ---
:1965 Author Organization [facility] rs Address [address] [place] [id number] Support Name Relationship Address Phone DENISSE LEON Unavailable [address] [facility] [place] [address] NONE, GIVEN Unavailable Unavailable Unavailable Insurance Providers: [...] to Policy Number Chen AETNA POINT OF [facility] Feb [id number] [phone] EDWARD MD PATIENT SERVICE INTER 2011 381 2 [place] AETNA PRESCRIPT [facility] Feb [id number] [phone] EDWARDMD PATIENT PHARMACY ION INTER 2011 [id number] VERO MANAGEMENT NATIO 1 [place] BCBS [place] PREFERRED BASIC Nov 30 [id number] [phone] COBY LEON PATIENT FEP PROVIDER FAMIL 2017 [id number] VERO ORGANIZAT Y ION (PPO) [place]BS [place] DENTAL [place] Nov 30 [id number] [phone] COBY LEON PATIENT FEP INSURANCE L [id number] 2017 62 5 VERO (DENTAL) [place] PREFERRED BASIC Nov 30 [id number] [phone] COBY METZ PATIENT FEP PROVIDER FAMIL 2017 62 5 VERO ORGANIZAT Y ION (PPO) [place]BS OF [place] PREFERRED STAND March 26 [id number] [phone] COBY METZ PATIENT (FEDERAL) 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 2014 62 7 VERO ORGANIZAT IND ION (PPO) 104 CAREMARK PRESCRIPT FEP March 26, [id number] [phone] CONR OY,SC PATIENT ([id number]) ION 2015 0 62 7 VERO CAREMARK-F PRESCRIPT FEP Nov 30, [id number] [phone] CO NROY,SC PATIENT EP BCBS ION CAREM 2018 0 62 1 VERO ARK CAREMARK-F PRESCRIPT SHERI Nov 30, [id number] [phone] CO NROY,SC PATIENT EP BCBS ION AL 2018 0 62 1 VERO RX CAREMARK-F PRESCRIPT SHERI Nov 30, [id number] [phone] CO NROY,SC PATIENT EP BCBS ION AL 2018 0 [id number] VERO RX CAREMARK-F PRESCRIPT FEP Nov 30, [id number] [phone] NROY,SC PATIENT EP BCBS ION 2018 0 [id number] VERO HORIZON PREFERRED BASIC Nov 30 [id number] [phone] EDWARD ,MD PATIENT BCBS FEP* PROVIDER FAMIL 2017 62 8 VERO ORGANIZAT Y ION (PPO) HORIZON PREFERRED BASIC Nov 30 [id number] [phone] EDWARD ,MD PATIENT FEDERAL PROVIDER FAMIL 2018 62 8 VERO ORGANIZAT Y ION (PPO) DEPART WORKERS' OWCP Jul 01, NONE [id number] [phone] INDIGO YMD PATIENT OF LABOR COMPENSAT MEDIC [id number] VERO MED DFEC ION AL INSURANCE DFEC US DEPT OF WORKERS' WORKE Jul 01, WORKERS [id number] [phone] CON KAISER,MD PATIENT LABOR COMPENSAT RS 2019 COMP [id number] VERO ION COMP INSURANCE Selected Encounter This section includes the information on record at [place] for the Encounter. Date/Time Encounter Type Encounter Reason Provider Source Description April 12, 2022 Outpatient TELEPHONE/MEDICI ICD-10-CM E11.9 [facility] TIM 10:00 AM Encounter NE Type 2 diabetes mellitus without complications with Provider Comments: Diabetic retinopathy associated with type 2 diabetes mellitus (SCT [id number]) IHE Encounter Template Text not used by [facility] Assessments - Encounter Diagnoses This section includes the primary and secondary diagnoses documented for the Encounter. Date/Time Primary/Secondary Diagnosis Name Provider Source Diagnosis April 12, 2022 PRIMARY Type 2 diabetes [facility] 10:00 AM mellitus without [place] complications [facility] Plan of Treatment: Future Appointments (+ 6 months) and Future Tests (+/- 45 days) The Plan of Treatment section includes future care activities for the patient [facility] This section includes future appointments and future orders which are active, pending orscheduled.Future Appointments This section includes appointments that were scheduled to occur 6 months from the date of the Encounter, up to a maximum of 20 appointments. The data comes from all [place] treatment facilities. Appointment Date/Time Appointment Type Appointment Facili ty Name Apr 24, 2022 10:00 AM AMBULATORY PSYCHIATRY [facility] May 01, 2022 08:00 AM AMBULATORY MEDICINE [facility] May 08, 2022 10:00 AM AMBULATORY PSYCHIATRY [facility] Jun 27, 2022 09:30 AM [facility] Jun 28, 2022 09:00 AM AMBULATORY PSYCHIATRY [facility] Jul 12, 2022 08:00 AM AMBULATORY PSYCHIATRY [facility] Jul 12, 2022 09:20 AM [facility] - [facility] Jul 18, 2022 10:30 AM [facility] [place] [facility] Aug 05, 2022 02:00 PM [facility] [place] [facility] Aug 16, 2022 10:20 AM AMBULATORY [facility] Sep 03, 2022 11:45 AM AMBULATORY [facility] [place] [facility] Sep 17, 2022 01:30 PM AMBULATORY - [facility] [place] [facility] Sep 27, 2022 10:40 AM AMBULATORY - [facility] Lab Results: +/- 30 days [...] - Unit Interpretation Reference Range Comment May 07, 2022 12:40 [facility] COVID-19 MONITOR Specimen Ty pe: OROPHARYNX PM [facility] PANEL([facility]) Comment: Test P erformed by NAHUM Lemus Ordering Provid er: ASHWINI SARMIETNO Report Released Date/Time: Mar 21, 2022 08:55 AM Reporting Lab: [facility] [address] [facility] [address] Performing Lab: [facility] [address] [place] [facility] [address] COVID-19 ([id number]) Not Detected Not De tected May 01, 2022 11:58 [facility] POC GLUCOSE Specimen Type: BLOOD AM [facility] No comment enter ed. Ordering Provid er: TODD RUSSO MD Report Released Date/Time: May 01, 2022 12:00 PM Reporting Lab: [facility] [address] [address] Performing Lab: [facility] [address] [place] [facility] [address] POC GLUCOSE 102 70-115 May 01, 2022 09:26 [facility] POC GLUCOSE Specimen Type: BLOOD AM [facility] No comment enter ed. Ordering Provid er: JC CABALLERO Report Released Date/Time: May 01, 2022 09:28 AM Reporting Lab: [facility] [address] [facility] [facility] [address] Performing Lab: [facility] [address] [place] [facility] [address] POC GLUCOSE 137 70-115 May 01, 2022 [facility] COVID-19, FLU/RSV Specimen T ype: NASOPHARYNX 08:22 AM [facility] SCREEN. PANEL(FLUVID) Comment: *COVID-19 SCREENING PANEL(NJS) Not Performed: May 01, 2022@08:23 b *BRAZING FURNACE FEEDER Reason: ORDER CORRECTED, STAT FOR PROCEDURE Added by [id number] on May 01, 2022@08:22 Ordering Provid er: TODD RUSSO MD Report Released Date/Time: May 01, 2022 08:11 AM Reporting Lab: [facility] [address] [facility] [facility] [address] Performing Lab: [facility] [address] [place] [facility] [address] COVID-19 PCR (FLUVID) Not Detected Not D etected FLU A PCR (FLUVID) Not Detected Not Dete cted FLU B PCR (FLUVID) Not Detected Not Dete cted RSV PCR (FLUVID) Not Detected Not Detect ed April 23, 2022 12:00 [facility] COVID-19 MONITOR Specimen Ty pe: OROPHARYNX AM [facility] PANEL([facility]) Comment: Test P erformed by NAHUM Lemus Ordering Provid er: ASHWINI SARMIENTO Report Released Date/Time: Mar 21, 2022 08:55 AM Reporting Lab: [facility] [address] [place] [facility] [address] Performing Lab: [facility] [address] [place] [facility] [address] COVID-19 ([id number]) Not Detected Not De tected April 17, 2022 12:30 [facility] COVID-19 MONITOR Specimen Ty pe: OROPHARYNX [facility] PANEL([facility]) Comment: Test P erformed by NAHUM Lemus Ordering Provid er: ASHWINI SARMIENTO Report Released Date/Time: Mar 21, 2022 08:55 AM Reporting Lab: [facility] [address] [facility] [facility] [address] Performing Lab: [facility] [address] [facility] [address] COVID-19 ([id number]) Not Detected Not De tected April 12, 2022 08:02 [facility] HEMOGLOBIN A1C Specimen Type: BLOOD [facility] No comment enter ed. Ordering Provid er: JUSTIN HEBERT Report Released Date/Time: Dec 21, 2021 09:49 AM Reporting Lab: [facility] [address] [place] [facility] [address] Performing Lab: [facility] [address] [place] [facility] [address] HEMOGLOBIN A1C 7.0 H 4.8-5.6 April 12, 2022 [facility] CHEM, Comprehensive Specimen Ty pe: SERUM 08:02 AM [facility] Metabolic Panel Comment: eGFR c alculated [...] Stage 5 - End Stage CKD Reference: [email or web address] Ordering Provid er: JUSTIN HEBERT Report Released Date/Time: Dec 21, 2021 09:49 AM Reporting Lab: [facility] [address] [address] Performing Lab: [facility] [address] [address] CREATININE 1.3 .7-1.3 UREA NITROGEN 22 7-25 GLUCOSE 264 H 65-99 SODIUM 137 136-145 POTASSIUM 4.2 3.5-5.1 CHLORIDE 100 98-107 CO2 27 21-31 CALCIUM 9.7 8.6-10.3 PROTEIN,TOTAL 7.0 6.4-8.9 ALBUMIN 4.6 3.5-5.7 TOTAL BILIRUBIN 0.6 0.3-1.0 ALKALINE PHOSPHATASE 71 34-104 AST 22 13-39 ALT 23 7-52 ANION GAP 10 5-13 eGFR 65 L >90 April 09, 2022 03:21 [facility] COVID-19 MONITOR Specimen Ty pe: OROPHARYNX PM [facility] PANEL([facility]) Comment: Test P erformed by NAHUM Lemus Ordering Provid er: ASHWINI SARMIENTO Report Released Date/Time: Mar 21, 2022 08:55 AM Reporting Lab: [facility] [address] [address] Performing Lab: [facility] [address] [address] COVID-19 ([id number]) Not Detected Not De tected April 02, 2022 12:00 [facility] COVID-19 MONITOR Specimen Ty pe: OROPHARYNX AM [facility] PANEL([facility]) Comment: Test P erformed by NAHUM Lemus Ordering Provid er: ASHWINI SARMIENTO Report Released Date/Time: Mar 21, 2022 08:55 AM Reporting Lab: [facility] [address] [address] Performing Lab: [facility] [address] [facility] [address] COVID-19 ([id number]) Not Detected Not De tected March 28, 2022 11:36 [facility] COVID-19 MONITOR Specimen Ty pe: OROPHARYNX [facility] PANEL([facility]) Comment: Test P erformed by NAHUM Lemus Ordering Provid er: ASHWINI SARMIENTO Report Released Date/Time: Mar 21, 2022 08:55 AM Reporting Lab: [facility] [address] [address] Performing Lab: [facility] [address] [address] COVID-19 ([id number]) Not Detected Not De tected Mar 19, 2022 12:00 [facility] COVID-19 MONITOR Specimen Ty pe: OROPHARYNX [facility] PANEL([facility]) Comment: Test P erformed by NAHUM Lemus Ordering Provid er: ASHWINI SARMIENTO Report Released Date/Time: Jan 16, 2022 12:20 PM Reporting Lab: [facility] [address] [address] Performing Lab: [facility] [address] [address] COVID-19 ([id number]) Not Detected Not De tected Social History: [...] 2021 09:00 AM VA-TOBACCO [facility] Tobacco Use History This section includes a history of the smoking, or tobacco- related health factors, that were collected on or before the date of the Encounter. The data comes from the [place] facility where the Encounter took place. Date/Time Smoking Status/Tobacco Use Comment [facility] faustino Jun 29, 2021 09:00 AM PR-TOBACCO QUIT 15 YRS OR [facility] Jul 20, 2020 10:30 AM VA-TOBACCO NEVER USED [facility]- [facility] Aug 12, 2019 03:12 PM VA-TOBACCO FORMER USER [facility] Aug 12, 2019 03:12 PM VA-TOBACCO QUIT 15 YRS OR [facility] Aug 20, 2018 04:56 PM VA-[facility]AC[facility] Aug 20, 2018 04:56 PM VA-TOBACCO QUIT 15 YRS OR [facility]- [facility] Nov 19, 2016 09:49 AM LIFETIME NON-USER OF [facility] - [place] NEW TOBACCO [facility] Dec 13, 2015 03:30 PM QUIT TOBACCO >7 YEARS AGO [facility]- [facility] Dec 09, 2014 09:06 AM QUIT TOBACCO >7 YEARS AGO [facility] Jan 29, 2014 08:56 AM LIFETIME NON-USER OF [facility] - [facility] TOBACCO [facility] Jun 11, 2012 01:32 PM QUIT TOBACCO >7 YEARS AGO [facility]- [facility] Feb 01, 2009 09:26 AM LIFETIME NON-USER OF [facility] - [place] NEW TOBACCO quit 1998 [facility] Aug 19, 2001 09:28 AM HISTORY OF SMOKING [facility]- [place] NEW Quit 2 yrs ago, 18 pack-yr Hx. [facility] Pathology Reports: +/- 30 days of [...] the Encounter. The data comes from all [place] treatment facilities. Date/Time Pathology Report Provider Source May 10, 2022 11:37 LR SURGICAL PATHOLOGY REPORT: KIRK PAGAN [facility] AM LOCAL TITLE: LR SURGICAL PATHOLOGY REPORT [facility] STANDARD TITLE: LABORATORY NOTE DATE OF [...] determined by the immunoperoxid ase Laboratory [facility]. They have not been cl eared [...] and negative controls were run and reviewed. CPT:33384c5; 32916 SUPPLEMENTARY REPORT(S): Supplementary Report Date: MAY 10, 2022 *+* SUPPLEMENTARY REPORT HAS BEEN ADDED/MODIFIE D *+* (Added/Last released: May 10, 2022 11:37 Signed by ELIN PAGAN) IMMUNOSTAIN IS PERFORMED ON SPECIMEN A WHICH IS NEGATIVE FOR H.PYLORI ORGANISMS. CPT: 42317 IHC DISCLAIMER Some of these tests were developed and their pe rformance characteristics determined by the immunoperoxidase Laboratory [facility]. They have not been cleared or approved by U.S. Food and Drug Administration. The FDA has determined that [facility] h clearance or approval is not necessary. [...] Performing Laboratory: Surgical Pathology Report Performed By: [facility] [CLI A# [id number]] [address] [place] [address] $FTR - - - - - - [...] - - ANGIE LEON STANDARD FORM 515 ID:[id number] SEX:M :1965 AGE: 56 LOC: [facility] PCP: Jc Caballero NP /kirstie PAGAN STAFF PATHOLOGIST Signed: 05/10/2022 11:37 May 06, 2022 08:23 LR SURGICAL PATHOLOGY REPORT: PADDYJUDY ALVAREZ [facility] TITLE: LR SURGICAL PATHOLOGY REPORT [facility] STANDARD TITLE: LABORATORY NOTE DATE OF [...] determined by the immunoperoxid ase Laboratory [facility]. They have not been cl eared or approved by U.S. Food and Drug Administration. The FDA has deter mined that such clearance or approval is not necessary. This test is used for clinical purposes. It should not be regarded as investigational or fo r research. This laboratory is certified under the Clinical Labo ratory Improvement Amendments of 1988 (CLIA-88) as qualified to [facility] high complexity clinical laboratory testing. The appropriate po sitive and negative controls were run and reviewed. CPT:[id number]; 87088 /jacki/ JUDY THOMASON STAFF PATHOLOGIST Signed May 06, 2022@08:23 Performing Laboratory: Surgical Pathology Report Performed By: [facility] [CLI A# [id number]] [address] [place] [address] $FTR - - - - - - [...] - - ANGIE LEON STANDARD FORM 515 ID:[id number] SEX:M :1965 AGE: 56 LOC: [facility] PCP: Jc Caballero NP /jacki/ JUDY THOMASON STAFF PATHOLOGIST Signed: 05/06/2022 08:23 Encounter Notes: All associated encounter notes This section contains the clinical notes associated to the Encounter. Date/Time Encounter Note(s) Provider Source April 12, 2022 09:56 AM DIABETOLOGY NOTE: ZULEMA TIM [place] LOCAL TITLE: DIABETES CLINIC S STANDARD TITLE: DIABETOLOGY NOTE DATE OF NOTE: APRIL 12, 2022@09:56 ENTRY DATE: APRIL 12, 2022@09:57:01 AUTHOR: ZULEMA TIM EXP COSIGNER: URGENCY: STATUS: COMPLETED TELEPHONE ENCOUNTER: DIABETES MANAGEMENT FOLLOW- UP [place] was informed the visit would be performe d remotely. Confidentiality, and the limits thereof, as well as the [place]'s [facility] record keeping system were discussed and patient v erbally indicated understanding. 's questions were answered and [place] agrees to this. 56 y/o male for routine follow-u p/diabetes management. reports he is doing well. Reports he has lost 5 lbs. (in tentionally) and is currently practicing intermittent fasting, last meal of day is around 6pm. reports that this is working well for him. Repor ts that his blood sugars have improved since starting intermittent fasting. BG this AM- 150mg/dl and stated that it was slightly high due to eating past 6pm yesterday evening. continues to exercise 3x a week. denies any episodes of hypoglycemia. [place] denies any s/sx of UTI or fungal infecti ons since starting Jardiance. A1C 7.0 (04/12/22). 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 06/23/2019 SHOBHA QIU Obesity E66.09 01/15/2018 POSTALLNEISHA FAJARDO Diabetic retinopathy associated with 11/06/2017 MARIA DEL ANGEL SENSORINEURAL HEARING LOSS, BILATERAL 07/18/2014 JAMES MENENDEZ 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 07/18/2014 LINNEA MENENDEZ L Migraine, unspecified, without mentio 11/22/2009 BLOCK,ANA MARIA HYPOSPADIES 799.9 11/22/2009 BLOCK,ANA MARIA Asthma sometimes restricts exercise ( 03/16/2021 JAMES ROBERTSON Fatty Liver 799.9 08/19/2001 MARIA GUADALUPE ACOSTA Active and Recently Outpatient Medicatio ns (including Supplies): Active Outpatient Medications Status 1) ALOGLIPTIN 12.5MG TAB TAKE ONE TABLET BY MOUT H DAILY ACTIVE FOR DIABETES 2) ATORVASTATIN CALCIUM 40MG TAB TAKE ONE-HALF T ABLET BY ACTIVE MOUTH AT BEDTIME FOR LOWERING CHOLESTEROL 3) BUPROPION HCL 150MG 24HR SA TAB TAKE ONE TABL ET BY ACTIVE (S) MOUTH DAILY FOR MOOD 4) CETIRIZINE HCL 10MG TAB TAKE ONE TABLET BY MO UTH ACTIVE DAILY FOR ALLERGY 5) EMPAGLIFLOZIN 25MG TAB TAKE ONE TABLET BY NGUYEN TH DAILY ACTIVE NEW DOSE 6) ENALAPRIL MALEATE 2.5MG TAB TAKE ONE [...] IN A GLASS OF JUICE OR WATER) Inactive Outpatient Medications Status 1) ALBUTEROL 90MCG (CFC-F) 200D ORAL INHL INHALE 2 PUFFS BY MOUTH EVERY 6 HOURS NEEDED FOR BREATHING 2) BISACODYL 5MG EC TAB TAKE FOUR TABLETS BY NGUYEN TH ONE TIME DIRECTED - TAKE THESE TABLETS BY MOUTH ONE TIME DIRECTED FOR BOWEL CLEANSING....TAKE AL L PILLS AT ONCE. 3) COLON ELECTROLYTE LAVAGE PWD FOR SOLN TAKE 4- LITER BY MOUTH ONE TIME DIRECTED (DO NOT FOLLOW INSTRUCTIONS ON THE BOTTLE.FOLLOW INSTRUCTIONS ON THE HANDOUT. CALL YOUR PROVIDER IF YOU LOSE THE HANDOUT) SERVE CHILLED. MAY TAKE WITH MUCH CLEAR LIQUID (SUCH CAROLYN EMILY) DESIRED. Active Non-VA Medications Status 1) Non-VA ASCORBIC [...] breat h, (-) dyspnea w/exertion or rest. GASTROINTESTINAL: (-)vomiting,(-) diarrhea,(-) c onstipation,(-) nausea/vomiting, or abdominal discomfort. GENITO-URINARY: (-) urgency, (-) frequency, (-) burning/pain with urination, (-) blood in urine. ENDOCRINE: - Hyperglycemic symptoms(polydipsia, polyphagia, polyuria, unexplained weight loss): [place] denies - Hypoglycemic symptoms(dizziness, sweating, john rred vision, trembling):[place] denies DATE/TIME TEMP PULSE RESP BP PAIN WT (LB) P OX 01/23/22 @ 1348 96.7 57 20 137/78 0 97 01/18/22 @ 0958 0 09/21/21 @ 0844 74 18 112/73 0 200 98 08/10/21 @ 1303 195 06/29/21 @ 0928 97.1 57 18 124/71 1 198.8 96 200 lb [90.72 kg] (09/21/2021 08:44) BODY MASS INDEX - SEP 21, 2021@08:44:28 30.5 HEMOGLOBIN A1C 01/23/22 08:00 7.9 H GLUCOSE 01/23/22 08:00 163 H CHEM, Basic Metabolic PGLUCOSE BUN CREAT SODIUM K CHLOR CO2 01/23/22 08:00 163 H 23 1.3 138 4.6 101 28 CHEM, Basic Metabolic PCALCIUM ANION EGFR 01/23/22 08:00 9.9 9 58 L UR PROTEIN 01/23/22 08:00 Negative ASSESSMENT & PLAN: 56 y/o male with type 2 DM/CKD/Diabetic retinopathy - Continue Jardiance 25mg da ricky, Metformin SA, Glimepiride, Alogliptin. Reviewed dosage & S/E. EDUCATION: - Continue glucose monitoring. Reviewed signs of symptoms/prevention of hypoglycemia and treatment. - Encouraged a low carb: 50-60 grams at each geronimo l and 15-30 grams at each snack, low fat heart healthy reviewed. - Encouraged physical activity as tolerated. - Reviewed importance of proper foot care and da ricky foot checks. Encouraged yearly check-up with podiatry. - Above reviewed with the who agrees to plan of care. Return to clinic 3 months with labs (Face to Fac e- Jul 12, 2022). Time spent measurement and verification engineer: 15 minutes /es/ NAAMARIA Roberto, CALL CENTER ASSISTANT- DIABETES ADVANCED PRACTICE NURSE Signed: 04/12/2022 13:08
--- OUTSIDE RECORDS SUMMARY | 2022-10-02 10:30 | XMS_ITS | Encounter Summary ---
:1965 Author Organization [facility] Address [address] [place] [address] Support Name Relationship Address Phone DENISSE LEON Unavailable [address] [facility] [place] [address] NONE, GIVEN Unavailable Unavailable Unavailable Insurance Providers: [...] to Policy Number Chen AETNA [place] Feb [id number] [phone] [place] PATIENT SERVICE INTER 2011 381 2 [place] AETNA PRESCRIPT [facility] Feb [id number] [phone] [facility]WARD[place] PATIENT PHARMACY ION INTER 2011 [id number] VERO MANAGEMENT NATIO 1 [place] BCBS [place] PREFERRED BASIC Nov 30 [id number] [phone] COBY LEON PATIENT FEP PROVIDER FAMIL 2017 [id number] VERO ORGANIZAT Y ION (PPO) [place]BS [place] DENTAL [place]ENT[place] Nov 30 [id number] [phone] COBY LEON PATIENT FEP INSURANCE L [id number] 2017 62 5 VERO (DENTAL) [place] PREFERRED BASIC Nov 30 [id number] [phone] COBY METZ PATIENT FEP PROVIDER FAMIL 2017 62 5 VERO ORGANIZAT Y ION (PPO) [place]BS OF [place] PREFERRED STAND March 26 [id number] [phone] COBY METZ PATIENT (FEDERAL) 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 2015 62 7 VERO ORGANIZAT IND ION (PPO) 104 CAREMARK PRESCRIPT FEP March 26, [id number] [phone] CONR OY,[place] PATIENT ([id number]) ION 2015 0 62 7 VERO CAREMARK-F PRESCRIPT FEP Nov 30, [id number] [phone] [place] PATIENT EP BCBS ION CAREM 2018 0 62 1 VERO ARK CAREMARK-F PRESCRIPT FEP Nov 30, [id number] [phone] PATIENT EP BCBS ION 2018 0 [id number] VERO CAREMARK-F PRESCRIPT SHERI Nov 30, [id number] [phone] [place] PATIENT EP BCBS ION AL 2018 0 62 1 VERO RX CAREMARK-F PRESCRIPT SHERI Nov 30, [id number] [phone] [place] PATIENT EP BCBS ION AL 2018 0 [id number] VERO RX HORIZON PREFERRED BASIC Nov 30 [id number] [phone] [place] ,[place] PATIENT BCBS FEP* PROVIDER FAMIL 2017 62 8 VERO ORGANIZAT Y ION (PPO) HORIZON PREFERRED BASIC Nov 30 [id number] [phone] EDWARDCA PATIENT FEDERAL PROVIDER FAMIL 2018 62 8 VERO ORGANIZAT Y ION (PPO) US DEPART WORKERS' OWCP Jul 01, NONE [id number] [phone] INDIGO CruzCA PATIENT OF LABOR COMPENSAT MEDIC [id number] VERO MED DFEC ION AL INSURANCE DFEC US DEPT OF WORKERS' WORKE Jul 01, WORKERS [id number] [phone] CON [place] PATIENT LABOR COMPENSAT RS 2019 COMP [id number] VERO ION COMP INSURANCE Selected Encounter This section includes the information on record at [facility] for the Encounter. 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 Date/Time Primary/Secondary Diagnosis Name Provider Source Diagnosis April 12, 2022 PRIMARY Type 2 diab with JANIE,ANDREIA [facility] 01:22 PM mod nonp rtnop [facility] without macular edema, r eye April 12, 2022 SECONDARY Age-related JANIE,ANDREIA [facility] 01:22 PM nuclear cataract, [facility] bilateral April 12, 2022 SECONDARY Open angle with JANIE,ANDREIA [facility] 01:22 PM borderline [facility] findings, low risk, bilateral April 12, 2022 SECONDARY Strabismic JANIE,ANDREIA [facility] 01:22 PM amblyopia, left [facility] eye April 12, 2022 SECONDARY Type 2 diab with JANIE,ANDREIA [facility] [place] [facility] 01:22 PM mild nonp rtnop [facility] without mclr edema, l eye Plan of Treatment: Future Appointments (+ 6 months) and Future Tests (+/- 45 days) The Plan of Treatment section includes future care activities for the patient from all [place] treatmentfacilities. This section includes future appointments and future orders which are active, pending orscheduled.Future Appointments This section includes appointments that were scheduled to occur 6 months from the date of the Encounter, up to a maximum of 20 appointments. The data comes from all [place] treatment facilities. Appointment Date/Time Appointment Type Appointment Facili ty Name Apr 24, 2022 10:00 AM AMBULATORY - PSYCHIATRY [facility] May 01, 2022 08:00 AM AMBULATORY - MEDICINE [facility] May 08, 2022 10:00 AM AMBULATORY - PSYCHIATRY [facility] Jun 27, 2022 09:30 AM AMBULATORY - MEDICINE [facility] Jun 28, 2022 09:00 AM AMBULATORY - PSYCHIATRY [facility] Jul 12, 2022 08:00 AM AMBULATORY - PSYCHIATRY [facility] Jul 12, 2022 09:20 AM AMBULATORY - MEDICINE [facility] JUSTIN PENDLETON [facility] Jul 18, 2022 10:30 AM AM[facility] [place] [facility] Aug 05, 2022 02:00 PM [place]UL[place] - [place] [facility] Aug 16, 2022 10:20 AM [facility] Sep 03, 2022 11:45 AM AMBULATORY - MEDICINE [facility] LORAINE PINEDA [facility] Sep 17, 2022 01:30 PM [facility] CHARLYJennifer KYLEDANIEL [facility] Sep 27, 2022 10:40 AM AMBULATORY - MEDICINE [facility] Lab Results: +/- [...] Reference Range Comment May 07, 2022 12:40 [facility] COVID-19 MONITOR Specimen Ty pe: OROPHARYNX PM [facility] PANEL([facility]) Comment: Test P erformed by NAHUM Lemus Ordering Provid er: ASHWINI SARMIENTO Report Released Date/Time: Mar 21, 2022 08:55 AM Reporting Lab: [facility] [address] [facility] [address] Performing Lab: [facility] [address] [facility] [address] COVID-19 ([id number]) Not Detected Not De tected May 01, 2022 11:58 [facility] POC GLUCOSE Specimen Type: BLOOD AM [facility] No comment enter ed. Ordering Provid er: TODD RUSSO MD Report Released Date/Time: May 01, 2022 12:00 PM Reporting Lab: [facility] [address] [facility] [address] Performing Lab: [facility] [address] [facility] [address] POC GLUCOSE 102 70-115 May 01, 2022 09:26 [facility] POC GLUCOSE Specimen Type: BLOOD AM [facility] No comment enter ed. Ordering Provid er: JC CABALLERO Report Released Date/Time: May 01, 2022 09:28 AM Reporting Lab: [facility] [address] [facility] [address] Performing Lab: [facility] [address] [facility] [address] POC GLUCOSE 137 70-115 May 01, 2022 [facility] COVID-19, FLU/RSV Specimen T ype: NASOPHARYNX 08:22 AM [facility] SCREEN. PANEL([facility]) Comment: *COVID-19 SCREENING PANEL([facility]) Not Performed: May 01, 2022@08:23 b *[facility] Reason: ORDER CORRECTED, STAT FOR PROCEDURE Added by [id number] on May 01, 2022@08:22 Ordering Provid er: TODD RUSSO MD Report Released Date/Time: May 01, 2022 08:11 AM Reporting Lab: [facility] [address] [id number] Performing Lab: [facility] [address] [place] [id number] COVID-19 PCR (FLUVID) Not Detected Not D etected FLU A PCR (FLUVID) Not Detected Not Dete cted FLU B PCR (FLUV[facility]) Not Detected Not Dete cted RSV PCR ([facility]) Not Detected Not Detect ed April 23, 2022 12:00 [facility] COVID-19 MONITOR Specimen Ty pe: OROPHARYNX AM [facility] PANEL([facility]) Comment: Test P erformed by NAHUM Lemus Ordering Provid er: ASHWINI SARMIENTO Report Released Date/Time: Mar 21, 2022 08:55 AM Reporting Lab: [facility] [address] [facility] [address] Performing Lab: [facility] [address] [facility] [address] COVID-19 ([id number]) Not Detected Not De tected April 17, 2022 12:30 [facility] NEW COVID-19 MONITOR Specimen Ty pe: OROPHARYNX PM [facility] PANEL([facility]) Comment: Test P erformed by NAHUM Lemus Ordering Provid er: ASHWINI SARMIENTO Report Released Date/Time: Mar 21, 2022 08:55 AM Reporting Lab: [facility] [address] [facility] [address] Performing Lab: [facility] [address] [place] [phone] COVID-19 ([id number]) Not Detected Not De tected April 12, 2022 08:02 [facility] HEMOGLOBIN A1C Specimen Type: BLOOD AM [facility] No comment enter ed. Ordering Provid er: JUSTIN HEBERT Report Released Date/Time: Dec 21, 2021 09:49 AM Reporting Lab: [facility] [address] [facility] [address] Performing Lab: [facility] [address] [facility] [address] HEMOGLOBIN A1C 7.0 H 4.8-5.6 April 12, 2022 [facility] CHEM, Comprehensive Specimen Ty pe: SERUM 08:02 AM [facility] Metabolic Panel Comment: eGFR c alculated using [...] Stage 5 - End Stage CKD Reference: [email or web address] Ordering Provid er: JUSTIN HEBERT Report Released Date/Time: Dec 21, 2021 09:49 AM Reporting Lab: [facility] [address] [facility] [address] Performing Lab: [facility] [address] [facility] [address] CREATININE 1.3 .7-1.3 UREA NITROGEN 22 7-25 GLUCOSE 264 H 65-99 SODIUM 137 136-145 POTASSIUM 4.2 3.5-5.1 CHLORIDE 100 98-107 CO2 27 21-31 CALCIUM 9.7 8.6-10.3 PROTEIN,TOTAL 7.0 6.4-8.9 ALBUMIN 4.6 3.5-5.7 TOTAL BILIRUBIN 0.6 0.3-1.0 ALKALINE PHOSPHATASE 71 34-104 AST 22 13-39 ALT 23 7-52 ANION GAP 10 5-13 eGFR 65 L >90 April 09, 2022 03:21 [facility] COVID-19 MONITOR Specimen Ty pe: OROPHARYNX PM [facility] PANEL([facility]) Comment: Test P erformed by NAHUM Lemus Ordering Provid er: ASHWINI SARMIENTO Report Released Date/Time: Mar 21, 2022 08:55 AM Reporting Lab: [facility] [address] [facility] [address] Performing Lab: [facility] [address] [facility] [address] COVID-19 ([id number]) Not Detected Not De tected April 02, 2022 12:00 [facility] NEW COVID-19 MONITOR Specimen Ty pe: OROPHARYNX [facility] PANEL([facility]) Comment: Test P erformed by NAHUM Lemus Ordering Provid er: ASHWINI SARMIENTO Report Released Date/Time: Mar 21, 2022 08:55 AM Reporting Lab: [facility] [address] [facility] [address] Performing Lab: [facility] [address] [facility] [address] COVID-19 ([id number]) Not Detected Not De tected March 28, 2022 11:36 [facility] NEW COVID-19 MONITOR Specimen Ty pe: OROPHARYNX [facility] PANEL([facility]) Comment: Test P erformed by NAHUM Lemus Ordering Provid er: ASHWINI SARMIENTO Report Released Date/Time: Mar 21, 2022 08:55 AM Reporting Lab: [facility] [address] [facility] [address] Performing Lab: [facility] [address] [facility] [address] COVID-19 ([id number]) Not Detected Not De tected Mar 19, 2022 12:00 [facility] NEW COVID-19 MONITOR Specimen Ty pe: OROPHARYNX [facility] PANEL([facility]) Comment: Test P erformed by NAHUM Lemus Ordering Provid er: ASHWINI SARMIENTO Report Released Date/Time: Jan 16, 2022 12:20 PM Reporting Lab: [facility] [address] [facility] [address] Performing Lab: [facility] [address] [facility] [address] COVID-19 ([id number]) Not Detected Not De tected Social History: Smoking Status (Most current) and Tobacco Use (All prior to encounter date) This section includes the most current, and the historical, smoking and tobacco-related health factors from the [place] facility where the Encounter took place.Current Smoking Status This section includes the most current smoking, or tobacco-related health factor, from the [place] facility where the Encounter took place. Date/Time Current Smoking Status Comment Facility Jun 29, 2021 09:00 AM VA-TOBACCO FORMER USER [facility] Tobacco Use History This section includes a history of the smoking, or tobacco- related health factors, that were collected on or before the date of the Encounter. The data comes from the [place] facility where the Encounter took place. Date/Time Smoking Status/Tobacco Use Comment [facility] it Jun 29, 2021 09:00 AM VA-TOBACCO QUIT 15 YRS OR [facility] Jul 20, 2020 10:30 AM VA-TOBACCO NEVER USED [facility] Aug 12, 2019 03:12 PM VA-TOBACCO FORMER USER [facility] Aug 12, 2019 03:12 PM VA-TOBACCO QUIT 15 YRS OR [facility] Aug 20, 2018 04:56 PM VA-TOBACCO FORMER USER [facility] Aug 20, 2018 04:56 PM VA-TOBACCO QUIT 15 YRS OR [facility] Nov 19, 2016 09:49 AM LIFETIME NON-USER OF [facility] TOBACCO [facility] Dec 13, 2015 03:30 PM QUIT TOBACCO >7 YEARS AGO [facility] Dec 09, 2014 09:06 AM QUIT TOBACCO >7 YEARS AGO [facility] Jan 29, 2014 08:56 AM LIFETIME NON-USER OF [facility] TOBACCO [facility] Jun 11, 2012 01:32 PM QUIT TOBACCO >7 YEARS AGO [facility] Feb 01, 2009 09:26 AM LIFETIME NON-USER OF [facility] [place] TOBACCO quit [address] [place] [address] Aug 19, 2001 09:28 AM HISTORY OF SMOKING [facility] NEW Quit 2 yrs ago, 18 pack-yr HxMonse BULLOCK [facility] Pathology Reports: +/- 30 days of [...] the Encounter. The data comes from all [place] treatment facilities. Date/Time Pathology Report Provider Source May 10, 2022 11:37 LR SURGICAL PATHOLOGY REPORT: KIRK PAGAN [facility] TITLE: LR SURGICAL PATHOLOGY REPORT [facility] STANDARD TITLE: LABORATORY NOTE DATE [...] and negative controls were run and reviewed. CPT:17156g6; 14479 SUPPLEMENTARY REPORT(S): Supplementary Report Date: MAY 10, 2022 *+* SUPPLEMENTARY REPORT HAS BEEN ADDED/MODIFIE D *+* (Added/Last released: May 10, 2022 11:37 Signed by ELIN PAGAN) IMMUNOSTAIN IS PERFORMED ON SPECIMEN A WHICH IS NEGATIVE FOR H.PYLORI ORGANISMS. CPT: 27230 IHC DISCLAIMER Some of these tests were developed and their pe rformance characteristics determined by the immunoperoxidase Laboratory o [facility]. They have not been cleared or approved by U.S. Food and Drug Administration. The FDA has determined that [facility] h clearance or approval is not [...] and reviewed. /jacki/ ELIN PAGAN FOR JUDY Moncada STAFF PATHOLOGIST Signed May 10, 2022@11:37 Performing Laboratory: Surgical Pathology Report Performed By: [facility] [CLI A# [id number]] [address] [place] [phone] $FTR - - - - - - [...] - - ANGIE LEONLAS STANDARD FORM 515 ID:[id number] SEX:M :1965 AGE: 56 LOC: [facility] PCP: Jc Caballero, CHEYANNE /jacki/ ELIN PAGAN STAFF PATHOLOGIST Signed: 05/10/2022 11:37 May 06, 2022 08:23 LR SURGICAL PATHOLOGY REPORT: JUDY THOMASON [facility] TITLE: LR SURGICAL PATHOLOGY REPORT [facility] STANDARD TITLE: LABORATORY NOTE DATE OF [...] of 1988 (CLIA-88) as qualified to pe orm high complexity clinical laboratory testing. The appropriate po sitive and negative controls were run and reviewed. CPT:55766h0; 94540 /es/ JUDY THOMASON STAFF PATHOLOGIST Signed May 06, 2022@08:23 Performing Laboratory: Surgical Pathology Report Performed By: [facility] [CLI A# [id number]] [address] [place] [phone] $FTR - - - - - - [...] - - ANGIE LEON STANDARD FORM 515 ID:[id number] SEX:M :1965 AGE: 56 LOC: [facility] PCP: Jc Caballero, CHEYANNE /jacki/ JUDY THOMASON STAFF PATHOLOGIST Signed: 05/06/2022 08:23 Encounter Notes: All associated encounter notes This section contains the clinical notes associated to the Encounter. Date/Time Encounter Note(s) Provider Source April 12, 2022 09:13 AM [facility]//OPTOMETRY [facility] STANDARD TITLE: OPTOMETRY NOTE DATE OF NOTE: APRIL 12, 2022@09:13 ENTRY DATE: APRIL 12, 2022@09:13:23 AUTHOR: ANDREIA LIMA COSIGNER: URGENCY: STATUS: COMPLETED EYE EXAM:Established Patient Chief Complaint: 56 y/o white male comes in for 6 month diabetic eye exam follow-up. HPI: reports no changes since last visit (+) Type 2 DM; no vision complaints - Onset: over 10 years - LBS 150 mg/dL (04/12/22) - HbA1C 7.8% (per CPRS), Pt is compliant with m eds - H/o mild NPDR OU Last eye exam: 12/11/21 Ocular History (+) Strabismic amblyopia OS: esotropia (+) Glaucoma suspect secondary to cupping LDFE 03/2022 LIOP(12/15): 17/18 TMAX 18 PACH 607/604 LVF 05/2019: OD: MD:-3.82 DB, PSD: 1.77 DB, FPs: 4%, FNs: 3%, Fixation losses: 06/03, low reliability, no signs of fiel d defect OS: MD -4.35 DB, PSD: 1.86 DB, FPs: 3%, FNs: 7% , Fixation losses: 01/05 good reliability, no signs of fiel d defect 05/2018: OD: small cluster of defect superior to blind spot OS: Clear. Fairly reliable+ OCT: 11/2020 OD: RNFL sup/inf- outside normal limits. Nasal/ temp - WNL T , S , N , I 52, 55, 60, 64 OS: RNFL Sup-outside normal limits. Inf/temp - borderline. Michael- WNL T, S, N, I 90, 71,43,80 Fam Hx: None (+) Cataracts OU (-) Floaters/flashes/redness/tearing/itching/dry ness/headaches/diplopia (-) Ocular surgery/trauma Medical History (+) DM: see HPI (+) Elevated cholesterol: Pt is compliant with m eds (-) HTN Family History (-) GL/AMD Current Medications: Ophthalmic meds: OD: none OS: none Current General Meds: Active Outpatient Medications (excluding Supplie s): Active [...] E CAP,ORAL MOUTH ACTIVE 15 Total Medications ALLERGIES DISPLAYED IN VISTA: PENICILLIN MENTAL STATUS: alert and attentive VISUAL ACUITY: Distance without correction OD: 20/20- OS: 20/60+ PH: NI Current Rx OD: -0.50 sph 20/20 OS: plano 20/70-2 Add +2.00 20/20 NEUROLOGIC: Ocular motilities: full and smooth OU, ET OS Confrontational visual mccullough: full to finger c ounting OD/OS Pupils: OD: 3mm OS: 3mm, equally reactive to li ght OU Relative APD: none SLIT LAMP EXAM: Lids/lashes: OD: clear OS: clear Cornea: OD: inf SPK 1+ OS: tr inf SPK Conjunctiva: OD: white and quiet OS: tr papillae Ant. Chamber: OD: deep and quiet OS: deep and quiet Angle: OD: VH3 OS: VH3 Iris: OD: flat and intact, (-)NVI OS: flat and intact, (-)NVI Lens: OD:1+ NS OS:1+ NS TONOMETRY (Applanation): 1 gtt Fluress OU at 9:3 6 am OD 17mmHg OS 16mmHg POSTERIOR (Dilated): 1 gtt Tropicamide 1% OU at 9:40 AM Vitreous: OD: Syneresis OS: Syneresis Optic disc: Perfused, healthy rims OU, Distinct margins OU, (-)NVD OU Description: OD: 0.75 OS: 0.75 , deep cupping; (+)large discs ou Macula: OD:dot heme S, ST to macula, (-)CSME OU OS:dot heme SN to macula Posterior pole: OD:dot heme ST arcade with exudates, OS:(-)hemes/CWS/VB/exudates/ELIS/NVE OU Vessels: normal caliber OU Periphery: flat and intact OU, (-) breaks/detac hments 360 OU, (-)exudates/hemes/NVE OU (+)choroidal variation at all vortex ampullas O U Assessment/Plan: A1. Mild-mod NPDR OD, mild OS; without csme ou P1. Patient educated on toandrea y's findings. Patient is aware of the importance of controlling blood sugar, compliance with medications, and regularly seeing his PCP, as diabetes can lead to loss of vision. Con tinue to monitor in 6 months with comprehensive eye exam. A2. Glaucoma suspect OU, secondary to large lluvia ing; iop and cupping stable. C/D: OD: 0.75/0.75 deep cupping, (+) large discs OS: 0.75/0.75 deep cupping, (+) large discs LIOP(12/15): 17/18 TMAX P2. Patient educated on today's findings. No yefri atment is indicated at this time. Continue to monitor at next follow-up in 6 months and update RNFL OCT at next visit. A3. Age related cataracts OU P3. Patient educated on toandrea y's findings. Cataracts are not visually significant and do not warrant surgery a t this time. Continue to monitor at next CEE in one year or sooner PRN. A4. Strabismic amblyopia OS with esotropia P4. Patient educated on today's findings. Monito r Patient educated on post-mydriatic effects RTC in 6 month optometry, or sooner PRN /jacki/ ANDREIA LIMA OD OPTOMETRY ATTENDING Signed: 04/12/2022 13:26
--- OUTSIDE RECORDS SUMMARY | 2022-10-02 10:30 | XMS_ITS | Encounter Summary ---
:1965 Author Organization [facility] rs Address [address] [place] [address] Support Name Relationship Address Phone DENISSE LEON Unavailable [address] [facility] [place] [address] NONE, GIVEN Unavailable Unavailable Unavailable Insurance Providers: [...] to Policy Number Chen AETNA [place] Feb [id number] [phone] [place] PATIENT SERVICE INTER 2011 381 2 VERO NATIO [place] AETNA PRESCRIPT [place] Feb [id number] [phone] COBY LEON PATIENT PHARMACY ION INTER 2011 [id number] VERO MANAGEMENT NATIO 1 [place] BCBS [place] PREFERRED BASIC Nov 30 [id number] [phone] COBY LEON PATIENT FEP PROVIDER FAMIL 2017 [id number] VERO ORGANIZAT Y ION (PPO) BCBS OF [place] DENTAL [place]ENT[place] Nov 30 [id number] [phone] COBY LEON PATIENT FEP INSURANCE L [id number] 2017 62 5 VERO (DENTAL) [place] PREFERRED BASIC Nov 30 [id number] [phone] COBY METZ PATIENT FEP PROVIDER FAMIL 2017 62 5 VERO ORGANIZAT Y ION (PPO) [place]BS OF [place] PREFERRED STAND March 26 [id number] [phone] COBY METZ PATIENT (FEDERAL) 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 2014 62 7 VERO ORGANIZAT IND ION (PPO) 104 CAREMARK PRESCRIPT FEP March 26, [id number] [phone] [place] PATIENT ([id number]) ION 2015 0 62 7 VERO CAREMARK-F PRESCRIPT FEP Nov 30, [id number] [phone] [place] PATIENT EP BCBS ION CAREM 2018 0 62 1 VERO ARK CAREMARK-F PRESCRIPT SHERI Nov 30, [id number] [phone] [place] PATIENT EP BCBS ION AL 2018 0 62 1 VERO RX CAREMARK-F PRESCRIPT SHERI Nov 30, [id number] [phone] [place] PATIENT EP BCBS ION AL 2018 0 [id number] VERO RX CAREMARK-F PRESCRIPT FEP Nov 30, [id number] [phone] [place] PATIENT EP BCBS ION 2018 0 [id number] VERO HORIZON PREFERRED BASIC Nov 30 [id number] [phone] [place] ,[place] PATIENT BCBS FEP* PROVIDER FAMIL 2017 62 8 VERO ORGANIZAT Y ION (PPO) HORIZON PREFERRED BASIC Nov 30 [id number] [phone] [place] PATIENT FEDERAL PROVIDER FAMIL 2017 62 8 VERO ORGANIZAT Y ION (PPO) DEPART WORKERS' OWCP Jul 01, NONE [id number] [phone] COBY REYNOLDS PATIENT OF LABOR COMPENSAT MEDIC 2018 [id number] VERO MED DFEC ION AL INSURANCE DFEC DEPT OF WORKERS' WORKE Jul 01, WORKERS [id number] [phone] [place]ERT [place] PATIENT LABOR COMPENSAT RS 2019 COMP [id number] VERO ION COMP INSURANCE Selected Encounter This section includes the information on record at [facility] for the Encounter. Date/Time Encounter Type Encounter Reason Provider Source Description April 10, 2022 PSYTX W PT 45 MENTAL HEALTH ICD-10-CM F33.1 ANGIE GAFFNEY 10:00 AM [facility]ES CL[facility]IC - IND Major depressive SARAH disorder, recurrent, moderate with Provider Comments: Moderate major depression (SCT 978320) IHE Encounter Template Text not used by [facility] Assessments - Encounter Diagnoses This section includes the primary and secondary diagnoses documented for the Encounter. Date/Time Primary/Secondary Diagnosis Name Provider Source Diagnosis April 10, 2022 PRIMARY Major depressive ANGIE GAFFNEY [facility] EW 12:52 PM disorder, SARAH [facility] recurrent, moderate Plan of Treatment: Future Appointments (+ 6 months) and Future Tests (+/- 45 days) The Plan of Treatment section includes future care activities for the patient from all DC treatmentfacilities. This section includes future appointments and future orders which are active, pending orscheduled.Future Appointments This section includes appointments that were scheduled to occur 6 months from the date of the Encounter, up to a maximum of 20 appointments. The data comes from all DC treatment facilities. Appointment Date/Time Appointment Type Appointment Facili ty Name April 12, 2022 09:00 AM AM[facility]ULATORY - [facility] April 12, 2022 10:00 AM AMBULATORY - MEDICINE [facility] Apr 24, 2022 10:00 AM AMBULATORY - PSYCHIATRY [facility] May 01, 2022 08:00 AM AMBULATORY - MEDICINE [facility] May 08, 2022 10:00 AM AMBULATORY - PSYCHIATRY [facility] Jun 27, 2022 09:30 AM AMBULATORY - MEDICINE [facility] Jun 28, 2022 09:00 AM AMBULATORY - PSYCHIATRY [facility] Jul 12, 2022 08:00 AM AMBULATORY - PSYCHIATRY [facility] Jul 12, 2022 09:20 AM AMBULATORY - MEDICINE [facility] Jul 18, 2022 10:30 AM AMBULATORY - MEDICINE [place] [facility] [place] [facility] Aug 05, 2022 02:00 PM AMBULATORY - MEDICINE [place] [facility] [place] [facility] Aug 16, 2022 10:20 AM AMBULATORY - MEDICINE [facility] Sep 03, 2022 11:45 AM AMBULATORY - MEDICINE [place] [facility] [place] [facility] Sep 17, 2022 01:30 PM AMBULATORY - MEDICINE [place] [facility] [place] [facility] Sep 27, 2022 10:40 AM AMBULATORY - MEDICINE [facility] Lab Results: +/- 30 days [...] Reference Range Comment May 07, 2022 12:40 [facility] COVID-19 MONITOR Specimen Ty pe: OROPHARYNX PM [facility] PANEL([facility]) Comment: Test P erformed by NAHUM Lemus Ordering Provid er: ASHWINI SARMIENTO Report Released Date/Time: Mar 21, 2022 08:55 AM Reporting Lab: [facility] [address] [facility] [facility] [address] Performing Lab: [facility] [address] [facility] [facility] [address] COVID-19 ([id number]) Not Detected Not De tected May 01, 2022 11:58 [facility] POC GLUCOSE Specimen Type: BLOOD AM [facility] No comment enter ed. Ordering Provid er: TODD RUSSO MD Report Released Date/Time: May 01, 2022 12:00 PM Reporting Lab: [facility] [address] [facility] [address] [facility] [address] Performing Lab: [facility] [address] [address] [facility] [address] POC GLUCOSE 102 70-115 May 01, 2022 09:26 [facility] POC GLUCOSE Specimen Type: BLOOD AM [facility] No comment enter ed. Ordering Provid er: JC CABALLERO Report Released Date/Time: May 01, 2022 09:28 AM Reporting Lab: [facility] [address] [facility] [address] Performing Lab: [facility] [address] [facility] [address] [facility] [address] POC GLUCOSE 137 70-115 May 01, 2022 [facility] COVID-19, FLU/RSV Specimen T ype: NASOPHARYNX 08:22 [facility] SCREEN. PANEL(FLUVID) Comment: *COVID-19 SCREENING PANEL([facility]) Not Performed: May 01, 2022@08:23 b *REGIONAL ENGINEER Reason: ORDER CORRECTED, STAT FOR PROCEDURE Added by [id number] on May 01, 2022@08:22 Ordering Provid er: TODD RUSSO MD Report Released Date/Time: May 01, 2022 08:11 AM Reporting Lab: [facility] [address] [facility] [address] Performing Lab: [facility] [address] [facility] [address] COVID-19 PCR (FLUVID) Not Detected Not D etected FLU A PCR (FLUVID) Not Detected Not Dete cted FLU B PCR (FLUVID) Not Detected Not Dete cted RSV PCR (FLUVID) Not Detected Not Detect ed April 23, 2022 12:00 [facility] NEW COVID-19 MONITOR Specimen Ty pe: OROPHARYNX [facility] PANEL([facility]) Comment: Test P erformed by NAHUM Lemus Ordering Provid er: ASHWINI SARMIENTO Report Released Date/Time: Mar 21, 2022 08:55 AM Reporting Lab: [facility] [address] [facility] [address] Performing Lab: [facility] [address] [facility] [facility] [address] COVID-19 ([id number]) Not Detected Not De tected April 17, 2022 12:30 [facility] COVID-19 MONITOR Specimen Ty pe: OROPHARYNX [facility] PANEL([facility]) Comment: Test P erformed by NAHUM Lemus Ordering Provid er: ASHWINI SARMIENTO Report Released Date/Time: Mar 21, 2022 08:55 AM Reporting Lab: [facility] [address] [facility] [address] Performing Lab: [facility] [address] [facility] [address] COVID-19 ([id number]) Not Detected Not De tected April 12, 2022 08:02 [facility] HEMOGLOBIN A1C Specimen Type: BLOOD [facility] No comment enter ed. Ordering Provid er: JUSTIN HEBERT Report Released Date/Time: Dec 21, 2021 09:49 AM Reporting Lab: [facility] [address] [facility] [address] Performing Lab: [facility] [address] [facility] [address] HEMOGLOBIN A1C 7.0 H 4.8-5.6 April 12, 2022 [facility] CHEM, Comprehensive Specimen Ty pe: SERUM 08:02 AM [facility] Metabolic Panel Comment: eGFR c [...] Dec 21, 2021 09:49 AM Reporting Lab: [facility] [address] [facility] [address] Performing Lab: [facility] [address] [facility] [address] CREATININE 1.3 .7-1.3 UREA NITROGEN 22 7-25 GLUCOSE 264 H 65-99 SODIUM 137 136-145 POTASSIUM 4.2 3.5-5.1 CHLORIDE 100 98-107 CO2 27 21-31 CALCIUM 9.7 8.6-10.3 PROTEIN,TOTAL 7.0 6.4-8.9 ALBUMIN 4.6 3.5-5.7 TOTAL BILIRUBIN 0.6 0.3-1.0 ALKALINE PHOSPHATASE 71 34-104 AST 22 13-39 ALT 23 7-52 ANION GAP 10 5-13 eGFR 65 L >90 April 09, 2022 03:21 [facility] NEW COVID-19 MONITOR Specimen Ty pe: OROPHARYNX [facility] PANEL([facility]) Comment: Test P erformed by NAHUM Lemus Ordering Provid er: ASHWINI SARMIENTO Report Released Date/Time: Mar 21, 2022 08:55 AM Reporting Lab: [facility] [address] [facility] [address] Performing Lab: [facility] [address] [facility] [address] COVID-19 ([id number]) Not Detected Not De tected April 02, 2022 12:00 [facility] COVID-19 MONITOR Specimen Ty pe: OROPHARYNX AM [facility] PANEL([facility]) Comment: Test P erformed by NAHUM Lemus Ordering Provid er: ASHWINI SARMIENTO Report Released Date/Time: Mar 21, 2022 08:55 AM Reporting Lab: [facility] [address] [facility] [address] Performing Lab: [facility] [address] [place] [phone] COVID-19 ([id number]) Not Detected Not De tected March 28, 2022 11:36 [facility] COVID-19 MONITOR Specimen Ty pe: OROPHARYNX [facility] PANEL([facility]) Comment: Test P erformed by NAHUM Lemus Ordering Provid er: ASHWINI SARMIENTO Report Released Date/Time: Mar 21, 2022 08:55 AM Reporting Lab: [facility] [address] [place] [phone] Performing Lab: [facility] [address] [place] [place] [phone] COVID-19 ([id number]) Not Detected Not De tected Mar 19, 2022 12:00 [facility] COVID-19 MONITOR Specimen Ty pe: OROPHARYNX [facility] PANEL([facility]) Comment: Test P erformed by NAHUM Lemus Ordering Provid er: ASHWINI SARMIENTO Report Released Date/Time: Jan 16, 2022 12:20 PM Reporting Lab: [facility] [address] [facility] [place] [phone] Performing Lab: [facility] [address] [place] [phone] COVID-19 ([id number]) Not Detected Not De tected Mar 12, 2022 [facility] COVID-19 SCREENING Specimen Typ e: NASOPHARYNX 12:39 PM [facility] PANEL([facility]) Comment: Test P erformed by NAHUM Lemus Ordering Provid er: TODD CASTILLO Report Released Date/Time: Feb 19, 2022 04:41 PM Reporting Lab: [facility] [address] [facility] [address] Performing Lab: [facility] [address] [place] [phone] COVID-19 ([id number]) Not Detected Not De tected Social History: Smoking Status (Most current) and Tobacco Use (All prior to encounter date) This section includes the most current, and the historical, smoking and tobacco-related health factors from the DC facility where the Encounter took place.Current Smoking Status This section includes the most current smoking, or tobacco-related health factor, from the DC facility where the Encounter took place. Date/Time Current Smoking Status Comment Facility Jun 29, 2021 09:00 AM VA-TOBACCO FORMER USER [facility] Tobacco Use History This section includes a history of the smoking, or tobacco- related health factors, that were collected on or before the date of the Encounter. The data comes from the DC facility where the Encounter took place. Date/Time Smoking Status/Tobacco Use Comment [facility] Jun 29, 2021 09:00 AM VA-TOBACCO QUIT 15 YRS OR [facility] Jul 20, 2020 10:30 AM VA-TOBACCO NEVER USED [place]- [facility] Aug 12, 2019 03:12 PM VA-TOBACCO FORMER USER [facility] Aug 12, 2019 03:12 PM VA-TOBACCO QUIT 15 YRS OR [facility] Aug 20, 2018 04:56 PM VA-TOBACCO FORMER USER [facility] Aug 20, 2018 04:56 PM VA-TOBACCO QUIT 15 YRS OR [facility] Nov 19, 2016 09:49 AM LIFETIME NON-USER OF [facility] - [facility] TOBACCO [facility] Dec 13, 2015 03:30 PM QUIT TOBACCO >7 YEARS AGO [facility]- [facility] Dec 09, 2014 09:06 AM QUIT TOBACCO >7 YEARS AGO [facility]- [facility] Jan 29, 2014 08:56 AM LIFETIME NON-USER OF [facility] - [facility] TOBACCO [facility] Jun 11, 2012 01:32 PM QUIT TOBACCO >7 YEARS AGO [facility] Feb 01, 2009 09:26 AM LIFETIME NON-USER OF [facility] - [facility] TOBACCO quit [address] [place] [address] Aug 19, 2001 09:28 AM HISTORY OF SMOKING [facility]- [place] NEW Quit 2 yrs ago, 18 pack-yr HxMonse [facility] Pathology Reports: +/- 30 days [...] the Encounter. The data comes from all DC treatment facilities. Date/Time Pathology Report Provider Source May 10, 2022 11:37 LR SURGICAL PATHOLOGY REPORT: KIRK PAGAN [facility] LOCAL TITLE: LR SURGICAL PATHOLOGY REPORT [facility] STANDARD TITLE: LABORATORY NOTE DATE OF [...] determined by the immunoperoxid ase Laboratory of [facility]. They have not been cl eared [...] and negative controls were run and reviewed. CPT:86155e6; 59587 SUPPLEMENTARY REPORT(S): Supplementary Report Date: MAY 10, 2022 *+* SUPPLEMENTARY REPORT HAS BEEN ADDED/MODIFIE D *+* (Added/Last released: May 10, 2022 11:37 Signed by ELIN PAGAN) IMMUNOSTAIN IS PERFORMED ON SPECIMEN A WHICH IS NEGATIVE FOR H.PYLORI ORGANISMS. CPT: 37165 IHC DISCLAIMER Some of these tests were developed and their pe rformance characteristics determined by the immunoperoxidase Laboratory o [facility]. They have not been cleared [...] Performing Laboratory: Surgical Pathology Report Performed By: [facility] [CLI A# [id number] [address] $FTR - - - - - - - - - - - - - - - - - - - - - - - - - - - - - - - - - - - - - - - - (End of report) JUDY THOMASON [facility] Date May 06, 2022 - - - - - - - - - - - - - - - - - - - - - - - - - - - - - - - - - - - - - - - - ANGIE LEON STANDARD FORM 515 ID:[id number] SEX:M :1965 AGE: 56 LOC: [facility] PCP: Jc Caballero NP /jacki/ ELIN PAGAN STAFF PATHOLOGIST Signed: 05/10/2022 11:37 May 06, 2022 08:23 LR SURGICAL PATHOLOGY REPORT: JUDY THOMASON [facility] TITLE: LR SURGICAL PATHOLOGY REPORT [facility] STANDARD TITLE: LABORATORY NOTE DATE [...] - - $TEXT Submitted by: TODD RUSSO obtained: [place] 2021 13:23 [...] determined by the immunoperoxid ase Laboratory of [facility]. They have not been cl eared [...] of 1988 (CLIA-88) as qualified to pe [facility] high complexity clinical laboratory testing. The appropriate po sitive and negative controls were run and reviewed. CPT:04917i8; 14489 /es/ JUDY THOMASON STAFF PATHOLOGIST Signed May 06, 2022@08:23 Performing Laboratory: Surgical Pathology Report Performed By: [facility] [CLI A# [id number]] [address] [place] [address] $FTR - - - - - - [...] - - - - - ANGIE LEON PITA STANDARD FORM 515 ID:[id number] SEX:M :1965 AGE: 56 LOC: [facility] PCP: Jc Caballero, REGIONAL ENGINEER /jacki/ JUDY THOMASON STAFF PATHOLOGIST Signed: 05/06/2022 08:23 Encounter Notes: All associated encounter notes This section contains the clinical notes associated to the Encounter. Date/Time Encounter Note(s) Provider Source April 11, 2022 12:47 PM MENTAL HEALTH TREATMENT PLAN NOTE: Chago GAFFNEY [facility] TITLE: MH SUITE TREATMENT PLAN [facility] STANDARD TITLE: MENTAL HEALTH TREATMENT PLAN NOT E DATE OF NOTE: APRIL 11, 2022@12:47 ENTRY DATE: APRIL 11, 2022@12:47:54 AUTHOR: ANGIE GAFFNEY EXP COSIGNER: URGENCY: STATUS: COMPLETED MH SUITE TREATMENT PLAN - March, @ 12:47PM Visit Date: March, @ 10:00 - [facility] KACEY JOSE HOSE SEAMER: ANGIE GAFFNEY / 5 61 [facility] TEAM TEAM MEMBERS: ANGIE 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 GEORGIANA CARRILLO: PHYSICIAN RISK ASSESSMENT (DANGER TO SELF AND OTHERS): poses no threat to self [place] poses no threat others PATIENT'S PERCEPTION OF NEEDS AND PREFERENCES: Individual Therapy Medication Management PATIENT'S STRENGTHS/ABILITIES: Aware of illness Expressed desire/motivation for change Insightful Intelligent Has good social skills Hopeful Is motivated Active partnership in treatment Connected to providers Employed or has income/benefits Has a degree/certification Has supportive family and/or friends Has leisure or recreational activities 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 Goal: I want to be less depressed. Objective: I will learn to identify triggers to depression and develop 3 new coping skills. Progress will be measured through self-report. Projected Target Date: 04/11/2023 Intervention: [PSYCHOTHERAPY] My provider will work with me to achieve this goal and objective through Individual counseling. Providers: ANGIE GAFFNEY Time Frame: One time every 2 weeks for 1 year Treating Specialty: General Outpatient Mental ea Renewal Date: 04/11/2023 Entered Treatment: 04/11/2022 @ 12:46PM Anticipated Discharge: 04/11/2023 Actual Discharge: None Intervention: [MEDICATION MANAGEMENT] My provid er will prescribe medication Bupropion 150 mgto manage my symptoms and monitor my response. Providers: GEORGIANA CARRILLO Time Frame: Four times per year for 1 year Treating Specialty: General Outpatient [facility] ea Renewal Date: 04/11/2023 Entered Treatment: 04/11/2022 @ 12:46PM Anticipated Discharge: 04/11/2023 Actual Discharge: None /es/ ANGIE GAFFNEY perinatal social worker Signed: 04/11/2022 12:47 Receipt Acknowledged By: * AWAITING SIGNATURE * GEORGIANA CARRILLO April 10, 2022 10:00 AM MENTAL HEALTH NOTE: ANGIE GAFFNEY [facility] TITLE: &BS//MARLA [facility] STANDARD TITLE: MENTAL HEALTH NOTE DATE OF NOTE: APRIL 10, 2022@10:00 ENTRY DATE: APRIL 10, 2022@12:39:31 AUTHOR: ANGIE GAFFNEY EXP COSIGNER: URGENCY: STATUS: COMPLETED Met with patient for 45 minute individua l session. 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 He discussed guilt that he still feels regarding decisions and behaviors that he made as a young adult. He said that he has a hard time forgiving himself for th suleiman past actions. Discussed with patient the importance of working on self-forgiveness and reminding himself about the positive changes that he has made in h is life. He does recognize changes he has made, but still has difficulty wi th letting go. Assessment: Mood: Euthymic Affect: Appropriate Speech: Normal [...] individual counseling RTC: Next session scheduled for 04/24/22 at 10 am. /jacki/ ANGIE GAFFNEY perinatal social worker Signed: 04/10/2022 12:52
--- OUTSIDE RECORDS SUMMARY | 2022-10-02 10:30 | XMS_ITS | Encounter Summary ---
:1965 Author Organization [facility] rs Address [address] [place] [address] Support Name Relationship Address Phone DENISSE LEON Unavailable [address] [facility] [place] [address] NONE, GIVEN Unavailable Unavailable Unavailable Insurance Providers: [...] to Policy Number Chen AETNA [place] OF [facility] Feb [id number] [phone] [place] PATIENT SERVICE INTER 2011 [id number] [place] AETNA PRESCRIPT [facility] Feb [id number] [phone] COBY LEON PATIENT PHARMACY ION INTER 2011 [id number] VERO MANAGEMENT NATIO 1 [place] BCBS [place] PREFERRED BASIC Nov 30 [id number] [phone] COBY LEON PATIENT FEP PROVIDER FAMIL 2017 [id number] VERO ORGANIZAT Y ION (PPO) [place]BS [place] DENTAL [place] Nov 30 [id number] [phone] COBY LEON PATIENT FEP INSURANCE L [id number] 2017 62 5 VERO (DENTAL) [place] PREFERRED BASIC Nov 30 [id number] [phone] COBY METZ PATIENT FEP PROVIDER FAMIL 2017 62 5 VERO ORGANIZAT Y ION (PPO) [place]BS OF [place] PREFERRED STAND March 26 [id number] [phone] COBY METZ PATIENT (FEDERAL) 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 2014 62 7 VREO ORGANIZAT IND ION (PPO) 104 CAREMARK PRESCRIPT FEP March 26, [id number] [phone] CONR NADYA,MT PATIENT ([id number]) ION 2015 0 62 7 VERO CAREMARK-F PRESCRIPT FEP Nov 30, [id number] [phone] CO NROY,SC PATIENT EP BCBS ION CAREM 2018 0 62 1 VERO ARK CAREMARK-F PRESCRIPT FEP Nov 30, [id number] [phone] NROY,[place] PATIENT EP BCBS ION 2018 0 [id number] VERO CAREMARK-F PRESCRIPT SHERI Nov 30, [id number] [phone] CO NROY,[place] PATIENT EP BCBS ION AL 2018 0 62 1 VERO RX CAREMARK-F PRESCRIPT SHERI Nov 30, [id number] [phone] CO NROY,MT PATIENT EP BCBS ION AL 2018 0 [id number] 1 VERO RX HORIZON PREFERRED BASIC Nov 30 [id number] [phone] EDWARDMT PATIENT BCBS FEP* PROVIDER FAMIL 2017 62 8 VERO ORGANIZAT Y ION (PPO) HORIZON PREFERRED BASIC Nov 30 [id number] [phone] EDWARDMT PATIENT FEDERAL PROVIDER FAMIL 2018 62 8 VERO ORGANIZAT Y ION (PPO) DEPART WORKERS' OWCP Jul 01, NONE [id number] [phone] INDIGO CruzMT PATIENT OF LABOR COMPENSAT MEDIC 2018 [id number] VERO MED DFEC ION AL INSURANCE DFEC DEPT OF WORKERS' WORKE Jul 01, WORKERS [id number] [phone] ROBERT SAABMT PATIENT LABOR COMPENSAT RS 2019 COMP [id number] VERO ION COMP INSURANCE Selected Encounter This section includes the information on record at [facility] for the Encounter. Date/Time Encounter Type Encounter Reason Provider Source Description Apr 24, 2022 PSYTX W PT 45 MENTAL HEALTH ICD-10-CM F33.1 ANGIE GAFFNEY 10:00 AM MINUTES CLINIC - IND Major depressive SARAH disorder, recurrent, moderate with Provider Comments: Moderate major depression (SCT 555113) IHE Encounter Template Text not used by [facility] Assessments - Encounter Diagnoses This section includes the primary and secondary diagnoses documented for the Encounter. Date/Time Primary/Secondary Diagnosis Name Provider Source Diagnosis Apr 24, 2022 PRIMARY Major depressive ANGIE GAFFNEY [facility] N EW 02:48 PM disorder, SARAH [facility] recurrent, moderate Plan of Treatment: Future Appointments (+ 6 months) and Future Tests (+/- 45 days) The Plan of Treatment section includes future care activities for the patient from all [place] treatmentfacilities. This section includes future appointments and future orders which are active, pending orscheduled.Future Appointments This section includes appointments that were scheduled to occur 6 months from the date of the Encounter, up to a maximum of 20 appointments. The data comes from all [place] treatment facilities. Appointment Date/Time Appointment Type Appointment Facili ty Name May 01, 2022 08:00 AM AMBULATORY - MEDICINE [facility] May 08, 2022 10:00 AM AMBULATORY PSYCHIATRY [facility] Jun 27, 2022 09:30 AM [facility] Jun 28, 2022 09:00 AM AMBULATORY PSYCHIATRY [facility] Jul 12, 2022 08:00 AM AMBULATORY PSYCHIATRY [facility] Jul 12, 2022 09:20 AM AM[facility]UL[facility]ORY [facility]INE [facility] Jul 18, 2022 10:30 AM [facility] CNTR WSTRN M [facility] Aug 05, 2022 02:00 PM [facility] Aug 16, 2022 10:20 AM AMBULATORY [facility] RSEY [facility] Sep 03, 2022 11:45 AM [facility] Sep 17, 2022 01:30 PM [facility] W[facility]N M [facility] Sep 27, 2022 10:40 AM AMBULATORY - MEDICINE [facility] Lab Results: +/- 30 days of the encounter This section includes the Chemistry and Hematology Lab Results on record with [place] for the patient. Radiology Reports and Pathology Reports are provided separately, in subsequent sections.Lab Results This section contains the Chemistry/Hematology Results that were resulted 30 days before or 30 daysafter the date of the Encounter. Date/Time Source Result Type Result - Unit Interpretation Reference Range Comment May 14, 2022 06:04 [facility] COVID-19 MONITOR Specimen Ty pe: OROPHARYNX [facility] PANEL([facility]) Comment: Test P erformed by NAHUM Lemus Ordering Provid er: ASHWINI SARMIENTO Report Released Date/Time: Mar 21, 2022 08:55 AM Reporting Lab: [facility] [address] [place] [address] Performing Lab: [facility] [address] [facility] [address] [facility] [address] COVID-19 ([id number]) Not Detected Not De tected May 07, 2022 12:40 [facility] COVID-19 MONITOR Specimen Ty pe: OROPHARYNX PM [facility] PANEL([facility]) Comment: Test P erformed by NAHUM Lemus Ordering Provid er: ASHWINI SARMIENTO Report Released Date/Time: Mar 21, 2022 08:55 AM Reporting Lab: [facility] [address] [place] [address] Performing Lab: [facility] [address] [place] [address] COVID-19 ([id number]) Not Detected Not De tected May 01, 2022 11:58 [facility] POC GLUCOSE Specimen Type: BLOOD AM [facility] No comment enter ed. Ordering Provid er: TODD RUSSO MD Report Released Date/Time: May 01, 2022 12:00 PM Reporting Lab: [facility] [address] [place] [address] Performing Lab: [facility] [address] [facility] [facility] [address] POC GLUCOSE 102 70-115 May 01, 2022 09:26 [facility] POC GLUCOSE Specimen Type: BLOOD AM [facility] No comment enter ed. Ordering Provid er: JC CABALLERO Report Released Date/Time: May 01, 2022 09:28 AM Reporting Lab: [facility] [address] [facility] [address] Performing Lab: [facility] [address] [facility] [facility] [address] POC GLUCOSE 137 70-115 May 01, 2022 [facility] COVID-19, FLU/RSV Specimen T ype: NASOPHARYNX 08:22 AM [facility] SCREEN. PANEL(FLUVID) Comment: *COVID-19 SCREENING PANEL([facility]) Not Performed: May 01, 2022@08:23 b *CABLE REPAIRER Reason: ORDER CORRECTED, STAT FOR PROCEDURE Added by [id number] on May 01, 2022@08:22 Ordering Provid er: TDOD RUSSO MD Report Released Date/Time: May 01, 2022 08:11 AM Reporting Lab: [facility] [address] [facility] [address] Performing Lab: [facility] [address] [facility] [address] COVID-19 PCR (FLUVID) Not Detected Not D etected FLU A PCR (FLUVID) Not Detected Not Dete cted FLU B PCR (FLUVID) Not Detected Not Dete cted RSV PCR (FLUVID) Not Detected Not Detect ed April 23, 2022 12:00 [facility] COVID-19 MONITOR Specimen Ty pe: OROPHARYNX [facility] PANEL([facility]) Comment: Test P erformed by NAHUM Lemus Ordering Provid er: ASHWINI SARMIENTO Report Released Date/Time: Mar 21, 2022 08:55 AM Reporting Lab: [facility] [address] [facility] [address] Performing Lab: [facility] [address] [facility] [address] COVID-19 ([id number]) Not Detected Not De tected April 17, 2022 12:30 [facility] COVID-19 MONITOR Specimen Ty pe: OROPHARYNX PM [facility] PANEL([facility]) Comment: Test P erformed by NAHUM Lemus Ordering Provid er: ASHWINI SARMIENTO Report Released Date/Time: Mar 21, 2022 08:55 AM Reporting Lab: [facility] [address] [facility] [address] Performing Lab: [facility] [address] [facility] [address] COVID-19 ([id number]) Not Detected Not De tected April 12, 2022 08:02 [facility] HEMOGLOBIN A1C Specimen Type: BLOOD AM [facility] No comment enter ed. Ordering Provid er: JUSTIN HEBERT Report Released Date/Time: Dec 21, 2021 09:49 AM Reporting Lab: [facility] [address] [place] [address] Performing Lab: [facility] [address] [place] [address] HEMOGLOBIN A1C 7.0 H 4.8-5.6 April 12, 2022 [facility] CHEM, Comprehensive Specimen Ty pe: SERUM 08:02 AM [facility] Metabolic Panel Comment: eGFR c alculated [...] Stage 5 - End Stage CKD Reference: [email or web address] Ordering Provid er: JUSTIN HEBERT Report Released Date/Time: Dec 21, 2021 09:49 AM Reporting Lab: [facility] [address] [place] [address] Performing Lab: [facility] [address] [place] [address] CREATININE 1.3 .7-1.3 UREA NITROGEN 22 7-25 GLUCOSE 264 H 65-99 SODIUM 137 136-145 POTASSIUM 4.2 3.5-5.1 CHLORIDE 100 98-107 CO2 27 21-31 CALCIUM 9.7 8.6-10.3 PROTEIN,TOTAL 7.0 6.4-8.9 ALBUMIN 4.6 3.5-5.7 TOTAL BILIRUBIN 0.6 0.3-1.0 ALKALINE PHOSPHATASE 71 34-104 AST 22 13-39 ALT 23 7-52 ANION GAP 10 5-13 eGFR 65 L >90 April 09, 2022 03:21 [facility]-19 MONITOR Specimen Ty pe: OROPHARYNX [facility] PANEL([facility]) Comment: Test P erformed by NAHUM Lemus Ordering Provid er: ASHWINI SARMIENTO Report Released Date/Time: Mar 21, 2022 08:55 AM Reporting Lab: [facility] [address] [place] [address] Performing Lab: [facility] [address] [place] [address] COVID-19 ([id number]) Not Detected Not De tected April 02, 2022 12:00 [facility] COVID-19 MONITOR Specimen Ty pe: OROPHARYNX [facility] PANEL([facility]) Comment: Test P erformed by NAHUM Lemus Ordering Provid er: ASHWINI SARMIENTO Report Released Date/Time: Mar 21, 2022 08:55 AM Reporting Lab: [facility] [address] [place] [address] Performing Lab: [facility] [address] [place] [address] COVID-19 ([id number]) Not Detected Not De tected March 28, 2022 11:36 [facility] COVID-19 MONITOR Specimen Ty pe: OROPHARYNX [facility] PANEL([facility]) Comment: Test P erformed by NAHUM Lemus Ordering Provid er: ASHWINI SARMIENTO Report Released Date/Time: Mar 21, 2022 08:55 AM Reporting Lab: [facility] [address] [place] [address] Performing Lab: [facility] [address] [place] [address] COVID-19 ([id number]) Not Detected Not De tected Social History: [...] 2021 09:00 AM [facility] Tobacco Use History This section includes a history of the smoking, or tobacco- related health factors, that were collected on or before the date of the Encounter. The data comes from the [place] facility where the Encounter took place. Date/Time Smoking Status/Tobacco Use Comment Nova dodson Jun 29, 2021 09:00 AM VA-TOBACCO QUIT 15 YRS OR [facility] Jul 20, 2020 10:30 AM VA-TOBACCO NEVER USED [facility] Aug 12, 2019 03:12 PM VA-TOBACCO FORMER USER [facility] Aug 12, 2019 03:12 PM VA-TOBACCO QUIT 15 YRS OR [facility] Aug 20, 2018 04:56 PM VA-TOBACCO FORMER USER [facility] Aug 20, 2018 04:56 PM VA-TOBACCO QUIT 15 YRS OR [facility] Nov 19, 2016 09:49 AM LIFETIME NON-USER OF [facility] - [facility] TOBACCO [facility] Dec 13, 2015 03:30 PM QUIT TOBACCO >7 YEARS AGO [facility] Dec 09, 2014 09:06 AM QUIT TOBACCO >7 YEARS AGO [facility] Jan 29, 2014 08:56 AM LIFETIME NON-USER OF [facility] TOBACCO [facility] Jun 11, 2012 01:32 PM QUIT TOBACCO >7 YEARS AGO [facility] Feb 01, 2009 09:26 AM [facility] quit [address] [place] [address] Aug 19, 2001 09:28 AM [facility] Quit 2 yrs ago, 18 pack-yr Hx. [facility] Pathology Reports: +/- 30 days of [...] LOCAL TITLE: LR SURGICAL PATHOLOGY REPORT [facility] STANDARD TITLE: LABORATORY NOTE DATE OF NOTE: [...] determined by the immunoperoxid ase Laboratory of [facility]. They have not been cl [...] and negative controls were run and reviewed. CPT:59694k6; 05176 SUPPLEMENTARY REPORT(S): Supplementary Report Date: MAY 10, 2022 *+* SUPPLEMENTARY REPORT HAS BEEN ADDED/MODIFIE D *+* (Added/Last released: May 10, 2022 11:37 Signed by ELIN PAGAN) IMMUNOSTAIN IS PERFORMED ON SPECIMEN A WHICH IS NEGATIVE FOR H.PYLORI ORGANISMS. CPT: 77349 IHC DISCLAIMER Some of these tests were developed and their pe rformance characteristics determined by the immunoperoxidase Laboratory [facility]. They have not been cleared or approved by U.S. Food and Drug Administration. The FDA has determined that [facility] clearance or approval is not necessary. This [...] By: [facility] [CLI A# [id number]] [address] [place] [id number] $FTR - - - - - - [...] - - ANGIE LEON STANDARD FORM 515 ID:[id number] SEX:M :1965 AGE: 56 LOC: [facility] PCP: Jc Caballero NP /kirstie PAGAN STAFF PATHOLOGIST Signed: 05/10/2022 11:37 May 06, 2022 08:23 LR SURGICAL PATHOLOGY REPORT: JUDY THOMASON [facility] TITLE: LR SURGICAL PATHOLOGY REPORT [facility] STANDARD TITLE: LABORATORY NOTE DATE OF NOTE: MAY 06, 2022@08:23:04 ENTRY DATE: MAY 06, 2022@08:23:04 AUTHOR: JDUY THOMASON EXP COSIGNER: URGENCY: STATUS: COMPLETED $APHDR [...] - - - - $TEXT Submitted by: TDOD RUSSO Date obtained: [place] [...] determined by the immunoperoxid ase Laboratory of [facility]. They have not been cl [...] Amendments of 1988 (CLIA-88) as qualified to [facility] high complexity clinical laboratory testing. The appropriate po sitive and negative controls were run and reviewed. CPT:43605l8; 43139 /jacki/ JUDY THOMASON STAFF PATHOLOGIST Signed May 06, 2022@08:23 Performing Laboratory: Surgical Pathology Report Performed By: [facility] [CLI A# [id number]] [address] [place] [id number] $FTR - - - - - - [...] - - ANGIE LEON STANDARD FORM 515 ID:[id number] SEX:M :1965 AGE: 56 LOC: [facility] PCP: Jc Caballero, CHEYANNE /jacki/ JUDY LAURA STAFF PATHOLOGIST Signed: 05/06/2022 08:23 Encounter Notes: All associated encounter notes This section contains the clinical notes associated to the Encounter. Date/Time Encounter Note(s) Provider Source Apr 24, 2022 10:00 AM MENTAL HEALTH NOTE: ANGIE GAFFNEY [facility] TITLE: MH&BS//[facility] STANDARD TITLE: MENTAL HEALTH NOTE DATE OF NOTE: APR 24, 2022@10:00 ENTRY DATE: APR 24, 2022@14:37:49 AUTHOR: ANGIE GAFFNEY EXP COSIGNER: URGENCY: STATUS: COMPLETED Met with patient for 45 minute individual sessio n. Patient reported that his son just graduated from [email or web address] and he and his went to the graduation over the weekend. His son got his degree in [employer] and will be starting employment in [place] in April. Patient also discussed depression he experiences at times, not related to iss ues going on in his life. He said that he is helped by going to the gym and playing deysi tar as coping skills. 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 Assessment: Mood: Euthymic Affect: Appropriate Speech: Normal [...] individual counseling RTC: Next session scheduled for 05/08/22 at 10 am . /jacki/ ANGIE GAFFNEY social media manager Signed: 04/24/2022 14:48
--- OUTSIDE RECORDS SUMMARY | 2022-10-02 10:31 | XMS_ITS | Encounter Summary ---
:1965 Author Organization [facility] Address [address] [place] [id number] Support Name Relationship Address Phone DENISSE LEON Unavailable [address] [address] [facility] [place] [address] NONE, GIVEN Unavailable Unavailable Unavailable Insurance Providers: [...] to Policy Number Chen AETNA PO[place] OF [facility] Feb [id number] [phone] [place] PATIENT SERVICE INTER 2011 381 2 [place] AETNA PRESCRIPT [facility] Feb [id number] [phone] COBY LEON PATIENT PHARMACY ION INTER 2011 [id number] VERO MANAGEMENT NATIO 1 [place] BCBS [place] PREFERRED BASIC Nov 30 [id number] [phone] COBY LEON PATIENT FEP PROVIDER FAMIL 2017 [id number] VERO ORGANIZAT Y ION (PPO) BCBS OF [place] DENTAL [place] Nov 30 [id number] [phone] COBY LEON PATIENT FEP INSURANCE L [id number] 2017 62 5 VERO (DENTAL) [place] PREFERRED BASIC Nov 30 [id number] [phone] COBY METZ PATIENT FEP PROVIDER FAMIL 2017 62 5 VERO ORGANIZAT Y ION (PPO) [place] OF [place] PREFERRED STAND March 26 [id number] [phone] COBY METZ PATIENT (FEDERAL) 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 2015 62 7 VERO ORGANIZAT IND ION (PPO) 104 CAREMARK PRESCRIPT FEP March 26, [id number] [phone] CONR OAnthony,[place] PATIENT ([id number]) ION 2014 0 62 7 VERO CAREMARK-F PRESCRIPT FEP Nov 30, [id number] [phone] PATIENT EP BCBS ION 2018 0 [id number] VERO CAREMARK-F PRESCRIPT FEP Nov 30, [id number] [phone] [place] PATIENT EP BCBS ION CAREM 2018 0 62 1 VERO ARK CAREMARK-F PRESCRIPT SHERI Nov 30, [id number] [phone] [place] PATIENT EP BCBS ION AL 2018 0 62 1 VERO RX CAREMARK-F PRESCRIPT SHERI Nov 30, [id number] [phone] [place] PATIENT EP BCBS ION AL 2018 0 [id number] 1 VERO RX HORIZON PREFERRED BASIC Nov 30 [id number] [phone] EDWARD ,[place] PATIENT BCBS FEP* PROVIDER FAMIL 2018 62 8 VERO ORGANIZAT Y ION (PPO) HORIZON PREFERRED BASIC Nov 30 [id number] [phone] EDWARDMT PATIENT FEDERAL PROVIDER FAMIL 2018 62 8 VERO ORGANIZAT Y ION (PPO) DEPART WORKERS' OWCP Jul 01, NONE [id number] [phone] INDIGO CruzMT PATIENT OF LABOR COMPENSAT MEDIC [id number] VERO MED DFEC ION AL INSURANCE DFEC US DEPT OF WORKERS' WORKE Jul 01, WORKERS [id number] [phone] ROBERT KAISER,[place] PATIENT LABOR COMPENSAT RS 2019 COMP [id number] VERO ION COMP INSURANCE Selected Encounter This section includes the information on record at [facility] for the Encounter. Date/Time Encounter Type Encounter Reason Provider Source Description Feb 01, 2022 OFFICE O/P EST MENTAL HEALTH ICD-10-CM F33.1 GEORGIANA CARRILLO 09:00 AM LOW 20-29 MIN CLINIC - IND Major depressive disorder, recurrent, moderate with Provider Comments: Moderate major depression ([facility] [id number]) IHE Encounter Template Text not used by VA Assessments - Encounter Diagnoses This section includes the primary and secondary diagnoses documented for the Encounter. Date/Time Primary/Secondary Diagnosis Name Provider Source Diagnosis Feb 01, 2022 PRIMARY Major depressive GEORGIANA CARRILLO [facility] 01:27 PM [facility] recurrent, moderate Plan of Treatment: Future Appointments (+ 6 months) and Future Tests (+/- 45 days) The Plan of Treatment section includes future care activities for the patient from all [facility] treatmentfacilities. This section includes future appointments and future orders which are active, pending orscheduled.Future Appointments This section includes appointments that were scheduled to occur 6 months from the date of the Encounter, up to a maximum of 20 appointments. The data comes from all [facility] treatment facilities. Appointment Date/Time Appointment Type Appointment Facili ty Name Feb 19, 2022 03:00 PM AMBULATORY - MEDICINE [facility] Mar 01, 2022 08:00 AM AMBULATORY - PSYCHIATRY [facility] April 05, 2022 09:00 AM AMBULATORY - PSYCHIATRY [facility] April 10, 2022 10:00 AM AMBULATORY - PSYCHIATRY [facility] April 12, 2022 09:00 AM AMBULATORY - NONE [facility] April 12, 2022 10:00 AM AMBULATORY - MEDICINE [facility] Apr 24, 2022 10:00 AM AMBULATORY - PSYCHIATRY [facility] May 01, 2022 08:00 AM AMBULATORY - MEDICINE [facility] May 08, 2022 10:00 AM AMBULATORY - PSYCHIATRY [facility] Jun 27, 2022 09:30 AM AMBULATORY - [facility] Jun 28, 2022 09:00 AM AMBULATORY - PSYCHIATRY [facility] Jul 12, 2022 08:00 AM AMBULATORY - PSYCHIATRY [facility] Jul 12, 2022 09:20 AM AMBULATORY - MEDICINE [facility] Jul 18, 2022 10:30 AM AMBULATORY - [facility] NUPURDomenic [facility] Lab Results: +/- 30 days [...] Result - Unit Interpretation Reference Range Comment Feb 27, 2022 12:24 [facility]- [facility] NEW COVID-19 MONITOR Specimen Ty pe: OROPHARYNX PM [facility] PANEL([facility]) Comment: Test P erformed by NAHUM Lemus Ordering Provid er: ASHWINI SARMIENTO Report Released Date/Time: Dec 26, 2021 09:07 AM Reporting Lab: [facility] [address] [facility] [address] Performing Lab: [facility] [address] [facility] [address] COVID-19 ([id number]) Not Detected Not De tected Feb 19, 2022 12:00 [facility]-19 MONITOR Specimen Ty pe: OROPHARYNX AM [facility] PANEL([facility]) Comment: Test P erformed by NAHUM Lemus Ordering Provid er: ASHWINI SARMIENTO Report Released Date/Time: Dec 26, 2021 09:07 AM Reporting Lab: [facility] [address] [facility] [address] Performing Lab: [facility] [address] [facility] [address] COVID-19 ([id number]) Not Detected Not De tected Feb 13, 2022 03:14 [facility] NEW COVID-19 MONITOR Specimen Ty pe: OROPHARYNX PM [facility] PANEL([facility]) Comment: Test P erformed by NAHUM Lemus Ordering Provid er: ASHWINI SARMIENTO Report Released Date/Time: Jan 16, 2022 12:20 PM Reporting Lab: [facility] [address] [facility] [address] Performing Lab: [facility] [address] [facility] [address] COVID-19 ([id number]) Not Detected Not De tected Jan 30, 2022 02:50 [facility] NEW COVID-19 MONITOR Specimen Ty pe: OROPHARYNX PM [facility] PANEL([facility]) Comment: Test P erformed by NAHUM Lemus Ordering Provid er: ASHWINI SARMIENTO Report Released Date/Time: Dec 26, 2021 09:07 AM Reporting Lab: [facility] [address] [facility] [address] Performing Lab: [facility] [address] [facility] [address] COVID-19 ([id number]) Not Detected Not De tected Jan 23, 2022 08:00 [facility] HEMOGLOBIN A1C Specime n Type: BLOOD AM HCS No comment enter ed. Ordering Provid er: JUSTIN HEBERT Report Released Date/Time: Jan 18, 2022 11:36 AM Reporting Lab: [facility] [address] [facility] [address] Performing Lab: [facility] [address] [facility] [address] HEMOGLOBIN A1C 7.9 H 4.8-5.6 Jan 23, 2022 08:00 [facility] PROSTATE SPECIFIC Specimen T ype: SERUM AM [facility] ANTIGEN No comment enter ed. Ordering Provid er: JC CABALLERO Report Released Date/Time: Jan 18, 2022 10:03 AM Reporting Lab: [facility] [address] [facility] [address] Performing Lab: [facility] [address] [facility] [address] PROSTATE SPECIFIC ANTIGEN 0.430 0-4. 0 Jan 23, 2022 [facility], Comprehensive Specimen Ty pe: SERUM 08:00 AM [facility] Metabolic Panel No comment enter ed. Ordering Provid er: JC CABALLERO Report Released Date/Time: Jan 18, 2022 10:03 AM Reporting Lab: [facility] [address] [facility] [address] Performing Lab: [facility] [address] [facility] [address] CREATININE 1.3 .7-1.3 UREA NITROGEN 23 7-25 GLUCOSE 163 H 65-99 SODIUM 138 136-145 POTASSIUM 4.6 3.5-5.1 CHLORIDE 101 98-107 CO2 28 21-31 CALCIUM 9.9 8.6-10.3 PROTEIN,TOTAL 7.0 6.4-8.9 ALBUMIN 4.6 3.5-5.7 TOTAL BILIRUBIN 0.5 0.3-1.0 ALKALINE PHOSPHATASE 81 34-104 AST 23 13-39 ALT 24 7-52 ANION GAP 9 5-13 eGFR 58 L >60 Jan 23, 2022 08:00 AM [facility] URINALYSIS Spec imen Type: URINE HCS No comment enter ed. Ordering Provid er: JC CABALLERO Report Released Date/Time: Jan 18, 2022 10:03 AM Reporting Lab: [facility] [address] [facility] [address] Performing Lab: [facility] [address] [facility] [address] URINE COLOR Colorless YELLOW SPECIFIC GRAVITY 1.003 <1.031 UROBILINOGEN Normal < 2 URINE BILIRUBIN Negative < 1+ URINE KETONES Negative <1+ URINE GLUCOSE OVER <70 URINE PROTEIN Negative < 30 URINE PH 5.5 <8.0 URINE WBC/HPF 1 0-5 URINE BACTERIA [none] NEG URINE MUCUS [none] NEG HYALINE CASTS [none] 0-2 GRANULAR CASTS [none] None seen URINE YEAST [none] NEG URINE RBC/HPF 3 H 0-2 APPEARANCE Clear CLEAR TRICHOMONAS [none] NEG SQUAMOUS EPITHELIAL [none] <5 RENAL EPITHELIAL CELLS [none] <2 URINE BLOOD Negative < 1+ NITRITE, URINE Negative < 1+ LEUKOCYTE ESTERASE, URINE Negative <75 CELLULAR CASTS [none] None seen RBC CLUMPS,UR [none] NEG AMORPHOUS CRYSTALS OCC None seen Jan 22, 2022 12:00 [facility] NEW COVID-19 MONITOR Specimen Ty pe: OROPHARYNX [facility] PANEL([facility]) Comment: Test P erformed by NAHUM Lemus Ordering Provid er: ASHWINI SARMIENTO Report Released Date/Time: Dec 26, 2021 09:07 AM Reporting Lab: [facility] [address] [facility] [address] Performing Lab: [facility] [address] [facility] [address] COVID-19 ([id number]) Not Detected Not De tected Jan 15, 2022 03:39 [facility] NEW COVID-19 MONITOR Specimen Ty pe: OROPHARYNX [facility] PANEL([facility]) Comment: Test P erformed by NAHUM Lemus Ordering Provid er: ASHWINI SARMIENTO Report Released Date/Time: Dec 26, 2021 09:07 AM Reporting Lab: [facility] [address] [facility] [address] Performing Lab: [facility] [address] [facility] [address] COVID-19 ([id number]) Not Detected Not De tected Jan 07, 2022 07:10 [facility]-19 MONITOR Specimen Ty pe: OROPHARYNX PM [facility] PANEL([facility]) No comment enter ed. Ordering Provid er: ASHWINI SARMIENTO Report Released Date/Time: Dec 26, 2021 09:07 AM Reporting Lab: [facility] [address] [facility] [address] Performing Lab: [facility] [address] [facility] [address] COVID-19 ([id number]) Not Detected Not De tected Social History: Smoking Status (Most current) and Tobacco Use (All prior to encounter date) This section includes the most current, and the historical, smoking and tobacco-related health factors from the [facility] facility where the Encounter took place.Current Smoking Status This section includes the most current smoking, or tobacco-related health factor, from the [facility] facility where the Encounter took place. Date/Time Current Smoking Status Comment Facility Jun 29, 2021 09:00 AM VA-TOBACCO FORMER USER [facility] Tobacco Use History This section includes a history of the smoking, or tobacco- related health factors, that were collected on or before the date of the Encounter. The data comes from the [facility] facility where the Encounter took place. Date/Time Smoking Status/Tobacco Use Comment [facility] Jun 29, 2021 09:00 AM VA-TOBACCO QUIT 15 YRS OR [facility] Jul 20, 2020 10:30 AM VA-TOBACCO NEVER USED [facility] Aug 12, 2019 03:12 PM [facility]AC[facility] Aug 12, 2019 03:12 PM VA-TOBACCO QUIT 15 YRS OR [facility] Aug 20, 2018 04:56 PM [facility] Aug 20, 2018 04:56 PM VA-TOBACCO QUIT 15 YRS OR [facility] Nov 19, 2016 09:49 AM LIFETIME NON-USER OF [facility] Dec 13, 2015 03:30 PM QUIT TOBACCO >7 YEARS AGO [facility] Dec 09, 2014 09:06 AM QUIT TOBACCO >7 YEARS AGO [facility] Jan 29, 2014 08:56 AM LIFETIME NON-USER OF [facility] TOBACCO [facility] Jun 11, 2012 01:32 PM QUIT TOBACCO >7 YEARS AGO [facility] Feb 01, 2009 09:26 AM LIFETIME NON-USER OF [facility] NEW TOBACCO quit [address] [place] [address] Aug 19, 2001 09:28 AM HISTORY OF SMOKING [facility] NEW Quit 2 yrs ago, 18 pack-yr Hx. J [facility] Encounter Notes: All associated encounter notes This section contains the clinical notes associated to the Encounter. Date/Time Encounter Note(s) Provider Source Feb 01, 2022 09:10 AM MENTAL HEALTH NOTE: GEORGIANA CARRILLO [facility] LOCAL TITLE: MH&BS//INDIVIDUAL [facility] STANDARD TITLE: MENTAL HEALTH NOTE DATE OF NOTE: FEB 01, 2022@09:10 ENTRY DATE: FEB 01, 2022@09:11:16 AUTHOR: GEORGIANA CARRILLO EXP COSIGNER: URGENCY: STATUS: COMPLETED Provider location [address] [place] [address] , [place] [address] Tel [address]ATION [address] [place] [address], [place] 039 TEL [phone] 30 minutes visit 16 minutes therapy DX Depression is a 56 y/ o male service connected with depression contacted at [phone] for follow/up and medication man agement as scheduled . Doing sanya despite stress at work able to cope an d maintain stability , has plan to travel to [place] with his family tomorrow , he reports good sleep pattern rarely may not able to sleep , usually there is not many concerns only daily life stuff , sometimes thinking about his past how bad he was in the [place] . he describes his mood as stable . Med ication help. there Is no feeling of anger irritability towad self or others. Compliant with medication and follow/up amada yin reported. Brief supportive therapy. 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 Thought content no delusion elicited , no parano id thinking Perception denies a/v hallucination Affect appropriate Mood bright Suicidal / homicidal idea denies no intent no pl an. Insight / judgement fair Plan RTC 04/05/2022 Continue current management made aware of emergency services 911 , h ot line crisis [phone] ER, walking clinic. [place] made aware of additive effects of psycho tropic medication , alcohol and illicit substance at [employer] level , und erstands and agrees with plan. Current Medications/Reconciliation: Active Outpatient Medications (excluding Supplie s): Active Outpatient Medications Status 1) ALBUTEROL 90MCG (CFC-F) 200D ORAL INHL INHALE 2 PUFFS ACTIVE BY MOUTH EVERY 6 HOURS NEEDED FOR BREATHING 2) ALOGLIPTIN 12.5MG TAB TAKE ONE TABLET BY MOUT H DAILY ACTIVE FOR DIABETES 3) ATORVASTATIN CALCIUM 40MG TAB TAKE ONE-HALF T ABLET BY ACTIVE MOUTH AT BEDTIME FOR LOWERING CHOLESTEROL 4) BUPROPION HCL 150MG 24HR SA TAB TAKE ONE TABL ET BY ACTIVE (S) MOUTH DAILY FOR MOOD 5) CETIRIZINE HCL 10MG TAB TAKE ONE TABLET BY MO UTH ACTIVE DAILY FOR ALLERGY 6) EMPAGLIFLOZIN 25MG TAB TAKE ONE TABLET BY NGUYEN TH DAILY ACTIVE NEW DOSE 7) ENALAPRIL MALEATE 2.5MG TAB TAKE ONE TABLET B Y MOUTH ACTIVE DAILY FOR BLOOD PRESSURE/KIDNEY PROTECTION 8) GLIMEPIRIDE 4MG TAB TAKE ONE TABLET BY MOUTH TWICE A ACTIVE DAY FOR DIABETES 9) METFORMIN HCL 500MG 24HR SA TAB TAKE TWO TABL ETS BY ACTIVE MOUTH TWICE A DAY FOR DIABETES 10) PSYLLIUM SF ORAL PWD TAKE 1 TEASPOONFUL BY M OUTH ACTIVE DAILY (MIX IN A GLASS OF JUICE OR WATER) Active Non-VA Medications Status 1) Non-VA ASCORBIC ACID TAB MOUTH ACTIVE 2) Non-VA IBUPROFEN TAB MOUTH DAILY NEEDED AC TIVE 3) Non-VA MULTIVITAMINS TAB MOUTH DAILY ACTIVE 4) Non-VA VITAMIN B COMPLEX TAB ACTIVE 5) Non-VA VITAMIN D CAP,ORAL MOUTH EVERY WEEK AC TIVE 6) Non-VA VITAMIN E CAP,ORAL MOUTH ACTIVE 16 Total Medications I have reviewed all VA medications and non-VA me dications including OTC, herbals, and vitamins with the patient. The medications noted above are appropriate and should be continued. /jacki/ GEORGIANA CARRILLO MD STAFF PSYCHIATRIST Signed: 02/01/2022 13:27
--- OUTSIDE RECORDS SUMMARY | 2022-10-02 10:31 | XMS_ITS | Encounter Summary ---
:1965 Author Organization [facility] rs Address [address] [place] [id number] Support Name Relationship Address Phone DENISSE LEON Unavailable [address] [facility] [place] [address] NONE, GIVEN Unavailable Unavailable Unavailable Insurance Providers: [...] to Policy Number Chen AETNA PO[facility] Feb [id number] [phone] EDWARD [place] PATIENT SERVICE INTER 2011 381 2 VERO NATIO [place] AETNA PRESCRIPT [facility] Feb [id number] [phone] COBY LEON PATIENT PHARMACY ION INTER 2011 [id number] VERO MANAGEMENT NATIO 1 [place] BCBS [place] PREFERRED BASIC Nov 30 [id number] [phone] COBY LEON PATIENT FEP PROVIDER FAMIL 2017 [id number] VERO ORGANIZAT Y ION (PPO) BCBS OF [place] DENTAL DENT[place] Nov 30 [id number] [phone] COBY LEON PATIENT FEP INSURANCE L [id number] 2017 62 5 VERO (DENTAL) [place]BS [place] PREFERRED BASIC Nov 30 [id number] [phone] COBY METZ PATIENT FEP PROVIDER FAMIL 2017 62 5 VERO ORGANIZAT Y ION (PPO) [place]BS OF [place] PREFERRED STAND March 26 [id number] [phone] COBY METZ PATIENT (FEDERAL) 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 2014 62 7 VERO ORGANIZAT IND ION (PPO) 104 CAREMARK PRESCRIPT FEP March 26, [id number] [phone] CONR NADYA,GA PATIENT ([id number]) ION 2015 0 62 7 VERO CAREMARK-F PRESCRIPT FEP Nov 30, [id number] [phone] [place] PATIENT EP BCBS ION CAREM 2018 0 62 1 VERO ARK CAREMARK-F PRESCRIPT FEP Nov 30, [id number] [phone] [place] PATIENT EP BCBS ION 2018 0 [id number] VERO CAREMARK-F PRESCRIPT SHERI Nov 30, [id number] [phone] [place] PATIENT EP BCBS ION AL 2018 0 62 1 VERO RX CAREMARK-F PRESCRIPT SHERI Nov 30, [id number] [phone] [place] PATIENT EP BCBS ION AL 2018 0 [id number] 1 VERO RX HORIZON PREFERRED BASIC Nov 30 [id number] [phone] EDWARDGA PATIENT BCBS FEP* PROVIDER FAMIL 2017 62 8 VERO ORGANIZAT Y ION (PPO) HORIZON PREFERRED BASIC Nov 30 [id number] [phone] EDWARDGA PATIENT FEDERAL PROVIDER FAMIL 2017 62 8 VERO ORGANIZAT Y ION (PPO) DEPART WORKERS' OWCP Jul 01, NONE [id number] [phone] INDIGO CruzGA PATIENT OF LABOR COMPENSAT MEDIC 2018 [id number] VERO MED DFEC ION AL INSURANCE DFEC DEPT OF WORKERS' WORKE Jul 01, WORKERS [id number] [phone] ROBERT SAABGA PATIENT LABOR COMPENSAT RS 2019 COMP [id number] VERO ION COMP INSURANCE Selected Encounter This section includes the information on record at [facility] for the Encounter. Date/Time Encounter Type Encounter Reason Provider Source Description Jan 24, 2022 [facility] ICD-10-CM F33.1 MARKO NUNEZ 01:00 PM PHYS/QHP [facility] - IND Major depressive MAN disorder, recurrent, moderate with Provider Comments: Moderate major depression (SCT 684412) IHE Encounter Template Text not used by [facility] Assessments - Encounter Diagnoses This section includes the primary and secondary diagnoses documented for the Encounter. Date/Time Primary/Secondary Diagnosis Name Provider Source Diagnosis Jan 25, 2022 PRIMARY Major depressive DAMARI NUNEZ- V A NEW 09:09 AM disorder, AN [facility] recurrent, moderate Plan of Treatment: Future Appointments (+ 6 months) and Future Tests (+/- 45 days) The Plan of Treatment section includes future care activities for the patient from all [facility] treatmentfacilities. This section includes future appointments and future orders which are active, pending orscheduled.Future Appointments This section includes appointments that were scheduled to occur 6 months from the date of the Encounter, up to a maximum of 20 appointments. The data comes from all [facility] treatment facilities. Appointment Date/Time Appointment Type Appointment Facili ty Name Feb 01, 2022 08:00 AM AMBULATORY - PSYCHIATRY [facility] Feb 01, 2022 09:00 AM AMBULATORY - PSYCHIATRY [facility] Feb 19, 2022 03:00 PM AMBULATORY - MEDICINE [facility] Mar 01, 2022 08:00 AM AMBULATORY - PSYCHIATRY [facility] April 05, 2022 09:00 AM AMBULATORY - PSYCHIATRY [facility] April 10, 2022 10:00 AM AMBULATORY - PSYCHIATRY [facility] April 12, 2022 09:00 AM AMBULATORY - NONE [facility] April 12, 2022 10:00 AM AMBULATORY - MEDICINE [facility] Apr 24, 2022 10:00 AM AMBULATORY - PSYCHIATRY [facility] May 01, 2022 08:00 AM AMBULATORY - MEDICINE [facility] May 08, 2022 10:00 AM AMBULATORY - PSYCHIATRY [facility] Jun 27, 2022 09:30 AM AMBULATORY - MEDICINE [facility] Jun 28, 2022 09:00 AM AMBULATORY - PSYCHIATRY [facility] Jul 12, 2022 08:00 AM AMBULATORY - PSYCHIATRY [facility] Jul 12, 2022 09:20 AM AMBULATORY - MEDICINE [facility] Jul 18, 2022 10:30 AM AMBULATORY - MEDICINE [facility] Lab Results: +/- 30 days of the encounter This section includes the Chemistry and Hematology Lab Results on record with [facility] for the patient. Radiology Reports and Pathology Reports are provided separately, in subsequent sections.Lab Results This section contains the Chemistry/Hematology Results that were resulted 30 days before or 30 daysafter the date of the Encounter. Date/Time Source Result Type Result - Unit Interpretation Reference Range Comment Feb 19, 2022 12:00 [facility]-19 MONITOR Specimen Ty pe: OROPHARYNX AM [facility] PANEL([facility]) Comment: Test P erformed by NAHUM Lemus Ordering Provid er: ASHWINI SARMIENTO Report Released Date/Time: Dec 26, 2021 09:07 AM Reporting Lab: [facility] [address] [facility] [address] Performing Lab: [facility] [address] [facility] [address] COVID-19 ([id number]) Not Detected Not De tected Feb 13, 2022 03:14 [facility] NEW COVID-19 MONITOR Specimen Ty pe: OROPHARYNX PM [facility] PANEL([facility]) Comment: Test P erformed by NAHUM Lemus Ordering Provid er: ASHWINI SARMIENTO Report Released Date/Time: Jan 16, 2022 12:20 PM Reporting Lab: [facility] [address] [facility] [address] Performing Lab: [facility] [address] [facility] [address] COVID-19 ([id number]) Not Detected Not De tected Jan 30, 2022 02:50 [facility] NEW COVID-19 MONITOR Specimen Ty pe: OROPHARYNX PM [facility] PANEL([facility]) Comment: Test P erformed by NAHUM Lemsu Ordering Provid er: ASHWINI SARMIENTO Report Released Date/Time: Dec 26, 2021 09:07 AM Reporting Lab: [facility] [address] [facility] [address] Performing Lab: [facility] [address] [facility] [address] COVID-19 ([id number]) Not Detected Not De tected Jan 23, 2022 08:00 [facility] HEMOGLOBIN A1C Specime n Type: BLOOD AM HCS No comment enter ed. Ordering Provid er: JUSTIN HEBERT Report Released Date/Time: Jan 18, 2022 11:36 AM Reporting Lab: [facility] [address] [facility] [address] Performing Lab: [facility] [address] [place] [address] HEMOGLOBIN A1C 7.9 H 4.8-5.6 Jan 23, 2022 08:00 [facility] PROSTATE SPECIFIC Specimen T ype: SERUM AM [facility] ANTIGEN No comment enter ed. Ordering Provid er: JC CABALLERO Report Released Date/Time: Jan 18, 2022 10:03 AM Reporting Lab: [facility] [address] [place] [address] Performing Lab: [facility] [address] [place] [address] PROSTATE SPECIFIC ANTIGEN 0.430 0-4. 0 Jan 23, 2022 [facility] CHEM, Comprehensive Specimen Ty pe: SERUM 08:00 AM [facility] Metabolic Panel No comment enter ed. Ordering Provid er: JC CABALLERO Report Released Date/Time: Jan 18, 2022 10:03 AM Reporting Lab: [facility] [address] [place] [address] Performing Lab: [facility] [address] [place] [address] CREATININE 1.3 .7-1.3 UREA NITROGEN 23 7-25 GLUCOSE 163 H 65-99 SODIUM 138 136-145 POTASSIUM 4.6 3.5-5.1 CHLORIDE 101 98-107 CO2 28 21-31 CALCIUM 9.9 8.6-10.3 PROTEIN,TOTAL 7.0 6.4-8.9 ALBUMIN 4.6 3.5-5.7 TOTAL BILIRUBIN 0.5 0.3-1.0 ALKALINE PHOSPHATASE 81 34-104 AST 23 13-39 ALT 24 7-52 ANION GAP 9 5-13 eGFR 58 L >60 Jan 23, 2022 08:00 [facility] URINALYSIS Spec imen Type: URINE HCS No comment enter ed. Ordering Provid er: JC CABALLERO Report Released Date/Time: Jan 18, 2022 10:03 AM Reporting Lab: [facility] [address] [place] [address] Performing Lab: [facility] [address] [place] [address] URINE COLOR Colorless YELLOW SPECIFIC GRAVITY 1.003 [...] OCC None seen Jan 22, 2022 12:00 [facility] NEW COVID-19 MONITOR Specimen Ty pe: OROPHARYNX AM [facility] PANEL([facility]) Comment: Test P erformed by NAHUM Lemus Ordering Provid er: ASHWINI SARMIENTO Report Released Date/Time: Dec 26, 2021 09:07 AM Reporting Lab: [facility] [address] [facility] [address] Performing Lab: [facility] [address] [facility] [facility] [address] COVID-19 ([id number]) Not Detected Not De tected Jan 15, 2022 03:39 [facility] NEW COVID-19 MONITOR Specimen Ty pe: OROPHARYNX [facility] PANEL([facility]) Comment: Test P erformed by NAHUM Lemus Ordering Provid er: ASHWINI SARMIENTO Report Released Date/Time: Dec 26, 2021 09:07 AM Reporting Lab: [facility] [address] [facility] [address] Performing Lab: [facility] [address] [facility] [facility] [address] COVID-19 ([id number]) Not Detected Not De tected Jan 07, 2022 07:10 [facility] NEW COVID-19 MONITOR Specimen Ty pe: OROPHARYNX PM [facility] PANEL([facility]) No comment enter ed. Ordering Provid er: ASWHINI SARMIENTO Report Released Date/Time: Dec 26, 2021 09:07 AM Reporting Lab: [facility] [address] [place] [address] Performing Lab: [facility] [address] [place] [address] COVID-19 ([id number]) Not Detected Not De tected Dec 27, 2021 12:00 [facility] COVID-19 MONITOR Specimen Ty pe: OROPHARYNX [facility] PANEL([facility]) No comment enter ed. Ordering Provid er: ASHWINI SARMIENTO Report Released Date/Time: Dec 26, 2021 09:07 AM Reporting Lab: [facility] [address] [place] [address] Performing Lab: [facility] [address] [place] [address] COVID-19 ([id number]) Not Detected Not De tected Social History: Smoking Status (Most current) and Tobacco Use (All prior to encounter date) This section includes the most current, and the historical, smoking and tobacco-related health factors from the [place] facility where the Encounter took place.Current Smoking Status This section includes the most current smoking, or tobacco-related health factor, from the [place] facility where the Encounter took place. Date/Time Current Smoking Status Comment Facility Jun 29, 2021 09:00 AM [facility]-TOBACCO FORMER USER [facility] Tobacco Use History This section includes a history of the smoking, or tobacco- related health factors, that were collected on or before the date of the Encounter. The data comes from the [place] facility where the Encounter took place. Date/Time Smoking Status/Tobacco Use Comment [facility] Jun 29, 2021 09:00 AM VA-TOBACCO QUIT 15 YRS OR [facility] Jul 20, 2020 10:30 AM VA-TOBACCO NEVER USED [facility] Aug 12, 2019 03:12 PM [facility] Aug 12, 2019 03:12 PM VA-TOBACCO QUIT 15 YRS OR [facility] Aug 20, 2018 04:56 PM [facility] Aug 20, 2018 04:56 PM VA-TOBACCO QUIT 15 YRS OR [facility] Nov 19, 2016 09:49 AM LIFETIME NON-USER OF [facility] [place] NEW TOBACCO [facility] Dec 13, 2015 03:30 PM QUIT TOBACCO >7 YEARS AGO [facility] Dec 09, 2014 09:06 AM QUIT TOBACCO >7 YEARS AGO [facility] Jan 29, 2014 08:56 AM LIFETIME NON-USER OF [facility] [place] NEW TOBACCO [facility] Jun 11, 2012 01:32 PM QUIT TOBACCO >7 YEARS AGO [facility] Feb 01, 2009 09:26 AM LIFETIME NON-USER OF [facility] [place] NEW TOBACCO quit 1998 [facility] Aug 19, 2001 09:28 AM HISTORY OF SMOKING [facility] [place] NEW Quit 2 yrs ago, 18 pack-yr Hx. J [facility] Encounter Notes: All associated encounter notes This section contains the clinical notes associated to the Encounter. Date/Time Encounter Note(s) Provider Source Jan 24, 2022 02:42 PM NEUROPSYCHOLOGY CONSULT: ADEEL NUNEZONS- [facility] TITLE: NEUROPSYCHOLOGY CONSULT [facility] STANDARD TITLE: NEUROPSYCHOLOGY CONSULT DATE OF NOTE: JAN 24, 2022@14:42 ENTRY DATE: JAN 24, 2022@14:45:31 AUTHOR: ADEEL NUNEZ EXP COSIGNER: URGENCY: STATUS: COMPLETED This 56-year-old mal e of the [employer] he served from - was seen today to evaluate his complaints of forgetf ulness. The says that he has noticed that he has b ecome forgetful of names, their information with his mind to quickly and describes other evidence of recent onset of absentmindedness. The is felt to be a re liable historian and the following information is based on his account as well as review of records. said that he was born in [facility] and raised there with both parents and an adopted sister. He said that his mother of cancer of the pancreas and his father has of cancer of the esophagus and stomach. He said that his father used to drink daily but the said that this was not to excess. Essex said that his father his mother was noted to have some sort of cognitive decline. Starr arreguin has no information about his sister; he says that she struggles and both with drugs and her b ehavior. denied any other family history of psychiatric disorder, ne urological disease, substance abuse. Lola said that he had tro uble reading when he was in school but it eventually got past this initial problem. Nevertheless he s aid reading is sometimes difficult for him although he is able to read technical material that he needs to do for work. 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 After he graduated from high school he joined the [employer] to find some adventure in his life. Lola served from [id number]. 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 He returned to the ship, was hospi talized again in [facility] and eventually disch arged from the [employer] for medical reasons. Lola is 30% service-connected for depression. Lola de nied any other injuries or hospitalizations while he was in the service and denied any sexual trauma although he did note that he was picked out and probably bullied while he was in the [employer]. Lola said that he had a v ariety of jobs after he from the [employer]. 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 Lola has been for 25 years and is about to celebrate his anniversary. He notes that his is administr ative assistant financial accountant in a private school. Although they have had their ups and geoffrey ns he said they are quite happy to be c elebrating his first week. They have 1 son who was completing a degree at the [employer] in aerospace engineering and another son from a previous relationship who has a doctorate in physical therapy. Lola said that he enjoys wa tching movies and television, enjoys eating out and spending time with his wif nevin. He shares that he and his have planned two vacations in the next few months to celebrate their anniversary. 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 The hearing aid was recommended for the but he f eels that he wants to watch things and see how its going now. Lola is hypertensive a nd his blood pressure has been as high as 143/87. The said martha t he is taking enalapril. he also relates that he had a fall when he was a wa s a child and he remembers having swelling on his but there is no c lear evidence of loss of consciousness and the denies any cognitive or academic changes after this injury. indicates that he may drink 1-2 beers pe r week but denies any other drinking and denies any use of drugs. Lola is followed in the mental health clinic for depression. He is seen a number of providers and is quite happy with his current psychiatrist and his current medication. He is unhappy about the cartagena ges in his therapst over the last few years and the long wait for appointment s. At the time of this evaluation the lola is al ert and oriented in all 3 spheres. He is aware of current events. His mood is euthymic, perhaps somewhat anxious at first and then becomes comfo rtable. Affect is full range. Rhythms and patterns of speech are unrem arkable and content of speech is clear coherent and goal-directed. There is no evidence of dysnomias, paraphasic errors, or dysarthria. NOr i s there any evidence of confabulation, tangentiality or loos associations. Lola said that there are times that fran rooney becomes depressed but that he is not feeling depressed now. Lola also notes that t here are sometimes when he sleeps only a few hours a night but this does no t last more than a day or so. Denies an other Sx suggstive of a bipolar disorder including excessive spending, gambling or other manic beha vior. He denies any other issues with his sleep and denies any issues with his appetite. den ies any suicidal or homicidal ideation or intent now or in the past. There is no evidence of psychotic symptoms inclu ding auditory or visual hallucinations, paranoid ideation or melissa as of reference. appears to be of above average to superior intellectual abilit y with both insight and good judgment. Essex completed the Battery for Assessment of Neuropsychological Status and the clock drawing in additio n to the clinical interview. All of the indices are at or above the expected level except fo r a mild degree of impairment with his ability to learn both short story and the word l ist. Of note is the fact that although the had a s light problem learning words at the start he had no difficulty recalling all of the words th at he learned after a brief delay. His clock drawing was well planned and well organize d. Impression is of normal cognitive functioning an d this with a mild hearing loss who struggles with diabetes. The results were discussed with the who finds some relief. We talked about management of his diab etes and he is encouraged a closer attention to his diet his glucose level as well as work harder to maintain good health. We talked also about healthy habits; nutrit ion other aspects of diet exercise and social interactions. indicates he unders tands the evaluation and that he will contact this clinic as needed in the fut ure. Thank you for this interesting consult. /jacki/ Santi Nunez,Ph.D. Psychologist Signed: 01/25/2022 09:09
--- OUTSIDE RECORDS SUMMARY | 2022-10-02 10:31 | XMS_ITS | Encounter Summary ---
:1965 Author Organization [facility] rs Address [address] [place] [address] Support Name Relationship Address Phone DENISSE LEON Unavailable [address] [facility] [place] [address] NONE, GIVEN Unavailable Unavailable Unavailable Insurance Providers: [...] Chen AETNA POINT [facility] Feb [id number] [phone] [place] PATIENT SERVICE INTER 2011 [id number] [place]ERO [place] AETNA PRESCRIPT [facility] Feb [id number] [phone] COBY LEON PATIENT PHARMACY ION INTER 2011 [id number] VERO MANAGEMENT NATIO 1 [place] BCBS [place] PREFERRED BASIC Nov 30 [id number] [phone] COBY LEON PATIENT FEP PROVIDER FAMIL 2017 [id number] VERO ORGANIZAT Y ION (PPO) BCBS OF [place] DENTAL DENT[place] Nov 30 [id number] [phone] COBY LEON PATIENT FEP INSURANCE L 112 2017 62 5 VREO (DENTAL) [place] PREFERRED BASIC Nov 30 [id number] [phone] COBY METZ PATIENT FEP PROVIDER FAMIL 2017 62 5 VERO ORGANIZAT Y ION (PPO) [place]BS OF [place] PREFERRED STAND March 26 [id number] [phone] COBY METZ PATIENT (FEDERAL) 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 2014 62 7 VERO ORGANIZAT IND ION (PPO) 104 CAREMARK PRESCRIPT FEP March 26, [id number] [phone] [place] PATIENT ([id number]) ION 2015 0 62 7 VERO CAREMARK-F PRESCRIPT FEP Nov 30, [id number] [phone] [place] PATIENT EP BCBS ION CAREM 2018 0 62 1 VERO ARK CAREMARK-F PRESCRIPT SHERI Nov 30, [id number] [phone] [place] PATIENT EP BCBS ION AL 2018 0 62 1 VERO RX CAREMARK-F PRESCRIPT SHERI Nov 30, [id number] [phone] [place] PATIENT EP BCBS ION AL 2018 0 [id number] 1 VERO RX CAREMARK-F PRESCRIPT FEP Nov 30, [id number] [phone] [place] PATIENT EP BCBS ION 2018 0 [id number] VERO HORIZON PREFERRED BASIC Nov 30 [id number] [phone] [place] ,[place] PATIENT BCBS FEP* PROVIDER FAMIL 2017 62 8 VERO ORGANIZAT Y ION (PPO) HORIZON PREFERRED BASIC Nov 30 [id number] [phone] [place] PATIENT FEDERAL PROVIDER FAMIL 2017 62 8 VERO ORGANIZAT Y ION (PPO) DEPART WORKERS' OWCP Jul 01, NONE [id number] [phone] INDIGO CruzWA PATIENT OF LABOR COMPENSAT MEDIC 2018 [id number] VERO MED DFEC ION AL INSURANCE DFEC DEPT OF WORKERS' WORKE Jul 01, WORKERS [id number] [phone] ROBERT SAABWA PATIENT LABOR COMPENSAT RS 2019 COMP [id number] VERO ION COMP INSURANCE Selected Encounter This section includes the information on record at [place] for the Encounter. Date/Time Encounter Type Encounter Reason Provider Source Description Feb 01, 2022 PSYCH DIAGNOSTIC MENTAL HEALTH ICD-10-CM F33.1 YUSUF GAFFNEY TT 08:00 AM EVALUATION [facility]INIC - IND Major depressive SARAH disorder, recurrent, moderate with Provider Comments: Moderate major depression (SCT 302777) IHE Encounter Template Text not used by [facility] Assessments - Encounter Diagnoses This section includes the primary and secondary diagnoses documented for the Encounter. Date/Time Primary/Secondary Diagnosis Name Provider Source Diagnosis Feb 01, 2022 PRIMARY Major depressive GLEN GAFFNEY [facility] N EW 12:56 PM disorder, SARAH [facility] recurrent, moderate Plan of Treatment: Future Appointments (+ 6 months) and Future Tests (+/- 45 days) The Plan of Treatment section includes future care activities for the patient from all [place] treatmentfacilities. This section includes future appointments and future orders which are active, pending orscheduled.Future Appointments This section includes appointments that were scheduled to occur 6 months from the date of the Encounter, up to a maximum of 20 appointments. The data comes from all [place] treatment facilities. Appointment Date/Time Appointment Type Appointment Facili ty Name Feb 19, 2022 03:00 PM AMBULATORY - MEDICINE [facility] Mar 01, 2022 08:00 AM AMBULATORY - PSYCHIATRY [facility] April 05, 2022 09:00 AM AMBULATORY - PSYCHIATRY [facility] April 10, 2022 10:00 AM AMBULATORY - PSYCHIATRY [facility] April 12, 2022 09:00 AM AMBULATORY - [facility] April 12, 2022 10:00 AM AMBULATORY - MEDICINE [facility] Apr 24, 2022 10:00 AM AMBULATORY - PSYCHIATRY [facility] May 01, 2022 08:00 AM AMBULATORY - MEDICINE [facility] May 08, 2022 10:00 AM AMBULATORY - PSYCHIATRY [facility] Jun 27, 2022 09:30 AM AMBULATORY - [facility] Jun 28, 2022 09:00 AM AMBULATORY - PSYCHIATRY [facility] Jul 12, 2022 08:00 AM AMBULATORY - PSYCHIATRY [facility] Jul 12, 2022 09:20 AM AMBULATORY - MEDICINE [facility] Jul 18, 2022 10:30 AM AMBULATORY [facility] WSTRN M [facility] Lab Results: +/- 30 days of the encounter This section includes the Chemistry and Hematology Lab Results on record with [place] for the patient. Radiology Reports and Pathology Reports are provided separately, in subsequent sections.Lab Results This section contains the Chemistry/Hematology Results that were resulted 30 days before or 30 daysafter the date of the Encounter. Date/Time Source Result Type Result - Unit Interpretation Reference Range Comment Feb 27, 2022 12:24 [facility] NEW COVID-19 MONITOR Specimen Ty pe: OROPHARYNX PM [facility] PANEL([facility]) Comment: Test P erformed by NAHUM Lemus Ordering Provid er: ASHWINI SARMIENTO Report Released Date/Time: Dec 26, 2021 09:07 AM Reporting Lab: [facility] [address] [facility] [address] Performing Lab: [facility] [address] [place] [id number] COVID-19 ([id number]) Not Detected Not De tected Feb 19, 2022 12:00 [facility] NEW COVID-19 MONITOR Specimen Ty pe: OROPHARYNX AM [facility] PANEL([facility]) Comment: Test P erformed by NAHUM Lemus Ordering Provid er: ASHWINI SARMIENTO Report Released Date/Time: Dec 26, 2021 09:07 AM Reporting Lab: [facility] [address] [facility] [address] Performing Lab: [facility] [address] [place] [id number] COVID-19 ([id number]) Not Detected Not De tected Feb 13, 2022 03:14 [facility] NEW COVID-19 MONITOR Specimen Ty pe: OROPHARYNX PM [facility] PANEL([facility]) Comment: Test P erformed by NAHUM Lemus Ordering Provid er: ASHWINI SARMIENTO Report Released Date/Time: Jan 16, 2022 12:20 PM Reporting Lab: [facility] [address] [facility] [address] Performing Lab: [facility] [address] [facility] [address] COVID-19 ([id number]) Not Detected Not De tected Jan 30, 2022 02:50 [facility] NEW COVID-19 MONITOR Specimen Ty pe: OROPHARYNX PM [facility] PANEL([facility]) Comment: Test P erformed by NAHUM Lemus Ordering Provid er: ASHWINI SARMIENTO Report Released Date/Time: Dec 26, 2021 09:07 AM Reporting Lab: [facility] [address] [facility] [address] Performing Lab: [facility] [address] [facility] [address] COVID-19 ([id number]) Not Detected Not De tected Jan 23, 2022 08:00 [facility] HEMOGLOBIN A1C Specime n Type: BLOOD AM HCS No comment enter ed. Ordering Provid er: JUSTIN HEBERT Report Released Date/Time: Jan 18, 2022 11:36 AM Reporting Lab: [facility] [address] [facility] [address] Performing Lab: [facility] [address] [facility] [address] HEMOGLOBIN A1C 7.9 H 4.8-5.6 Jan 23, 2022 08:00 [facility] PROSTATE SPECIFIC Specimen T ype: SERUM AM [facility] ANTIGEN No comment enter ed. Ordering Provid er: JC CABALLERO Report Released Date/Time: Jan 18, 2022 10:03 AM Reporting Lab: [facility] [address] [facility] [address] Performing Lab: [facility] [address] [facility] [address] PROSTATE SPECIFIC ANTIGEN 0.430 0-4. 0 Jan 23, 2022 [facility] Comprehensive Specimen Ty pe: SERUM 08:00 AM [facility] Metabolic Panel No comment enter ed. Ordering Provid er: JC CABALLERO Report Released Date/Time: Jan 18, 2022 10:03 AM Reporting Lab: [facility] [address] [facility] [address] Performing Lab: [facility] [address] [facility] [address] CREATININE 1.3 .7-1.3 UREA NITROGEN 23 7-25 GLUCOSE 163 H 65-99 SODIUM 138 136-145 POTASSIUM 4.6 3.5-5.1 CHLORIDE 101 98-107 CO2 28 21-31 CALCIUM 9.9 8.6-10.3 PROTEIN,TOTAL 7.0 6.4-8.9 ALBUMIN 4.6 3.5-5.7 TOTAL BILIRUBIN 0.5 0.3-1.0 ALKALINE PHOSPHATASE 81 34-104 AST 23 13-39 ALT 24 7-52 ANION GAP 9 5-13 eGFR 58 L >60 Jan 23, 2022 08:00 AM [facility] URINALYSIS Spec imen Type: URINE HCS No comment enter ed. Ordering Provid er: JC CABALLERO Report Released Date/Time: Jan 18, 2022 10:03 AM Reporting Lab: [facility] [address] [facility] [address] Performing Lab: [facility] [address] [facility] [address] URINE COLOR Colorless YELLOW SPECIFIC GRAVITY 1.003 [...] OCC None seen Jan 22, 2022 12:00 [facility] COVID-19 MONITOR Specimen Ty pe: OROPHARYNX [facility] PANEL([facility]) Comment: Test P erformed by NAHUM Lemus Ordering Provid er: ASHWINI SARMIENTO Report Released Date/Time: Dec 26, 2021 09:07 AM Reporting Lab: [facility] [address] [facility] [address] Performing Lab: [facility] [address] [facility] [address] COVID-19 ([id number]) Not Detected Not De tected Jan 15, 2022 03:39 [facility] NEW COVID-19 MONITOR Specimen Ty pe: OROPHARYNX [facility] PANEL([facility]) Comment: Test P erformed by NAHUM Lemus Ordering Provid er: ASHWINI SARMIENTO Report Released Date/Time: Dec 26, 2021 09:07 AM Reporting Lab: [facility] [address] [facility] [address] Performing Lab: [facility] [address] [facility] [address] COVID-19 ([id number]) Not Detected Not De tected Jan 07, 2022 07:10 [facility] Specimen Ty pe: OROPHARYNX PM [facility] PANEL([facility]) No comment enter ed. Ordering Provid er: ASHWINI SARMIENTO Report Released Date/Time: Dec 26, 2021 09:07 AM Reporting Lab: [facility] [address] [facility] [address] Performing Lab: [facility] [address] [facility] [address] COVID-19 ([id number]) Not Detected Not De tected Social History: Smoking Status (Most current) and Tobacco Use (All prior to encounter date) This section includes the most current, and the historical, smoking and tobacco-related health factors from the [place] facility where the Encounter took place.Current Smoking Status This section includes the most current smoking, or tobacco-related health factor, from the [place] facility where the Encounter took place. Date/Time Current Smoking Status Comment Facility Jun 29, 2021 09:00 AM VA-TOBACCO QUIT 15 YRS OR MORE [facility] Tobacco Use History This section includes a history of the smoking, or tobacco- related health factors, that were collected on or before the date of the Encounter. The data comes from the [place] facility where the Encounter took place. Date/Time Smoking Status/Tobacco Use Comment [facility] faustino Jun 29, 2021 09:00 AM VA-TOBACCO QUIT 15 YRS OR [facility] Jul 20, 2020 10:30 AM VA-TOBACCO [facility] USED [facility] Aug 12, 2019 03:12 PM VA-TOBACCO [facility] Aug 12, 2019 03:12 PM VA-TOBACCO QUIT 15 YRS OR [facility] Aug 20, 2018 04:56 PM [facility] Aug 20, 2018 04:56 PM VA-TOBACCO QUIT 15 YRS OR [facility] Nov 19, 2016 09:49 AM LIFETIME NON-USER OF [facility] Dec 13, 2015 03:30 PM QUIT TOBACCO >7 YEARS AGO [facility] Dec 09, 2014 09:06 AM QUIT TOBACCO >7 YEARS AGO [facility] Jan 29, 2014 08:56 AM LIFETIME NON-USER OF [facility] - [facility] TOBACCO [facility] Jun 11, 2012 01:32 PM QUIT TOBACCO >7 YEARS AGO [facility] Feb 01, 2009 09:26 AM LIFETIME NON-USER OF [facility] - [place] NEW TOBACCO quit 1998 [facility] Aug 19, 2001 09:28 AM HISTORY OF SMOKING [facility]- [place] NEW Quit 2 yrs ago, 18 pack-yr Hx. [facility] Encounter Notes: All associated encounter notes This section contains the clinical notes associated to the Encounter. Date/Time Encounter Note(s) Provider Source Feb 01, 2022 08:00 AM MENTAL HEALTH E & M NOTE: GLEN GAFFNEY RT [facility] TITLE: MH&BS//OUTPATIENT/RESIDENTIAL PSYC [facility] STANDARD TITLE: MENTAL HEALTH E & M NOTE DATE OF NOTE: FEB 01, 2022@08:00 ENTRY DATE: FEB 01, 2022@12:37:31 AUTHOR: GLEN GAFFNEY EXP COSIGNER: URGENCY: STATUS: COMPLETED PSYCHOSOCIAL ASSESSMENT Source of Information: 's preferred healthcare language: Nigerian Other languages spoken: None Do you have an advance directive? YES: Which type? Medical Organ/Tissue Donor: [place] is not interested in being an organ don or Recovery Plan: reported not interested in creating a p karen Educational Level: College degree Summary and/or additional comments regarding edu cation: Patient has a Bachelor's degree in mathematical science and an Associate's degree in Ortho Neuro Management. 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 Housing: Are you homeless or imminently at risk for being homeless? NO Type of Housing: Own House Do you receive Case Management Services (e.g. H UD-VASH, MHICM, PACT, etc.)? NO Experience: Branch of : [employer] Dates of Service: 1984 TO 1987 Occupation: [employer] [place] Deployment: YES: S[place] tour Combat: NO Trauma associated with combat: NO Sexual Trauma: NO Other Trauma (non-combat): YES: Some bullying while in the [employer] Disciplinary Actions: NO Type of Discharge: Medical Rank at Discharge: E3 Summary and/or additional comments regarding mil ary history: Honorable medical discharge related to depressi on. Social/Family History: How do you identify your gender? Man How do you identify your sexual orientation? Straight or heterosexual Relationship Status: Children: Yes: (Include number, gender, age and relations hip with children) Has 2 children ages 22 and 32. Current Family Dynamics: Supportive/Positive Childhood History: Supportive/Positive Summary and/or additional comments regarding soc ial and family history: Patient's parents are . He has one adoptive sister who has history of substance abuse and legal problems. Family Support Person/Point of Contact: Name: Lily Leon Relationship to : Address: Home Phone: Cell Phone: [phone] I discussed with the [place] the importance of family involvement in treatment. [place] was asked if the treatment providers may contact their family member regarding their treatment and/or if they would l jamison family involved at this time. [place] stated: No Spiritual Assessment: Do you currently practice any yazidism? NO Did you have any spiritual upbringing? YES: Presbyterian Recreation/Leisure Activities: How do you use your free time? Ride motorcycle, watch tv and movies Do you belong to any organizations or clubs? No Legal History: has no history or legal problems. Mental Health Assessment: Psychological trauma history over past 12 months : NO Has the patient ever experienced exploitation? (such as financial mismanagement by others) NO Mental Status: Affect: Appropriate Mood: Appropriate Thought Process: Intact Thought Content: Delusions: No Hallucinations: No Cognitive Functioning: Memory: within normal limits Concentration: within normal limits Mental Health History: Diagnosis: Major depressive disorder Was History & Physical or Ps ychiatric Evaluation Completed Within Past 30 Days: No Psychiatric History: Chief Complaint/History of Present Illness: Azalea ent reports a history of depression dating back to his [employer] service in . Presently mood issues stabilized with Wellbutrin. He is presently dealing with job stress and deals with guilt feelings about how he treated p eople in the past. Psychiatric History: (include inpatient and outp atient treatment) Had 2 inpatient psych treatments while in the [facility]. Has had individual counseling and medication management at the [facility] on and off since 2001. Family history of mental illness: NO Medical History Current Medical Problems: Diabetes II Is taking medication for above medical problem(s): Yes Taking medications consistently: Yes Traumatic Brain Injury: No Significant Medical History: Diabetes II Alcohol and Substance Use Screening: Current Alcohol Use: [place] endorsed current use Type: beer Amount: 1 to 2 Frequency of use: infrequent Date of last Use: 01/31/22 Any problems due to past use: denied Alcohol Use within the 12 months prior t o admission and/or initial assessment: [place] endorsed use within last 12 months Type: beer Amount: 1 to 2 Frequency of use: infrequent Date of last Use: 01/31/22 Any problems due to past use: denied Past history of Alcohol use:Has 1 to 2 beers on an infrequent basis. No history of problematic drinking reported. History of Alcohol treatment: denied Current drug/substance Use: [place] denied current use Drug/substance Use within the 12 months prior to admission and/or initial assessment: [place] denied use within last 12 months Past history of drug/substance use:denied History of drug/substance Abuse Treatment: kateryna jett Family history of drug/substance abuse: YES: Adoptive sister Suicide/Homicide/Violence Risk: Current Suicidality [place] denied current suic idal ideations, intent or plan within past 6 months Suicidality within the 6 months prior to admission and /or initial assessment: [place] denied suicidal ideations, intent or pl an in past 6 months History of suicidality: denied Current Homicidality [place] denied current homicidal ideations, int ent or plan Homicidality within the 6 mo nths prior to admission and /or initial assessment: [place] denied homicidal ideations, intent or p karen in the past 6 months History of homicidality: denied Risk of Violence within the 6 months prior to ad mission and /or initial assessment: denied risk of violence in the past 6 m onths Past History of risk of violence towards others: denied Protective Factors: Future-oriented plans and c ommitments, Therapeutic alliance with mental health professional(s) , Verbalizes hope, has supportive family/social network Risk Factors in reference to suicide/laurence icide/risk of violence within the past 6 months: None Strengths, Needs, Abilities, and Preferences: Strengths: previous success in mental health treatment, mot ivated Needs: Stress management techniques Abilities: Insightful, intelligent Preferences: Individual counseling and continue with medicati on management with Dr. Clarke. Summary: Patient reports a history of depression dating back to his [employer] service in e . Presently mood issues stabilized with Wellbutrin. He is presently dealing with job stress and deals with guilt feelings about how he treated p eople in the past. Plan/Recommendations: Will b e seen for follow up individual counseling by Glen Gaffney LCSW and will continue to see Dr. Tricia resendez or medication monitoring. /jacki/ GLEN GAFFNEY social media marketing specialist Signed: 02/01/2022 12:56 Feb 01, 2022 08:00 AM MENTAL HEALTH ADMINISTRATIVE [facility] TITLE: &BS//TC ASSIGNMENT/REASSIGNMEN [facility] STANDARD TITLE: MENTAL HEALTH ADMINISTRATIVE NOT E DATE OF NOTE: FEB 01, 2022@08:00 ENTRY DATE: FEB 01, 2022@12:57:02 AUTHOR: GLEN GAFFNEY EXP COSIGNER: URGENCY: STATUS: COMPLETED The Mental Health Pilot Control Operator Helper for felipa s patient is: Glen Gaffney LCSW Office phone: [phone] The assignment of the Mental Health Treatment C oordinator and education on the role of the Mental Health Treatment Coordin ator in the 's Mental Health Care was discussed with the [place], who verbally concurred with the new assignment. The Mental Health Pilot Control Operator Helper 's contact information was provided to the [place]. /jacki/ GLEN GAFFNEY social media marketing specialist Signed: 02/01/2022 12:57
--- OUTSIDE RECORDS SUMMARY | 2022-10-02 10:31 | XMS_ITS | Encounter Summary ---
:1965 Author Organization [facility] Address [address] [place] [address] Support Name Relationship Address Phone DENISSE LEON Unavailable [address] [facility] [address] NONE, GIVEN Unavailable Unavailable Unavailable Insurance Providers: [...] to Policy Number Chen AETNA [facility] Feb [id number] [phone] [place] PATIENT SERVICE INTER 2011 [id number] 2 [place] AETNA PRESCRIPT [facility] Feb [id number] [phone] COBY LEON PATIENT PHARMACY ION INTER 2011 [id number] VERO MANAGEMENT NATIO 1 [place] BCBS [place] PREFERRED BASIC Nov 30 [id number] [phone] COBY LEON PATIENT FEP PROVIDER FAMIL 2017 [id number] VERO ORGANIZAT Y ION (PPO) BCBS OF [place] DENTAL [place] Nov 30 [id number] [phone] COBY LEON PATIENT FEP INSURANCE L [id number] 2017 62 5 VERO (DENTAL) [place] PREFERRED BASIC Nov 30 [id number] [phone] COBY METZ PATIENT FEP PROVIDER FAMIL 2017 62 5 VERO ORGANIZAT Y ION (PPO) [place]BS OF [place] PREFERRED STAND March 26 [id number] [phone] COBY METZ PATIENT (FEDERAL) 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 2015 62 7 VERO ORGANIZAT IND ION (PPO) 104 CAREMARK PRESCRIPT FEP March 26, [id number] [phone] CONR O[place]ony,[place] PATIENT ([id number]) ION 2015 0 62 7 VERO CAREMARK-F PRESCRIPT FEP Nov 30, [id number] [phone] CO NROY,[place] PATIENT EP BCBS ION CAREM 2018 0 62 1 VERO ARK CAREMARK-F PRESCRIPT FEP Nov 30, [id number] [phone] CO N[place] PATIENT EP BCBS ION 2018 0 [id number] VERO CAREMARK-F PRESCRIPT SHERI Nov 30, [id number] [phone] CO N[place] PATIENT EP BCBS ION AL 2018 0 62 1 VERO RX CAREMARK-F PRESCRIPT SHERI Nov 30, [id number] [phone] CO NROY,[place] PATIENT EP BCBS ION AL 2018 0 [id number] 1 VERO RX HORIZON PREFERRED BASIC Nov 30 [id number] [phone] EDWARD ,[place] PATIENT BCBS FEP* PROVIDER FAMIL 2018 62 8 VERO ORGANIZAT Y ION (PPO) HORIZON PREFERRED BASIC Nov 30 [id number] [phone] EDWARDCO PATIENT FEDERAL PROVIDER FAMIL 2018 62 8 VERO ORGANIZAT Y ION (PPO) DEPART WORKERS' OWCP Jul 01, NONE [id number] [phone] INDIGO CruzCO PATIENT OF LABOR COMPENSAT MEDIC [id number] VERO MED DFEC ION AL INSURANCE DFEC US DEPT OF WORKERS' WORKE Jul 01, WORKERS [id number] [phone] ROBERT SAAB,CO PATIENT LABOR COMPENSAT RS 2019 COMP [id number] VERO ION COMP INSURANCE Selected Encounter This section includes the information on record at [facility] for the Encounter. Date/Time Encounter Type Encounter Reason Provider Source Description April 05, 2022 OFFICE O/P EST MENTAL HEALTH ICD-10-CM F33.1 GEORGIANA CARRILLO 09:00 AM LOW 20-29 MIN CLINIC - IND Major depressive disorder, recurrent, moderate with Provider Comments: Moderate major depression ([facility] [id number]) IHE Encounter Template Text not used by [facility] Assessments - Encounter Diagnoses This section includes the primary and secondary diagnoses documented for the Encounter. Date/Time Primary/Secondary Diagnosis Name Provider Source Diagnosis April 05, 2022 PRIMARY Major depressive GEORGIANA CARRILLO [facility] 04:40 PM [facility], [facility] recurrent, moderate Plan of Treatment: Future Appointments (+ 6 months) and Future Tests (+/- 45 days) The Plan of Treatment section includes future care activities for the patient from all [place] treatmentfacilities. This section includes future appointments and future orders which are active, pending orscheduled.Future Appointments This section includes appointments that were scheduled to occur 6 months from the date of the Encounter, up to a maximum of 20 appointments. The data comes from all [place] treatment facilities. Appointment Date/Time Appointment Type Appointment Facili ty Name April 10, 2022 10:00 AM AMBULATORY - PSYCHIATRY [facility] April 12, 2022 09:00 AM AMBULATORY - NONE [facility] April 12, 2022 10:00 AM AMBULATORY - MEDICINE [facility] Apr 24, 2022 10:00 AM AMBULATORY - PSYCHIATRY [facility] May 01, 2022 08:00 AM AMBULATORY - MEDICINE [facility] May 08, 2022 10:00 AM AMBULATORY - PSYCHIATRY [facility] Jun 27, 2022 09:30 AM AMBULATORY - MEDICINE [facility] Jun 28, 2022 09:00 AM AMBULATORY - PSYCHIATRY [facility] Jul 12, 2022 08:00 AM AMBULATORY - PSYCHIATRY [facility] Jul 12, 2022 09:20 AM AMBULATORY - MEDICINE [facility] Jul 18, 2022 10:30 AM [facility] Aug 05, 2022 02:00 PM [facility] Aug 16, 2022 10:20 AM AMBULATORY - MEDICINE [facility] Sep 03, 2022 11:45 AM [facility] Sep 17, 2022 01:30 PM [facility] Sep 27, 2022 10:40 AM [facility]AT[facility] Lab Results: +/- 30 days [...] - Unit Interpretation Reference Range Comment May 01, 2022 11:58 [facility] POC GLUCOSE Specimen Type: BLOOD AM [facility] No comment enter ed. Ordering Provid er: TODD RUSSO MD Report Released Date/Time: May 01, 2022 12:00 PM Reporting Lab: [facility] [address] [facility] [address] Performing Lab: [facility] [address] [facility] [address] POC GLUCOSE 102 70-115 May 01, 2022 09:26 [facility] POC GLUCOSE Specimen Type: BLOOD AM [facility] No comment enter ed. Ordering Provid er: JC CABALLERO Report Released Date/Time: May 01, 2022 09:28 AM Reporting Lab: [facility] [address] [facility] [address] Performing Lab: [facility] [address] [facility] [address] POC GLUCOSE 137 70-115 May 01, 2022 [facility] COVID-19, FLU/RSV Specimen T ype: NASOPHARYNX 08:22 AM [facility] SCREEN. PANEL(FLUVID) Comment: *COVID-19 SCREENING PANEL(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 Reason: ORDER CORRECTED, STAT FOR PROCEDURE Added by [id number] on May 01, 2022@08:22 Ordering Provid er: TODD RUSSO MD Report Released Date/Time: May 01, 2022 08:11 AM Reporting Lab: [facility] [address] [facility] [address] Performing Lab: [facility] [address] [facility] [address] COVID-19 PCR (FLUVID) Not Detected Not D etected FLU A PCR (FLUVID) Not Detected Not Dete cted FLU B PCR (FLUVID) Not Detected Not Dete cted RSV PCR (FLUVID) Not Detected Not Detect ed April 23, 2022 12:00 [facility] NEW COVID-19 MONITOR Specimen Ty pe: OROPHARYNX AM [facility] PANEL([facility]) Comment: Test P erformed by NAHUM Lemus Ordering Provid er: ASHWINI SARMIENTO Report Released Date/Time: Mar 21, 2022 08:55 AM Reporting Lab: [facility] [address] [place] [address] Performing Lab: [facility] [address] [place] [address] COVID-19 ([id number]) Not Detected Not De tected April 17, 2022 12:30 [facility] NEW COVID-19 MONITOR Specimen Ty pe: OROPHARYNX KIT [facility] PANEL([facility]) Comment: Test P erformed by NAHUM Lemus Ordering Provid er: ASHWINI SARMIENTO Report Released Date/Time: Mar 21, 2022 08:55 AM Reporting Lab: [facility] [address] [facility] [address] Performing Lab: [facility] [address] [place] [address] COVID-19 ([id number]) Not Detected Not De tected April 12, 2022 08:02 [facility] HEMOGLOBIN A1C Specimen Type: BLOOD [facility] No comment enter ed. Ordering Provid er: JUSTIN HEBERT Report Released Date/Time: Dec 21, 2021 09:49 AM Reporting Lab: [facility] [address] [facility] [address] Performing Lab: [facility] [address] [facility] [address] HEMOGLOBIN A1C 7.0 H 4.8-5.6 April 12, 2022 [facility] CHEM, Comprehensive Specimen Ty pe: SERUM 08:02 AM [facility] Metabolic Panel Comment: eGFR c [...] Dec 21, 2021 09:49 AM Reporting Lab: [facility] [address] [place] [phone] Performing Lab: [facility] [address] [place] [phone] CREATININE 1.3 .7-1.3 UREA NITROGEN 22 7-25 GLUCOSE 264 H 65-99 SODIUM 137 136-145 POTASSIUM 4.2 3.5-5.1 CHLORIDE 100 98-107 CO2 27 21-31 CALCIUM 9.7 8.6-10.3 PROTEIN,TOTAL 7.0 6.4-8.9 ALBUMIN 4.6 3.5-5.7 TOTAL BILIRUBIN 0.6 0.3-1.0 ALKALINE PHOSPHATASE 71 34-104 AST 22 13-39 ALT 23 7-52 ANION GAP 10 5-13 eGFR 65 L >90 April 09, 2022 03:21 [facility] COVID-19 MONITOR Specimen Ty pe: OROPHARYNX KIT [facility] PANEL([facility]) Comment: Test P erformed by NAHUM Lemus Ordering Provid er: ASHWINI SARMIENTO Report Released Date/Time: Mar 21, 2022 08:55 AM Reporting Lab: [facility] [address] [facility] [address] Performing Lab: [facility] [address] [place] [address] COVID-19 ([id number]) Not Detected Not De tected April 02, 2022 12:00 [facility] COVID-19 MONITOR Specimen Ty pe: OROPHARYNX AM [facility] PANEL([facility]) Comment: Test P erformed by NAHUM Lemus Ordering Provid er: ASHWINI SARMIENTO Report Released Date/Time: Mar 21, 2022 08:55 AM Reporting Lab: [facility] [address] [facility] [address] [address] [facility] [address] Performing Lab: [facility] [address] [facility] [facility] [facility] [address] COVID-19 ([id number]) Not Detected Not De tected March 28, 2022 11:36 [facility] COVID-19 MONITOR Specimen Ty pe: OROPHARYNX AM [facility] PANEL([facility]) Comment: Test P erformed by NAHUM Lemus Ordering Provid er: ASHWINI SARMIENTO Report Released Date/Time: Mar 21, 2022 08:55 AM Reporting Lab: [address] [address] Performing Lab: [address] [address] COVID-19 ([id number]) Not Detected Not De tected Mar 19, 2022 12:00 [facility] COVID-19 MONITOR Specimen Ty pe: OROPHARYNX AM [facility] PANEL([facility]) Comment: Test P erformed by NAHUM Lemus Ordering Provid er: ASHWINI SARMIENTO Report Released Date/Time: Jan 16, 2022 12:20 PM Reporting Lab: [address] [address] Performing Lab: [address] [address] COVID-19 ([id number]) Not Detected Not De tected Mar 12, 2022 [facility] COVID-19 SCREENING Specimen Typ e: NASOPHARYNX 12:39 PM [facility] PANEL([facility]) Comment: Test P erformed by NAHUM Lemus Ordering Provid er: TODD CASITLLO Report Released Date/Time: Feb 19, 2022 04:41 PM Reporting Lab: [address] [address] Performing Lab: [address] [address] COVID-19 ([id number]) Not Detected Not De tected Social History: Smoking Status (Most current) and Tobacco Use (All prior to encounter date) This section includes the most current, and the historical, smoking and tobacco-related health factors from the [facility] where the Encounter took place.Current Smoking Status This section includes the most current smoking, or tobacco-related health factor, from the [facility] where the Encounter took place. Date/Time Current Smoking Status Comment Facility Jun 29, 2021 09:00 AM VA-TOBACCO FORMER USER [facility] Tobacco Use History This section includes a history of the smoking, or tobacco- related health factors, that were collected on or before the date of the Encounter. The data comes from the [place] facility where the Encounter took place. Date/Time Smoking Status/Tobacco Use Comment Nova dodson Jun 29, 2021 09:00 AM VA-TOBACCO QUIT 15 YRS OR [facility] Jul 20, 2020 10:30 AM VA-TOBACCO NEVER USED [place] [facility]- [facility] Aug 12, 2019 03:12 PM VA-TOBACCO FORMER USER [facility] Aug 12, 2019 03:12 PM VA-TOBACCO QUIT 15 YRS OR [facility] Aug 20, 2018 04:56 PM VA-TOBACCO FORMER USER [facility]- [facility] Aug 20, 2018 04:56 PM VA-TOBACCO QUIT 15 YRS OR [facility] Nov 19, 2016 09:49 AM LIFETIME NON-USER OF [facility] TOBACCO [facility] Dec 13, 2015 03:30 PM QUIT TOBACCO >7 YEARS AGO [facility] Dec 09, 2014 09:06 AM QUIT TOBACCO >7 YEARS AGO [facility] Jan 29, 2014 08:56 AM LIFETIME NON-USER OF [facility] TOBACCO [facility] Jun 11, 2012 01:32 PM QUIT TOBACCO >7 YEARS AGO [facility] Feb 01, 2009 09:26 AM LIFETIME NON-USER OF [facility] [place] TOBACCO quit [address] [place] [address] Aug 19, 2001 09:28 AM HISTORY OF SMOKING [facility]- [place] NEW Quit 2 yrs ago, 18 pack-yr [facility] Encounter Notes: All associated encounter notes This section contains the clinical notes associated to the Encounter. Date/Time Encounter Note(s) Provider Source April 05, 2022 08:59 AM [facility]AL [facility] MH&BS//INDIVIDUAL [facility] STANDARD TITLE: MENTAL HEALTH NOTE DATE OF NOTE: APRIL 05, 2022@08:59 ENTRY DATE: APRIL 05, 2022@08:59:39 AUTHOR: GEORGIANA CARRILLO EXP COSIGNER: URGENCY: STATUS: COMPLETED 30 minutes visit 16 minutes therapy DX Depression is a 56 y/ o male service connected with depression contacted at [phone] for follow/up and medication man agement as scheduled . Doing ok stress at job is less and manageable sl eep time 7-8 solid hours his mood has been stable no major preoccupation he dedicates his free time to household work , worries sometimes about the pas t. Has not been taking the Melatonin will be discon tinued. 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 Thought content no delusion elicited , no parano id thinking Perception denies a/v hallucination Affect appropriate Mood pleasant Suicidal / homicidal idea denies no intent no pl an. Insight / judgement fair Plan RTC 06/28/2022 as per patient request Continue current management made aware of emergency services 911 , h ot line crisis [phone] ER, walking clinic. [place] made aware of additive effects of psycho tropic medication , alcohol and illicit substance at FILLING SEPARATOR level , und erstands and agrees with [...] E CAP,ORAL MOUTH ACTIVE 15 Total Medications I have reviewed all VA medications and non-VA me dications including OTC, herbals, and vitamins with the patient. The medications noted above are appropriate and should be continued. *Was medication education provided for new medic ations or changes to medications? (including medication name, dose, r oute, reason for use, and potential side effects). Yes. Verbal education was provided to patient/caregi maura and patient/caregiver verbalized understanding. Additional Comment: side effects The importance of managing medication informatio n was discussed with the . /es/ GEORGIANA CARRILLO MD STAFF PSYCHIATRIST Signed: 04/05/2022 16:40
--- OUTSIDE RECORDS SUMMARY | 2022-10-02 10:31 | XMS_ITS | Encounter Summary ---
:1965 Author Organization [facility] rs Address [address] [place] [address] Support Name Relationship Address Phone DENISSE LEON Unavailable [address] [facility] [address] NONE, GIVEN Unavailable Unavailable Unavailable Insurance Providers: [...] to Policy Number Chen AETNA [place] [facility] Feb [id number] [phone] [place] PATIENT SERVICE INTER 2011 [id number] [place] AETNA PRESCRIPT [facility] Feb [id number] [phone] COBY LEON PATIENT PHARMACY ION INTER 2011 [id number] VERO MANAGEMENT NATIO 1 [place] BCBS [place] PREFERRED BASIC Nov 30 [id number] [phone] COBY LEON PATIENT FEP PROVIDER FAMIL 2017 [id number] VERO ORGANIZAT Y ION (PPO) BCBS OF [place] DENTAL [place] Nov 30 [id number] [phone] COBY LEON PATIENT FEP INSURANCE L [id number] 2017 62 5 VERO (DENTAL) [place] PREFERRED BASIC Nov 30 [id number] [phone] COBY METZ PATIENT FEP PROVIDER FAMIL 2017 62 5 VERO ORGANIZAT Y ION (PPO) [place] OF [place] PREFERRED STAND March 26 [id number] [phone] COBY METZ PATIENT (FEDERAL) 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 2014 62 7 VERO ORGANIZAT IND ION (PPO) 104 CAREMARK PRESCRIPT FEP March 26, [id number] [phone] [place] PATIENT ([id number]) ION 2015 0 62 7 VERO CAREMARK-F PRESCRIPT FEP Nov 30, [id number] [phone] [place] PATIENT EP BCBS ION CAREM 2018 0 62 1 VERO ARK CAREMARK-F PRESCRIPT FEP Nov 30, [id number] [phone] [place] PATIENT EP BCBS ION 2018 0 [id number] VERO CAREMARK-F PRESCRIPT SHERI Nov 30, [id number] [phone] [place] PATIENT EP BCBS ION AL 2018 0 62 1 VERO RX CAREMARK-F PRESCRIPT SHERI Nov 30, [id number] [phone] [place] PATIENT EP BCBS ION AL 2018 0 [id number] 1 VERO RX HORIZON PREFERRED BASIC Nov 30 [id number] [phone] [place] PATIENT BCBS FEP* PROVIDER FAMIL 2017 62 8 VERO ORGANIZAT Y ION (PPO) HORIZON PREFERRED BASIC Nov 30 [id number] [phone] EDWARDTN PATIENT FEDERAL PROVIDER FAMIL 2017 62 8 VERO ORGANIZAT Y ION (PPO) DEPART WORKERS' OWCP Jul 01, NONE [id number] [phone] INDIGO CruzTN PATIENT OF LABOR COMPENSAT MEDIC 2018 [id number] VERO MED DFEC ION AL INSURANCE DFEC DEPT OF WORKERS' WORKE Jul 01, WORKERS [id number] [phone] ROBERT SAABTN PATIENT LABOR COMPENSAT RS 2019 COMP [id number] VERO ION COMP INSURANCE Selected Encounter This section includes the information on record at [facility] for the Encounter. Date/Time Encounter Type Encounter Reason Provider Source Description Mar 01, 2022 PSYTX W PT 45 MENTAL HEALTH ICD-10-CM F33.1 ANGIE GAFFNEY 08:00 AM [facility] - IND Major depressive SARAH disorder, recurrent, moderate with Provider Comments: Moderate major depression (SCT 215497) IHE Encounter Template Text not used by [facility] Assessments - Encounter Diagnoses This section includes the primary and secondary diagnoses documented for the Encounter. Date/Time Primary/Secondary Diagnosis Name Provider Source Diagnosis Mar 01, 2022 PRIMARY Major depressive ANGIE GAFFNEY [facility] N EW 03:29 PM disorder, SARAH [facility] recurrent, moderate Plan of Treatment: Future Appointments (+ 6 months) and Future Tests (+/- 45 days) The Plan of Treatment section includes future care activities for the patient from all [place] treatmentfacilities. This section includes future appointments and future orders which are active, pending orscheduled.Future Appointments This section includes appointments that were scheduled to occur 6 months from the date of the Encounter, up to a maximum of 20 appointments. The data comes from all [place] treatment facilities. Appointment Date/Time Appointment Type Appointment Facili ty Name April 05, 2022 09:00 AM AMBULATORY - PSYCHIATRY [facility] April 10, 2022 10:00 AM AMBULATORY PSYCHIATRY [facility] April 12, 2022 09:00 AM AMBULATORY - [facility] April 12, 2022 10:00 AM AMBULATORY - MEDICINE [facility] Apr 24, 2022 10:00 AM AMBULATORY PSYCHIATRY [facility] May 01, 2022 08:00 AM AMBULATORY - MEDICINE [facility] May 08, 2022 10:00 AM AMBULATORY PSYCHIATRY [facility] Jun 27, 2022 09:30 AM [facility] Jun 28, 2022 09:00 AM AMBULATORY - PSYCHIATRY [facility] Jul 12, 2022 08:00 AM AMBULATORY PSYCHIATRY [facility] Jul 12, 2022 09:20 AM AMBULATORY [facility] Jul 18, 2022 10:30 [facility] Aug 05, 2022 02:00 PM [facility] Aug 16, 2022 10:20 AM AMBULATORY [facility] Lab Results: +/- 30 days of the encounter This section includes the Chemistry and Hematology Lab Results on record with [place] for the patient. Radiology Reports and Pathology Reports are provided separately, in subsequent sections.Lab Results This section contains the Chemistry/Hematology Results that were resulted 30 days before or 30 daysafter the date of the Encounter. Date/Time Source Result Type Result - Unit Interpretation Reference Range Comment March 28, 2022 11:36 [facility] COVID-19 MONITOR Specimen Ty pe: OROPHARYNX AM [facility] PANEL([facility]) Comment: Test P erformed by NAHUM Lemus Ordering Provid er: ASHWINI SARMIENTO Report Released Date/Time: Mar 21, 2022 08:55 AM Reporting Lab: [facility] [address] [address] Performing Lab: [facility] [address] [facility] [address] COVID-19 ([id number]) Not Detected Not De tected Mar 19, 2022 12:00 [facility] COVID-19 MONITOR Specimen Ty pe: OROPHARYNX AM [facility] PANEL([facility]) Comment: Test P erformed by NAHUM Lemus Ordering Provid er: ASHWINI SARMIENTO Report Released Date/Time: Jan 16, 2022 12:20 PM Reporting Lab: [facility] [address] [facility] [facility] [address] Performing Lab: [facility] [address] [address] COVID-19 ([id number]) Not Detected Not De tected Mar 12, 2022 [facility] NEW COVID-19 SCREENING Specimen Typ e: NASOPHARYNX 12:39 PM [facility] PANEL([facility]) Comment: Test P erformed by NAHUM Lemus Ordering Provid er: TODD CASTILLO Report Released Date/Time: Feb 19, 2022 04:41 PM Reporting Lab: [facility] [address] [facility] [address] Performing Lab: [facility] [address] [facility] [address] COVID-19 ([id number]) Not Detected Not De tected Feb 27, 2022 12:24 [facility] NEW COVID-19 MONITOR Specimen Ty pe: OROPHARYNX PM [facility] PANEL([facility]) Comment: Test P erformed by NAHUM Lemus Ordering Provid er: ASHWINI SARMIENTO Report Released Date/Time: Dec 26, 2021 09:07 AM Reporting Lab: [facility] [address] [facility] [address] Performing Lab: [facility] [address] [facility] [address] COVID-19 ([id number]) Not Detected Not De tected Feb 19, 2022 12:00 [facility] COVID-19 MONITOR Specimen Ty pe: OROPHARYNX AM [facility] PANEL([facility]) Comment: Test P erformed by NAHUM Lemus Ordering Provid er: ASHWINI SARMIENTO Report Released Date/Time: Dec 26, 2021 09:07 AM Reporting Lab: [facility] [address] [place] [address] Performing Lab: [facility] [address] [facility] [address] COVID-19 ([id number]) Not Detected Not De tected Feb 13, 2022 03:14 [facility] COVID-19 MONITOR Specimen Ty pe: OROPHARYNX PM [facility] PANEL([facility]) Comment: Test P erformed by NAHUM Lemus Ordering Provid er: ASHWINI SARMIENTO Report Released Date/Time: Jan 16, 2022 12:20 PM Reporting Lab: [facility] [address] [address] Performing Lab: [facility] [address] [address] COVID-19 ([id number]) Not Detected Not De tected Social History: Smoking Status (Most current) and Tobacco Use (All prior to encounter date) This section includes the most current, and the historical, smoking and tobacco-related health factors from the [place] facility where the Encounter took place.Current Smoking Status This section includes the most current smoking, or tobacco-related health factor, from the [place] facility where the Encounter took place. Date/Time Current Smoking Status Comment Facility Jun 29, 2021 09:00 AM [facility] Tobacco Use History This section includes a history of the smoking, or tobacco- related health factors, that were collected on or before the date of the Encounter. The data comes from the [place] facility where the Encounter took place. Date/Time Smoking Status/Tobacco Use Comment Located Within [facility] faustino Jun 29, 2021 09:00 AM [place] [facility] [facility] YRS [facility] Jul 20, 2020 10:30 AM VA-TOBACCO NEVER USED [facility] Aug 12, 2019 03:12 PM [facility] Aug 12, 2019 03:12 PM VA-TOBACCO QUIT 15 YRS OR [facility] Aug 20, 2018 04:56 PM VA[facility]AC[facility] Aug 20, 2018 04:56 PM VA-TOBACCO QUIT 15 YRS OR [facility] Nov 19, 2016 09:49 AM LIFETIME NON-USER OF [facility] TOBACCO [facility] Dec 13, 2015 03:30 PM QUIT TOBACCO >7 YEARS AGO [facility] Dec 09, 2014 09:06 AM QUIT TOBACCO >7 YEARS AGO [facility] Jan 29, 2014 08:56 AM LIFETIME NON-USER OF [facility] TOBACCO [facility] Jun 11, 2012 01:32 PM QUIT TOBACCO >7 YEARS AGO [facility] Feb 01, 2009 09:26 AM LIFETIME NON-USER OF [facility] - [place] NEW TOBACCO quit [address] [place] [address] Aug 19, 2001 09:28 AM HISTORY OF SMOKING [facility] NEW Quit 2 yrs ago, 18 pack-yr Hx. [place] Encounter Notes: All associated encounter notes This section contains the clinical notes associated to the Encounter. 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 Patient reported that he is still experiencing stress related to his job. Di scussed with patient focusing on what he can control perta ining to his job and things that he may want to look at letting go of. He discussed similar stress re lated to things going on with his extended family. He said that his si ster and niece have a lot of their own problems and reach out to him to solve. Discusse d boundary setting in those relationships. Also discussed potential conseque nces for patient of chronic stress including impact on his medical issues. Assessment: Mood: Euthymic Affect: Appropriate Speech: Normal [...] individual counseling RTC: Next session scheduled for 03/27/22 at 10 am. 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
--- OUTSIDE RECORDS SUMMARY | 2022-10-02 10:31 | XMS_ITS | Encounter Summary ---
:1965 Author Organization [facility] rs Address [address] [place] [id number] Support Name Relationship Address Phone DENISSE LEON Unavailable [address] [facility] [place] [place] [address] NONE, GIVEN Unavailable Unavailable Unavailable Insurance Providers: [...] to Policy Number Chen AETNA [facility] Feb [id number] [phone] [place] PATIENT SERVICE INTER 2011 381 2 [place] AETNA PRESCRIPT [facility] Feb [id number] [phone] [facility] PATIENT PHARMACY ION INTER 2011 [id number] VERO MANAGEMENT NATIO 1 [place] BCBS [place] PREFERRED BASIC Nov 30 [id number] [phone] COBY LEON PATIENT FEP PROVIDER FAMIL 2017 [id number] VERO ORGANIZAT Y ION (PPO) BCBS OF [place] DENTAL DENT[place] Nov 30 [id number] [phone] COBY LEON PATIENT FEP INSURANCE L [id number] 2017 62 5 VERO (DENTAL) [place]BS [place] PREFERRED BASIC Nov 30 [id number] [phone] COBY METZ PATIENT FEP PROVIDER FAMIL 2017 62 5 VERO ORGANIZAT Y ION (PPO) [place]BS OF [place] PREFERRED STAND March 26 [id number] [phone] COBY METZ PATIENT (FEDERAL) 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 2014 62 7 VERO ORGANIZAT IND ION (PPO) 104 CAREMARK PRESCRIPT FEP March 26, [id number] [phone] CONR OY,SC PATIENT ([id number]) ION 2014 0 62 7 VERO CAREMARK-F PRESCRIPT FEP Nov 30, [id number] [phone] CO NROY,[place] PATIENT EP BCBS ION CAREM 2018 0 62 1 VERO ARK CAREMARK-F PRESCRIPT SHERI Nov 30, [id number] [phone] [place] PATIENT EP BCBS ION AL 2018 0 62 1 VERO RX CAREMARK-F PRESCRIPT SHERI Nov 30, [id number] [phone] [place] PATIENT EP BCBS ION AL 2018 0 [id number] VERO RX CAREMARK-F PRESCRIPT FEP Nov 30, [id number] [phone] NROY,[place] PATIENT EP BCBS ION 2018 0 [id number] VERO HORIZON PREFERRED BASIC Nov 30 [id number] [phone] EDWARD ,NE PATIENT BCBS FEP* PROVIDER FAMIL 2017 62 8 VERO ORGANIZAT Y ION (PPO) HORIZON PREFERRED BASIC Nov 30 [id number] [phone] EDWARD ,NE PATIENT FEDERAL PROVIDER FAMIL 2018 62 8 VERO ORGANIZAT Y ION (PPO) DEPART WORKERS' OWCP Jul 01, NONE [id number] [phone] INDIGO YNE PATIENT OF LABOR COMPENSAT MEDIC 2019 [id number] VERO MED DFEC ION AL INSURANCE DFEC US DEPT OF WORKERS' WORKE Jul 01, WORKERS [id number] [phone] CON [facility],NE PATIENT LABOR COMPENSAT RS 2019 COMP [id number] VERO ION COMP INSURANCE Selected Encounter This section includes the information on record at MA for the Encounter. Date/Time Encounter Type Encounter Reason Provider Source Description Feb 19, 2022 Outpatient TELEPHONE/MEDICIN ICD-10-CM R12 FACUNDO A 03:00 PM Encounter E Heartburn with LILLIAM Rodriguez Provider Comments: Heartburn IHE Encounter Template Text not used by [facility] Assessments - Encounter Diagnoses This section includes the primary and secondary diagnoses documented for the Encounter. Date/Time Primary/Secondary Diagnosis Name Provider Source Diagnosis Feb 19, 2022 PRIMARY Heartburn LILLIAM LONG- [place] NEW 03:00 PM [facility] Feb 19, 2022 SECONDARY Encounter for LILLIAM LONG- [place] NEW 03:00 PM screening for [facility] malignant neoplasm of colon Feb 19, 2022 SECONDARY Fatty (change of) LILLIAM LONG- [place] NEW 03:00 PM liver, not [facility] elsewhere classified Plan of Treatment: Future Appointments (+ 6 months) and Future Tests (+/- 45 days) The Plan of Treatment section includes future care activities for the patient from all [place] treatmentfacilities. This section includes future appointments and future orders which are active, pending orscheduled.Future Appointments This section includes appointments that were scheduled to occur 6 months from the date of the Encounter, up to a maximum of 20 appointments. The data comes from all [place] treatment facilities. Appointment Date/Time Appointment Type Appointment Facili ty Name Mar 01, 2022 08:00 AM AMBULATORY - PSYCHIATRY [facility] April 05, 2022 09:00 AM AMBULATORY - PSYCHIATRY [facility] April 10, 2022 10:00 AM AMBULATORY - PSYCHIATRY [facility] April 12, 2022 09:00 AM AMBULATORY - NONE [facility] April 12, 2022 10:00 AM AMBULATORY - MEDICINE [facility] Apr 24, 2022 10:00 AM AMBULATORY - PSYCHIATRY [facility] May 01, 2022 08:00 AM AMBULATORY - MEDICINE [facility] May 08, 2022 10:00 AM AMBULATORY - PSYCHIATRY [facility] Jun 27, 2022 09:30 AM AMBULATORY - [facility]ICINE [facility] Jun 28, 2022 09:00 AM AMBULATORY - PSYCHIATRY [facility] Jul 12, 2022 08:00 AM AMBULATORY - PSYCHIATRY [facility] Jul 12, 2022 09:20 AM AMBULATORY - MEDICINE [facility] Jul 18, 2022 10:30 AM AMBULATORY - [facility]ICINE [facility] [place] [facility] Aug 05, 2022 02:00 PM AMBULATORY - MEDICINE [place] [facility] [place] [facility] Aug 16, 2022 10:20 AM AMBULATORY - MEDICINE [facility] Lab Results: +/- 30 days of the encounter This section includes the Chemistry and Hematology Lab Results on record with MA for the patient. Radiology Reports and Pathology Reports are provided separately, in subsequent sections.Lab Results This section contains the Chemistry/Hematology Results that were resulted 30 days before or 30 daysafter the date of the Encounter. Date/Time Source Result Type Result - Unit Interpretation Reference Range Comment Mar 19, 2022 12:00 [facility] COVID-19 MONITOR Specimen Ty pe: OROPHARYNX AM [facility] PANEL([facility]) Comment: Test P erformed by NAHUM Lemus Ordering Provid er: ASHWINI SARMIENTO Report Released Date/Time: Jan 16, 2022 12:20 PM Reporting Lab: [facility] [address] [facility] [address] Performing Lab: [facility] [address] [facility] [address] COVID-19 ([id number]) Not Detected Not De tected Mar 12, 2022 [facility] COVID-19 SCREENING Specimen Typ e: NASOPHARYNX 12:39 PM [facility] PANEL([facility]) Comment: Test P erformed by NAHUM Lemus Ordering Provid er: TODD CASTILLO Report Released Date/Time: Feb 19, 2022 04:41 PM Reporting Lab: [facility] [address] [facility] [address] Performing Lab: [facility] [address] [facility] [address] COVID-19 ([id number]) Not Detected Not De tected Feb 27, 2022 12:24 [facility] NEW COVID-19 MONITOR Specimen Ty pe: OROPHARYNX PM [facility] PANEL([facility]) Comment: Test P erformed by NAHUM Lemus Ordering Provid er: ASHWINI SARMIENTO Report Released Date/Time: Dec 26, 2021 09:07 AM Reporting Lab: [facility] [address] [facility] [address] Performing Lab: [facility] [address] [facility] [address] COVID-19 ([id number]) Not Detected Not De tected Feb 19, 2022 12:00 [facility] NEW COVID-19 MONITOR Specimen Ty pe: OROPHARYNX AM [facility] PANEL([facility]) Comment: Test P erformed by NAHUM Lemus Ordering Provid er: ASHWINI SARMIENTO Report Released Date/Time: Dec 26, 2021 09:07 AM Reporting Lab: [facility] [address] [facility] [address] [facility] [address] Performing Lab: [facility] [address] [facility] [address] COVID-19 ([id number]) Not Detected Not De tected Feb 13, 2022 03:14 [facility] COVID-19 MONITOR Specimen Ty pe: OROPHARYNX PM [facility] PANEL([facility]) Comment: Test P erformed by NAHUM Lemus Ordering Provid er: ASHWINI SARMIENTO Report Released Date/Time: Jan 16, 2022 12:20 PM Reporting Lab: [facility] [address] [facility] [address] Performing Lab: [facility] [address] [facility] [place] [id number] COVID-19 ([id number]) Not Detected Not De tected Jan 30, 2022 02:50 [facility] COVID-19 MONITOR Specimen Ty pe: OROPHARYNX [facility] PANEL([facility]) Comment: Test P erformed by NAHUM Lemus Ordering Provid er: ASHWINI SARMIENTO Report Released Date/Time: Dec 26, 2021 09:07 AM Reporting Lab: [facility] [address] [facility] [address] Performing Lab: [facility] [address] [facility] [address] COVID-19 ([id number]) Not Detected Not De tected Jan 23, 2022 08:00 [facility] HEMOGLOBIN A1C Specime n Type: BLOOD AM [facility] No comment enter ed. Ordering Provid er: JUSTIN HEBERT Report Released Date/Time: Jan 18, 2022 11:36 AM Reporting Lab: [facility] [address] [facility] [address] Performing Lab: [facility] [address] [facility] [address] HEMOGLOBIN A1C 7.9 H 4.8-5.6 Jan 23, 2022 08:00 [facility] PROSTATE SPECIFIC Specimen T ype: SERUM AM [facility] ANTIGEN No comment enter ed. Ordering Provid er: JC CABALLERO Report Released Date/Time: Jan 18, 2022 10:03 AM Reporting Lab: [facility] [address] [facility] [address] Performing Lab: [facility] [address] [facility] [address] PROSTATE SPECIFIC ANTIGEN 0.430 0-4. 0 Jan 23, 2022 [facility] Comprehensive Specimen Ty pe: SERUM 08:00 AM [facility] Metabolic Panel No comment enter ed. Ordering Provid er: JC CABALLERO Report Released Date/Time: Jan 18, 2022 10:03 AM Reporting Lab: [facility] [address] [facility] [address] Performing Lab: [facility] [address] [facility] [address] CREATININE 1.3 .7-1.3 UREA NITROGEN 23 7-25 GLUCOSE 163 H 65-99 SODIUM 138 136-145 POTASSIUM 4.6 3.5-5.1 CHLORIDE 101 98-107 CO2 28 21-31 CALCIUM 9.9 8.6-10.3 PROTEIN,TOTAL 7.0 6.4-8.9 ALBUMIN 4.6 3.5-5.7 TOTAL BILIRUBIN 0.5 0.3-1.0 ALKALINE PHOSPHATASE 81 34-104 AST 23 13-39 ALT 24 7-52 ANION GAP 9 5-13 eGFR 58 L >60 Jan 23, 2022 08:00 AM [facility] URINALYSIS Spec imen Type: URINE HCS No comment enter ed. Ordering Provid er: JC CABALLERO Report Released Date/Time: Jan 18, 2022 10:03 AM Reporting Lab: [facility] [address] [facility] [address] Performing Lab: [facility] [address] [facility] [address] URINE COLOR Colorless YELLOW SPECIFIC GRAVITY 1.003 [...] CENTER COVID-19 MONITOR Specimen Ty pe: OROPHARYNX [facility] PANEL([facility]) Comment: Test P erformed by NAHUM Lemus Ordering Provid er: ASHWINI SARMIENTO Report Released Date/Time: Dec 26, 2021 09:07 AM Reporting Lab: [address] [address] Performing Lab: [address] [address] COVID-19 ([id number]) Not Detected Not De tected Social History: Smoking Status (Most current) and Tobacco Use (All prior to encounter date) This section includes the most current, and the historical, smoking and tobacco-related health factors from the [place] facility where the Encounter took place.Current Smoking Status This section includes the most current smoking, or tobacco-related health factor, from the [place] facility where the Encounter took place. Date/Time Current Smoking Status Comment Facility Jun 29, 2021 09:00 AM VA-TOBACCO FORMER USER [facility] Tobacco Use History This section includes a history of the smoking, or tobacco- related health factors, that were collected on or before the date of the Encounter. The data comes from the [place] facility where the Encounter took place. Date/Time Smoking Status/Tobacco Use Comment [facility] faustino Jun 29, 2021 09:00 AM VA-TOBACCO QUIT 15 YRS OR [facility] Jul 20, 2020 10:30 AM VA-TOBACCO NEVER USED [facility] Aug 12, 2019 03:12 PM VA-TOBACCO [facility] Aug 12, 2019 03:12 PM VA-TOBACCO QUIT 15 YRS OR [facility] Aug 20, 2018 04:56 PM VA-TOBACCO FORMER USER [facility] Aug 20, 2018 04:56 PM VA-TOBACCO QUIT 15 YRS OR [facility] Nov 19, 2016 09:49 AM [facility] Dec 13, 2015 03:30 PM QUIT [facility] Dec 09, 2014 09:06 AM QUIT [facility]AC[facility] Jan 29, 2014 08:56 AM [facility] Jun 11, 2012 01:32 PM QUIT TOBACCO >7 YEARS AGO [facility] Feb 01, 2009 09:26 AM [facility] TO[facility]AC[facility] quit 1998 [facility] Aug 19, 2001 09:28 AM HISTORY OF SMOKING [facility] NEW Quit 2 yrs ago, 18 pack-yr Hx. [place] [facility] Encounter Notes: All associated encounter notes This section contains the clinical notes associated to the Encounter. Date/Time Encounter Note(s) Provider Source Feb 19, 2022 08:42 AM GASTROENTEROLOGY TELEPHONE ENCOUNTER N OTE: TODD CASTILLO [facility] TITLE: GI TELEPHONE CONTACT [facility] STANDARD TITLE: GASTROENTEROLOGY TELEPHONE ENCOU NTER NOTE DATE OF NOTE: FEB 19, 2022@08:42 ENTRY DATE: FEB 19, 2022@08:43:28 AUTHOR: TODD CASTILLO EXP COSIGNER: Chago LONG URGENCY: STATUS: COMPLETED GI TELEPHONE CONTACT Has ADDENDA [facility] Clinic Note Initial Consult, Telehealth Visit Due to the ongoing COVID 19 mandate to cancel ro utine ambulatory visits/procedures the following visit was conduc mike over the phone with the patient's permission: Reason for Consult: Screening colonoscopy Chief Complaint: Heartburn HPI: 56 year-old MALE with past medical history of T2DM, HTN, here to schedule screening colonoscopy. Had colonosocpy 2016 with two TAs removed, advis ed repeat in 5 years. On oral medications for diabetes. No dysphagia, no heartburn, no weight loss patient has reported. Does qualify as ob suleiman. Does report some increased phlegm, occasionally when he eats something anna valerie feels like it gets caught in his upper throat, will need to drink some to get it to go down. Rider s had this for at least a few years and occasional feeling of heartburn. No ASA, plavix, other blood thinners. No hematochezia, no hemetemesis, no N/V, no abdo thais pain, no diarrhea, no constipation. ROS:(-) fevers, chills. (-) recent unintentional weight changes. (-) recent URI. (-) chest pain, (-) shortness of breath. (- ) dysuria, (-) urgency or frequency of urination. (-) focal weaknesses, (- ) LOC. Otherwise as per HPI PMH: Active Problem Chronic kidney disease stage 2 [...] Fatty Liver 799.9 08/19/2001 MARIA GUADALUPE ACOSTA Primary Care provider: JC CABALLERO PSH: No abdominal surgeries Medications: Active and Recently Outpatient Medicatio ns (including Supplies): Active Outpatient Medications Status 1) ALBUTEROL 90MCG [...] TWICE A ACTIVE DAY FOR DIABETES 9) MELATONIN 3MG CAP/TAB TAKE TWO CAP/TABS BY MO UTH AT ACTIVE BEDTIME FOR INSOMNIA 10) METFORMIN HCL 500MG 24HR SA TAB TAKE TWO TAB LETS BY ACTIVE MOUTH TWICE A DAY FOR DIABETES 11) PSYLLIUM SF ORAL PWD TAKE 1 TEASPOONFUL [...] 6) Non-VA VITAMIN E CAP,ORAL MOUTH ACTIVE 17 Total Medications Allergies: PENICILLIN Family history: No family history of GI cancer or polyps. Both parents with cancer, one with pancreatic ca ncer, other parent with esophageal cancer, at 64. Social History: no cigarette use, denies alcohol use PHYSICAL EXAM: VITALS - NONE FOUND - 1D BMI: BODY MASS INDEX - SEP 21, 2021@08:44:28 30. 5 Exam deferred due to telehealth visit. PREVIOUS ENDOSCOPIC EVALUATIONS: COLONOSCOPY 2017: A diminutive polyp in the transverse colon was removed with cold biopsy forceps. A 6-7mm sessile polyp in the transverse colon was removed with cold snare. Small internal hemorrho ids. Good bowel prep. MICROSCOPIC EXAMINATION and DIAGNOSIS: A- TRANSVERSE COLON POLYP, BIOPSY: TUBULAR JODEE KRYSTYNA. B- TRANSVERSE COLON POLYP #2, BIOPSY: TUBULAR A DENOMA. ASSESSMENT AND PLAN: 56 year-old MALE with past medical history of T2DM, HTN, here to schedule surveillance colonoscopy. # Screening for Handley's esophagus - atypical reflux symptoms worsening the last fe w years. - , age > 50, obese, and father with es ophageal cancer - interested in EGD for BE screening, will sched ule with colonoscopy # CRC Surveillance - 2 TAs noted on colonoscopy in 2017, good prep - repeat recommended in 5 years - risks/benefits discussed and patient agreeable , will schedule. Counseled on need for COVID testing, ride to procedure, and b owel prep. - hold oral diabetes meds day of Case discussed with Gastroenterology attending, Dr. Myers who agrees with above assessment and plan. /jacki/ TODD CASTILLO Gastroenterology Fellow Signed: 02/19/2022 16:41 /jacki/ Lilliam Livingston M.D ATTENDING PHYSICIAN GI Cosigned: 02/20/2022 15:07 02/20/2022 ADDENDUM STATUS: COMPLETED SPENT 22 MINUTES ON THE CALL /jacki/ Lilliam Livingston M.D ATTENDING PHYSICIAN GI Signed: 02/20/2022 14:38 02/20/2022 ADDENDUM STATUS: COMPLETED SPENT 22 MINUTES ON THE CALL /jacki/ Lilliam Livingston M.D ATTENDING PHYSICIAN GI Signed: 02/20/2022 15:06
--- OUTSIDE RECORDS SUMMARY | 2022-10-02 10:32 | XMS_ITS | Encounter Summary ---
:1965 Author Organization [facility] Address [address] [id number] Support Name Relationship Address Phone DENISSE LEON Unavailable [address] [facility] [place] [address] NONE, GIVEN Unavailable Unavailable Unavailable Insurance Providers: [...] POINT OF [facility] Feb [id number] [phone] EDWARD DE PATIENT SERVICE INTER 2011 [id number] VERO NATIO [place] AETNA PRESCRIPT [facility] Feb [id number] [phone] COBY LEON PATIENT PHARMACY ION INTER 2011 [id number] VERO MANAGEMENT NATIO 1 [place] BCBS [place] PREFERRED BASIC Nov 30 [id number] [phone] COBY LEON PATIENT FEP PROVIDER FAMIL 2017 [id number] VERO ORGANIZAT Y ION (PPO) BCBS OF [place] DENTAL DENTA Nov 30 [id number] [phone] COBY LEON PATIENT FEP INSURANCE L 112 2017 62 5 VERO (DENTAL) [place] PREFERRED BASIC Nov 30 [id number] [phone] COBY METZ PATIENT FEP PROVIDER FAMIL 2017 62 5 VERO ORGANIZAT Y ION (PPO) [place]BS OF [place] PREFERRED STAND March 26 [id number] [phone] COBY METZ 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 (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) 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 2015 62 7 VERO ORGANIZAT IND ION (PPO) 104 CAREMARK PRESCRIPT FEP March 26, [id number] [phone] ROBERTR NADYA,DE PATIENT ([id number]) ION 2015 0 62 7 VERO CAREMARK-F PRESCRIPT FEP Nov 30, [id number] [phone] NROY,DE PATIENT EP BCBS ION 2018 0 [id number] VERO CAREMARK-F PRESCRIPT FEP Nov 30, [id number] [phone] CO NROY,DE PATIENT EP BCBS ION CAREM 2018 0 62 1 VERO ARK CAREMARK-F PRESCRIPT SHERI Nov 30, [id number] [phone] CO NROY,DE PATIENT EP BCBS ION AL 2018 0 62 1 VERO RX CAREMARK-F PRESCRIPT SHERI Nov 30, [id number] [phone] CO NR,DE PATIENT EP BCBS ION AL 2018 0 [id number] 1 VERO RX HORIZON PREFERRED BASIC Nov 30 [id number] [phone] EDWARDDE PATIENT BCBS FEP* PROVIDER FAMIL 2018 62 8 VERO ORGANIZAT Y ION (PPO) HORIZON PREFERRED BASIC Nov 30 [id number] [phone] EDWARDDE PATIENT FEDERAL PROVIDER FAMIL 2018 62 8 VERO ORGANIZAT Y ION (PPO) DEPART WORKERS' OWCP Jul 01, NONE [id number] [phone] INDIGO CruzDE PATIENT OF LABOR COMPENSAT MEDIC 2018 [id number] VERO MED DFEC ION AL INSURANCE DFEC DEPT OF WORKERS' WORKE Jul 01, WORKERS [id number] [phone] ROBERT SAABDE PATIENT LABOR COMPENSAT RS 2019 COMP [id number] VERO ION COMP INSURANCE Selected Encounter This section includes the information on record at [place] for the Encounter. Date/Time Encounter Type Encounter Description Reason Provider Source Jan 22, 2022 07:51 Outpatient Encounter ADMIN PAT REHANA RAY (MALIK) ELKIN Encounter Template Text not used by [facility] [...] 20 appointments. The data comes from all [place] treatment facilities. Appointment Date/Time Appointment Type Appointment Facili ty Name Jan 23, 2022 02:00 PM AMBULATORY - MEDICINE [facility] Jan 24, 2022 01:00 PM AMBULATORY - PSYCHIATRY [facility] Feb 01, 2022 08:00 AM AMBULATORY - PSYCHIATRY [facility] Feb 01, 2022 09:00 AM AMBULATORY - PSYCHIATRY [facility] Feb 19, 2022 03:00 PM AMBULATORY - MEDICINE [facility] Mar 01, 2022 08:00 AM AMBULATORY - PSYCHIATRY [facility] April 05, 2022 09:00 AM AMBULATORY - PSYCHIATRY [facility] April 10, 2022 10:00 AM AMBULATORY - PSYCHIATRY [facility] April 12, 2022 09:00 AM AMBULATORY - NONE [facility]3] April 12, 2022 10:00 AM AMBULATORY - MEDICINE [facility] Apr 24, 2022 10:00 AM AMBULATORY - PSYCHIATRY [facility] May 01, 2022 08:00 AM AMBULATORY - MEDICINE [facility] May 08, 2022 10:00 AM AMBULATORY - PSYCHIATRY [facility] Jun 27, 2022 09:30 AM AMBULATORY - MEDICINE [facility] Jun 28, 2022 09:00 AM AMBULATORY - PSYCHIATRY [facility] Jul 12, 2022 08:00 AM AMBULATORY - PSYCHIATRY [facility] Jul 12, 2022 09:20 AM AMBULATORY - MEDICINE [facility] Jul 18, 2022 10:30 AM AMBULATORY - [place]ICINE [place] [facility] Lab Results: +/- 30 days of [...] Reference Range Comment Feb 19, 2022 12:00 [facility] NEW COVID-19 MONITOR Specimen Ty pe: OROPHARYNX AM [facility] PANEL([facility]) Comment: Test P erformed by NAHUM Lemus Ordering Provid er: ASHWINI SARMIENTO Report Released Date/Time: Dec 26, 2021 09:07 AM Reporting Lab: [facility] [address] [facility] [address] Performing Lab: [facility] [address] [facility] [address] COVID-19 ([id number]) Not Detected Not De tected Feb 13, 2022 03:14 [facility]-19 MONITOR Specimen Ty pe: OROPHARYNX PM [facility] PANEL([facility]) Comment: Test P erformed by NAHUM Lemus Ordering Provid er: ASHWINI SARMIENTO Report Released Date/Time: Jan 16, 2022 12:20 PM Reporting Lab: [facility] [address] [facility] [address] Performing Lab: [facility] [address] [facility] [address] COVID-19 ([id number]) Not Detected Not De tected Jan 30, 2022 02:50 [facility] NEW COVID-19 MONITOR Specimen Ty pe: OROPHARYNX PM [facility] PANEL([facility]) Comment: Test P erformed by NAHUM Lemus Ordering Provid er: ASHWINI SARMIENTO Report Released Date/Time: Dec 26, 2021 09:07 AM Reporting Lab: [facility] [address] [facility] [address] Performing Lab: [facility] [address] [facility] [address] COVID-19 ([id number]) Not Detected Not De tected Jan 23, 2022 08:00 [facility] HEMOGLOBIN A1C Specime n Type: BLOOD AM HCS No comment enter ed. Ordering Provid er: JUSTIN HEBERT Report Released Date/Time: Jan 18, 2022 11:36 AM Reporting Lab: [facility] [address] [facility] [address] Performing Lab: [facility] [address] [facility] [address] HEMOGLOBIN A1C 7.9 H 4.8-5.6 Jan 23, 2022 08:00 [facility] PROSTATE SPECIFIC Specimen T ype: SERUM AM [facility] ANTIGEN No comment enter ed. Ordering Provid er: JC CABALLERO Report Released Date/Time: Jan 18, 2022 10:03 AM Reporting Lab: [facility] [address] [facility] [address] Performing Lab: [facility] [address] [facility] [address] PROSTATE SPECIFIC ANTIGEN 0.430 0-4. 0 Jan 23, 2022 [facility] CHEM, Comprehensive Specimen Ty pe: SERUM 08:00 AM [facility] Metabolic Panel No comment enter ed. Ordering Provid er: JC CABALLERO Report Released Date/Time: Jan 18, 2022 10:03 AM Reporting Lab: [facility] [address] [facility] [address] Performing Lab: [facility] [address] [facility] [address] CREATININE 1.3 .7-1.3 UREA NITROGEN 23 7-25 GLUCOSE 163 H 65-99 SODIUM 138 136-145 POTASSIUM 4.6 3.5-5.1 CHLORIDE 101 98-107 CO2 28 21-31 CALCIUM 9.9 8.6-10.3 PROTEIN,TOTAL 7.0 6.4-8.9 ALBUMIN 4.6 3.5-5.7 TOTAL BILIRUBIN 0.5 0.3-1.0 ALKALINE PHOSPHATASE 81 34-104 AST 23 13-39 ALT 24 7-52 ANION GAP 9 5-13 eGFR 58 L >60 Jan 23, 2022 08:00 AM [facility] URINALYSIS Spec imen Type: URINE HCS No comment enter ed. Ordering Provid er: JC CABALLERO Report Released Date/Time: Jan 18, 2022 10:03 AM Reporting Lab: [facility] [address] [facility] [address] Performing Lab: [facility] [address] [facility] [address] URINE COLOR Colorless YELLOW SPECIFIC GRAVITY 1.003 [...] OCC None seen Jan 22, 2022 12:00 [facility] NEW COVID-19 MONITOR Specimen Ty pe: OROPHARYNX [facility] PANEL([facility]) Comment: Test P erformed by NAHUM Lemus Ordering Provid er: ASHWINI SARMIENTO Report Released Date/Time: Dec 26, 2021 09:07 AM Reporting Lab: [facility] [address] [facility] [address] Performing Lab: [facility] [address] [facility] [address] COVID-19 ([id number]) Not Detected Not De tected Jan 15, 2022 03:39 [facility] NEW COVID-19 MONITOR Specimen Ty pe: OROPHARYNX [facility] PANEL([facility]) Comment: Test P erformed by NAHUM Lemus Ordering Provid er: ASHWINI SARMIENTO Report Released Date/Time: Dec 26, 2021 09:07 AM Reporting Lab: [facility] [address] [facility] [address] Performing Lab: [facility] [address] [facility] [address] COVID-19 ([id number]) Not Detected Not De tected Jan 07, 2022 07:10 [facility] NEW COVID-19 MONITOR Specimen Ty pe: OROPHARYNX [facility] PANEL([facility]) No comment enter ed. Ordering Provid er: ASHWINI SARMIENTO Report Released Date/Time: Dec 26, 2021 09:07 AM Reporting Lab: [facility] [address] [facility] [address] Performing Lab: [facility] [address] [facility] [address] COVID-19 ([id number]) Not Detected Not De tected Dec 27, 2021 12:00 [facility] COVID-19 MONITOR Specimen Ty pe: OROPHARYNX AM [facility] PANEL([facility]) No comment enter ed. Ordering Provid er: ASHWINI SARMIENTO Report Released Date/Time: Dec 26, 2021 09:07 AM Reporting Lab: [facility] [address] [facility] [address] Performing Lab: [facility] [address] [facility] [address] COVID-19 ([id number]) Not Detected Not De tected Dec 25, 2021 12:08 [facility] COVID-19 MONITOR Specimen Ty pe: OROPHARYNX PM [facility] PANEL([facility]) No comment enter ed. Ordering Provid er: ASHWINI SARMIENTO Report Released Date/Time: Nov 23, 2021 07:35 PM Reporting Lab: [facility] [address] [facility] [address] Performing Lab: [facility] [address] [facility] [address] COVID-19 ([id number]) Not Detected Not De tected Social History: Smoking Status (Most current) and Tobacco Use (All prior to encounter date) This section includes the most current, and the historical, smoking and tobacco-related health factors from the [place] facility where the Encounter took place.Current Smoking Status This section includes the most current smoking, or tobacco-related health factor, from the [place] facility where the Encounter took place. Date/Time Current Smoking Status Comment Facility Oct 28, 2017 08:55 AM LIFETIME NON-USER OF TOBACCO [facility] Encounter Notes: All associated encounter notes This section contains the clinical notes associated to the Encounter. Date/Time Encounter Note(s) Provider Source Jan 22, 2022 07:51 AM SCANNED REPORT: SHYANNE TURNER [place] [facility] LOCAL TITLE: NONVA MEDICAL RECORD STANDARD TITLE: SCANNED REPORT DATE OF NOTE: JAN 22, 2022@07:51 ENTRY DATE: JAN 22, 2022@07:52:22 AUTHOR: SHYANNE TURNER EXP COSIGNER: URGENCY: STATUS: COMPLETED VistA Imaging - Scanned Document Outside medical records supplied by the patient are attached to this note. To review these MEDICAL RECORDS, select Vi sta Imaging Display from the Tools menu in CPR[employer]. /jacki/ SHYANNE TURNER MSA Signed: 01/22/2022 07:52
--- OUTSIDE RECORDS SUMMARY | 2022-10-02 10:32 | XMS_ITS | Encounter Summary ---
:1965 Author Organization [facility] Address [address] [place] [id number] Support Name Relationship Address Phone DENISSE LEON Unavailable [address] [place] [address] NONE, GIVEN Unavailable Unavailable Unavailable Insurance Providers: [...] POINT OF [facility] Feb [id number] [phone] [place] PATIENT SERVICE INTER 2011 [id number] VERO NATIO [place] AETNA PRESCRIPT [facility] Feb [id number] [phone] COBY LEON PATIENT PHARMACY ION INTER 2011 [id number] VERO MANAGEMENT NATIO 1 [place] BCBS [place] PREFERRED BASIC Nov 30 [id number] [phone] COBY LEON PATIENT FEP PROVIDER FAMIL 2017 62 [id number] VERO ORGANIZAT Y ION (PPO) [place]BS OF [place] DENTAL [place] Nov 30 [id number] [phone] COBY LEON PATIENT FEP INSURANCE L 112 2017 62 5 VERO (DENTAL) [place] PREFERRED BAS[place] Nov 30 [id number] [phone] COBY [place] PATIENT FEP PROVIDER FAMIL 2017 62 5 VERO ORGANIZAT Y ION (PPO) [place]BS OF [place] PREFERRED STAND March 26 [id number] [phone] COBY METZ PATIENT (FEDERAL) 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 2015 62 7 VERO ORGANIZAT IND ION (PPO) 104 CAREMARK PRESCRIPT FEP March 26, [id number] [phone] [place] PATIENT ([id number]) ION 2015 0 62 7 VERO CAREMARK-F PRESCRIPT FEP Nov 30, [id number] [phone] [place] PATIENT EP BCBS ION CAREM 2018 0 62 1 VERO ARK CAREMARK-F PRESCRIPT SHERI Nov 30, [id number] [phone] [place] PATIENT EP [place] ION AL 2018 0 62 1 VERO RX CAREMARK-F PRESCRIPT SHERI Nov 30, [id number] [phone] [place] PATIENT EP [place] ION AL 2018 0 [id number] 1 VERO RX CAREMARK-F PRESCRIPT FEP Nov 30, [id number] [phone] [place] PATIENT EP BC[place] ION 2018 0 [id number] VERO HORIZON PREFERRED BASIC Nov 30 [id number] [phone] [place] ,[place] PATIENT BCBS FEP* PROVIDER FAMIL 2017 62 8 VERO ORGANIZAT Y ION (PPO) HORIZON PREFERRED BASIC Nov 30 [id number] [phone] [place] PATIENT FEDERAL PROVIDER FAMIL 2018 62 8 VERO ORGANIZAT Y ION (PPO) DEPART WORKERS' OWCP Jul 01, NONE [id number] [phone] IN[place]O [place] PATIENT OF LABOR COMPENSAT MEDIC 2018 [id number] VERO MED DFEC ION AL INSURANCE DFEC DEPT OF WORKERS' WORKE Jul 01, WORKERS [id number] [phone] [place] PATIENT LABOR COMPENSAT RS 2019 COMP [id number] VERO ION COMP INSURANCE Selected Encounter This section includes the information on record at [place] for the Encounter. Date/Time Encounter Type Encounter Reason Provider Source Description Jan 18, 2022 OFFICE O/P EST PRIMARY ICD-10-CM I10 MYNOR CABALLERO 09:30 AM MOD 30-39 MIN CARE/MEDICINE Essential A (primary) hypertension with Provider Comments: Essential (Primary) Hypertension IHE Encounter Template Text not used by [facility] Assessments - Encounter Diagnoses This section includes the primary and secondary diagnoses documented for the Encounter. Date/Time Primary/Secondary Diagnosis Name Provider Source Diagnosis Jan 18, 2022 PRIMARY Essential (primary) JC CABALLERO- [facility] 10:51 AM hypertension [facility] Jan 18, 2022 SECONDARY Hyperlipidemia, CJ CABALLEROONS- [place] 10:51 AM unspecified [facility] Jan 18, 2022 SECONDARY Major depressive JC CABALLEROONS- [place] 10:51 AM disorder, single [place] episode, HCS unspecified Jan 18, 2022 SECONDARY Type 2 diabetes JC CABALLEROONS- [place] 10:51 AM mellitus without [place] complications [facility] Plan of Treatment: Future Appointments (+ 6 months) and Future Tests (+/- 45 days) The Plan of Treatment section includes future care activities for the patient from all [place] [facility]. This section includes future appointments and future orders which are active, pending orscheduled.Future Appointments This section includes appointments that were scheduled to occur 6 months from the date of the Encounter, up to a maximum of 20 appointments. The data comes from all [place] treatment facilities. Appointment Date/Time Appointment Type Appointment Facili ty Name Jan 23, 2022 02:00 PM AMBULATORY - MEDICINE [facility] Jan 24, 2022 01:00 PM AMBULATORY - PSYCHIATRY [facility] Feb 01, 2022 08:00 AM AMBULATORY - PSYCHIATRY [facility] Feb 01, 2022 09:00 AM AMBULATORY - PSYCHIATRY [facility] Feb 19, 2022 03:00 PM AMBULATORY - MEDICINE [facility] Mar 01, 2022 08:00 AM AMBULATORY - PSYCHIATRY [facility] April 05, 2022 09:00 AM AMBULATORY - PSYCHIATRY [facility] April 10, 2022 10:00 AM AMBULATORY - PSYCHIATRY [facility] April 12, 2022 09:00 AM AMBULATORY - NONE [facility] April 12, 2022 10:00 AM AMBULATORY - MEDICINE [facility] Apr 24, 2022 10:00 AM AMBULATORY - PSYCHIATRY [facility] May 01, 2022 08:00 AM AMBULATORY - MEDICINE [facility] May 08, 2022 10:00 AM AMBULATORY - PSYCHIATRY [facility] Jun 27, 2022 09:30 AM AMBULATORY - MEDICINE [facility] Jun 28, 2022 09:00 AM AMBULATORY - PSYCHIATRY [facility] Jul 12, 2022 08:00 AM AMBULATORY - PSYCHIATRY [facility] Jul 12, 2022 09:20 AM AMBULATORY - MEDICINE [facility] Jul 18, 2022 10:30 AM AMBULATORY MEDICINE [place] [facility]ACHEL BARON [facility] Lab Results: +/- 30 days of the [...] - Unit Interpretation Reference Range Comment Feb 13, 2022 03:14 [facility] COVID-19 MONITOR Specimen Ty pe: OROPHARYNX [facility] PANEL([facility]) Comment: Test P erformed by NAHUM Lemus Ordering Provid er: ASHWINI SARMIENTO Report Released Date/Time: Jan 16, 2022 12:20 PM Reporting Lab: [facility] [address] [facility] [address] Performing Lab: [facility] HCS [address] [facility] [address] COVID-19 ([id number]) Not Detected Not De tected Jan 30, 2022 02:50 [facility] COVID-19 MONITOR Specimen Ty pe: OROPHARYNX PM [facility] PANEL([facility]) Comment: Test P erformed by NAHUM Lemus Ordering Provid er: ASHWINI SARMIENTO Report Released Date/Time: Dec 26, 2021 09:07 AM Reporting Lab: [facility] [address] [facility] [address] Performing Lab: [facility] [address] [facility] [address] COVID-19 ([id number]) Not Detected Not De tected Jan 23, 2022 08:00 [facility] HEMOGLOBIN A1C Specime n Type: BLOOD AM HCS No comment enter ed. Ordering Provid er: JUSTIN HEBERT Report Released Date/Time: Jan 18, 2022 11:36 AM Reporting Lab: [facility] [address] [facility] [address] Performing Lab: [facility] [address] [facility] [address] HEMOGLOBIN A1C 7.9 H 4.8-5.6 Jan 23, 2022 08:00 [facility] PROSTATE SPECIFIC Specimen T ype: SERUM AM [facility] ANTIGEN No comment enter ed. Ordering Provid er: JC CABALLERO Report Released Date/Time: Jan 18, 2022 10:03 AM Reporting Lab: [facility] [address] [facility] [address] Performing Lab: [facility] [address] [facility] [address] PROSTATE SPECIFIC ANTIGEN 0.430 0-4. 0 Jan 23, 2022 [facility], Comprehensive Specimen Ty pe: SERUM 08:00 AM [facility] Metabolic Panel No comment enter ed. Ordering Provid er: JC CABALLERO Report Released Date/Time: Jan 18, 2022 10:03 AM Reporting Lab: [facility] [address] [facility] [address] Performing Lab: [facility] [address] [facility] [address] CREATININE 1.3 .7-1.3 UREA NITROGEN 23 7-25 GLUCOSE 163 H 65-99 SODIUM 138 136-145 POTASSIUM 4.6 3.5-5.1 CHLORIDE 101 98-107 CO2 28 21-31 CALCIUM 9.9 8.6-10.3 PROTEIN,TOTAL 7.0 6.4-8.9 ALBUMIN 4.6 3.5-5.7 TOTAL BILIRUBIN 0.5 0.3-1.0 ALKALINE PHOSPHATASE 81 34-104 AST 23 13-39 ALT 24 7-52 ANION GAP 9 5-13 eGFR 58 L >60 Jan 23, 2022 08:00 AM [facility] URINALYSIS Spec imen Type: URINE HCS No comment enter ed. Ordering Provid er: JC CABALLERO Report Released Date/Time: Jan 18, 2022 10:03 AM Reporting Lab: [facility] [address] [facility] [address] Performing Lab: [facility] [address] [facility] [address] URINE COLOR Colorless YELLOW SPECIFIC GRAVITY 1.003 [...] OCC None seen Jan 22, 2022 12:00 [facility] NEW COVID-19 MONITOR Specimen Ty pe: OROPHARYNX AM [facility] PANEL([facility]) Comment: Test P erformed by NAHUM Lemus Ordering Provid er: ASHWINI SARMIENTO Report Released Date/Time: Dec 26, 2021 09:07 AM Reporting Lab: [facility] [address] [facility] [address] Performing Lab: [facility] [address] [facility] [address] COVID-19 ([id number]) Not Detected Not De tected Jan 15, 2022 03:39 [facility] NEW COVID-19 MONITOR Specimen Ty pe: OROPHARYNX [facility] PANEL([facility]) Comment: Test P erformed by NAHUM Lemus Ordering Provid er: ASHWINI SARMIENTO Report Released Date/Time: Dec 26, 2021 09:07 AM Reporting Lab: [facility] [address] [facility] [address] Performing Lab: [facility] [address] [facility] [address] COVID-19 ([id number]) Not Detected Not De tected Jan 07, 2022 07:10 [facility] NEW COVID-19 MONITOR Specimen Ty pe: OROPHARYNX PM [facility] PANEL([facility]) No comment enter ed. Ordering Provid er: ASHWINI SARMIENTO Report Released Date/Time: Dec 26, 2021 09:07 AM Reporting Lab: [facility] [address] [facility] [address] Performing Lab: [facility] [address] [facility] [address] COVID-19 ([id number]) Not Detected Not De tected Dec 27, 2021 12:00 [facility] COVID-19 MONITOR Specimen Ty pe: OROPHARYNX AM [facility] PANEL([facility]) No comment enter ed. Ordering Provid er: ASHWINI SARMIENTO Report Released Date/Time: Dec 26, 2021 09:07 AM Reporting Lab: [facility] [address] [facility] [address] Performing Lab: [facility] [address] [facility] [address] COVID-19 ([id number]) Not Detected Not De tected Dec 25, 2021 12:08 [facility] COVID-19 MONITOR Specimen Ty pe: OROPHARYNX [facility] PANEL([facility]) No comment enter ed. Ordering Provid er: ASHWINI SARMIENTO Report Released Date/Time: Nov 23, 2021 07:35 PM Reporting Lab: [facility] [address] [facility] [address] Performing Lab: [facility] [address] [facility] [address] COVID-19 ([id number]) Not Detected Not De tected Vital Signs: All taken on the encounter date This section contains inpatient and outpatient Vital Signs collected on the date of the Encounter. Date/Time Temperature Pulse Blood Respiratory SP02 Pain Height Weight Dong dy Source Pressure Rate Mass Index Jan 18, 0 2021 09:58 [facility] Social History: Smoking Status (Most current) [...] 2021 09:00 AM VA-TOBACCO FORMER USER [facility] Tobacco Use History This section includes a history of the smoking, or tobacco- related health factors, that were collected on or before the date of the Encounter. The data comes from the [place] facility where the Encounter took place. Date/Time Smoking Status/Tobacco Use Comment Facil [facility] Jun 29, 2021 09:00 AM VA-TOBACCO QUIT 15 YRS OR [facility] Jul 20, 2020 10:30 AM VA-TOBACCO NEVER USED [place] [facility]- [facility] Aug 12, 2019 03:12 PM VA-TOBACCO FORMER USER [facility]- [facility] Aug 12, 2019 03:12 PM VA-TOBACCO QUIT 15 YRS OR [facility] Aug 20, 2018 04:56 PM VA-TOBACCO FORMER USER [facility]- [facility] Aug 20, 2018 04:56 PM VA-TOBACCO QUIT 15 YRS OR [facility] Nov 19, 2016 09:49 AM LIFETIME NON-USER OF [facility] - [facility] TOBACCO [facility] Dec 13, 2015 03:30 PM QUIT TOBACCO >7 YEARS AGO [facility] Dec 09, 2014 09:06 AM QUIT TOBACCO >7 YEARS AGO [facility] Jan 29, 2014 08:56 AM LIFETIME NON-USER OF [facility] - [facility] TOBACCO [facility] Jun 11, 2012 01:32 PM QUIT TOBACCO >7 YEARS AGO [facility] Feb 01, 2009 09:26 AM LIFETIME NON-USER OF [facility] - [place] NEW TOBACCO quit [address] [place] [address] Aug 19, 2001 09:28 AM HISTORY OF SMOKING [facility] NEW Quit 2 yrs ago, 18 pack-yr Hx. Lourdes BULLOCK [facility] Encounter Notes: All associated encounter notes This section contains the clinical notes associated to the Encounter. Date/Time Encounter Note(s) Provider Source Jan 18, 2022 10:58 AM PRIMARY CARE OUTPATIENT NOTE: RICHIE CABALLERO [facility] LOCAL TITLE: AMB CARE/OPC/FOLLOW UP [facility] STANDARD TITLE: PRIMARY CARE OUTPATIENT NOTE DATE OF NOTE: JAN 18, 2022@10:58 ENTRY DATE: JAN 18, 2022@10:58:34 AUTHOR: JC CABALLERO EXP COSIGNER: URGENCY: STATUS: COMPLETED MAR 16, 2021@13:21 last visit w/ Dr Mccurdy Patient was under care of Ms. Judith Shea. transferred to the [facility] Team. requested for change of provider HPI: 55 yo male presents for routine follow u p visit for evaluation and mgt. of :HTN, DM, asthma \ here today reports multiple probs Request eval memory , feels short term memory lo ss is starting, losing things / Request eval Chronic pain Lt shoulder , refused Ortho consult , will deal w/ PMRS , uses TENS /Discussed CT done in 2019 Chronic Rt groin pain /discussed CT abd done, se en Urol ffor Varicocele Pain is not worse Red nodule scattered in trunk /Request derm to s creen skin cancer Request CRC , last 5 yrs ago w/ polyps Has urin urgency, no hesitancy and frequent erec tion Denies hematuria/ fever Seen Urol Sep 2020 No recent hosp ER visit/ acute probs today father : age 64yo gastric cancer. He was smo ker. Pancreatic cancer, mother, age 78 yo. Sees Mrs Hebert for DM mgt Allergies: PENICILLIN Medical History: Code Description F33.1 Moderate major depression ([facility] 110756) E66.09 Obesity ([facility] 809940264) E11.9 Diabetic retinopathy associated with type 2 diabetes mellitus ([facility] 312248719) 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, BILATERAL (IC D-9-CM 389.18) 388.31 SUBJECTIVE TINNITUS (ICD-9-CM 388.31) 346.90 Migraine, unspecified, without mention of Intractable Migraine without mention o (ICD-9-CM 346.90) 799.9 HYPOSPADIES (ICD-9-CM 799.9) J45.909 Asthma sometimes restricts exercise ([facility] 254679615) 799.9 Fatty Liver (ICD-9-CM 799.9) Routine follow up today , had small accident, sm all abrasion to Rt heel. Reports BS >160 in AM/ tired of taking 4 meds, I nsulin was stopped by endoc. Loved diet soda/ and Pizza / lost wt ROS: Constitutional:No wt changes, chills.fever,night sweats fatigue,sleep prob Skin: no nodules, rash, loss of hair,hives HEENT:denies head trauma or headache,eye/ear arnulfo n, , congestion, sorethroat,vision prob, hearing loss ,sinus pain, dysphagia Cardiovascular: Denies chest pains,LEE,SOB,ortho pnea, leg edema,Hx syncope Respiratory:Denies SOB, cough,asthma apnea, snor ing,wheezing,no smoking GI: Denies abdominal pain, nausea, vomiting or d iarrhea, melena,gerd, GIB ulcers,loss of appetite , change in bowel habits ,dark stools :denies hematuria, dysuria,flank pain, nocturi a, stress incontinence Endocrine: neg.fatigue, wt loss excessive thirst or urination cold intolerance, polydipsia Hematology:DEnies bruises, bleeding Neurology:denies numbness, tingling, syncope, bl ack outs hx seizures,memory loss, loss odf B/B, loss of balance,vision prob,weakness MuskS: denies joint and,back pain , gait and [place] prob Psych: No hallucinations ,anxiety ,depression or delusions Active Outpatient Medications (excluding Supplie s): Active [...] ET BY ACTIVE MOUTH DAILY FOR MOOD 5) CETIRIZINE HCL 10MG TAB TAKE ONE TABLET BY MO UTH ACTIVE DAILY FOR ALLERGY 6) EMPAGLIFLOZIN 10MG TAB TAKE ONE TABLET BY NGUYEN DAILY ACTIVE 7) ENALAPRIL MALEATE 2.5MG TAB TAKE ONE TABLET B Y MOUTH ACTIVE DAILY FOR BLOOD PRESSURE/KIDNEY PROTECTION 8) GLIMEPIRIDE 4MG TAB TAKE ONE TABLET BY MOUTH TWICE A ACTIVE DAY FOR DIABETES 9) MELATONIN 3MG CAP/TAB TAKE TWO CAP/TABS BY MO UTH AT HOLD BEDTIME FOR INSOMNIA 10) METFORMIN HCL 500MG 24HR SA TAB TAKE TWO TAB LETS BY ACTIVE MOUTH TWICE A DAY FOR DIABETES 11) PSYLLIUM SF ORAL PWD TAKE 1 TEASPOONFUL BY M ESTRELLITA ACTIVE DAILY (MIX IN A GLASS OF JUICE OR WATER) Active Non-VA Medications Status 1) Non-VA IBUPROFEN TAB MOUTH DAILY NEEDED AC TIVE 2) Non-VA MULTIVITAMINS TAB MOUTH DAILY ACTIVE 3) Non-VA LMWKS-0-PECE ETHYL ESTERS 1000MG CAP 1 000MG ACTIVE MOUTH TWICE A DAY 14 Total Medications DATE/TIME TEMP PULSE RESP BP PAIN WT (LB) P OX 01/18/22 @ 0958 0 General:Well developed, well nourished.No obviou s distress.overweight Skin:red dots nodules scattered in back, shoulde r / warm,dry ,no cyanosis, NCCE. no lesions HENT:NCAT,EOMI normal anicteric conjunctiva,scle casandra.oral mucosa moist Neck: soft, supple , no JVD , Respiratory:Respiration easy.lungs clear, Cardiovascular:PMI within 5th ICS /MCL.NSR, S1S2 ,no gallop/murmur,no leg edema, Gastrointestinal:abdomen .soft/NT or distended.n ormal BS, no abdominal tenderness Musculoskeletal:normal range of motion Lt should er .Ambulate w/o support/no limp Neurological/Psych: cooperative coherent.Mood af fect appropriate.AAOx 3,gait normal,No obvious focal neuro deficits. Psych : calm HTN- cont meds/stable HLD- cont meds/ stable DM- Optom advised renew meds/lose wt Check FBS 9 0-120 /f/u endoc Excersize induced Asthma- stable Albut PRN DEpression- f/u CRC -2017 1 benign polyp /CRC consult Unsp lesion- DErm, consult Memory loss- Neuropsych consult eval dementia Assessment/Plan: -Continue w/ current medications -Smoking cessation , labs reviewed , weight loss and exercise encouraged. -Follow up in 6 mos. Low fat/salt diet Increase activity as tolerated Other: - understood instructions -Related risk factors discussed. - will call for other concerns. No. given [phone] Medication Reconciliation: I have reviewed all V A medications and non-VA medications including OTC, herbals, and vitamins with the patient. The patient was given a copy of the updated medication list. The patient was given an opportunity to ask questions and verbalized an u nderstanding of the plan Laboratory studies reviewed.Discussed abnormal r esults.Copy given to pt. Recommend follow up in 6 months and PRN or call [phone] for earlier appt. Call prn sx. increase, change or persist within one week. Treatment options discussed agree with current interventions. There were no barriers to the communication proc ess. verbalized good understanding. PREVENTIVE HEALTH Relationship Health & Safety Screen: RELATIONSHIP HEALTH & SAFETY SCREEN ENVIRONMENTAL SAFETY CHECK: Screening is not completed at this time due to: Other: Reason: na Missing Patient Risk Assesment: MISSING PATIENT RISK ASSESSMENT Is the patient legally committed (the patient h as active [place] papers or is involuntarily committed)? No Does the patient have a court appointed legal g uardian? Yes Does the patient's behavior evidence a potentia l for harm to self or others? No Does the patient's behavior indicate that he/sh e lacks the cognitive ability (either permanently or temporarily) to make appropriate decisions? No Does the patient have pyhsical or mental impair ments that increase their risk of harm to self and/or others? No /jacki/ Jc Caballero MSN,LAY OUT MACHINE OPERATOR Family Nurse Practitioner Signed: 01/18/2022 10:56 /jacki/ Jc Caballero MSN,LAY OUT MACHINE OPERATOR Family Nurse Practitioner Signed: 01/18/2022 10:58 Jan 18, 2022 09:56 AM NURSING OUTPATIENT NOTE: ERCIA NAPIER [facility] LOCAL TITLE: AMB CARE/PACT NURSING PROTOCOL HCS STANDARD TITLE: NURSING OUTPATIENT NOTE DATE OF NOTE: JAN 18, 2022@09:56 ENTRY DATE: JAN 18, 2022@09:56:21 AUTHOR: ERICA NAPIER EXP COSIGNER: URGENCY: STATUS: COMPLETED PACT Nursing Protocol Note was able to provide sports writer with two identifiers full name and full date of : Chief Complaint: [facility] The following issues were reviewed with the Vete ran during this visit and results communicated to the provider, [employer] In the last 6 months, do you have thing s in your life that worry you or cause you stress? has provider This author has reviewed the 's allergie s and there are no changes. This author has reviewed the 's Non-VA m edications and there are no changes. PREVENTIVE HEALTH Travel and Symptom Screen: The patient indicated that they and their close contacts have not traveled outside of the [place] in the past 21 day s. The patient reports the following symptoms: No symptoms present The patient is not immunocompromised. The patient does not report having a history of Multi Drug Resistant Organism (MDRO) within the last five years. The patient does not report having been exposed to measles, chickenpox, or zoster in last 30 days. Pain screen: Pain level: 0 COVID-19 Immunization: Moderna COVID-19 Vaccine given previously Patient received a prior dose of the Moderna [place] VID-19 Vaccine. Date: December 06, 2020 Location: [facility] Patient received a prior dose of the Moderna [place] VID-19 Vaccine. Date: January 03, 2021 Location: [facility] Patient received a prior dose of the Moderna [place] VID-19 Vaccine. Date: September 28, 2021 Series: Series 3 Location: [place] /jacki/ Erica Napier LPN LICENSED PRACTICAL NURSE Signed: 01/18/2022 10:02 Jan 18, 2022 09:55 AM INFECTIOUS DISEASE RISK ASSESSMENT SCR EENING NOTE: ERICA NAPIER [facility] LOCAL TITLE: SCREENING COVID HC S STANDARD TITLE: INFECTIOUS DISEASE RISK ASSESSME NT SCREENING NOT DATE OF NOTE: JAN 18, 2022@09:55 ENTRY DATE: JAN 18, 2022@09:55:48 AUTHOR: ERICA NAPIER EXP COSIGNER: URGENCY: STATUS: COMPLETED Coronavirus Disease 2018 (COVID-19) Screen The patient was asked if in the last 14 days the y have had new onset of any COVID-19 symptoms. They report the following: No symptoms Within the past 14 days, the patient reports no exposure to someone with a febrile/respiratory illness or someone with a kn own or suspected case of COVID-19 (within 6 feet for > 15 minutes). Result: Screen is negative. /es/ Erica Napier LPN LICENSED PRACTICAL NURSE Signed: 01/18/2022 09:56 Jan 17, 2022 04:17 PM PRIMARY CARE OUTPATIENT NOTE: RICHIE CABALLERO [facility] LOCAL TITLE: AMB CARE/OPC/FOLLOW UP [facility] STANDARD TITLE: PRIMARY CARE OUTPATIENT NOTE DATE OF NOTE: JAN 17, 2022@16:17 ENTRY DATE: JAN 17, 2022@16:18 AUTHOR: JC CABALLERO EXP COSIGNER: URGENCY: STATUS: COMPLETED MAR 16, 2021@13:21 last visit w/ Dr Mccurdy Patient was under care of Ms. Judith Shea. transferred to the [facility] Team. requested for change of provider HPI: 55 yo male presents for routine follow u p visit for evaluation and mgt. of :HTN, DM, asthma \ here today reports multiple probs Request eval memory , feels short term memory loss is starting, losing things / Request eval Chronic pain Lt shoulder , r efused Ortho consult , will deal w/ PMRS , uses TENS /Discussed CT done in 2019 Chronic Rt groin pain /discu ssed CT abd done, seen Urol ffor Varicocele Pain is not worse Red nodule scattered in trunk /Request derm to s creen skin cancer Request CRC , last 5 yrs ago w/ polyps Has urin urgency, no hesitancy and frequent erec tion Denies hematuria/ fever Seen Urol Sep 2020 No recent hosp ER visit/ acute probs today father : age 64yo gastric cancer. He was smo ker. Pancreatic cancer, mother, age 78 yo. Sees Mrs Hebert for DM mgt Allergies: PENICILLIN Medical History: Code Description F33.1 Moderate major depression (SCT 546027) E66.09 Obesity (SCT 090418628) E11.9 Diabetic retinopathy associated with type 2 diabetes mellitus ([facility] [id number]) 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, BILATERAL (IC D-9-CM 389.18) 388.31 SUBJECTIVE TINNITUS (ICD-9-CM 388.31) 346.90 Migraine, unspecified, without mention of Intractable Migraine without mention o (ICD-9-CM 346.90) 799.9 HYPOSPADIES (ICD-9-CM 799.9) J45.909 Asthma sometimes restricts exercise ([facility] [id number]) 799.9 Fatty Liver (ICD-9-CM 799.9) Routine follow up today , had small accident, sm all abrasion to Rt heel. Reports BS >160 in AM/ tired of taking 4 meds, I nsulin was stopped by endoc. Loved diet soda/ and Pizza / lost wt ROS: Constitutional:No wt changes, chills.fever,night sweats fatigue,sleep prob Skin: no nodules, rash, loss of hair,hives HEENT:denies head trauma or headache,eye/ear arnulfo n, , congestion, sorethroat,vision prob, hearing loss ,sinus pain, dysphagia Cardiovascular: Denies chest pains,LEE,SOB,ortho pnea, leg edema,Hx syncope Respiratory:Denies SOB, cough,asthma apnea, snor ing,wheezing,no smoking GI: Denies abdominal pain, nausea, vomiting or d iarrhea, melena,gerd, GIB ulcers,loss of appetite , change in bowel habits ,dark stools :denies hematuria, dysuria,flank pain, nocturi a, stress incontinence Endocrine: neg.fatigue, wt loss excessive thirst or urination cold intolerance, polydipsia Hematology:DEnies bruises, bleeding Neurology:denies numbness, tingling, syncope, bl ack outs hx seizures,memory loss, loss odf B/B, loss of balance,vision prob,weakness MuskS: denies joint and,back pain , gait and [place] prob Psych: No hallucinations ,anxiety ,depression or delusions Active Outpatient Medications (excluding Supplie s): Active [...] ET BY ACTIVE MOUTH DAILY FOR MOOD 5) CETIRIZINE HCL 10MG TAB TAKE ONE TABLET BY MO UTH ACTIVE DAILY FOR ALLERGY 6) EMPAGLIFLOZIN 10MG TAB TAKE ONE TABLET BY NGUYEN TH DAILY ACTIVE 7) ENALAPRIL MALEATE 2.5MG TAB TAKE ONE TABLET B Y MOUTH ACTIVE DAILY FOR BLOOD PRESSURE/KIDNEY PROTECTION 8) GLIMEPIRIDE 4MG TAB TAKE ONE TABLET BY MOUTH TWICE A ACTIVE DAY FOR DIABETES 9) MELATONIN 3MG CAP/TAB TAKE TWO CAP/TABS BY MO UTH AT HOLD BEDTIME FOR INSOMNIA 10) METFORMIN HCL 500MG 24HR SA TAB TAKE TWO TAB LETS BY ACTIVE MOUTH TWICE A DAY FOR DIABETES 11) PSYLLIUM SF ORAL PWD TAKE 1 TEASPOONFUL BY M OUTH ACTIVE DAILY (MIX IN A GLASS OF JUICE OR WATER) Active Non-VA Medications Status 1) Non-VA IBUPROFEN TAB MOUTH DAILY NEEDED AC TIVE 2) Non-VA MULTIVITAMINS TAB MOUTH DAILY ACTIVE 3) Non-VA EERPC-3-NKJG ETHYL ESTERS 1000MG CAP 1 000MG ACTIVE MOUTH TWICE A DAY 14 Total Medications DATE/TIME TEMP PULSE RESP BP PAIN WT (LB) P OX 01/18/22 @ 0958 0 General:Well developed, well nourished.No obviou s distress.overweight Skin:red dots nodules scatte red in back, shoulder / warm,dry ,no cyanosis, NCCE. no lesions HENT:NCAT,EOMI normal anicteric conjunctiva,scle casandra.oral mucosa moist Neck: soft, supple , no JVD , Respiratory:Respiration easy.lungs clear, Cardiovascular:PMI within 5th ICS /MCL.NSR, S1S2 ,no gallop/murmur,no leg edema, Gastrointestinal:abdomen .soft/NT or distended.n ormal BS, no abdominal tenderness Musculoskeletal:normal range of motion Lt shoulder .Ambulate w/o support/no limp Neurological/Psych: cooperative coherent.Mood af fect appropriate.AAOx 3,gait normal,No obvious focal neuro deficits. Psych : calm HTN- cont meds/stable HLD- cont meds/ stable DM- [employer] advised renew meds/lose wt Check FBS 9 0-120 /f/u endoc Excersize induced Asthma- stable Albut PRN DEpression- f/u CRC -2017 1 benign polyp /CRC consult Unsp lesion- DErm, consult Memory loss- Neuropsych consult eval dementia Assessment/Plan: -Continue w/ current medications -Smoking cessation , labs reviewed , weight loss and exercise encouraged. -Follow up in 6 mos. Low fat/salt diet Increase activity as tolerated Other: -[place] understood instructions -Related risk factors discussed. -[place] will call for other concerns. No. given [phone] Medication Reconciliation: I have reviewed all V A medications and non-VA medications including OTC, herbals, and vitamins with the patient. The patient was given a copy of the updated medication list. The patient was given an opportunity to ask questions and verbalized an u nderstanding of the plan Laboratory studies reviewed.Discussed abnormal r esults.Copy given to pt. Recommend follow up in 6 months and PRN or call [phone] for earlier appt. Call prn sx. increase, change or persist within one week. Treatment options discussed agree with current interventions. There were no barriers to the communication proc ess. verbalized good understanding. PREVENTIVE HEALTH Relationship Health & Safety Screen: RELATIONSHIP HEALTH & SAFETY SCREEN ENVIRONMENTAL SAFETY CHECK: Screening is not completed at this time due to: Other: Reason: na Missing Patient Risk Assesment: MISSING PATIENT RISK ASSESSMENT Is the patient legally committed (the patient h as active [place] papers or is involuntarily committed)? No Does the patient have a court appointed legal g uardian? Yes Does the patient's behavior evidence a potentia l for harm to self or others? No Does the patient's behavior indicate that he/sh e lacks the cognitive ability (either permanently or temporarily) to make appropriate decisions? No Does the patient have pyhsical or mental impair ments that increase their risk of harm to self and/or others? No /es/ Jc Caballero MSN,LAY OUT MACHINE OPERATOR Family Nurse Practitioner Signed: 01/18/2022 10:56
--- OUTSIDE RECORDS SUMMARY | 2022-10-02 10:32 | XMS_ITS | Encounter Summary ---
:1965 Author Organization [facility] rs Address [address] [place] [address] Support Name Relationship Address Phone DENISSE LEON Unavailable [address] [place] [address] NONE, GIVEN Unavailable Unavailable Unavailable Insurance Providers: [...] [facility] - [facility] Feb [id number] [phone] [place]WARD [place] PATIENT SERVICE INTER 2011 [id number] VERO NATIO [place] AETNA PRESCRIPT [facility] Feb [id number] [phone] EDWARDDC PATIENT PHARMACY ION INTER 2011 [id number] VERO MANAGEMENT NATIO 1 [place] BCBS [place] PREFERRED BASIC Nov 30 [id number] [phone] COBY LEON PATIENT FEP PROVIDER FAMIL 2017 [id number] VERO ORGANIZAT Y ION (PPO) BCBS [place] DENTAL [place]ENT[place] Nov 30 [id number] [phone] COBY LEON PATIENT FEP INSURANCE L 112 2017 62 5 VERO (DENTAL) [place] PREFERRED BASIC Nov 30 [id number] [phone] COBY METZ PATIENT FEP PROVIDER FAMIL 2017 62 5 VERO ORGANIZAT Y ION (PPO) [place]BS OF [place] PREFERRED STAND March 26 [id number] [phone] COBY METZ PATIENT (FEDERAL) 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 2014 62 7 VERO ORGANIZAT IND ION (PPO) 104 CAREMARK PRESCRIPT FEP March 26, [id number] [phone] CONR OY,[place] PATIENT ([id number]) ION 2015 0 62 7 VERO CAREMARK-F PRESCRIPT FEP Nov 30, [id number] [phone] [place] PATIENT EP BCBS ION CAREM 2018 0 62 1 VERO ARK CAREMARK-F PRESCRIPT FEP Nov 30, [id number] [phone] PATIENT EP BCBS ION 2018 0 [id number] VERO CAREMARK-F PRESCRIPT SHERI Nov 30, [id number] [phone] [place] PATIENT EP BCBS ION AL 2018 0 62 1 VERO RX CAREMARK-F PRESCRIPT SHERI Nov 30, [id number] [phone] [place] PATIENT EP BCBS ION AL 2018 0 [id number] VERO RX HORIZON PREFERRED BASIC Nov 30 [id number] [phone] EDWARD ,[place] PATIENT BCBS FEP* PROVIDER FAMIL 2017 62 8 VERO ORGANIZAT Y ION (PPO) HORIZON PREFERRED BASIC Nov 30 [id number] [phone] EDWARDDC PATIENT FEDERAL PROVIDER FAMIL 2018 62 8 VERO ORGANIZAT Y ION (PPO) [place] DEPART WORKERS' OWCP Jul 01, NONE [id number] [phone] INDIGO CruzDC PATIENT OF LABOR COMPENSAT MEDIC [id number] VERO MED DFEC ION AL INSURANCE DFEC US DEPT OF WORKERS' WORKE Jul 01, WORKERS [id number] [phone] ROBERT SAABDC PATIENT LABOR COMPENSAT RS 2019 COMP [id number] VERO ION COMP INSURANCE Selected Encounter This section includes the information on record at [place] for the Encounter. Date/Time Encounter Type Encounter Reason Provider Source Description Dec 21, 2021 Outpatient TELEPHONE/MEDICI ICD-10-CM E11.8 EDWIGE HEBERT 11:30 AM Encounter NE Type 2 diabetes NA mellitus with unspecified complications with Provider Comments: Type 2 Diabetes Mellitus with unspecified Complications IHE Encounter Template Text not used by [facility] Assessments - Encounter Diagnoses This section includes the primary and secondary diagnoses documented for the Encounter. Date/Time Primary/Secondary Diagnosis Name Provider Source Diagnosis Dec 21, 2021 PRIMARY Type 2 [facility] AM mellitus with A [place] unspecified [facility] complications Dec 21, 2021 SECONDARY Counseling, HEBERT[facility] 11:30 AM unspecified A [facility] Plan of Treatment: Future Appointments (+ 6 months) and Future Tests (+/- 45 days) The Plan of Treatment section includes future care activities for the patient from all [place] treatmentfacilities. This section includes future appointments and future orders which are active, pending orscheduled.Future Appointments This section includes appointments that were scheduled to occur 6 months from the date of the Encounter, up to a maximum of 20 appointments. The data comes from all [place] treatment facilities. Appointment Date/Time Appointment Type Appointment Facili ty Name Jan 18, 2022 09:30 AM AMBULATORY - MEDICINE [facility] Jan 23, 2022 02:00 PM AMBULATORY - MEDICINE [facility] Jan 24, 2022 01:00 PM AMBULATORY - PS[facility]CHIATRY [facility] Feb 01, 2022 08:00 AM AMBULATORY - PSYCHIATRY [facility] Feb 01, 2022 09:00 AM AMBULATORY - PSYCHIATRY [facility] Feb 19, 2022 03:00 PM AMBULATORY - MEDICINE [facility] Mar 01, 2022 08:00 AM AMBULATORY - PSYCHIATRY [facility] April 05, 2022 09:00 AM AMBULATORY - PSYCHIATRY [facility] April 10, 2022 10:00 AM AMBULATORY - PSYCHIATRY [facility] April 12, 2022 09:00 AM AMBULATORY - NONE [facility] April 12, 2022 10:00 AM AMBULATORY - MEDICINE [facility] Apr 24, 2022 10:00 AM AMBULATORY - PSYCHIATRY [facility] May 01, 2022 08:00 AM AMBULATORY - MEDICINE [facility] May 08, 2022 10:00 AM AMBULATORY - PSYCHIATRY [facility] Lab Results: +/- 30 days of the [...] Result - Unit Interpretation Reference Range Comment Jan 15, 2022 03:39 [facility]-19 MONITOR Specimen Ty pe: OROPHARYNX PM [facility] PANEL(NJS) Comment: Test P erformed by NAHUM Lemus Ordering Provid er: ASHWINI SARMIENTO Report Released Date/Time: Dec 26, 2021 09:07 AM Reporting Lab: [facility] [address] [facility] [address] Performing Lab: [facility] [address] [facility] [address] COVID-19 ([id number]) Not Detected Not De tected Jan 07, 2022 07:10 [facility] COVID-19 MONITOR Specimen Ty pe: OROPHARYNX PM [facility] PANEL(NJS) No comment enter ed. Ordering Provid er: ASHWINI SARMIENTO Report Released Date/Time: Dec 26, 2021 09:07 AM Reporting Lab: [facility] [address] [facility] [address] Performing Lab: [facility] [address] [facility] [address] COVID-19 ([id number]) Not Detected Not De tected Dec 27, 2021 12:00 [facility] NEW COVID-19 MONITOR Specimen Ty pe: OROPHARYNX AM [facility] PANEL([facility]) No comment enter ed. Ordering Provid er: ASHWINI SARMIENTO Report Released Date/Time: Dec 26, 2021 09:07 AM Reporting Lab: [facility] [address] [facility] [address] Performing Lab: [facility] [address] [facility] [address] COVID-19 ([id number]) Not Detected Not De tected Dec 25, 2021 12:08 [facility] NEW COVID-19 MONITOR Specimen Ty pe: OROPHARYNX PM [facility] PANEL(NJS) No comment enter ed. Ordering Provid er: ASHWINI SARMIENTO Report Released Date/Time: Nov 23, 2021 07:35 PM Reporting Lab: [facility] [address] [facility] [address] Performing Lab: [facility] [address] [facility] [address] COVID-19 ([id number]) Not Detected Not De tected Dec 18, 2021 03:44 [facility] NEW COVID-19 MONITOR Specimen Ty pe: OROPHARYNX PM [facility] PANEL([facility]) No comment enter ed. Ordering Provid er: ASHWINI SARMIENTO Report Released Date/Time: Oct 24, 2021 02:22 PM Reporting Lab: [facility] [address] [facility] [address] Performing Lab: [facility] [address] [facility] [address] COVID-19 ([id number]) Not Detected Not De tected Dec 11, 2021 03:19 [facility] NEW COVID-19 MONITOR Specimen Ty pe: OROPHARYNX PM [facility] PANEL([facility]) No comment enter ed. Ordering Provid er: ASHWINI SARMIENTO Report Released Date/Time: Oct 24, 2021 02:22 PM Reporting Lab: [facility] [address] [facility] [address] Performing Lab: [facility] [address] [facility] [address] COVID-19 ([id number]) Not Detected Not De tected Dec 06, 2021 12:00 [facility] NEW COVID-19 MONITOR Specimen Ty pe: OROPHARYNX [facility] PANEL([facility]) No comment enter ed. Ordering Provid er: ASHWINI SARMIENTO Report Released Date/Time: Oct 24, 2021 02:22 PM Reporting Lab: [facility] [address] [facility] [address] Performing Lab: [facility] [address] [facility] [address] COVID-19 ([id number]) Not Detected Not De tected Dec 04, 2021 03:01 [facility] NEW COVID-19 MONITOR Specimen Ty pe: OROPHARYNX PM [facility] PANEL([facility]) No comment enter ed. Ordering Provid er: ASHWINI SARMIENTO Report Released Date/Time: Oct 24, 2021 02:22 PM Reporting Lab: [facility] [address] [facility] [address] Performing Lab: [facility] [address] [facility] [address] COVID-19 ([id number]) Not Detected Not De tected Nov 29, 2021 04:08 [facility] COVID-19 MONITOR Specimen Ty pe: OROPHARYNX PM [facility] PANEL([facility]) Comment: Test P erformed by NAHUM Lemus Ordering Provid er: ASHWINI SARMIENTO Report Released Date/Time: Oct 24, 2021 02:22 PM Reporting Lab: [facility] [address] [facility] [address] Performing Lab: [facility] [address] [facility] [address] COVID-19 ([id number]) Not Detected Not De tected Nov 27, 2021 12:23 [facility] COVID-19 MONITOR Specimen Ty pe: OROPHARYNX PM [facility] PANEL([facility]) Comment: Test P erformed by NAHUM Lemus Ordering Provid er: ASHWINI SARMIENTO Report Released Date/Time: Oct 01, 2021 06:02 PM Reporting Lab: [facility] [address] [facility] [address] Performing Lab: [facility] [address] [facility] [address] COVID-19 ([id number]) Not Detected Not De tected Social History: Smoking Status (Most current) and Tobacco Use (All prior to encounter date) This section includes the most current, and the historical, smoking and tobacco-related health factors from the [facility] where the Encounter took place.Current Smoking Status This section includes the most current smoking, or tobacco-related health factor, from the [place] facility where the Encounter took place. Date/Time Current Smoking Status Comment Facility Jun 29, 2021 09:00 AM [place]-TOBACCO FORMER USER [facility] Tobacco Use History This section includes a history of the smoking, or tobacco- related health factors, that were collected on or before the date of the Encounter. The data comes from the [place] facility where the Encounter took place. Date/Time Smoking Status/Tobacco Use Comment [facility] faustino Jun 29, 2021 09:00 AM [place]-TOBACCO QUIT 15 YRS OR [facility] Jul 20, 2020 10:30 AM VA-TOBACCO NEVER USED [facility]- [facility] Aug 12, 2019 03:12 PM VA-TOBACCO FORMER USER [facility] Aug 12, 2019 03:12 PM VA-TOBACCO QUIT 15 YRS OR [facility]- [facility] Aug 20, 2018 04:56 PM VA-TOBACCO FORMER USER [facility]- [facility] Aug 20, 2018 04:56 PM VA-TOBACCO QUIT 15 YRS OR [facility]- [facility] Nov 19, 2016 09:49 AM LIFETIME NON-USER OF [facility] - [facility] NEW TOBACCO [facility] Dec 13, 2015 03:30 PM QUIT TOBACCO >7 YEARS AGO [facility]- [facility] Dec 09, 2014 09:06 AM QUIT TOBACCO >7 YEARS AGO [facility]- [facility] Jan 29, 2014 08:56 AM LIFETIME NON-USER OF [facility] - [place] NEW TOBACCO [facility] Jun 11, 2012 01:32 PM QUIT TOBACCO >7 YEARS AGO [facility]- [facility] Feb 01, 2009 09:26 AM LIFETIME NON-USER OF [facility] - [place] NEW TOBACCO quit [address] [place] [address] Aug 19, 2001 09:28 AM HISTORY OF SMOKING [facility]- [place] NEW Quit 2 yrs ago, 18 pack-yr Hx. J SARAHBEV [facility] Encounter Notes: All associated encounter notes This section contains the clinical notes associated to the Encounter. Date/Time Encounter Note(s) Provider Source Dec 21, 2021 09:36 AM DIABETOLOGY NOTE: JUSTIN HEBERT [place] LOCAL TITLE: DIABETES CLINIC S STANDARD TITLE: DIABETOLOGY NOTE DATE OF NOTE: DEC 21, 2021@09:36 ENTRY DATE: DEC 21, 2021@09:36:41 AUTHOR: JUSTIN HEBERT EXP COSIGNER: URGENCY: STATUS: COMPLETED DIABETES CLINIC Has ADDENDA DIABETIC CLINIC NOTE --- Patient Name: ANGIE LEON Sex: MALE Age: 56 Years for a routine tel diabetes management visit. Pt initially scheduled for FTF visit- re quests telephone visit due to weather. [place] was informed the vis it would be performed remotely. Confidentiality, and the limits thereof, as well as the [facility] [employer] record keeping system were discussed and patient verbal ly indicated understanding. [place]'s questions were answered and agrees to this. HISTORY OF PRESENT ILLNESS --- Patient is a 56 year old MALE with a history of Diabetes Mellitus Type 2 10Years, mild NPDR,CKD stage 2, Neuropathy in et, previously on Insulin Detemir 14 units in 2019- we aned off per patient request as he does not want to perform daily injections. Reports doing well, exercise s regularly three times per week, checks BGs in am, average 120-160, no hypoglycemia or hyperglycemi a episodes Last visit: 09/21/2021 Current Reported Medical Management of Diabetes: metformin 1000 mg BID Empagliflozin 10 mg daily Alogliptin 12.5 mg daily Glimepiride 4 mg po BID At home Glucose Checking:fingerstick AM:120-160 Hyperglycemic symptoms: Denies Hypoglycemic symptoms:Denies. Most recent EYE Exam: Nov 2021 Moderate NPDR OD and Mild NPDR OS; without csme ou Current Medications: Active Outpatient Medications (excluding Supplie s): Active [...] EMPAGLIFLOZIN 10MG TAB TAKE ONE TABLET BY GNUYEN TH DAILY ACTIVE 7) ENALAPRIL MALEATE 2.5MG [...] E CAP,ORAL MOUTH ACTIVE 17 Total Medications Active Non-VA Meds 1) VITAMIN B COMPLEX Dose: Unknown Med Route: Unknown Schedule: 2) VITAMIN D Dose: Unknown Med Route: MOUTH Schedule: EVERY WEEK 3) VITAMIN E Dose: Unknown Med Route: MOUTH Schedule: 4) ASCORBIC ACID Dose: Unknown Med Route: MOUTH Schedule: 5) MULTIVITAMINS Dose: Unknown Med Route: MOUTH Schedule: DAILY Comments: TAKES DIABETES PACK 6) IBUPROFEN Dose: Unknown Med Route: MOUTH Schedule: DAILY NEEDED I have reviewed all VA medications and non-VA me dications including OTC, herbals, and vitamins MEDICATION ALLERGIES OR ADVERSE DRUG REACTIONS: - PENICILLIN PMH: Active Problem Moderate major depression F33.1 06/23/2019 SONDRA ADAMASHOBHA Obesity E66.09 01/15/2018 POSTALLIANNEISHA Diabetic retinopathy associated with 11/06/2017 MARIA DEL ANGEL SENSORINEURAL HEARING LOSS, BILATERAL 07/18/2014 JAMES MENENDEZ 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 Endocrine:Denies heat/cold intolerance, recent i nvoluntary weight change, polyuria, polydypsia, change in bowel habits. Cardiovascular:Denies chest pain, shortness of breath, PND, palpitations, dizzy spells, syncope, edema of legs, claudication. Respiratory:Denies cough, sputum production, elyse rtness of breath, wheezing, hemoptysis. --- Virtual visit GENERAL: NAD, AAOx3 VITALS - BP:112/73 (09/21/2021 08:44) Pulse:74 (09/21/2021 08:44) Weight:200 lb [90.9 kg] (09/21/2021 08:44) Height: 68 in [172.7 cm] (06/29/2021 09:28) BMI: BODY MASS INDEX - SEP 21, 2021@08:44:28 30. 5 LABORATORY Pertinent Values reviewed including: A1C: HEMOGLOBIN A1C 09/27/21 08:27 7.8 H Specimen Collection Date: Jun 19, 2021@11:25 Test name Result units Ref. range Site Code HEMOGLOBIN A1C 8.0 H % 4.8 - 5.6 [561] Specimen Collection Date: April 06, 2021@08:17 Test name Result units Ref. range Site Code HEMOGLOBIN A1C 7.6 H % 4.8 - 5.6 [561] GLUCOSE 09/27/21 08:27 157 H CHEM, Lipid Panel Saira.CHOL TRIG LDL HDL-DIRE 09/27/21 08:27 143 156 83 28 SGOT 09/27/21 08:27 25 06/19/21 11:25 24 04/06/21 08:17 24 SGPT 09/27/21 08:27 27 06/19/21 11:25 29 04/06/21 08:17 26 GLUCOSE 09/27/21 08:27 157 H eGFR: 58 TSH Specimen Collection Date: Sep 27, 2021@08:27 Test name Result units Ref. range Site Code TSH3, SERUM 1.42 mcIU/mL 0.45 - 5.33 [561] Immunizations: AUG 16, 2021 INFLUENZA, INJECTABL E, QUADRIVALENT OCT 14, 2019 ZOSTER RECOMBINANT AUG 12, 2019 ZOSTER RECOMBINANT AUG 12, 2019 INFLUENZA, SEASONAL, INJECTABLE AUG 20, 2018 INFLUENZA, SEASONAL, INJECTABLE JUL 28, 2017 INFLUENZA, SEASONAL, INJECTABLE AUG 13, 2016 INFLUENZA, SEASONAL, INJECTABLE AUG 24, 2015 INFLUENZA, SEASONAL, INJECTABLE SEP 26, 2014 INFLUENZA, UNSPECIFIED FORMULATION AUG 2013 INFLUENZA, UNSPECIFIED FORMULATION --- ASSESSMENT: 56 Years Old MALE with Type 2 Diabetes Mellitus for a routine follow up, aic not at goal 7.8, FBG 120-160. Pt does not wish to start in fectiable therapy- otions for Victoza daily, Insulin daily discussed. pt wishes to increase oral agen ts. --- PLAN: Medications: Increase Empagliflozin to 25 mg daily- adverse a nd side effects reviewed with patient cont. Metformin, Aligliptin, Glimepiride FBS:cont Diet:low carb no conc sweets reviewed Lab test:A1C, CMP prior to the next appt Follow up:March 2022 Education: -Hypoglycemia treatment reviewed -Foot care reviewed Above discussed with the patient who agrees to p karen of care. Time spent with patient: 15 minutes /jacki/ JUSTIN HEBERT DNP, MPA, FNP-Dena DIABETES [facility] Signed: 12/21/2021 09:50 01/02/2022 ADDENDUM STATUS: COMPLETED Pt wished Glucose tablets to be dicsontinued- he brody source of quick 15 gm carbs with him at all times - reports he has n ever had any hypoglycemia, Glocse tabs D/C'd. /kirstie HEBERT DNP, MPA, LOLITA-Dena DIABETES [facility] Signed: 01/02/2022 14:53
--- OUTSIDE RECORDS SUMMARY | 2022-10-02 10:32 | XMS_ITS | Encounter Summary ---
:1965 Author Organization [facility] Address [address] [place] [address] Support Name Relationship Address Phone DENISSE LEON Unavailable [address] [facility] [place] [address] NONE, GIVEN Unavailable Unavailable Unavailable Insurance Providers: [...] to Policy Number Chen AETNA [facility] Feb [id number] [phone] [place] PATIENT SERVICE INTER 2011 381 2 VERO NATIO [place] AETNA PRESCRIPT [facility] Feb [id number] [phone] [place] PATIENT [facility]ARMACY ION INTER 2011 [id number] VERO MANAGEMENT NATIO 1 [place] BCBS [place] PREFERRED BASIC Nov 30 [id number] [phone] COBY LEON PATIENT FEP PROVIDER FAMIL 2017 [id number] VERO ORGANIZAT Y ION (PPO) BCBS OF [place] DENTAL [place]ENT[place] Nov 30 [id number] [phone] COBY LEON PATIENT FEP INSURANCE L [id number] 2017 62 5 VERO (DENTAL) [place]BS [place] PREFERRED BASIC Nov 30 [id number] [phone] COBY METZ PATIENT FEP PROVIDER FAMIL 2017 62 5 VERO ORGANIZAT Y ION (PPO) [place]BS OF [place] PREFERRED STAND March 26 [id number] [phone] COBY METZ 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 (FEDERAL) 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 2015 62 7 VERO ORGANIZAT IND ION (PPO) 104 CAREMARK PRESCRIPT FEP March 26, [id number] CONR OY,SC PATIENT ([id number]) ION 2014 0 62 7 VERO CAREMARK-F PRESCRIPT FEP Nov 30, [id number] [phone] CO NROY,[place] PATIENT EP BCBS ION CAREM 2018 0 62 1 VERO ARK CAREMARK-F PRESCRIPT SHERI Nov 30, [id number] [phone] [place] PATIENT EP BCBS ION AL 2018 0 62 1 VERO RX CAREMARK-F PRESCRIPT SHERI Nov 30, [id number] [phone] [place] PATIENT EP BCBS ION AL 2018 0 [id number] 1 VERO RX CAREMARK-F PRESCRIPT FEP Nov 30, [id number] [phone] PATIENT EP BCBS ION 2018 0 [id number] VERO HORIZON PREFERRED BASIC Nov 30 [id number] [phone] EDWARD ,[place] PATIENT BCBS FEP* PROVIDER FAMIL 2017 62 8 VERO ORGANIZAT Y ION (PPO) HORIZON PREFERRED BASIC Nov 30 [id number] [phone] EDWARD ,[place] PATIENT FEDERAL PROVIDER FAMIL 2018 62 8 VERO ORGANIZAT Y ION (PPO) US DEPART WORKERS' OWCP Jul 01, NONE [id number] [phone] CONRO Y,SC PATIENT OF LABOR COMPENSAT MEDIC 2019 [id number] VERO MED DFEC ION AL INSURANCE DFEC US DEPT OF WORKERS' WORKE Jul 01, WORKERS [id number] [phone] CON [facility],[place] PATIENT LABOR COMPENSAT RS 2019 COMP [id number] VERO ION COMP INSURANCE Selected Encounter This section includes the information on record at [place] for the Encounter. Date/Time Encounter Type Encounter Reason Provider Source Description Jan 23, 2022 OFFICE DERMATOLOGY ICD-10-CM D18.01 WILLY SCHULTZ 02:00 PM CONSULTATION Hemangioma of skin and subcutaneous tissue with Provider Comments: Angioma IHE Encounter Template Text not used by [facility] Assessments - Encounter Diagnoses This section includes the primary and secondary diagnoses documented for the Encounter. Date/Time Primary/Secondary Diagnosis Name Provider Source Diagnosis Jan 23, 2022 PRIMARY Hemangioma of skin SOGUNLE,OMOSHA [facility]- [place] 02:33 PM and subcutaneous [facility] tissue HCS Jan 23, 2022 SECONDARY Oth skin changes SOGUNLE,OMJEANNIEA [place]- [place] 02[place] PM due to chr expsr to [facility] nonionizing HCS radiation Jan 23, 2022 SECONDARY Other hypertrophic SOGUNLE,OMJEANNIEA [place]- [place] 02[place] PM disorders of the [facility] skin HCS Jan 23, 2022 SECONDARY Other seborrheic SOGUNLE,OMSYDNIE [facility]- [place] 02:[place] PM keratosis [facility] Plan of Treatment: Future Appointments (+ 6 months) and Future Tests (+/- 45 days) The Plan of Treatment section includes future care activities for the patient from all [place] treatmentfacilities. This section includes future appointments and future orders which are active, pending orscheduled.Future Appointments This section includes appointments that were scheduled to occur 6 months from the date of the Encounter, up to a maximum of 20 appointments. The data comes from all [place] treatment facilities. Appointment Date/Time Appointment Type Appointment Facili ty Name Jan 24, 2022 01:00 PM AMBULATORY - PSYCHIATRY [facility] Feb 01, 2022 08:00 AM AMBULATORY - PSYCHIATRY [facility] Feb 01, 2022 09:00 AM AMBULATORY - PSYCHIATRY [facility] Feb 19, 2022 03:00 PM AMBULATORY - MEDICINE [facility] HELDER [facility] Mar 01, 2022 08:00 AM AMBULATORY - PSYCHIATRY [facility] April 05, 2022 09:00 AM AMBULATORY - PSYCHIATRY [facility] April 10, 2022 10:00 AM AMBULATORY - PSYCHIATRY [facility] April 12, 2022 09:00 AM AMBULATORY - NONE [facility] EY [facility] April 12, 2022 10:00 AM AMBULATORY - MEDICINE [facility] Apr 24, 2022 10:00 AM AMBULATORY - PSYCHIATRY [facility] May 01, 2022 08:00 AM AMBULATORY - MEDICINE [facility] May 08, 2022 10:00 AM AMBULATORY - PSYCHIATRY [facility] Jun 27, 2022 09:30 AM AMBULATORY - MEDICINE [facility] RSEY [facility] Jun 28, 2022 09:00 AM AMBULATORY - PSYCHIATRY [facility] Jul 12, 2022 08:00 AM AMBULATORY - PSYCHIATRY [facility] Jul 12, 2022 09:20 AM AMBULATORY - MEDICINE [facility] CARL [place] [facility] Jul 18, 2022 10:30 AM AMBULATORY - MEDICINE [place] NUPURRDomenic PARKSCHENCHOJennifer Mariah [facility] Lab Results: +/- 30 days of [...] Reference Range Comment Feb 19, 2022 12:00 [facility] COVID-19 MONITOR Specimen Ty pe: OROPHARYNX AM [facility] PANEL([facility]) Comment: Test P erformed by NAHUM Lemus Ordering Provid er: ASHWINI SARMIENTO Report Released Date/Time: Dec 26, 2021 09:07 AM Reporting Lab: [facility] [address] [facility] [address] Performing Lab: [facility] [address] [facility] [address] COVID-19 ([id number]) Not Detected Not De tected Feb 13, 2022 03:14 [facility] COVID-19 MONITOR Specimen Ty pe: OROPHARYNX PM [facility] PANEL([facility]) Comment: Test P erformed by NAHUM Lemus Ordering Provid er: ASHWINI SARMIENTO Report Released Date/Time: Jan 16, 2022 12:20 PM Reporting Lab: [facility] [address] [facility] [address] Performing Lab: [facility] [address] [facility] [address] COVID-19 ([id number]) Not Detected Not De tected Jan 30, 2022 02:50 [facility] NEW COVID-19 MONITOR Specimen Ty pe: OROPHARYNX PM [facility] PANEL([facility]) Comment: Test P erformed by NAHUM Lemus Ordering Provid er: ASHWINI SARMIENTO Report Released Date/Time: Dec 26, 2021 09:07 AM Reporting Lab: [facility] [address] [address] Performing Lab: [facility] [address] [facility] [address] COVID-19 ([id number]) Not Detected Not De tected Jan 23, 2022 08:00 [facility] HEMOGLOBIN A1C Specime n Type: BLOOD AM HCS No comment enter ed. Ordering Provid er: JUSTIN HEBERT Report Released Date/Time: Jan 18, 2022 11:36 AM Reporting Lab: [facility] [address] [address] Performing Lab: [facility] [address] [facility] [facility] [address] HEMOGLOBIN A1C 7.9 H 4.8-5.6 Jan 23, 2022 08:00 [facility] PROSTATE SPECIFIC Specimen T ype: SERUM AM [facility] ANTIGEN No comment enter ed. Ordering Provid er: JC CABALLERO Report Released Date/Time: Jan 18, 2022 10:03 AM Reporting Lab: [facility] [address] [facility] [facility] [address] Performing Lab: [facility] [address] [facility] [address] PROSTATE SPECIFIC ANTIGEN 0.430 0-4. 0 Jan 23, 2022 [facility], Comprehensive Specimen Ty pe: SERUM 08:00 AM [facility] Metabolic Panel No comment enter ed. Ordering Provid er: JC CABALLERO Report Released Date/Time: Jan 18, 2022 10:03 AM Reporting Lab: [facility] [address] [address] Performing Lab: [facility] [address] [facility] [address] CREATININE 1.3 .7-1.3 UREA NITROGEN 23 7-25 GLUCOSE 163 H 65-99 SODIUM 138 136-145 POTASSIUM 4.6 3.5-5.1 CHLORIDE 101 98-107 CO2 28 21-31 CALCIUM 9.9 8.6-10.3 PROTEIN,TOTAL 7.0 6.4-8.9 ALBUMIN 4.6 3.5-5.7 TOTAL BILIRUBIN 0.5 0.3-1.0 ALKALINE PHOSPHATASE 81 34-104 AST 23 13-39 ALT 24 7-52 ANION GAP 9 5-13 eGFR 58 L >60 Jan 23, 2022 08:00 AM [facility] URINALYSIS Spec imen Type: URINE HCS No comment enter ed. Ordering Provid er: JC CABALLERO Report Released Date/Time: Jan 18, 2022 10:03 AM Reporting Lab: [facility] [address] [facility] [address] Performing Lab: [facility] [address] [facility] [address] URINE COLOR Colorless YELLOW SPECIFIC GRAVITY 1.003 [...] NEW COVID-19 MONITOR Specimen Ty pe: OROPHARYNX [facility] PANEL([facility]) Comment: Test P erformed by NAHUM Lemus Ordering Provid er: ASHWINI SARMIENTO Report Released Date/Time: Dec 26, 2021 09:07 AM Reporting Lab: [facility] [address] [facility] [address] Performing Lab: [facility] [address] [facility] [address] COVID-19 ([id number]) Not Detected Not De tected Jan 15, 2022 03:39 [facility] NEW COVID-19 MONITOR Specimen Ty pe: OROPHARYNX [facility] PANEL([facility]) Comment: Test P erformed by NAHUM Lemus Ordering Provid er: ASHWINI SARMIENTO Report Released Date/Time: Dec 26, 2021 09:07 AM Reporting Lab: [facility] [address] [address] Performing Lab: [facility] [address] [facility] [address] COVID-19 ([id number]) Not Detected Not De tected Jan 07, 2022 07:10 [facility] NEW COVID-19 MONITOR Specimen Ty pe: OROPHARYNX PM [facility] PANEL([facility]) No comment enter ed. Ordering Provid er: ASHWINI SARMIENTO Report Released Date/Time: Dec 26, 2021 09:07 AM Reporting Lab: [facility] [address] [address] Performing Lab: [facility] [address] [address] COVID-19 ([id number]) Not Detected Not De tected Dec 27, 2021 12:00 [facility] NEW COVID-19 MONITOR Specimen Ty pe: OROPHARYNX AM [facility] PANEL([facility]) No comment enter ed. Ordering Provid er: ASHWINI SARMIENTO Report Released Date/Time: Dec 26, 2021 09:07 AM Reporting Lab: [facility] [address] [facility] [address] Performing Lab: [facility] [address] [facility] [address] COVID-19 ([id number]) Not Detected Not De tected Dec 25, 2021 12:08 [facility] NEW COVID-19 MONITOR Specimen Ty pe: OROPHARYNX PM [facility] PANEL([facility]) No comment enter ed. Ordering Provid er: ASHWINI SARMIENTO Report Released Date/Time: Nov 23, 2021 07:35 PM Reporting Lab: [facility] [address] [facility] [facility] [address] Performing Lab: [facility] [address] [facility] [address] COVID-19 ([id number]) Not Detected Not De tected Social History: Smoking Status (Most current) and Tobacco Use (All prior to encounter date) This section includes the most current, and the historical, smoking and tobacco-related health factors from the [place] facility where the Encounter took place.Current Smoking Status This section includes the most current smoking, or tobacco-related health factor, from the [place] facility where the Encounter took place. Date/Time Current Smoking Status Comment Facility Jun 29, 2021 09:00 AM VA-TOBACCO [facility] Tobacco Use History This section includes a history of the smoking, or tobacco- related health factors, that were collected on or before the date of the Encounter. The data comes from the [place] facility where the Encounter took place. Date/Time Smoking Status/Tobacco Use Comment [facility] it Jun 29, 2021 09:00 AM VA-TOBACCO QUIT 15 YRS OR [facility] Jul 20, 2020 10:30 AM VA-TOBACCO NEVER USED [facility] S- [facility] Aug 12, 2019 03:12 PM VA-TOBACCO FORMER USER [facility]- [facility] Aug 12, 2019 03:12 PM VA-TOBACCO QUIT 15 YRS OR [facility]- [facility] Aug 20, 2018 04:56 PM [facility]AC[facility] Aug 20, 2018 04:56 PM VA-TOBACCO QUIT 15 YRS OR [facility]- [facility] Nov 19, 2016 09:49 AM LIFETIME NON-USER OF [facility] - [facility] TOBACCO [facility] Dec 13, 2015 03:30 PM QUIT TOBACCO >7 YEARS AGO [facility]- [facility] Dec 09, 2014 09:06 AM QUIT TOBACCO >7 YEARS AGO [facility]- [facility] Jan 29, 2014 08:56 AM LIFETIME NON-USER OF [facility] - [facility] TOBACCO [facility] Jun 11, 2012 01:32 PM QUIT TOBACCO >7 [facility]GO [facility] Feb 01, 2009 09:26 AM LIFETIME NON-USER OF [facility] - [place] TOBACCO quit [address] [place] [address] Aug 19, 2001 09:28 AM HISTORY OF SMOKING [place]- [place] NEW Quit 2 yrs ago, 18 pack-yr Hx. J [facility] Encounter Notes: All associated encounter notes This section contains the clinical notes associated to the Encounter. Date/Time Encounter Note(s) Provider Source Jan 23, 2022 02:49 PM EDUCATION NOTE: SHIN ALCAZAR [facility] TITLE: PATIENT HEALTH EDUCATION [facility] STANDARD TITLE: EDUCATION NOTE DATE OF NOTE: JAN 23, 2022@14:49 ENTRY DATE: JAN 23, 2022@14:49:22 AUTHOR: SHIN ALCAZAR EXP COSIGNER: URGENCY: STATUS: COMPLETED EDWARD,ANGIE PITA is a 56 years old, MALE seen in Dermatology clinic as scheduled for examination. In compliance with National Patient Safety Goals , was able to provide report writer with two iden tifiers. Discussed skin care concerns and the reason for today's visit and answered questions. COVID- 19 screening negative. The PRIMARY CONCERN today is red dots on the skin PATIENT RESPONSIBILITY Advised of responsibilities in care: --Participating in plan of care and asking quest ions as needed --Keeping follow-up appointments as directed --Handouts available on sun safety/skin cancer Evaluation: verbalized understanding of topics discussed. /jacki/ Shin Alcazar RN, BSN Staff Nurse Signed: 01/23/2022 14:51 Jan 23, 2022 02:20 PM DERMATOLOGY CONSULT: WILLY SCHULTZ [facility] TITLE: DERMATOLOGY CONSULT [facility] STANDARD TITLE: DERMATOLOGY CONSULT DATE OF NOTE: JAN 23, 2022@14:20 ENTRY DATE: JAN 23, 2022@14:20:18 AUTHOR: WILLY SCHULTZ EXP COSIGNER: URGENCY: STATUS: COMPLETED This 56 year old WHITE MALE presents with chief complaint of: red dots History of Present Illness: -Pt is concerned about red dots on his trunk w hich are asymptomatic but he is concerned why he is getting. -He is also concerned about a couple of skin tag s around his neck and in left groin area. No other concerns. Dermatology History: Denies any history of skin cancer Medical History: Reviewed Review of System: Denies fatigue, anorexia, involuntary weight mihaela nge, fever, night sweats. General Appearance: Constitutional: Appears well-developed, well-nou rished, in no apparent distress. Neuropsychiatric: Alert and oriented; pleasant a ffect/mood. Physical Exam: skin exam: scalp, face, neck, chest, back, abdom en, right and left arm, hands, groin - Discrete salazar red papules on the trunk, arms . (LOC) - Skin-colored to slightly hyperpigmented fleshy pedunculated papules in axillae, around neck, groin. (LOC) - Tgoqosyq-lv-fqtf sun damage, scattered contreras/bro wn reticulated macules in sun distribution and few well demarcated evenly pigm ented and evenly bordered contreras and brown macules and papules on the trunk with benign pattern on dermoscopy. - Stuck-on, greasy brown papules with pseudo-hor n cysts distributed on the back. Assessment/Plan: 1-Salazar angiomas: Reassurance was provided. 2-Acrochordons: Reassured. - Verbal consent taken. We discussed risks of cr yotherapy including scabbing, crusting, pain, blistering, pigmentary change, r emote possibility of scarring. - LN2 x1 on the left groin; wound care discussed , and information sheet provided 3-Nevi and lentigines and mild/moderate dermatoh eliosis: Monitor moles for change/self-exam. Preventive therapy discussed: Avoid sun exposure between 10 am and 4 pm Sunscreen: SPF # 30 or more; re-apply q. 2hours, daily Protective clothing/ 6-dijo-dcue-brim hat No tanning 4-Seborrheic keratoses: I explained to the patie nt that these lesions are benign, and no treatment is necessary. Pt reassu red. RTC: prn Active Outpatient Medications (excluding Supplie s): Active [...] TAKE ONE TABLET BY MO UTH ACTIVE (S) DAILY FOR ALLERGY 6) EMPAGLIFLOZIN 25MG TAB [...] E CAP,ORAL MOUTH ACTIVE 16 Total Medications Allergies/Adverse Reaction: PENICILLIN Vital Signs, Per Nursing Reviewed: Temperature: 96.7 F [35.9 C] (01/23/2022 13:48) Pulse: 57 (01/23/2022 13:48) Respiration: 20 (01/23/2022 13:48) Blood Pressure: 137/78 (01/23/2022 13:48) Pain: 0 (01/23/2022 13:48) /jacki/ WILLY SCHULTZ MD Staff In Store Marketer Signed: 01/23/2022 14:33
--- OUTSIDE RECORDS SUMMARY | 2022-10-02 10:33 | XMS_ITS | Encounter Summary ---
:1965 Author Organization [facility] Address [address] [place] [id number] Support Name Relationship Address Phone DENISSE LEON Unavailable [address] [facility] [place] [address] NONE, GIVEN Unavailable Unavailable Unavailable Insurance Providers: [...] POINT OF [facility] Feb [id number] [phone] HUTTIG ME PATIENT SERVICE INTER 2011 [id number] [place]ERO [place]IO [place] AETNA PRESCRIPT [facility] Feb [id number] [phone] [facility] PATIENT PHARMACY ION INTER 2011 [id number] VERO MANAGEMENT NATIO 1 [place] BCBS [place] PREFERRED BASIC Nov 30 [id number] [phone] COBY LEON PATIENT FEP PROVIDER FAMIL 2017 [id number] VERO ORGANIZAT Y ION (PPO) BCBS OF [place] DENTAL [place]ENT[place] Nov 30 [id number] [phone] COBY LEON PATIENT FEP INSURANCE L 112 2017 62 5 VERO (DENTAL) [place] PREFERRED BASIC Nov 30 [id number] [phone] COBY METZ PATIENT FEP PROVIDER FAMIL 2017 62 5 VERO ORGANIZAT Y ION (PPO) [place]BS OF [place] PREFERRED STAND March 26 [id number] [phone] COBY METZ PATIENT (FEDERAL) 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 2015 62 7 VERO ORGANIZAT IND ION (PPO) 104 CAREMARK PRESCRIPT FEP March 26, [id number] [phone] CONR OY,ME PATIENT ([id number]) ION 2015 0 62 7 VERO CAREMARK-F PRESCRIPT FEP Nov 30, [id number] [phone] [place] PATIENT EP BCBS ION CAREM 2018 0 62 1 VERO ARK CAREMARK-F PRESCRIPT FEP Nov 30, [id number] [phone] PATIENT EP BCBS ION 2018 0 [id number] VERO CAREMARK-F PRESCRIPT SHERI Nov 30, [id number] [phone] [place] PATIENT EP BCBS ION AL [id number] 0 [id number] VERO RX CAREMARK-F PRESCRIPT SHERI Nov 30, [id number] [phone] CO NROY,[place] PATIENT EP BCBS ION AL 2018 0 62 1 VERO RX HORIZON PREFERRED BASIC Nov 30 [id number] [phone] EDWARD ,ME PATIENT BCBS FEP* PROVIDER FAMIL 2017 62 8 VERO ORGANIZAT Y ION (PPO) HORIZON PREFERRED BASIC Nov 30 [id number] [phone] EDWARDME PATIENT FEDERAL PROVIDER FAMIL 2018 62 8 VERO ORGANIZAT Y ION (PPO) [place] DEPART WORKERS' OWCP Jul 01, NONE [id number] [phone] COBY REYNOLDS PATIENT OF LABOR COMPENSAT MEDIC 2018 [id number] VERO MED DFEC ION AL INSURANCE DFEC [place] DEPT OF WORKERS' WORKE Jul 01, WORKERS [id number] [phone] ROBERT SAABME PATIENT LABOR COMPENSAT RS 2019 COMP [id number] VERO ION COMP INSURANCE Selected Encounter This section includes the information on record at [facility] for the Encounter. Date/Time Encounter Type Encounter Reason Provider Source Description Dec 11, 2021 DETERMINE OPTOMETRY ICD-10-CM E11.3293 DOMINIQUE ESPINOSA 08:00 AM REFRACTIVE Type 2 diab with mild [place] nonp rtnop without macular edema, bi with Provider Comments: Type 2 diabetes mellitus with mild nonproliferative diabetic retinopathy without macular edema, bilateral IHE Encounter Template Text not used by [facility] Assessments - Encounter Diagnoses This section includes the primary and secondary diagnoses documented for the Encounter. Date/Time Primary/Secondary Diagnosis Name Provider Source Diagnosis Dec 11, 2021 PRIMARY Type 2 diab with TARDANICO,SRI HSAH- V A 11:14 AM mild nonp rtnop [place] without macular HCS edema, bi Dec 11, 2021 SECONDARY Age-related TARDANICO,SRI [facility]- [place] 11:[place] nuclear cataract, [place] bilateral HCS Dec 11, 2021 SECONDARY Preglaucoma, TARDANICO,SRI [facility]- [place] 11:14 AM unspecified, [place] bilateral HCS Dec 11, 2021 SECONDARY Presbyopia TARDANICO,SRI [facility]- [place] 11[place] H[facility] Dec 11, 2021 SECONDARY Strabismic TARDANICO,SRI [facility]- [place] 11[place] amblyopia, [place] unspecified eye [facility] Plan of Treatment: Future Appointments (+ 6 months) and Future Tests (+/- 45 days) The Plan of Treatment section includes future care activities for the patient from all ME treatmentfacilities. This section includes future appointments and future orders which are active, pending orscheduled.Future Appointments This section includes appointments that were scheduled to occur 6 months from the date of the Encounter, up to a maximum of 20 appointments. The data comes from all ME treatment facilities. Appointment Date/Time Appointment Type Appointment Facili ty Name Dec 21, 2021 11:30 AM AMBULATORY - MEDICINE [facility] Jan 18, 2022 09:30 AM AMBULATORY - MEDICINE [facility] Jan 23, 2022 02:00 PM AMBULATORY - MEDICINE [facility] Jan 24, 2022 01:00 PM AMBULATORY - PSYCHIATRY [facility] Feb 01, 2022 08:00 AM AMBULATORY - PSYCHIATRY [facility] Feb 01, 2022 09:00 AM AMBULATORY - PSYCHIATRY [facility] Feb 19, 2022 03:00 PM AMBULATORY - MEDICINE [facility] Mar 01, 2022 08:00 AM AMBULATORY - PSYCHIATRY [facility] April 05, 2022 09:00 AM AMBULATORY - PSYCHIATRY [facility] April 10, 2022 10:00 AM AMBULATORY - PSYCHIATRY [facility] April 12, 2022 09:00 AM AMBULATORY - NONE [facility] April 12, 2022 10:00 AM AMBULATORY - [facility]ICINE [facility] Apr 24, 2022 10:00 AM AMBULATORY - PSYCHIATRY [facility] May 01, 2022 08:00 AM AMBULATORY - MEDICINE [facility] May 08, 2022 10:00 AM AMBULATORY - PSYCHIATRY [facility] Lab Results: +/- 30 days of [...] - Unit Interpretation Reference Range Comment Jan 07, 2022 07:10 [facility] COVID-19 MONITOR Specimen Ty pe: OROPHARYNX PM [facility] PANEL([facility]) No comment enter ed. Ordering Provid er: ASHWINI SARMIENTO Report Released Date/Time: Dec 26, 2021 09:07 AM Reporting Lab: [facility] [address] [facility] [id number] Performing Lab: [facility] [address] [facility] [address] COVID-19 ([id number]) Not Detected Not De tected Dec 27, 2021 12:00 [facility] COVID-19 MONITOR Specimen Ty pe: OROPHARYNX AM [facility] PANEL([facility]) No comment enter ed. Ordering Provid er: ASHWINI SARMIENTO Report Released Date/Time: Dec 26, 2021 09:07 AM Reporting Lab: [facility] [address] [facility] [address] Performing Lab: [facility] [address] [facility] [address] COVID-19 ([id number]) Not Detected Not De tected Dec 25, 2021 12:08 [facility] NEW COVID-19 MONITOR Specimen Ty pe: OROPHARYNX PM [facility] PANEL([facility]) No comment enter ed. Ordering Provid er: ASHWINI SARMIENTO Report Released Date/Time: Nov 23, 2021 07:35 PM Reporting Lab: [facility] [address] [facility] [address] Performing Lab: [facility] [address] [facility] [address] COVID-19 ([id number]) Not Detected Not De tected Dec 18, 2021 03:44 [facility] NEW COVID-19 MONITOR Specimen Ty pe: OROPHARYNX PM [facility] PANEL([facility]) No comment enter ed. Ordering Provid er: ASHWINI SARMIENTO Report Released Date/Time: Oct 24, 2021 02:22 PM Reporting Lab: [facility] [address] [facility] [address] Performing Lab: [facility] [address] [facility] [address] COVID-19 ([id number]) Not Detected Not De tected Dec 11, 2021 03:19 [facility] NEW COVID-19 MONITOR Specimen Ty pe: OROPHARYNX PM [facility] PANEL([facility]) No comment enter ed. Ordering Provid er: ASHWINI SARMIENTO Report Released Date/Time: Oct 24, 2021 02:22 PM Reporting Lab: [facility] [address] [facility] [address] Performing Lab: [facility] [address] [facility] [address] COVID-19 ([id number]) Not Detected Not De tected Dec 06, 2021 12:00 [facility] NEW COVID-19 MONITOR Specimen Ty pe: OROPHARYNX [facility] PANEL([facility]) No comment enter ed. Ordering Provid er: ASHWINI SARMIENTO Report Released Date/Time: Oct 24, 2021 02:22 PM Reporting Lab: [facility] [address] [facility] [address] Performing Lab: [facility] [address] [facility] [address] COVID-19 ([id number]) Not Detected Not De tected Dec 04, 2021 03:01 [facility] NEW COVID-19 MONITOR Specimen Ty pe: OROPHARYNX PM [facility] PANEL([facility]) No comment enter ed. Ordering Provid er: ASHWINI SARMIENTO Report Released Date/Time: Oct 24, 2021 02:22 PM Reporting Lab: [facility] [address] [facility] [address] Performing Lab: [facility] [address] [facility] [address] COVID-19 ([id number]) Not Detected Not De tected Nov 29, 2021 04:08 [facility] COVID-19 MONITOR Specimen Ty pe: OROPHARYNX PM [facility] PANEL([facility]) Comment: Test P erformed by NAHUM Lemus Ordering Provid er: ASHWINI SARMIENTO Report Released Date/Time: Oct 24, 2021 02:22 PM Reporting Lab: [facility] [address] [facility] [address] Performing Lab: [facility] [address] [facility] [address] COVID-19 ([id number]) Not Detected Not De tected Nov 27, 2021 12:23 [facility] COVID-19 MONITOR Specimen Ty pe: OROPHARYNX PM [facility] PANEL([facility]) Comment: Test P erformed by NAHUM Lemus Ordering Provid er: ASHWINI SARMIENTO Report Released Date/Time: Oct 01, 2021 06:02 PM Reporting Lab: [facility] [address] [facility] [address] Performing Lab: [address] [address] COVID-19 ([id number]) Not Detected Not De tected Social History: Smoking Status (Most current) and Tobacco Use (All prior to encounter date) This section includes the most current, and the historical, smoking and tobacco-related health factors from the ME facility where the Encounter took place.Current Smoking Status This section includes the most current smoking, or tobacco-related health factor, from the ME facility where the Encounter took place. Date/Time Current Smoking Status Comment Facility Jun 29, 2021 09:00 AM ME-TOBACCO FORMER USER [facility] Tobacco Use History This section includes a history of the smoking, or tobacco- related health factors, that were collected on or before the date of the Encounter. The data comes from the ME facility where the Encounter took place. Date/Time Smoking Status/Tobacco Use Comment Nova dodson Jun 29, 2021 09:00 AM ME-TOBACCO QUIT 15 YRS OR [facility] Jul 20, 2020 10:30 AM VA-TOBACCO NEVER USED [place]- [facility] Aug 12, 2019 03:12 PM VA-TOBACCO FORMER USER [facility] Aug 12, 2019 03:12 PM VA-TOBACCO QUIT 15 YRS OR [facility]- [facility] Aug 20, 2018 04:56 PM VA-TOBACCO FORMER USER [facility]- [facility] Aug 20, 2018 04:56 PM VA-TOBACCO QUIT 15 YRS OR [facility]- [facility] Nov 19, 2016 09:49 AM LIFETIME NON-USER OF [facility] - [facility] TOBACCO [facility] Dec 13, 2015 03:30 PM QUIT TOBACCO >7 YEARS AGO [facility] Dec 09, 2014 09:06 AM QUIT TOBACCO >7 YEARS AGO [facility] Jan 29, 2014 08:56 AM LIFETIME NON-USER OF [facility] - [facility] TOBACCO [facility] Jun 11, 2012 01:32 PM QUIT TOBACCO >7 YEARS AGO [facility] Feb 01, 2009 09:26 AM [facility] TOB[facility] quit [address] [place] [address] Aug 19, 2001 09:28 AM HISTORY OF SMOKING [facility] Quit 2 yrs ago, 18 pack-yr Hx. J ARA [facility] Encounter Notes: All associated encounter notes This section contains the clinical notes associated to the Encounter. 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 06/23/2019 SHOBHA QIU Obesity E66.09 01/15/2018 POSTNEISHA ROBLERO Diabetic retinopathy associated with 11/06/2017 MARIA DEL ANGEL SENSORINEURAL HEARING LOSS, BILATERAL 07/18/2014 JAMES MENENDEZ 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 07/18/2014 LINNEA MENENDEZ L Migraine, unspecified, without mentio 11/22/2009 ANA MARIA BLOCK HYPOSPADIES 799.9 11/22/2009 ANA MARIA BLOCK Asthma sometimes restricts exercise ( 03/16/2021 AJMES ROBERTSON Fatty Liver 799.9 08/19/2001 MARIA GUADALUPE ACOSTA <<If Diabetic Check Here HEMOGLOBIN A1C 09/27/21 08:27 7.8 H Chief Complaint: 56 year old WM here for dm eye eval and management. HPI: (+) Type 2 DM; no vision complaints - Onset: over 10 years - LBS 165 mg/dL, HbA1C 7.8% (per CPRS), Pt is c ompliant with meds - H/o mild NPDR OU Patient currently wears sepa rate DVO and NVO spectacles that are around one year old. Patient says they work well for him , and he would like a new pair of NVOs at today's visit. Denies pain, loss of vision, f lashes, floaters, diplopia, burning, itching, and tearing. Last eye exam: 12/12/2020 Ocular History (+) Strabismic amblyopia OS: esotropia (+)Glaucoma suspect secondary to cupping LDFE 12/14 (CD 0.7, 0.7) LIOP TMAX PACH 607/604 LVF 05/2019: OD: MD:-3.82 DB, [...] (-) GL/AMD Current Medications: Ophthalmic meds: OD: None OS: None Current General Meds: Active Outpatient Medications (excluding [...] TABLET BY NGUYEN TH DAILY ACTIVE (S) 7) ENALAPRIL MALEATE 2.5MG TAB TAKE ONE [...] E CAP,ORAL MOUTH ACTIVE 17 Total Medications ALLERGIES DISPLAYED IN VISTA: PENICILLIN MENTAL STATUS: alert and attentive VISUAL ACUITY: Distance without correction OD: 20/20- OS: 20/80- PH: NI Current Rx OD: -0.50 sph OS: plano Add +2.00 NEUROLOGIC: Ocular motilities: full and smooth OU Confrontational visual mccullough: full to finger c ounting OD/OS Pupils: OD: 3/5 mm OS: 3/5 mm, equally reactive to light OU Relative APD: none Manifest OD: -0.50 sph 20/20 OS: plano 20/70-2 Add +2.00 20/20 SLIT LAMP EXAM: Lids/lashes: OD: clear OS: clear Cornea: OD: inf SPK 1+ OS: tr inf SPK Conjunctiva: OD: white and quiet OS: white and quiet Ant. Chamber: OD: deep and quiet OS: deep and q uiet Angle: OD: VH3 OS: VH3 Iris: OD: flat and intact, (-)NVI OS: flat and intact, (-)NVI Lens: OD: NS 1+ OS: NS 1+ TONOMETRY (Applanation): 1 gtt Tetracaine 0.5% a nd NaFl strip OU at 8:21 AM OD 17 mmHg OS 18 mmHg POSTERIOR (Dilated): 1 gtt Tropicamide 1% OU at 8:22 AM Vitreous: OD: Syneresis OS: Syneresis Optic disc: Perfused, healthy rims OU, Distinct margins OU, (-)NVD OU Description: OD: 0.7 OS: 0.7 , deep cupping; (+ )large discs ou Macula: 1 dot heme OU, (-)CSME OU Posterior pole: OD:dot heme ST arcade with smal l exudates, pinpoint dot blot heme IT and IN arcades OS: small dot heme directly superior to ONH (-)hemes/CWS/VB/exudates/ELIS/NVE OU Vessels: normal caliber OU Periphery: flat and intact OU, (-) breaks/detac hments 360 OU, (-)exudates/hemes/NVE OU Assessment/Plan: A1. Moderate NPDR OD and Mild NPDR OS; without c sme ou P1. Patient educated on toda y's findings. Patient is aware of the importance of controlling blood sugar, compliance with medications, and regularly seeing his PCP, as diabetes can lead to loss of vision. Con tinue to monitor in 4 months with DFE or sooner PRN. A2. Glaucoma suspect OU, secondary to large lluvia ing; iop and cupping stable. P2. Patient educated on today's findings. No yefri atment is indicated at this time. Continue to monitor at next follow-up in 4 months and update 24-2 HVF after next visit. A3. Cataracts OU P3. Patient educated on toda y's findings. Cataracts are not visually significant and do not warrant surgery a t this time. Continue to monitor at next CEE in one year or sooner PRN. A4. strabismic amblyopia;Presbyopia - vision sta ble P4. Patient educated on today's findings. New NV Os were ordered at today's visit. monitor. rtc sooner if vision changes. Patient educated on post-mydriatic effects RTC in 4 months optometry, or sooner PRN /jacki/ NESS ESPINOSA OD Signed: 12/11/2021 11:15
--- OUTSIDE RECORDS SUMMARY | 2022-10-02 10:33 | XMS_ITS | Encounter Summary ---
:1965 Author Organization [facility] Address [address] [place] [id number] Support Name Relationship Address Phone DENISSE LEON Unavailable [address] [place] [place] [address] NONE, GIVEN Unavailable Unavailable Unavailable Insurance Providers: [...] to Policy Number Chen AETNA [facility] Feb [id number] [phone] [place] PATIENT SERVICE INTER 2011 [id number] [place] AETNA [facility] Feb [id number] [phone] COBY LEON PATIENT PHARMACY ION INTER 2011 [id number] VERO MANAGEMENT NATIO 1 [place] BCBS [place] PREFERRED BASIC Nov 30 [id number] [phone] COBY LEON PATIENT FEP PROVIDER FAMIL 2017 [id number] VERO ORGANIZAT Y ION (PPO) [place]BS [place] DENTAL [place] Nov 30 [id number] [phone] COBY LEON PATIENT FEP INSURANCE L [id number] 2017 62 5 VERO (DENTAL) [place] PREFERRED BASIC Nov 30 [id number] [phone] COBY METZ PATIENT FEP PROVIDER FAMIL 2017 62 5 VERO ORGANIZAT Y ION (PPO) [place]BS OF [place] PREFERRED STAND March 26 [id number] [phone] COBY METZ PATIENT (FEDERAL) 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 2015 62 7 VERO ORGANIZAT IND ION (PPO) 104 CAREMARK PRESCRIPT FEP March 26, [id number] [phone] [place] PATIENT ([id number]) ION 2015 0 62 7 VERO CAREMARK-F PRESCRIPT FEP Nov 30, [id number] [phone] [place] PATIENT EP BCBS ION CAREM 2018 0 [id number] 1 VERO ARK CAREMARK-F PRESCRIPT FEP Nov 30, [id number] [phone] [place] PATIENT EP BCBS ION 2018 0 [id number] VERO CAREMARK-F PRESCRIPT SHERI Nov 30, [id number] [phone] [place] PATIENT EP BCBS ION AL 2018 0 62 1 VERO RX CAREMARK-F PRESCRIPT SHERI Nov 30, [id number] [phone] [place] PATIENT EP BCBS ION AL [id number] VERO RX HORIZON PREFERRED BASIC Nov 30 [id number] [phone] EDWARDWI PATIENT BCBS FEP* PROVIDER FAMIL 2018 62 8 VERO ORGANIZAT Y ION (PPO) HORIZON PREFERRED BASIC Nov 30 [id number] [phone] EDWARDWI PATIENT FEDERAL PROVIDER FAMIL 2018 62 8 VERO ORGANIZAT Y ION (PPO) [place] DEPART WORKERS' OWCP Jul 01, NONE [id number] [phone] INDIGO CruzWI PATIENT OF LABOR COMPENSAT MEDIC 2018 [id number] VERO MED DFEC ION AL INSURANCE DFEC [place] DEPT OF WORKERS' WORKE Jul 01, WORKERS [id number] [phone] ROBERT SAAB,[place] PATIENT LABOR COMPENSAT RS 2019 [id number] VERO ION COMP INSURANCE Selected Encounter This section includes the information on record at [facility] for the Encounter. Date/Time Encounter Type Encounter Reason Provider Source Description Nov 30, 2021 OFFICE O/P EST MENTAL HEALTH ICD-10-CM F33.1 GEORG[place]NA CARRILLO 09:00 AM LOW 20-29 MIN CLINIC - IND Major depressive disorder, recurrent, moderate with Provider Comments: Moderate major depression ([facility] [id number]) IHE Encounter Template Text not used by VA Assessments - Encounter Diagnoses This section includes the primary and secondary diagnoses documented for the Encounter. Date/Time Primary/Secondary Diagnosis Name Provider Source Diagnosis Nov 30, 2021 PRIMARY Major depressive GEORGIANA CARRILLO [facility] 12:56 PM [facility], [facility] recurrent, moderate Plan of Treatment: Future Appointments (+ 6 months) and Future Tests (+/- 45 days) The Plan of Treatment section includes future care activities for the patient from all PA treatmentfacilities. This section includes future appointments and future orders which are active, pending orscheduled.Future Appointments This section includes appointments that were scheduled to occur 6 months from the date of the Encounter, up to a maximum of 20 appointments. The data comes from all PA treatment facilities. Appointment Date/Time Appointment Type Appointment Facili ty Name Dec 11, 2021 08:00 AM AMBULATORY - SURGERY [facility] SHAUNA [facility] Dec 21, 2021 11:30 AM AMBULATORY - MEDICINE [facility] Jan 18, 2022 09:30 AM AMBULATORY - MEDICINE [facility] Jan 23, 2022 02:00 PM AMBULATORY - MEDICINE [facility] Jan 24, 2022 01:00 PM AMBULATORY - PSYCHIATRY [facility] Feb 01, 2022 08:00 AM AMBULATORY - PSYCHIATRY [facility] Feb 01, 2022 09:00 AM AMBULATORY - PSYCHIATRY [facility] Feb 19, 2022 03:00 PM AMBULATORY - MEDICINE [facility] Mar 01, 2022 08:00 AM AMBULATORY - PSYCHIATRY [facility] April 05, 2022 09:00 AM AMBULATORY - PSYCHIATRY [facility] April 10, 2022 10:00 AM AMBULATORY - PSYCHIATRY [facility] April 12, 2022 09:00 AM AMBULATORY - NONE [facility] April 12, 2022 10:00 AM AMBULATORY - MEDICINE [facility] Apr 24, 2022 10:00 AM AMBULATORY - PSYCHIATRY [facility] May 01, 2022 08:00 AM AMBULATORY - MEDICINE [facility] May 08, 2022 10:00 AM AMBULATORY - PSYCHIATRY [facility] Lab Results: +/- 30 days [...] Result - Unit Interpretation Reference Range Comment Dec 27, 2021 12:00 [facility] NEW COVID-19 MONITOR Specimen Ty pe: OROPHARYNX AM [facility] PANEL([facility]) No comment enter ed. Ordering Provid er: ASHWINI SARMIENTO Report Released Date/Time: Dec 26, 2021 09:07 AM Reporting Lab: [facility] [address] [facility] [address] Performing Lab: [facility] [address] [facility] [address] COVID-19 ([id number]) Not Detected Not De tected Dec 25, 2021 12:08 [facility] NEW COVID-19 MONITOR Specimen Ty pe: OROPHARYNX PM [facility] PANEL([facility]) No comment enter ed. Ordering Provid er: ASHWINI SARMIENTO Report Released Date/Time: Nov 23, 2021 07:35 PM Reporting Lab: [facility] [address] [facility] [address] Performing Lab: [facility] [address] [facility] [address] COVID-19 ([id number]) Not Detected Not De tected Dec 18, 2021 03:44 [facility] NEW COVID-19 MONITOR Specimen Ty pe: OROPHARYNX PM [facility] PANEL([facility]) No comment enter ed. Ordering Provid er: ASHWINI SARMIENTO Report Released Date/Time: Oct 24, 2021 02:22 PM Reporting Lab: [facility] [address] [facility] [address] Performing Lab: [facility] [address] [facility] [address] COVID-19 ([id number]) Not Detected Not De tected Dec 11, 2021 03:19 [facility] NEW COVID-19 MONITOR Specimen Ty pe: OROPHARYNX PM [facility] PANEL([facility]) No comment enter ed. Ordering Provid er: ASHWINI SARMIENTO Report Released Date/Time: Oct 24, 2021 02:22 PM Reporting Lab: [facility] [address] [facility] [address] Performing Lab: [facility] [address] [facility] [address] COVID-19 ([id number]) Not Detected Not De tected Dec 06, 2021 12:00 [facility] NEW COVID-19 MONITOR Specimen Ty pe: OROPHARYNX AM [facility] PANEL([facility]) No comment enter ed. Ordering Provid er: ASHWINI SARMIENTO Report Released Date/Time: Oct 24, 2021 02:22 PM Reporting Lab: [facility] [address] [facility] [address] Performing Lab: [facility] [address] [facility] [address] COVID-19 ([id number]) Not Detected Not De tected Dec 04, 2021 03:01 [facility] NEW COVID-19 MONITOR Specimen Ty pe: OROPHARYNX PM [facility] PANEL([facility]) No comment enter ed. Ordering Provid er: ASHWINI SARMIENTO Report Released Date/Time: Oct 24, 2021 02:22 PM Reporting Lab: [facility] [address] [facility] [address] Performing Lab: [facility] [address] [facility] [address] COVID-19 ([id number]) Not Detected Not De tected Nov 29, 2021 04:08 [facility] NEW COVID-19 MONITOR Specimen Ty pe: [facility]) Comment: Test P erformed by NAHUM Lemus Ordering Provid er: ASHIWNI SARMIENTO Report Released Date/Time: Oct 24, 2021 02:22 PM Reporting Lab: [facility] [address] [facility] [address] Performing Lab: [facility] [address] [facility] [address] COVID-19 ([id number]) Not Detected Not De tected Nov 27, 2021 12:23 [facility] NEW COVID-19 MONITOR Specimen Ty pe: OROPHARYNX PM [facility] PANEL([facility]) Comment: Test P erformed by NAHUM Lemus Ordering Provid er: ASHWINI SARMIENTO Report Released Date/Time: Oct 01, 2021 06:02 PM Reporting Lab: [facility] [address] [facility] [address] Performing Lab: [facility] [address] [facility] [address] COVID-19 ([id number]) Not Detected Not De tected Nov 02, 2021 03:15 [facility] COVID-19 MONITOR Specimen Ty pe: OROPHARYNX PM [facility] PANEL([facility]) Comment: Test P erformed by NAHUM Lemus Ordering Provid er: ASHWINI SARMIENTO Report Released Date/Time: Oct 01, 2021 06:02 PM Reporting Lab: [facility] [address] [facility] [address] Performing Lab: [facility] [address] [facility] [address] COVID-19 ([id number]) Not Detected Not De tected Social History: Smoking Status (Most current) and Tobacco Use (All prior to encounter date) This section includes the most current, and the historical, smoking and tobacco-related health factors from the PA facility where the Encounter took place.Current Smoking Status This section includes the most current smoking, or tobacco-related health factor, from the PA facility where the Encounter took place. Date/Time Current Smoking Status Comment Facility Jun 29, 2021 09:00 AM VA-TOBACCO FORMER USER [facility] Tobacco Use History This section includes a history of the smoking, or tobacco- related health factors, that were collected on or before the date of the Encounter. The data comes from the PA facility where the Encounter took place. Date/Time Smoking Status/Tobacco Use Comment [facility] Jun 29, 2021 09:00 AM VA-TOBACCO QUIT 15 YRS OR [facility] Jul 20, 2020 10:30 AM VA-TOBACCO NEVER USED [facility] Aug 12, 2019 03:12 PM [facility] Aug 12, 2019 03:12 PM VA-TOBACCO QUIT 15 YRS OR [facility] Aug 20, 2018 04:56 PM [facility] Aug 20, 2018 04:56 PM VA-TOBACCO QUIT 15 YRS OR [facility] Nov 19, 2016 09:49 AM LIFETIME NON-USER OF [facility] NEW TOBACCO [facility] Dec 13, 2015 03:30 PM QUIT TOBACCO >7 YEARS AGO [facility] Dec 09, 2014 09:06 AM QUIT TOBACCO >7 YEARS AGO [facility] Jan 29, 2014 08:56 AM LIFETIME NON-USER OF [facility] - [place] NEW TOBACCO [facility] Jun 11, 2012 01:32 PM QUIT TOBACCO >7 YEARS AGO [facility] Feb 01, 2009 09:26 AM LIFETIME NON-USER OF [facility] NEW TOBACCO quit 1998 [facility] Aug 19, 2001 09:28 AM HISTORY OF SMOKING [facility] NEW Quit 2 yrs ago, 18 pack-yr Hx. J [facility] Encounter Notes: All associated encounter notes This section contains the clinical notes associated to the Encounter. Date/Time Encounter Note(s) Provider Source Nov 30, 2021 09:06 AM SUICIDE PREVENTION RISK ASSESSMENT SCR EENING NOTE: GEORGIANA CARRILLO [facility] LOCAL TITLE: SUICIDE RISK EVALUATION - COMPREHE NSIVE [facility] STANDARD TITLE: SUICIDE PREVENTION RISK ASSESSME NT SCREENING NOT DATE OF NOTE: NOV 30, 2021@09:06 ENTRY DATE: NOV 30, 2021@09:08:17 AUTHOR: GEORGIANA CARRILLO EXP COSIGNER: URGENCY: STATUS: COMPLETED Comprehensive Suicide Risk Evaluation This is a new suicide risk evaluation. Suicidal Ideation The has not had thoughts of engaging in suicide-related behavior. The [place] does have access to lethal means (f irearms). Number of firearms/storage: 1 Suicide Behavior The did not report any prior suicide at tempts that have not been previously documented. 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 Warning Signs Verbal or non-verbal expression of suicidal melissa ation or behavior: Anxiety Sleep disturbance Additional past warning signs include: Risk Factors Access to lethal means Please Describe: 1 in safe History of mental health hospitalization Please Describe: years ago Psychological conditions or symptoms Please Describe: insomnia Medical conditions and health-related problems Please Describe: insomnia Protective Factors and Reasons for Living Has a significant other Comment: Hope for the future Comment: hope for future Protective personal traits or beliefs Comment: be;iefs against suicide Reports alevism or spiritual beliefs/connecti ons Comment: alevism beliefs Strong desire to live Comment: strong desire to live Clinical Impressions: The clinical impression of acute risk is Low AC UNALAKLEET Risk. As evidenced by: no current intent or recent or eparatory behavior The clinical impression of chronic risk is Low CHRONIC Risk. As evidenced by: no chronic suicidal ideation n o self inflicted violence Suicide Risk Mitigation Plan: This treatment and care plan was developed in [facility] with the [facility]. [facility] Mit[facility] Plan: General Strategies to Manage Risk Provide lethal means safety counseling A gun lock(s) was provided. Review of prescribed medications for risk for s elf-harm and/or new pharmacotherapy intervention to reduce suicide risk Comment: medication reduce risk of suicide Address barriers to treatment engagement By: as needed Address psychosocial needs By: as needed Address medical conditions By: as needed Conduct medication reconciliation Provide [facility] with phone number for 's Crisis Line: (press 1). Re-evaluation: Due to the dynamic nature of some warning signs, risk and protective factors, suicide risk should be routi [place] re-evaluated. These risk management strategies were chosen to address 's current present ation and feasible treatment options within the system of care. This plan should be re-evaluated over time. /jacki/ GEORGIANA CARRILLO MD STAFF PSYCHIATRIST Signed: 11/30/2021 18:25 Nov 30, 2021 08:59 AM MENTAL HEALTH NOTE: FRINO,GEORGIANA M [facility] LOCAL TITLE: MH&BS//INDIVIDUAL HCS STANDARD TITLE: MENTAL HEALTH NOTE DATE OF NOTE: NOV 30, 2021@08:59 ENTRY DATE: NOV 30, 2021@08:59:17 AUTHOR: GEORGIANA CARRILLO EXP COSIGNER: URGENCY: STATUS: COMPLETED Provider location [address] , [place] [address] Tel LOCATION [address] [place] [address], [place] [address] TEL [phone] 30 minutes visit DX Depression [facility] is a 56 y/ o male service connected with depression contacted at [phone] for follow/up and medication man agement as scheduled . Patient described himself as pretty good since v acation his symptoms are manageable sleep is fine 7-7 hours somet imes erratic after 2 weeks of vacation energy is low ,appetite is fine. mood has been s table worries at times as usual.he denies depressive symptoms , le isure time is dedicated to work around the house . Compliant with medication and follow /up . Compliant with medication and follow/up side eff ects reported. Brief supportive therapy. Active Problem Moderate major depression F33.1 06/23/2019 [...] 799.9 08/19/2001 MARIA GUADALUPE ACOSTA MSE Appearance well kept Behavior cooperative Orientation fully alert oriented x3 cognitive gr ossly intact Speech normal tone rate , volume Thought process logical no derailment , persever ation , looseness of association , thought blocking. Thought content no delusion elicited , no parano id thinking Perception denies a/v hallucination Affect appropriate Mood neutral Suicidal / homicidal idea denies no intent no pl an. Insight / judgement fair Plan RTC 02/01/2022 Continue current management [facility] made aware of emergency services 911 , h ot line crisis [phone] ER, walking clinic. [facility] made aware of additive effects of psycho tropic medication , alcohol and illicit substance at [place] level , und erstands and agrees with [...] E CAP,ORAL MOUTH ACTIVE 17 Total Medications I have reviewed all VA medications and non-VA me dications including OTC, herbals, and vitamins with the patient. The medications noted above are appropriate and should be continued. PREVENTIVE HEALTH Homelessness/Food Insecurity Screen: In the past 2 [...] Not worried about housing near future The [place] reports the following: Within the past 12 months, you worried whether your food would run out before you got money to buy more. Never true Within the past 12 months, the food you bought just didn't last and you didn't have money to get more. Never true /es/ GEORGIANA CARRILLO MD STAFF PSYCHIATRIST Signed: 11/30/2021 18:26
== END 2022-10-02 11:33 | disposition home or self-care (01) ==
PROVIDERS: Emergency Provider Emergency Medicine
DX: U07.1 COVID-19 (principal); Z79.899 Other long term (current) drug therapy
CPT/HCPCS: 71045; 99283

== ENCOUNTER 2022-10-09 17:57 | Emergency (ER) | payer OTHER, SELFPAY | END 2022-10-09 19:47 | disposition left against medical advice (07) | PROVIDERS: Emergency Provider Emergency Medicine | DX: J02.9 Acute pharyngitis, unspecified (principal) ==